=== PATIENT | female | born 1945 | race Caucasian/White ===

== ENCOUNTER 2019-05-22 22:50 | Emergency (ER) | payer MEDICARE, OTHER, SELFPAY ==
[2019-05-22 22:58] VITALS: BP 116/70; PULSE 81; RESP 16; TEMP 36.3; O2SAT 96; BMI 26.5
--- NOTE | 2019-05-22 23:14 | ECG_ITS ---
Measurements Intervals [place] Rate: 89 P: 31 PA: 154 QRS: 13 QRSD: 88 T: 21 QT: 343 QTc: 419 SINUS RHYTHM POSSIBLE LEFT ATRIAL ENLARGEMENT [-0.1mV P WAVE IN V1/V2] POSSIBLE LEFT VENTRICULAR HYPERTROPHY [VOLTAGE CRITERIA PLUS LAE OR QRS WIDENING] Compared to ECG 05/02/2019 18:05:31 No significant changes Electronically Signed On 05-23-2019 14:57:46 REHABILITATION WORKER by Judith Fuller M.D. [id number]
[2019-05-23] VITALS (8 sets, daily range): BP systolic 101–124; BP diastolic 64–72; PULSE 74–82; RESP 10–22; O2SAT 16–96
--- NOTE | 2019-05-23 00:41 | XRR_ITS ---
PROCEDURE INFORMATION: Exam: XR Chest, 1 View Exam date and time: 05/23/2019 12:41 AM Age: 74 years old Clinical indication: Shortness of breath; Chest pain; Type not specified TECHNIQUE: Imaging protocol: XR of the chest Views: 1 view. COMPARISON: CR Chest 1 [place] [id number] 2019-04-30 08:04 FINDINGS: Lungs: No focal airspace consolidation. COPD. Pleural space: Unremarkable. No pleural effusion. No pneumothorax. Heart/Mediastinum: Unremarkable. No cardiomegaly. Bones/joints: Unremarkable. XR/XR chest 1V portable [id number] IMPRESSION: No focal airspace consolidation.
[2019-05-23 01:12] LABS: Basophils % 0.3 %; Eosinophils # 0.1 10^3/uL (0.0-0.8); Eosinophils % 1.6 %; Hematocrit 40.1 % (37.0-47.0); Hemoglobin 12.5 g/dL (11.5-15.3); Lymphocytes # 3.2 10^3/uL (0.8-4.8); Lymphocytes % 42.3 %; Mean Corpuscular HGB Conc 31.2 g/dL (30.0-36.0); Mean Corpuscular Hemoglobin 28.7 pg (28.0-34.0); Mean Platelet Volume 10.8 fL (7.4-10.4); Monocytes # 0.8 10^3/uL (0.2-0.9); Monocytes % 9.9 %; Neutrophils # 3.4 10^3/uL (1.8-7.7); Neutrophils % 45.2 %; Nucleated Red Blood Cells % 0 %; Platelet Count 424 10^3/cmm (130-400); Red Blood Count 4.36 10^6/uL (4.1-5.3); Red Cell Distribution Width 14.2 % (12.1-15.1); White Blood Count 7.6 10^3/uL (4.0-10.0)
[2019-05-23 01:22] LABS: Alanine Aminotransferase 21 U/L (0-33); Albumin Level 4.4 g/dL (3.5-5.2); Alkaline Phosphatase 111 IU/L (35-105); Anion Gap 17.4 (5-19); Aspartate Amino Transferase 20 U/L (0-32); Blood Urea Nitrogen 36 mg/dL (8-23); Calcium 10.4 mg/Dl (8.8-10.2); Carbon Dioxide 26 mmol/L (22-29); Chloride 98 mmol/L (98-107); Globulin 3.6 g/dL (1.3-4.6); Glucose 122 mg/dL (74-106); Potassium 4.4 mmol/L (3.5-5.1); Sodium 137 mmol/L (136-145); Total Bilirubin 0.2 mg/dL (0.15-1.2)
[2019-05-23 01:24] LABS: Troponin(5th) Baseline 10 ng/mL (0-10)
--- NOTE | 2019-05-23 01:44 | W.ED.CHESTPA ---
HPI - Chest Pain General: Chief Complaint: Chest Pain Stated Complaint: BACK/JAWS PAIN, DIZZY Time Seen by Provider: 05/23/19 01:44 Source: patient Mode of arrival: ambulatory Limitations: no limitations History of Present Illness: HPI narrative: Patient is a 74-year-old female who presents to ED today with complaints of chest pains; patient tells me she was recently admitted to the hospital in April where she was told that she had 4 leaky valves ; patient tells me she recently followed up with Dr. Dobbins who placed her on potassium, dasix, and isosorbide; she states she took all of these medications for the first time today and then laid down on the couch for a nap; patient tells me shortly after she woke up with severe chest pains that radiated up into bilateral jaws; states she felt nauseous and dizzy; patient reports her symptoms have improved upon arrival MD complaint: chest pain Onset (ago): hour(s) Prior episodes: No Onset: during rest Pain location: substernal Pain radiation: jaw/teeth Relieving factors: nothing Exacerbating factors: nothing Associated symptoms: Reports dyspnea (chronic for patient) and nausea; Deny abdominal pain, fever(s), palpitations, syncope or vomiting Treatment prior to arrival: none Related Data: On Oral Contraceptives: No Review of Systems Const: Denies: fever or chills Eyes: Denies: change in vision or blurry vision Card: Reports: chest pain; Denies: palpitations, irregular heart rhythm, lightheadedness, syncope or shortness of breath on exertion Resp: Reports: shortness of breath (chronic for patient); Denies: productive cough or pain on inspiration GI: Reports: nausea; Denies: abdominal pain, vomiting or diarrhea : Denies: painful urination Musc: Denies: neck pain, back pain or joint pain Skin/Breast: Denies: rash PFSH ED PFSH: Statuses (acute, chronic, etc) shown below reflect problem list status as previously entered and may not be historically accurate Medical History Cataract (Acute) DVT (deep venous thrombosis) (Acute) Hyperlipidemia (Acute) Mitral valve regurgitation (Acute) Rheumatoid arthritis (Acute) Surgical History H/O: hysterectomy (Acute) Social History Smoking and tobacco status: never smoked Second hand smoke exposure: No Alcohol intake: never Physical Exam Const: COMMON NORMALS: no apparent distress, oriented x3 and alert GENERAL APPEARANCE: cooperative HENMT: COMMON NORMALS: normocephalic and head/scalp atraumatic HEAD & SCALP: normal to inspection, normocephalic and atraumatic MOUTH: oral and palatal mucosa normal THROAT: posterior oropharynx normal, tonsils normal and uvula midline Eye: COMMON NORMALS: PERRL and EOMs intact bilaterally PUPIL: Yes PERRL Neck/C-Spine: COMMON NORMALS: full ROM, no lymphadenopathy, supple and no meningeal signs Resp: COMMON NORMALS: normal respiratory effort, no retractions, no use of accessory muscles and clear to auscultation bilaterally AUSCULTATION: clear to auscultation bilaterally Cardio: COMMON NORMALS: regular rate and regular rhythm RATE: regular rate RHYTHM: regular rhythm GI: COMMON NORMALS: normal to inspection, nondistended, normoactive bowel sounds, soft to palpation, non-tender, no hepatosplenomegaly and no masses PALPATION: Yes soft and Yes no hepatosplenomegaly Neuro: COMMON NORMALS: oriented x3 SENSORIUM/ORIENTATION: Yes alert MENINGEAL SIGNS: Yes no meningeal signs Course Vital Signs: Vital signs: Vital Signs Temperature 97.4 F L 05/22/19 22:58 Pulse Rate 75 05/23/19 03:41 Respiratory Rate 16 05/23/19 03:41 Blood Pressure 101/64 05/23/19 03:41 Pulse Oximetry 16 L 05/23/19 03:41 MDM - Chest Pain MDM Narrative: Medical decision making narrative: looked through previous hospitalization records-had chest wall pain throughout her stay; her CXR, EKG x 2 here, and trop/repeat trop were negative; echo while in hospital showed EF of 55%; heart score today is 3; spoke to Dr. Solis who too feels pt is stable for DC with follow up with either Dr. Mendiola or her PCP Lab Data: Labs: Lab Results 05/23/19 05/23/19 05/23/19 Range/Units 00:44 00:44 00:44 WBC 7.6 (4.0-10.0) 10^3/ uL RBC 4.36 (4.1-5.3) 10^6/u L Hgb 12.5 (11.5-15.3) g/dL Hct 40.1 (37.0-47.0) % MCV 92.0 (81-99) fL MCH 28.7 (28.0-34.0) pg MCHC 31.2 (30.0-36.0) g/dL RDW 14.2 (12.1-15.1) % Plt Count 424 H (130-400) 10^3/c mm MPV 10.8 H (7.4-10.4) fL Neut % (Auto) 45.2 % Lymph % (Auto) 42.3 % [place] % (Auto) 9.9 % Eos % (Auto) 1.6 % Baso % (Auto) 0.3 % Neut # (Auto) 3.4 (1.8-7.7) 10^3/u L Lymph # (Auto) 3.2 (0.8-4.8) 10^3/u L [place] # (Auto) 0.8 (0.2-0.9) 10^3/u L Eos # (Auto) 0.1 (0.0-0.8) 10^3/u L Baso # (Auto) 0.0 (0.0-0.1) 10^3/u L Nucleated RBC % (a uto) 0 % Nucleated RBCs # 0.0 /100WBC Sodium 137 (136-145) mmol/L Potassium 4.4 (3.5-5.1) mmol/L Chloride 98 (98-107) mmol/L Carbon Dioxide 26 (22-29) mmol/L Anion Gap 17.4 (5-19) BUN 36 H (8-23) mg/dL Creatinine 1.0 H (0.5-0.9) mg/dL Glucose 122 H (74-106) mg/dL Calcium 10.4 H (8.8-10.2) mg/Dl Total Bilirubin 0.2 (0.15-1.2) mg/dL AST 20 (0-32) U/L ALT 21 (0-33) U/L Alkaline Phosphata se 111 H (35-105) IU/L Troponin T Baselin e 10 (0-10) ng/mL Troponin T 120 Min [place] (0-10) ng/mL Delta Troponin T (0-10) ABS# Total Protein 8.0 (6.6-8.7) g/dL Albumin 4.4 (3.5-5.2) g/dL Globulin 3.6 (1.3-4.6) g/dL 05/23/19 Range/Units 02:32 WBC (4.0-10.0) 10^3/ uL RBC (4.1-5.3) 10^6/u L Hgb (11.5-15.3) g/dL Hct (37.0-47.0) % MCV (81-99) fL MCH (28.0-34.0) pg MCHC (30.0-36.0) g/dL RDW (12.1-15.1) % Plt Count (130-400) 10^3/c mm MPV (7.4-10.4) fL Neut % (Auto) % Lymph % (Auto) % [place] % (Auto) % Eos % (Auto) % Baso % (Auto) % Neut # (Auto) (1.8-7.7) 10^3/u L Lymph # (Auto) (0.8-4.8) 10^3/u L [place] # (Auto) (0.2-0.9) 10^3/u L Eos # (Auto) (0.0-0.8) 10^3/u L Baso # (Auto) (0.0-0.1) 10^3/u L Nucleated RBC % (a uto) % Nucleated RBCs # /100WBC Sodium (136-145) mmol/L Potassium (3.5-5.1) mmol/L Chloride (98-107) mmol/L Carbon Dioxide (22-29) mmol/L Anion Gap (5-19) BUN (8-23) mg/dL Creatinine (0.5-0.9) mg/dL Glucose (74-106) mg/dL Calcium (8.8-10.2) mg/Dl Total Bilirubin (0.15-1.2) mg/dL AST (0-32) U/L ALT (0-33) U/L Alkaline Phosphata se (35-105) IU/L Troponin T Baselin e (0-10) ng/mL Troponin T 120 Min [place] 9.42 (0-10) ng/mL Delta Troponin T -0.58 L (0-10) ABS# Total Protein (6.6-8.7) g/dL Albumin (3.5-5.2) g/dL Globulin (1.3-4.6) g/dL Imaging Data^: CXR: Radiologist's impression: [address] [address] XRay Report Signed Patient: Sussy Solorzano MR#: [id number] : 1945 Acct:[id number] Age/Sex: 74 / F ADM Date: 05/22/19 Loc: ER Attending Dr: Ordering Physician: Mariana Flores Date of Service: 05/23/19 Procedure(s): XR chest 1V portable [id number] Accession Number(s): [id number] cc: Mariana Flores PROCEDURE INFORMATION: Exam: XR Chest, 1 View Exam date and time: 05/23/2019 12:41 AM Age: 74 years old Clinical indication: Shortness of breath; Chest pain; Type not specified TECHNIQUE: Imaging protocol: XR of the chest Views: 1 view. COMPARISON: CR Chest 1 [place] [id number] 2019-04-30 08:04 FINDINGS: Lungs: No focal airspace consolidation. COPD. Pleural space: Unremarkable. No pleural effusion. No pneumothorax. Heart/Mediastinum: Unremarkable. No cardiomegaly. Bones/joints: Unremarkable. XR/XR chest 1V portable [id number] IMPRESSION: No focal airspace consolidation. Dictated By: Roverto Snell MD 05/23/19 0321 Signed By: Roverto Snell MD 05/23/19 0322 EKG Data^: EKG 1: EKG interpretation date: 05/22/19 EKG interpretation time: 23:11 Prior EKG tracings: available for review Computer generated interpretation: Sinus rhythm Possible left atrial enlargement Possible left ventricular hypertrophy EKG 2: EKG interpretation date: 05/23/19 EKG interpretation time: 02:43 Prior EKG tracings: available for review Interpretation: no acute changes from previous on same day Discharge Plan Discharge Patient Disposition: Home, Self-Care Clinical Impression: Atypical chest pain Condition: Stable Prescriptions: No Action cetirizine 10 mg capsule 10 mg PO DAILY RF: 0 fluticasone propionate 50 mcg/actuation blister with device 1 inh INHALATION DIRECTED RF: 0 omeprazole 40 mg capsule,delayed release(DR/EC) 40 mg PO DAILY RF: 0 acetaminophen [Tylenol] 325 mg tablet 650 mg PO DIRECTED PRN (Reason: pain) RF: 0 ascorbate calcium (vitamin C) 500 mg tablet 1 gm PO DAILY RF: 0 cholecalciferol (vitamin D3) 1,000 unit capsule 1,000 unit PO ONCE RF: 0 Xarelto 20 mg tablet 20 mg PO ONCE RF: 0 simvastatin 40 mg tablet See Rx Instructions PO DAILY RF: 0 levothyroxine [Synthroid] 75 mcg tablet 75 mcg PO ONCE RF: 0 bisoprolol fumarate 5 mg tablet 5 mg PO ONCE RF: 0 atorvastatin 20 mg tablet 20 mg PO ONCE RF: 0 albuterol sulfate [Ventolin HFA] 90 mcg/actuation HFA aerosol inhaler 2 puff INHALATION Q6H PRN (Reason: sob) RF: 0 fluticasone propionate [Allergy Relief (fluticasone)] 50 mcg/actuation spray,suspension 1 spray INTRANASAL BID PRN (Reason: allergy symptoms) RF: 0 Prolia 60 mg/mL syringe 60 mg SUBCUT ONCE RF: 0 Discharge Orders: Discharge Order (Routine); Ordered 05/23/19 Ordered By: Mariana Flores Referrals: Wander Bolton MD [Primary Care Provider] - Activity Restrictions/Additional Instructions: Follow up with Dr. Bolton next week for re-evaluation Discharge Date/Time: 05/23/19 03:48 Coding Level of Care Code ED Credentialing Coordinator for Chg Fwd Exam Problem Focused
[2019-05-23 03:04] LABS: Troponin 5 2HR 9.42 ng/mL (0-10)
[2019-05-23 03:08] LABS: Troponin 5 2HR Delta -0.58 ABS# (0-10)
--- NOTE | 2019-05-23 06:41 | ECG_ITS ---
Measurements Intervals [place] Rate: 74 P: 30 MS: 159 QRS: 12 QRSD: 90 T: 16 QT: 375 QTc: 418 SINUS RHYTHM MODERATE VOLTAGE CRITERIA FOR LVH, CONSIDER NORMAL VARIANT [MEETS CRITERIA IN ONE OF: R(aVL), S(V1), R(V5), R(V5/V6)+S(V1)] Compared to ECG 05/02/2019 18:05:31 No significant changes Electronically Signed On 05-23-2019 15:02:04 NURSE OFFICE by Judith Fuller M.D. [id number]
== END 2019-05-23 03:48 | disposition home or self-care (01) ==
PROVIDERS: Emergency Provider Physician Assistant; Family Provider Family Medicine; PCP Family Medicine
DX: R07.89 Other chest pain (principal); E78.5 Hyperlipidemia, unspecified; M06.9 Rheumatoid arthritis, unspecified
CPT/HCPCS: 71045; 80053; 84484; 85025; 93005; 99283

== ENCOUNTER 2019-06-10 07:25 | Outpatient (CLI) | payer MEDICARE, OTHER, SELFPAY ==
--- NOTE | 2019-06-10 07:53 | ECG_ITS ---
NAME OF STUDY: LEXISCAN SESTAMIBI STRESS TEST INDICATION: Chest Pain, NOTE: Please note that this is the electrocardiogram portion of the Lexiscan/Sestamibi stress test. The perfusion scan will be documented separately. DATA: Baseline heart rate was 66 beats per minute. Baseline blood pressure was 144/74 millimeters of mercury. Target heart rate was 148. Maximum heart rate achieved was 131. which was 88 % of the predicted target heart rate. Maximum blood pressure was 165/91 millimeters of mercury. The reason for ending the test was completion of the protocol. The patient did not experience any symptoms. ELECTROCARDIOGRAM: BASELINE: Sinus rhythm. Normal axis. Nonspecific ST-T changes in the anterior leads. No arrhythmia noted. EXERCISE: After Lexiscan injection moderate ST depression in the inferolateral leads noted . No arrhythmia noted. CONCLUSION: Please note due to baseline abnormality of the EKG specificity and sensitivity of the EKG portion of LexiScan MIBI stress test will be low 1. EKG is suggestive of ischemia 2. Lexiscan injection unremarkable. 3. Perfusion scan will be documented separately. Electronically Signed On 06-12-2019 15:27:19 MS SQL SERVER DEVELOPER by Bony Mendiola M.D. [id number]
--- NOTE | 2019-06-10 07:54 | NMCV_ITS ---
NM morelia perf SPECT r/s* [id number] Sussy Solorzano Age: 74 Gender: F : 1945 Exam Date: 06/10/2019 08:35 Ordering Phys: Wnader Bolton MD Technologist: AMBER Blair Exam Location: [facility] Indications: Mitral Valve Regurgitation STRESS TEST Please see separate stress test report in [facility] for full findings IMAGE PROTOCOL Rest/Stress 1 Lexiscan Day Radiopharmaceutical Dose (mCi) Administration Site Administered by Rest: Tc-99m 10.6 IV AMBER Blair Sestamibi Stress:Tc-99m 32.8 IV AMBER Fu Sestamibi Rest: 10-Jun-2019 60 Discovery 630 Stress: 10-Jun-2019 60 Discovery 630 0.4mg Lexiscan. Images obtained in supine and prone position. Patient was scanned 3 times for the Rest portion. all 45 minutes apart. The patient has servere opioidal constapation. After the first set of images she drank another full cup of H2O and walked for 1/2 hour. then scanned again. Walked another 45 mins and scanned a third time. Bile activity just wouldn't move. [facility] SPECT RESULTS Technical Quality: Good Raw Data Analysis: Normal Image Corrections: No attenuation or motion correction applied Summed Stress Score: 0 Summed Rest Score: 0 Summed Difference Score: 0 PERFUSION FINDINGS Small area of slightly decreased tracer uptake was noted in the apical anterior wall region with the supine imaging. However with the prone imaging, there is fairly uniform myocardial tracer uptake FUNCTIONAL RESULTS (calculated via Gated SPECT) Stress Image LV EF (%): 75 Stress EDV (mL):60 TID: 0.87 Stress ESV (mL):15 FUNCTIONAL FINDINGS: Segmental wall motion analysis revealing no gross wall motion abnormalities IMPRESSIONS 1. Unremarkable myocardial perfusion imaging 2. Segmental wall motion analysis revealing no gross wall motion abnormalities 3. Normal LV ejection fraction 75%. 4. Normal LV volume. No significant coronary ischemia, based on the above findings. Apparently the patient had some ischemic EKG changes with the Lexiscan infusion. She carries a higher cardiovascular risk, based on this finding. Consider further cardiac work-up, if clinically indicated Dr Nicole Lin MD FACC (Electronically Signed) Final Date: 10 June 2019 18:30 S
[2019-06-10 07:57] VITALS: BMI 27.1
[2019-06-10] MEDS: regadenoson 0.4 Mg/5 ml Syringe IVP (11:10)
[2019-06-10 11:12] VITALS: BP 151/85; PULSE 100
[2019-06-10] MEDS: ondansetron 2 mg/ML SDV 2 mL 4 MG IVP (11:17)
== END 2019-06-10 07:26 | disposition home or self-care (01) ==
LOC: RAD 07:26
PROVIDERS: Family Provider Family Medicine; PCP Family Medicine; Visit Provider Internal Medicine
DX: I34.0 Nonrheumatic mitral (valve) insufficiency (principal)
CPT/HCPCS: 78452; 93017; 96374; A9500; J2405; J2785

== ENCOUNTER → 2019-06-11 13:19 | Outpatient (BNVA) | payer MEDICARE, OTHER, SELFPAY | PROVIDERS: Family Provider Family Medicine; PCP Family Medicine; Referring Provider Internal Medicine Medical Oncology; Visit Provider Internal Medicine Rheumatology | DX: M19.041 Primary osteoarthritis, right hand (principal); M19.042 Primary osteoarthritis, left hand; M81.0 Age-related osteoporosis without current pathological fracture; I82.509 Chronic embolism and thrombosis of unspecified deep veins of unspecified lower extremity | CPT/HCPCS: 99203 ==

== ENCOUNTER 2019-06-30 11:04 | Observation (INO) | payer MEDICARE, OTHER, SELFPAY ==
[2019-06-29 12:32] VITALS: BMI 27.1
[2019-06-30] VITALS (32 sets, daily range): BP systolic 105–169; BP diastolic 60–84; PULSE 61–105; RESP 12–23; TEMP 36.6–36.8; O2SAT 93–100
--- NOTE | 2019-06-30 06:00 | XACV_ITS ---
Ht: 152 cm Wt: 63 kg BSA: 1.65 m2 Gender: Female : 1945 Any Known Allergies: Other Exam Priority: Routine Procedure(s): Procedure Description: Diagnostic procedure Procedure Description: PCI procedure Procedure Description: PTCA Procedure Description: Miscellaneous Procedure Description: ACT Procedure Description: Coronary Angiography Diagnostic Cath Status: Elective Diagnostic Findings LM has 0% stenosis. CX has 0% stenosis. mLAD: Mild 20% stenosis, MARCEL: 3 flow. dLAD: Mild 40% stenosis, MARCEL: 3 flow. Distal Right Coronary Artery: Severe 80% stenosis, MARCEL: 0 flow. Coronary angiography shows right dominance. PCI Status: Elective PCI Indication: New Onset Angina <= 2 months Interventional Findings Distal Right Coronary Artery: 80% stenosis treated with AB TREK 2.75X12 RX BALLOON. 20% residual stenosis, MARCEL: 3 flow. Conclusions There is severe coronary artery disease with two vessel disease. Distal Right Coronary Artery was treated with Balloon. Recommendations 1-Return to inpatient for close monitoring and routine cath care2-Risk factor modification for secondary prevention3-Statin and aspirin 81 mg life-long, if tolerated4-Patient was pre-loaded with 300 mg of Plavix, continue Plavix 75mg p.o. daily for one month. We will assess at the end of one year again to continue if further or not5-Continue optimal medical management6-Follow up with Dr. Mendiola in four weeks and your primary care in 10 days. Diagnostic RX Recommendation: PCI w/o planned CABG Pressures Phase:Rest AO : 94 mmHg / 53 mmHg ( 71 mmHg ) @ 1:42:00 AM 96 mmHg / 52 mmHg ( 73 mmHg ) @ 1:44:00 AM 127 mmHg / 80 mmHg ( 103 mmHg ) @ 1:50:00 AM 128 mmHg / 75 mmHg ( 99 mmHg ) @ 2:05:00 AM Clinical Evaluation EBL: 5mL-10mL Procedural Details Pre-Procedure Time Out. Identified patient by full name and date of as verbalized by the patient/guarantor. Does the consent match the physician's order: Yes. Accurate & Complete Informed Consent: Yes. Inpatient/Outpatient History & Physical on Chart: Yes. If H&P is completed, is and addenduem needed: No; If yes, is the addendum complete: N/A. Visualize and Verify Site with Patient/Guarantor: N/A. Relevant Radiology Images available: N/A. Pre-op teaching completed and patient verbalized understanding. The risks, benefits, and alternatives of sedation and/or procedure were discussed by physician. The patient agrees to continue. Procedure started. Correct patient, site and procedure confirmed by cath team. PERRLA. Strong, equal hand home health care respiratory therapist bilaterally. Lungs clear x 5 lobes. IV Site on Arrival: 18 gauge in the left anticubital. IV Fluids: 0.9% NaCl at KVO. 0 mL infused prior to roving tester laboratory. Pre Procedural Pulses: bilateral dorsalis pedis was 2+. Pre Procedural Pulses: bilateral posterior tibial was Doppled. Pre Procedural Pulses: bilateral radial was 3+. Oxygen started at 2liters/min via nasal canula. bilateral groins was prepped with chloroprep then draped in the usual sterile fashion. Baseline sample Acquired. HR: 63 BPM. Physician arrived. Equipment: 6F - Radial. Cardiac Cath Pack. ACIST Manifold Kit Model BT 2000. Heparinized Saline (2 units/mL), 1000 mL bag. Physician scrubbed in. Immediate Pre-Procedure Time Out. Correct Patient: Yes; Correct Procedure: Yes; Correct Site: Yes; Correct Patient Position: Yes; Correct Supplies: Yes; Dried Flammable Prep: Yes; Blood Products Available: N/A;. Lidocaine 1% infiltrated to the right radial. Arterial access obtained. A 5 romanian TIG catheter in over wire. Multiple views taken of left coronary artery. Patient's family updated. Catheter redirected to the RCA. Catheter removed over the exchange wire. A CRD 5F JR4 Diagnostic Catheter was advanced over the wire and used for Right coronary angiography. Multiple views taken of right coronary artery. Inventory is [employer] Francine XT .014 190cm Str[address] Guidewire. 6 romanian JR 3.5 guide catheter was inserted over the wire. [place] guidewire was advanced through the guide catheter to lesion in the distal RCA. Inflation number : 1 A AB TREK 2.75X12 RX BALLOON was prepped and advanced across the Dist RCA , then inflated to 8 ALBA for 0:09 seconds. Inflation number: 2 The AB TREK 2.75X12 RX BALLOON was reinflated across the Dist RCA, to 10 ALBA for 0:12 seconds. Results checked. Balloon and wire out. Guide catheter out. ACT drawn. Results 217 seconds. Therapeutic limits - pre-heparin administration 90-150 seconds and monitoring heparin during a vascular procedure >250 seconds. Physician scrubbed out. A TR Band was successful obtaining hemostatsis at the Right Radial artery insertion site. TR band placed. Hemostasis obtained. Post Procedure: Pulses reassessed and unchanged. PERRLA. Strong, equal hand home health care respiratory therapist bilaterally. No VTE prophylaxis required. Total IV fluids: 120 mL. Medication's Wasted: Nitro = 49.6 mg. Contrast type used: Omnipaque 300 mgI/mL, 500 mL bottle. Complications: none. Medication's Wasted: Heparin = 3000 units. Medication's Wasted: Other = versed 1 mg. Medication's Wasted: Other = fentanyl 50 mcg. Medication's Wasted: Lidocaine 1% = 18 mL. Medication's Wasted: Other = aggrastat 218 mL. PCI Indication: New Onset Angina. Estimated blood loss: 5mL-10mL. Procedure completed. Patient transferred by wheelchair to CPRU. Vital chart was stopped. [facility] Clinical Fraility Score: 4: Vulnerable. Thread Grinder Indications: New Onset Angina. Chest Pain Symptom Assessment: Typical Angina Symptoms. Cardiovascular Instability: No. Site: Right Radial artery Sheath Size: 6 Fr Hemostasis Method: TR Band Hemostasis Success: Successful Procedure Medications Start: 7:25 AM Stop: 7:25 AM Medication: Versed Amount: 1 mg Route: I.V. Start: 7:25 AM Stop: 7:25 AM Medication: Fentanyl Amount: 25 mcg Route: I.V. Start: 7:36 AM Stop: 7:36 AM Medication: Versed Amount: 1 mg Route: I.V. Start: 7:38 AM Stop: 7:38 AM Medication: Nitrogylcerin Amount: 200 mcg Route: I.A. Start: 7:42 AM Stop: 7:42 AM Medication: Heparin Amount: 5000 units Route: I.V. Start: 8:00 AM Stop: 8:00 AM Medication: Heparin Amount: 3000 units Route: I.V. Start: 8:10 AM Stop: 8:10 AM Medication: Aggrastat 12.5 mg/250 mL Amount: 32 ml Route: I.V. bolus Start: 8:14 AM Stop: 8:14 AM Medication: Nitrogylcerin Amount: 200 mcg Route: I.C. Start: 8:22 AM Stop: 8:22 AM Medication: Plavix Amount: 300 mg Route: P.O. Start: 7:58 AM Stop: 7:58 AM Medication: Versed Amount: 1 mg Route: I.V. Start: 7:58 AM Stop: 7:58 AM Medication: Fentanyl Amount: 25 mcg Route: I.V. I, the attending physician, have reviewed and verified all procedure medications. Yes, all medications given per verbal order History/Risk Factors Hypertension: Yes Dyslipidemia: Yes Peripheral Arterial Disease (PAD): No Myocardial Infarction (CO): No Obesity: No Renal Disease: No Tobacco Use: Never Prior Interventions PCI: No CABG: No Valve Surgery: No Report Signatures Finalized by:Bony Mendiola MD on 07/12/2019 7:11:21 PM
[2019-06-30] MEDS: diphenhydrAMINE 50 mg Capsule PO (06:15)
[2019-06-30 06:40] LABS: Basophils % 0.6 %; Eosinophils # 0.1 10^3/uL (0.0-0.8); Eosinophils % 1.3 %; Hematocrit 38.5 % (37.0-47.0); Hemoglobin 12.2 g/dL (11.5-15.3); Lymphocytes # 3.5 10^3/uL (0.8-4.8); Lymphocytes % 54.8 %; Mean Corpuscular HGB Conc 31.7 g/dL (30.0-36.0); Mean Corpuscular Hemoglobin 28.8 pg (28.0-34.0); Mean Corpuscular Volume 90.8 fL (81-99); Mean Platelet Volume 10.3 fL (7.4-10.4); Monocytes # 0.7 10^3/uL (0.2-0.9); Neutrophils # 2.1 10^3/uL (1.8-7.7); Nucleated Red Blood Cells % 0 %; Platelet Count 348 10^3/cmm (130-400); Red Blood Count 4.24 10^6/uL (4.1-5.3); Red Cell Distribution Width 14.8 % (12.1-15.1); White Blood Count 6.4 10^3/uL (4.0-10.0)
[2019-06-30 06:52] LABS: INR 0.98 (0.8-1.2)
[2019-06-30 07:00] LABS: Blood Urea Nitrogen 21 mg/dL (8-23); Calcium 9.6 mg/dL (8.5-10.5); Carbon Dioxide 27 mmol/L (22-29); Chloride 105 mmol/L (98-107); Glucose 100 mg/dL (65-115); Osmolality Calculated 297 mOsm/kg (285-295); Sodium 145 mmol/L (136-145)
--- NOTE | 2019-06-30 09:30 | PC.NURSE ---
DR NORIEGA AT BEDSIDE
--- NOTE | 2019-06-30 09:30 | PC.NURSE ---
TR BAND REMOVAL LETTING THE AIR OUT OF THE TR BAND PER PROTOCOL.
--- NOTE | 2019-06-30 09:56 | PC.NURSE ---
Addendum entered by Samantha Cordova RN 06/30/19 09:59: 06/30/2019 0830 Original Note: BACK FROM CONTESTANT COORDINATOR RECEIVED THE PATIENT BACK FROM THE CONTESTANT COORDINATOR VIA WHEELCHAIR. SHE AMBULATED TO THE BED WITHOUT DIFFICULTLY. DROWSY, BUT AWAKENS VERY EASILY. PRODUCT ASSURANCE ENGINEER PLACED AND VITAL SIGNS OBTAINED. TR BAND INTACT TO THE RIGHT RADIAL. PALPABLE RADIAL PULSE. NO BLEEDING OR HEMATOMA NOTED. NO OTHER ASSESSMENT CHANGED NOTED SINCE PRE CATH ASSESSMENT. SPOUSE AT BEDSIDE. WAITNG FOR ICU OVER FLOW BED.
[2019-06-30] MEDS: aspirin 325 mg EC Tablet PO (10:07)
[2019-06-30] MEDS: acetaminophen 325 mg Tablet PO (19:33)
[2019-06-30] MEDS: atorvastatin 40 mg Tablet 20 MG PO (20:39)
[2019-07-01 04:12] VITALS: BP 133/66; PULSE 67; RESP 14; TEMP 36.4; O2SAT 96
[2019-07-01 05:04] LABS: Basophils % 0.3 %; Eosinophils # 0.1 10^3/uL (0.0-0.8); Eosinophils % 2.1 %; Hematocrit 38.4 % (37.0-47.0); Hemoglobin 12.5 g/dL (11.5-15.3); Lymphocytes # 2.9 10^3/uL (0.8-4.8); Lymphocytes % 45.6 %; Mean Corpuscular HGB Conc 32.6 g/dL (30.0-36.0); Mean Corpuscular Hemoglobin 29.8 pg (28.0-34.0); Mean Corpuscular Volume 91.4 fL (81-99); Mean Platelet Volume 10.6 fL (7.4-10.4); Monocytes # 0.8 10^3/uL (0.2-0.9); Neutrophils # 2.5 10^3/uL (1.8-7.7); Neutrophils % 39.7 %; Nucleated Red Blood Cells % 0 %; Platelet Count 342 10^3/cmm (130-400); Red Cell Distribution Width 14.9 % (12.1-15.1); White Blood Count 6.3 10^3/uL (4.0-10.0)
[2019-07-01 05:29] LABS: Anion Gap 15.2 (5-19); Blood Urea Nitrogen 18 mg/dL (8-23); Calcium 9.7 mg/dL (8.5-10.5); Carbon Dioxide 25 mmol/L (22-29); Chloride 103 mmol/L (98-107); Glucose 92 mg/dL (65-115); Osmolality Calculated 284 mOsm/kg (285-295); Potassium 4.2 mmol/L (3.5-5.1); Sodium 139 mmol/L (136-145)
[2019-07-01 07:23] VITALS: BP 140/81; PULSE 88; RESP 17; TEMP 36.3; O2SAT 95
[2019-07-01] MEDS: rivaroxaban 10 mg Tablet 20 MG PO (08:03)
[2019-07-01] MEDS: levothyroxine 150 mcg Tablet 75 MCG PO (08:03)
[2019-07-01 08:24] VITALS: PULSE 80; RESP 16; O2SAT 95
[2019-07-01 08:31] VITALS: BP 140/81; PULSE 80; RESP 16; TEMP 36.3; O2SAT 95
--- NOTE | 2019-07-01 09:02 | PM.SDS ---
Short Stay Summary Providers Date of Admit/Discharge: 07/12/19 Attending Provider: Bony Mendiola MD Primary Care Provider: Wander Bolton MD HPI History of Present Illness Sussy Solorzano is a 74 year old female Past medical history significant for hypertension hyperlipidemia DVT was struggling with worsening of shortness of breath and recurrent chest pain despite of medical management. She claims allergy to isosorbide mononitrate (Racing of heart) and also reports headache with Plavix which she took in the past underwent stress test for reported symptoms of chest pain and shortness of breath. Significant ST depression after the inferolateral leads were noted in the first minute of injection from Lexiscan which did not recovered until 8 minutes. Patient reported chest pain with it. Isosorbide mononitrate was again prescribed. She went back to ER with chest pain and fluttering sensation. It is the reason she came in for coronary angiogram. Patient is on Xarelto for DVT. She is high risk for bleeding. Coronary angiogram revealed 75% distal RCA stenosis. It was treated with balloon angioplasty only using good result. I have started her on clopidogrel so far she did not report any headaches. She is not a suitable candidate for Effient and Brilinta in the presence of NOAC. My plan to continue clopidogrel and Xarelto for 1 month followed by regular use of Xarelto only. We will add 81 mg of aspirin after 1 month post procedure patient is doing fine from cardiovascular perspective. Denies any symptoms. Overnight there was no complication. Right wrist looks good mild bruising no hematoma. We will discharge her. She will be following up with us in the clinic and primary care physician on regular basis. Review of Systems Const: Denies: fever, chills or body aches Card: Reports: chest pain Resp: Reports: shortness of breath GI: Denies: abdominal pain or nausea Neuro: Denies: headache or numbness in extremities Home Meds/Allergies Home Medications and Allergies Home Medications Medication Instructions Recorded Confirmed Type acetaminophen 325 mg tablet 650 mg PO DIRECTED PRN tab 05/19/19 07/08/19 History cetirizine 10 mg capsule 10 mg PO DAILY cap 05/19/19 07/08/19 History cholecalciferol (vitamin D3) 25 1,000 unit PO DAILY 05/19/19 07/08/19 History mcg (1,000 unit) capsule fluticasone propionate 50 1 inh INHALATION DAILY PRN each 05/19/19 07/08/19 History mcg/actuation blister powder for inhalation omeprazole 40 mg capsule,delayed 40 mg PO DAILY cap 05/19/19 07/08/19 History release rivaroxaban 20 mg tablet 20 mg PO DAILY 05/19/19 07/08/19 History albuterol sulfate 90 mcg/actuation 2 puff INHALATION Q6H PRN 05/21/19 07/08/19 History aerosol inhaler atorvastatin 20 mg tablet 20 mg PO ONCE 05/21/19 07/08/19 History denosumab 60 mg/mL subcutaneous 60 mg SUBCUT ONCE 05/21/19 07/08/19 History syringe levothyroxine 75 mcg tablet 75 mcg PO DAILY 05/21/19 07/08/19 History DICLOFENAC 1% See Rx Instructions .ROUTE 06/29/19 07/08/19 History .COMPLEX PRN bisoprolol fumarate 7.5 mg PO DAILY 06/29/19 07/08/19 History Allergies Allergy/AdvReac Type Severity Reaction Status Date / Time isosorbide Allergy Severe Burning in Verified 06/30/19 06:57 chest; Dizzy; Nauseous; Pain in jaws clopidogrel [From Plavix] Allergy ADR-Headach Verified 06/30/19 06:57 e latex Allergy ALGY-Rash Verified 06/30/19 06:57 PFSH Acute PFSH: Statuses (acute, chronic, etc) shown below reflect problem list status as previously entered and may not be historically accurate Medical History Cataract (Acute) Chest pain (Acute) DVT (deep venous thrombosis) (Acute) Hyperlipidemia (Acute) Hypertension (Acute) Osteoarthritis of hands, bilateral (Acute) Osteoporosis (Acute) Rheumatoid arthritis (Acute) Shortness of breath (Acute) Tricuspid valve disorders, non-rheumatic (Acute) Surgical History H/O: hysterectomy (Acute) Family History Other CAD (coronary artery disease) Cancer Diabetes Family history of premature coronary artery disease Social History Smoking and tobacco status: never smoked Second hand smoke exposure: No Alcohol intake: never History of recent travel: No Vitals/I&O/Wt Last Vital Signs Temp 97.3 F L 07/01/19 08:31 Pulse 80 07/01/19 08:31 Resp 16 07/01/19 08:31 BP 140/81 07/01/19 08:31 Pulse Ox 95 07/01/19 08:31 06/30/19 07/01/19 07/01/19 22:59 06:59 14:59 Intake Total 600 / 600 240 / 840 200 / 200 Balance 600 / 600 240 / 840 200 / 200 Weight last 48 hrs Weight 139 lb Physical Exam Narrative: EXAM NARRATIVE: GENERAL: Patient is alert, awake and oriented x3. NECK: No jugular vein distension. HEENT: No cyanosis. No icterus. No pallor. HEART: Regular S1 and S2. No murmur, rub or gallop. LUNGS: Clear to auscultate bilaterally. ABDOMEN: Soft, nontender and nondistended. Positive bowel sounds. No guarding, rebound or tenderness. CENTRAL NERVOUS SYSTEM: Grossly nonfocal. EXTREMITIES: Lower extremities without edema bilaterally. Hospital Course Admission Diagnoses: Recurrent chest pain despite medical management Abnormal stress test History of DVT Hypertension Hyperlipidemia Arthritis SSS Data Data Completed and Pending: Pending at discharge Category Date Time Status CLINICAL PROGRAMMER request for service Routin e Exams 06/30/19 06:00 Taken Diagnoses at Discharge Discharge Diagnosis (1) Tricuspid valve disorders, non-rheumatic: Status: Acute (2) DVT (deep venous thrombosis): Status: Acute Qualifiers: Chronicity: chronic DVT location: lower extremity Laterality: unspecified laterality Qualified Code(s): I82.509 - Chronic embolism and thrombosis of unspecified deep veins of unspecified lower extremity (3) Osteoporosis: Status: Acute Qualifiers: Osteoporosis type: age-related Presence of current pathological fracture: without current pathological fracture Qualified Code(s): M81.0 - Age-related osteoporosis without current pathological fracture (4) Osteoarthritis of hands, bilateral: Status: Acute Qualifiers: Osteoarthritis type: primary Qualified Code(s): M19.041 - Primary osteoarthritis, right hand; M19.042 - Primary osteoarthritis, left hand (5) Palpitation: Status: Acute (6) Pulmonary hypertension: Status: Acute Other Information Additional DC diagnoses/information: Status post balloon angioplasty of distal RCA for coronary artery disease significant as evident by abnormal stress test and recurrent chest pain Hypertension Hyperlipidemia DVT Arthritis Discharge Plan Discharge Patient Disposition: Home, Self-Care Condition: Stable Prescriptions: Continued cetirizine 10 mg capsule 10 mg PO DAILY RF: 0 fluticasone propionate 50 mcg/actuation blister with device 1 inh INHALATION DAILY PRN (Reason: Shortness Of Breath) RF: 0 omeprazole 40 mg capsule,delayed release(DR/EC) 40 mg PO DAILY RF: 0 acetaminophen [Tylenol] 325 mg tablet 650 mg PO DIRECTED PRN (Reason: pain) RF: 0 cholecalciferol (vitamin D3) 1,000 unit capsule 1,000 unit PO DAILY RF: 0 Xarelto 20 mg tablet 20 mg PO DAILY RF: 0 levothyroxine [Synthroid] 75 mcg tablet 75 mcg PO DAILY RF: 0 atorvastatin 20 mg tablet 20 mg PO ONCE RF: 0 albuterol sulfate [Ventolin HFA] 90 mcg/actuation HFA aerosol inhaler 2 puff INHALATION Q6H PRN (Reason: sob) RF: 0 Prolia 60 mg/mL syringe 60 mg SUBCUT ONCE RF: 0 enoxaparin [Lovenox] 60 mg/0.6 mL syringe 60 mg SUBCUT Q12H Qty: 2 RF: 0 bisoprolol fumarate 5 mg tablet 7.5 mg PO DAILY RF: 0 DICLOFENAC 1% cream See Rx Instructions .Route .COMPLEX PRN (Reason: Pain) RF: 0 No Action aspirin [Josue Aspirin] 325 mg tablet 325 mg PO DAILY Qty: 30 RF: 6 Discharge Orders: Discharge Order (Routine); Ordered 06/30/19 Ordered By: Bony Mendiola Referrals: Jane Rosario FNP [Nurse Practitioner] - 1 week (You have two Follow-up appointments at [facility]. 1. Jane Rosario on July 08 at 1:00pm. 2. Dr. Mendiola on November, at 3:00pm. If, you have any question or need reschedule. Please, call ) Discharge Diet: Cardiac Discharge Activity: Increase activity as tolerated Patient Instructions: Chest Pain - Chest Wall, Chest Pain Stoplight, Post Angiogram Home Care Instructions Activity Restrictions/Additional Instructions: No lifting of more than a gallon of milk for next 2 days. No driving until surgery. Please follow-up with Jane Rosario in 1 week in cardiology clinic. Follow-up with Dr. Mendiola as usual. If you have any question please call Dr. Mendiola's office. Discharge Date/Time: 07/01/19 10:18 Attestations Medical Necessity Statement*: Patient may can be discharged home.Patient stayed overnight post procedure balloon angioplasty to distal RCA for coronary artery disease/abnormal stress test and chest pain Time Spent in Patient Care*: less than 30 min Specific Discharge Activities: Specific discharge activities: educating patient Quality Metrics Clinical Quality Measures: During this hospital stay, did patient experience: None Coding Level of Care Code New Pt Acute Razor Sharpener for Chg Fwd Patient Type New Medical Decision Making Moderate Complexity Diagnoses Tricuspid valve disorders, non-rheumatic I36.9 DVT (deep venous thrombosis) I82.509 Chronicity: chronic DVT location: lower extremity Laterality: unspecified laterality Osteoporosis M81.0 Osteoporosis type: age-related Presence of current pathological fracture: without current pathological fracture Osteoarthritis of hands, bilateral M19.041; M19.042 Osteoarthritis type: primary Palpitation R00.2 Pulmonary hypertension I27.20
--- NOTE | 2019-07-01 09:56 | PC.NURSE ---
PATIENT HAD IV TO LEFT AC, SITE DISCONTINUED. LINE AND SITE ASYMPTOMATIC.
== END 2019-07-01 10:18 | disposition home or self-care (01) ==
LOC: CSU 11:05
PROVIDERS: Admitting Provider Internal Medicine Cardiovascular Disease; Family Provider Family Medicine; PCP Family Medicine; Visit Provider Internal Medicine Cardiovascular Disease
DX: I25.10 Atherosclerotic heart disease of native coronary artery without angina pectoris (principal); I36.9 Nonrheumatic tricuspid valve disorder, unspecified; I82.509 Chronic embolism and thrombosis of unspecified deep veins of unspecified lower extremity; M81.0 Age-related osteoporosis without current pathological fracture; M19.041 Primary osteoarthritis, right hand; M19.042 Primary osteoarthritis, left hand; R00.2 Palpitations; I27.20 Pulmonary hypertension, unspecified; I10 Essential (primary) hypertension; E78.5 Hyperlipidemia, unspecified
CPT/HCPCS: 12345; 36415; 80048; 85025; 85347; 85610; 92920; 93454; C1725; C1769; C1887; C1894; G0378; J1644; J2001; J2250; J3010; J3246; J3490; J7030; Q0163; Q9967

== ENCOUNTER → 2019-07-10 08:35 | Outpatient (BNVA) | payer MEDICARE, OTHER, SELFPAY | PROVIDERS: Family Provider Family Medicine; PCP Family Medicine; Visit Provider Internal Medicine Cardiovascular Disease | DX: I25.10 Atherosclerotic heart disease of native coronary artery without angina pectoris (principal); I42.9 Cardiomyopathy, unspecified; R94.39 Abnormal result of other cardiovascular function study | CPT/HCPCS: 80048 ==

== ENCOUNTER → 2020-03-29 08:55 | Outpatient (BNVA) | payer MEDICARE, OTHER, SELFPAY | PROVIDERS: Family Provider Family Medicine; PCP Family Medicine; Referring Provider Family Medicine; Visit Provider Podiatrist Foot & Ankle Surgery | DX: M79.671 Pain in right foot (principal) | CPT/HCPCS: 73630 ==

== ENCOUNTER 2020-05-31 11:07 | Outpatient (CLI) | payer MEDICARE, OTHER, SELFPAY ==
[2020-05-31] MEDS: iohexol 300 mg/mL 50 mL Btl PO (12:16)
--- NOTE | 2020-05-31 13:00 | CT_ITS ---
WS: [id number] CT ABDOMEN AND PELVIS WITH CONTRAST HISTORY: R10.9 - Unspecified abdominal pain TECHNIQUE: Imaging performed of the abdomen and pelvis with IV contrast. Single phase imaging of the abdomen. Coronal and sagittal reformats are submitted. All CT scans at [facility] use at least one of these dose optimization techniques: automated exposure control; mA and/or kV adjustment per patient size (includes targeted exams where dose is matched to clinical indication); or iterativ e reconstruction. IV CONTRAST: Omnipaque 300; 95 mL IV. Oral contrast: Yes. DLP: 1029.82 mGycm COMPARISON: 04/30/2019 Lower thorax: Benign granuloma RIGHT lung base. Heart is normal size. No hiatal hernia. Liver/biliary system: Scattered hepatic cysts. The largest measures 1.3 cm. No solid mass or bile jessica t obstruction. Gallbladder: Normal. No gallstones or wall thickening. No pericholecystic fluid. Pancreas: Partial pancreatectomy. Surgical clips are noted near the pancreatic tail. Spleen: Prior splenectomy. Adrenal glands: Normal. Right kidney: Cortical cyst 1.5 cm. No obstruction. Left kidney: Normal. Aorta: Mild atherosclerosis with no aneurysm. Stent in the IVC extends into the LEFT iliac vein. Lymphadenopathy: None. Free fluid: None. GI tract: No obstruction. No evidence for pancreatitis. There are few sigmoid diverticula without kaylen dence for acute diverticulitis. Abdominal wall: Unremarkable abdominal wall. No hernia. Pelvis: Normally distended urinary bladder. No free fluid in the pelvis or adenopathy. Postsurgical c lips are noted at the LEFT groin. Tubular structure in the soft tissues over the lower pelvis are pro bably venous collaterals. Similar to prior studies. Bones: Mild LEFT convex curvature lumbar spine. CT/CT abdomen pelvis w con* [id number] IMPRESSION: 1. No acute abdominal or pelvic abnormalities are identified. 2. Prior partial pancreatectomy and splenectomy. 3. Moderate constipation. No obstructive pattern. 4. Stent within the infrarenal IVC extends into the LEFT common iliac vein. Si milar to prior studies. 5. No ascites or adenopathy.
[2020-05-31 13:22] LABS: Blood Urea Nitrogen 12 mg/dL (8-23)
[2020-05-31] MEDS: iohexol 300 mg/mL 100 mL Btl IV (13:29)
== END 2020-05-31 11:08 | disposition home or self-care (01) ==
LOC: RADWPI 11:08
PROVIDERS: PCP Family Medicine; Visit Provider Surgery
DX: R10.9 Unspecified abdominal pain (principal); K21.9 Gastro-esophageal reflux disease without esophagitis; K59.00 Constipation, unspecified; Z90.411 Acquired partial absence of pancreas; Z90.81 Acquired absence of spleen
CPT/HCPCS: 74177; 82565; 84520; Q9967

== ENCOUNTER → 2020-06-02 11:07 | Outpatient (BNVA) | payer MEDICARE, OTHER, SELFPAY | PROVIDERS: PCP Family Medicine; Visit Provider Surgery | DX: Z11.59 Encounter for screening for other viral diseases (principal) | CPT/HCPCS: 87635 ==

== ENCOUNTER 2020-06-09 08:05 | Day surgery (SDC) | payer MEDICARE, OTHER, SELFPAY ==
[2020-06-07 13:16] VITALS: BMI 25.6
[2020-06-09] MEDS: sodium chloride 0.9% 1,000 ML 30 ML IV (08:44)
[2020-06-09 08:49] VITALS: BP 136/73; PULSE 65; RESP 18; TEMP 36.4; O2SAT 98
--- NOTE | 2020-06-09 09:01 | ANES.PREANE2 ---
Pre-Anesthetic Assessment Pre-Anesthetic Assessment: Height/Weight: Height 1.57 m Weight 63.503 kg Temp Pulse Resp BP Pulse Ox 97.5 F L 65 18 136/73 98 06/09/20 08:49 06/09/20 08:49 06/09/20 08:49 06/09/20 08:49 06/09/20 08:49 Preop Diagnosis: upper gi symptoms Proposed Procedure: Operation Date: 06/09/20 10:00 Proposed Procedures p EGD 69614 k21.9(Not Applicable) - Wing Gao MD Familial anesthetic complications: PONV Was Beta Ana taken within 24 hours: Yes Last intake: Intake Last Liquid Date 06/08/20 Last Liquid Time 17:00 Last Solid Date 06/08/20 Last Solid Time 17:00 Social: Social History: No alcohol and No tobacco Exam: Pre-Anes Outpt Exam: alert, oriented x 3, clear to auscultation bilaterally and regular rate & rhythm Additional Exam Findings (including area of procedure): murmur Airway: Cervical ROM: WNL MP: 2 Dentition: False Pulmonary: Pulmonary: COPD Comments: Pulm HTN CV/HEM: CV/HEM: CAD, DVT, HTN and Palp Comments: CAD, balloon angioplasty 2019, mod-severe MVR and TVR GI: GI: GERD Metabolic: Metabolic: Hyperlipidemia and Thyroid Anesthetic Plan: ASA status: 4 Anesthesia: MAC Risk of > 500 ml blood loss (7ml/kg in children): No Meds/Allergies Current Medications: Current Medications Generic Name Dose Route Start Last Admin Trade Name Freq PRN Reason Stop Dose Admin Sodium Chloride 1,000 mls @ 30 ml s/hr 06/09/20 08:30 06/09/20 08:44 Sodium Chloride 0.9% IV 06/10/20 08:29 30 mls/hr .Q24H LEONOR Administration PFSH Anesthesia PFSH: Medical History (Updated 05/25/20 @ 17:33 by Wing Gao MD) Cataract DVT (deep venous thrombosis) Gastroesophageal reflux disease Hyperlipidemia Hypertension Osteoarthritis of hands, bilateral Osteoporosis Rheumatoid arthritis Tricuspid valve disorders, non-rheumatic Surgical History H/O splenectomy H/O: hysterectomy History of bladder suspension procedure History of pancreatic surgery Previous back surgery S/P breast biopsy S/P cataract surgery S/P thyroidectomy 1 lobe Family History Other CAD (coronary artery disease) Cancer Diabetes Family history of premature coronary artery disease Denies family history of Anesthesia complication Bleeding disorder Social History Smoking and tobacco status: never smoked Second hand smoke exposure: No Alcohol intake: never Household members: spouse Marital status: Current occupational status: retired History of recent travel: No Data Anesthesia Cardiac Studies: No Data to Display
--- NOTE | 2020-06-09 10:45 | W.PM.OPSUD ---
Surgery/Procedure H&P Update DATE OF PROCEDURE: June 09, 2020 DATE H&P PERFORMED: 05/24/20 H&P UPDATE INFORMATION: I have reviewed H&P completed within last 30 days and I have examined patient prior to procedure PREOP DIAGNOSIS: upper gi symptoms PLANNED PROCEDURE: Operation Date: 06/09/20 10:00 Proposed Procedures p EGD 70524 k21.9(Not Applicable) - Wing Gao MD
[2020-06-09 11:04] VITALS: BP 121/70; PULSE 70; RESP 16; TEMP 36.1; O2SAT 99
[2020-06-09 11:20] VITALS: BP 137/79; PULSE 65; RESP 16; O2SAT 99
--- NOTE | 2020-06-09 14:47 | ANE.PACU2 ---
Inpatient post-anesthesia follow up: Airway intact: Yes Vital signs: Temperature 97 F Pulse Rate 65 Respiratory Rate 16 Blood Pressure 137/79 Pulse Oximetry 99 Oxygen Delivery Me thod Room Air Oxygen Flow Rate Fraction of Inspir ed Oxygen Hydration adequate: Yes Nausea and vomiting: No Pain level: 1 Mental status: Baseline
== END 2020-06-09 11:35 | disposition home or self-care (01) ==
PROVIDERS: PCP Family Medicine; Visit Provider Surgery
PROC: 0DJ08ZZ Inspection of Upper Intestinal Tract, Via Natural or Artificial Opening Endoscopic (ICD-10-PCS; CPT 43235; principal; 2020-06-09 10:00)
DX: K29.70 Gastritis, unspecified, without bleeding (principal); K21.9 Gastro-esophageal reflux disease without esophagitis; Z86.718 Personal history of other venous thrombosis and embolism; E78.5 Hyperlipidemia, unspecified; I10 Essential (primary) hypertension; M19.042 Primary osteoarthritis, left hand; M19.041 Primary osteoarthritis, right hand; M81.0 Age-related osteoporosis without current pathological fracture; Z82.49 Family history of ischemic heart disease and other diseases of the circulatory system; Z83.3 Family history of diabetes mellitus; Z79.01 Long term (current) use of anticoagulants; J44.9 Chronic obstructive pulmonary disease, unspecified; I25.10 Atherosclerotic heart disease of native coronary artery without angina pectoris; E03.9 Hypothyroidism, unspecified
CPT/HCPCS: 12345; 43239; 88305; J7030

== ENCOUNTER 2020-06-16 07:13 | Outpatient (CLI) | payer MEDICARE, OTHER, SELFPAY ==
--- NOTE | 2020-06-16 08:00 | NM_ITS ---
WS: [id number] NUCLEAR MEDICINE HIDA SCAN CLINICAL INFORMATION: R10.9 - Unspecified abdominal pain TECHNIQUE: Following intravenous administration of 8.0 mCi of technetium 99m mebrofenin, images of th e abdomen were obtained over the course of 60 minutes. Next, gallbladder ejection fraction was determ ined by obtaining preprandial and one-hour postprandial images of the gallbladder following oral santino stion of Ensure. COMPARISON: None. FINDINGS: Normal hepatic uptake at 5 minutes. Normal hepatic excretion. Gallbladder is visualized by 60 minutes . Normal small bowel activity. No evidence of acute cholecystitis or choledocholithiasis. Gallbladder ejection fraction 56% within normal limits. No evidence of chronic cholecystitis. NM/NM hepatobiliary w phar* [id number] IMPRESSION: 1. No evidence of acute or chronic cholecystitis. 2. Gallbladder ejection fraction 56% within normal limits.
== END 2020-06-16 07:14 | disposition home or self-care (01) ==
LOC: RAD 07:15
PROVIDERS: PCP Family Medicine; Visit Provider Surgery
DX: R10.9 Unspecified abdominal pain (principal)
CPT/HCPCS: 78227; A9537

== ENCOUNTER 2020-07-30 08:49 | Emergency (ER) | payer MEDICARE, OTHER, SELFPAY ==
--- NOTE | 2020-07-30 08:53 | ECG_ITS ---
[facility] Test Date: 2020-07-30 Pat Name: Sussy Solorzano Department: Room: Gender: Female Social Insurance Specialist: : 1945 Requested By: Jeremías Kellogg Order Number: [id number] Carlyle MD: Nicole Lin M.D. Measurements Intervals [place] Rate: 64 P: 30 [place]: 143 QRS: 7 QRSD: 83 T: 14 QT: 386 QTc: 400 Interpretive Statements SINUS RHYTHM POSSIBLE LEFT ATRIAL ENLARGEMENT [-0.1mV P WAVE IN V1/V2] POSSIBLE LEFT VENTRICULAR HYPERTROPHY [VOLTAGE CRITERIA PLUS LAE OR QRS WIDENING] Compared to ECG 05/23/2019 02:43:07 No significant changes Electronically Signed On 07-30-2020 19:37:46 DIRECTOR OF GUIDANCE by Nicole Lin M.D. [id number]
--- NOTE | 2020-07-30 08:53 | XRR_ITS ---
PROCEDURE INFORMATION: Exam: XR Chest Exam date and time: 07/30/2020 8:54 AM Age: 75 years old Clinical indication: Other: HTN TECHNIQUE: Imaging protocol: XR of the chest Views: 1 view. COMPARISON: CR XR chest 1V portable [id number] 05/23/2019 1:10 AM FINDINGS: Lungs: Unremarkable. No consolidation. Pleural spaces: Unremarkable. No pleural effusion. No pneumothorax. Heart/Mediastinum: The cardiac silhouette is not enlarged. There is mild tortuosity of the aorta. Bones/joints: The patient has undergone vertebroplasty at 2 thoracic levels. XR/XR chest 1V portable [id number] IMPRESSION: No significant cardiopulmonary abnormality.
[2020-07-30 09:02] VITALS: BP 181/99; PULSE 71; RESP 15; O2SAT 98; BMI 25.2
--- NOTE | 2020-07-30 09:06 | ED_ITS ---
HPI - General Adult General: Chief complaint: Chest Pain Stated complaint: HIGH BP, HEADACHE, JAW PAIN Time Seen by Provider: 07/30/20 08:53 History of Present Illness: HPI narrative: 75-year-old female presents emergency room with complaint of burning sensation in her chest dizziness discomfort radiating into her jaw. She has had elevated blood pressure this morning. She recently seen Dr. Mendiola and is being scheduled for stress test but has not yet had it done. In addition to her hypertension she has known history of coronary artery disease with previous PTCA and stent placement. Onset (ago): week(s) Location: chest Radiation: other (L jaw) Quality: aching Pain Consistency: intermittent Relieving factors: rest Exacerbating factors: other (exertion) Associated symptoms: Reports chest pain, malaise, nausea and vomiting; Deny confusion, cough, diaphoresis, decreased appetite, dyspnea, fevers/chills, headache(s), rash, palpitations, seizures, short of breath, syncope or weakness Treatments prior to arrival: none Review of Systems Const: Reports: malaise; Denies: diaphoresis ENMT: Denies: throat pain, ear or mastoid pain, nasal discharge or nasal congestion Card: Reports: chest pain; Denies: palpitations or syncope Resp: Denies: dyspnea GI: Reports: nausea and vomiting : Denies: flank pain, difficulty voiding, dysuria, urinary frequency or urinary urgency Skin/Breast: Denies: rash Neuro: Denies: headache(s) or confusion [facility] ED PFSH: Medical History Cataract DVT (deep venous thrombosis) Gastroesophageal reflux disease Hyperlipidemia Hypertension Osteoarthritis of hands, bilateral Osteoporosis Rheumatoid arthritis Tricuspid valve disorders, non-rheumatic Surgical History H/O esophagogastroduodenoscopy (06/09/20) H/O splenectomy H/O: hysterectomy History of bladder suspension procedure History of pancreatic surgery Previous back surgery S/P breast biopsy S/P cataract surgery S/P thyroidectomy 1 lobe Family History Other CAD (coronary artery disease) Cancer Diabetes Family history of premature coronary artery disease Denies family history of Anesthesia complication Bleeding disorder Social History Smoking and tobacco status: never smoked Second hand smoke exposure: No Alcohol intake: never Household members: spouse Marital status: Current occupational status: retired History of recent travel: No Physical Exam Const: COMMON NORMALS: no acute distress GENERAL APPEARANCE: cooperative and comfortable ORIENTATION/CONSCIOUSNESS: Yes awake, Yes oriented to person, Yes oriented to place and Yes oriented to time HENMT: COMMON NORMALS: normocephalic, atraumatic and hearing grossly normal bilaterally HEAD & SCALP: normocephalic and atraumatic Neck/C-Spine: COMMON NORMALS: no JVD Resp: COMMON NORMALS: normal respiratory effort, No retractions, No use of accessory muscles and clear to auscultation bilaterally AUSCULTATION: clear to auscultation bilaterally Cardio: COMMON NORMALS: no JVD, regular rate, regular rhythm and No murmurs present (Cardio) RATE: regular rate RHYTHM: regular rhythm GI: COMMON NORMALS: Soft to palpation and No hepatosplenomegaly present AUSCULTATION: Yes normoactive bowel sounds PALPATION: Yes Soft to palpation, No Tenderness to palpation present (GI), No Guarding due to palpation present (GI) and Yes No hepatosplenomegaly present Extremity: COMMON NORMALS: normal to inspection, capillary refill normal, no clubbing, cyanosis or edema, no calf tenderness and no pedal edema Neuro: SENSORIUM/ORIENTATION: Yes oriented to person, Yes oriented to place and Yes oriented to time Skin: COMMON NORMALS: no rashes or lesions noted GENERAL SKIN EXAM: no rashes or lesions noted Course Vital Signs: Vital signs: Vital Signs Temperature 98.0 F 07/30/20 09:08 Pulse Rate 71 07/30/20 12:43 Respiratory Rate 20 H 07/30/20 12:43 Blood Pressure 145/77 07/30/20 12:43 Pulse Oximetry 98 07/30/20 12:43 MDM - General Adult MDM Narrative: Medical decision making narrative: Has been ongoing for some time. I would have like to put in her on isosorbide mononitrate it is listed as an allergy and more as a side effect causes headaches is what she told us. She does have sublingual nitro which she does use from time to time. Instead we will start her on lisinopril she is already maxed out on beta-jarred. Also like her to take an aspirin daily if she has persistent symptoms or did not re solve with administration of sublingual nitro return to the emergency room otherwise completed the previously planned cardiac stress test. Lab Data: Labs: Lab Results 07/30/20 07/30/20 07/30/20 Range/Units 09:17 09:17 09:17 WBC 6.4 (4.0-10.0) 10^3/ uL RBC 4.47 (4.1-5.3) 10^6/u L Hgb 13.1 (11.5-15.3) g/dL Hct 40.9 (37.0-47.0) % MCV 91.5 (81-99) fL MCH 29.3 (28.0-34.0) pg MCHC 32.0 (30.0-36.0) g/dL RDW 14.9 (12.1-15.1) % Plt Count 350 (130-400) 10^3/c mm MPV 10.6 H (7.4-10.4) fL Neut % (Auto) 44.9 % Lymph % (Auto) 39.7 % Chambers % (Auto) 11.1 % Eos % (Auto) 3.1 % Baso % (Auto) 0.9 % Neut # (Auto) 2.86 (1.8-7.7) 10^3/u L Lymph # (Auto) 2.5 (0.8-4.8) 10^3/u L Chambers # (Auto) 0.7 (0.2-0.9) 10^3/u L Eos # (Auto) 0.2 (0.0-0.8) 10^3/u L Baso # (Auto) 0.1 (0.0-0.1) 10^3/u L Nucleated RBC % (a uto) 0 % Nucleated RBCs # 0.0 /100WBC Sodium 138 (136-145) mmol/L Potassium 4.2 (3.5-5.1) mmol/L Chloride 103 (98-107) mmol/L Carbon Dioxide 26 (22-29) mmol/L Anion Gap 13.2 (5-19) BUN 11 (8-23) mg/dL Creatinine 0.9 (0.5-0.9) mg/dL GFR Calculation Not Reportable Glucose 93 (65-115) mg/dL Calculated Osmolal ity 285 (285-295) mOsm/k g Calcium 9.1 (8.5-10.5) mg/dL Total Bilirubin 0.8 (0.15-1.2) mg/dL AST 20 (0-32) U/L ALT 11 (0-33) U/L Alkaline Phosphata se 63 (35-105) IU/L Troponin T Baselin e 10 (0-10) ng/L Troponin T 120 Min [place] (0-10) ng/L Delta Troponin T (0-10) ABS# Total Protein 6.6 (6.6-8.7) g/dL Albumin 4.2 (3.5-5.2) g/dL Globulin 2.4 (1.3-4.6) g/dL 07/30/20 Range/Units 11:14 WBC (4.0-10.0) 10^3/ uL RBC (4.1-5.3) 10^6/u L Hgb (11.5-15.3) g/dL Hct (37.0-47.0) % MCV (81-99) fL MCH (28.0-34.0) pg MCHC (30.0-36.0) g/dL RDW (12.1-15.1) % Plt Count (130-400) 10^3/c mm MPV (7.4-10.4) fL Neut % (Auto) % Lymph % (Auto) % Chambers % (Auto) % Eos % (Auto) % Baso % (Auto) % Neut # (Auto) (1.8-7.7) 10^3/u L Lymph # (Auto) (0.8-4.8) 10^3/u L Chambers # (Auto) (0.2-0.9) 10^3/u L Eos # (Auto) (0.0-0.8) 10^3/u L Baso # (Auto) (0.0-0.1) 10^3/u L Nucleated RBC % (a uto) % Nucleated RBCs # /100WBC Sodium (136-145) mmol/L Potassium (3.5-5.1) mmol/L Chloride (98-107) mmol/L Carbon Dioxide (22-29) mmol/L Anion Gap (5-19) BUN (8-23) mg/dL Creatinine (0.5-0.9) mg/dL GFR Calculation Glucose (65-115) mg/dL Calculated Osmolal ity (285-295) mOsm/k g Calcium (8.5-10.5) mg/dL Total Bilirubin (0.15-1.2) mg/dL AST (0-32) U/L ALT (0-33) U/L Alkaline Phosphata se (35-105) IU/L Troponin T Baselin e (0-10) ng/L Troponin T 120 Min [place] 9.20 (0-10) ng/L Delta Troponin T -0.80 L (0-10) ABS# Total Protein (6.6-8.7) g/dL Albumin (3.5-5.2) g/dL Globulin (1.3-4.6) g/dL Discharge Plan Discharge Patient Disposition: Home Clinical Impression: Stable angina, Coronary artery disease Condition: Stable Prescriptions: New aspirin 81 mg tablet,delayed release (DR/EC) 81 mg PO DAILY Qty: 30 RF: 0 lisinopril 10 mg tablet 10 mg PO DAILY Qty: 30 RF: 0 No Action cetirizine 10 mg capsule 10 mg PO DAILY RF: 0 omeprazole 40 mg capsule,delayed release(DR/EC) 40 mg PO DAILY RF: 0 cholecalciferol (vitamin D3) 1,000 unit capsule 1,000 unit PO DAILY RF: 0 Xarelto 20 mg tablet 20 mg PO DAILY RF: 0 ibuprofen [Advil] 200 mg tablet 200 mg PO Q6H PRN (Reason: Pain) RF: 0 albuterol sulfate [Ventolin HFA] 90 mcg/actuation HFA aerosol inhaler 2 puff INHALATION Q6H PRN (Reason: sob) RF: 0 atorvastatin 20 mg tablet 20 mg PO DAILY RF: 0 Prolia 60 mg/mL syringe 60 mg SUBCUT Q6M RF: 0 nitroglycerin [Nitrostat] 0.4 mg tablet, sublingual 0.4 mg sublingual Q5M PRN (Reason: chest pain) Qty: 25 RF: 3 bisoprolol fumarate 5 mg tablet 7.5 mg PO DAILY Qty: 60 RF: 3 furosemide 20 mg tablet 20 mg PO DAILY PRN (Reason: edema) Qty: 30 RF: 3 potassium chloride 10 mEq tablet extended release 10 meq PO DAILY PRN (Reason: Take with lasix) Qty: 30 RF: 4 levothyroxine [Synthroid] 50 mcg tablet 50 mcg PO DAILY RF: 0 fluticasone propionate 50 mcg/actuation [place],Suspension 1 spray INTRANASAL BID RF: 0 DICLOFENAC 1% cream See Rx Instructions .Route .COMPLEX PRN (Reason: Pain) RF: 0 Discharge Orders: Discharge ED (Routine); Ordered 07/30/20 Ordered By: Jeremías Lopez Referrals: Wander Bolton MD [Primary Care Provider] - Discharge Diet: Usual diet Discharge Activity: Limit activity as instructed Patient Instructions: Opioid Safety Activity Restrictions/Additional Instructions: Complete stress test. If you have worsening symptoms, such as chest pain not relieved by nitroglycerin, return to the emergency room. Coding Level of Care Code ED Nutrition Associate for Paola Fwd Exam Comprehensive
[2020-07-30 09:08] VITALS: TEMP 36.7
[2020-07-30 09:29] LABS: Basophils # 0.1 10^3/uL (0.0-0.1); Basophils % 0.9 %; Eosinophils # 0.2 10^3/uL (0.0-0.8); Eosinophils % 3.1 %; Hematocrit 40.9 % (37.0-47.0); Hemoglobin 13.1 g/dL (11.5-15.3); Lymphocytes # 2.5 10^3/uL (0.8-4.8); Lymphocytes % 39.7 %; Mean Corpuscular Hemoglobin 29.3 pg (28.0-34.0); Mean Corpuscular Volume 91.5 fL (81-99); Mean Platelet Volume 10.6 fL (7.4-10.4); Monocytes # 0.7 10^3/uL (0.2-0.9); Monocytes % 11.1 %; Neutrophils # 2.86 10^3/uL (1.8-7.7); Neutrophils % 44.9 %; Nucleated Red Blood Cells % 0 %; Platelet Count 350 10^3/cmm (130-400); Red Blood Count 4.47 10^6/uL (4.1-5.3); Red Cell Distribution Width 14.9 % (12.1-15.1); White Blood Count 6.4 10^3/uL (4.0-10.0)
[2020-07-30] MEDS: amlodipine 5 mg Tablet PO (09:33)
[2020-07-30 09:42] VITALS: BP 151/88; PULSE 61; RESP 16; O2SAT 96
[2020-07-30 09:47] LABS: Alanine Aminotransferase 11 U/L (0-33); Albumin Level 4.2 g/dL (3.5-5.2); Alkaline Phosphatase 63 IU/L (35-105); Anion Gap 13.2 (5-19); Aspartate Amino Transferase 20 U/L (0-32); Blood Urea Nitrogen 11 mg/dL (8-23); Calcium 9.1 mg/dL (8.5-10.5); Carbon Dioxide 26 mmol/L (22-29); Chloride 103 mmol/L (98-107); Globulin 2.4 g/dL (1.3-4.6); Glucose 93 mg/dL (65-115); Osmolality Calculated 285 mOsm/kg (285-295); Potassium 4.2 mmol/L (3.5-5.1); Sodium 138 mmol/L (136-145); Total Bilirubin 0.8 mg/dL (0.15-1.2); Total Protein 6.6 g/dL (6.6-8.7)
[2020-07-30 09:50] LABS: Troponin(5th) Baseline 10 ng/L (0-10)
--- NOTE | 2020-07-30 10:53 | ECG_ITS ---
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 Measurements Intervals [place] Rate: 64 P: 6 MA: 145 QRS: 13 QRSD: 85 T: 15 QT: 381 QTc: 395 Interpretive Statements SINUS RHYTHM Compared to ECG 07/30/2020 09:11:50 No significant changes Electronically Signed On 07-30-2020 19:43:26 QUALITY ASSURANCE AUDITOR by Nicole Lin M.D. [email or web address] Appointment [id number]
[2020-07-30 12:20] VITALS: BP 145/77; PULSE 63; RESP 18; O2SAT 97
[2020-07-30 12:43] VITALS: BP 145/77; PULSE 71; RESP 20; O2SAT 98
--- NOTE | 2020-08-01 12:29 | DCPLANNER ---
manager client service had message to schedule an outpatient stress test for patient. manager client service faxed signed order to centralized scheduling, will call for appointment information.
--- NOTE | 2020-08-03 10:38 | DCPLANNER ---
Patient has an outpatient stress test scheduled for Monday, August 24, 2020 at 12:15. Centralized scheduling will call patient with appointment information.
--- NOTE | 2020-11-03 14:55 | DCPLANNER ---
Patient had a stress test scheduled for 10.11.20 - patient did attend stress test.
== END 2020-07-30 12:44 | disposition home or self-care (01) ==
PROVIDERS: Emergency Provider Family Medicine; PCP Family Medicine
DX: I25.118 Atherosclerotic heart disease of native coronary artery with other forms of angina pectoris (principal); E78.5 Hyperlipidemia, unspecified; I10 Essential (primary) hypertension
CPT/HCPCS: 36415; 71045; 80053; 84484; 85025; 93005; 99284

== ENCOUNTER 2020-08-23 08:22 | Outpatient (CLI) | payer MEDICARE, OTHER, SELFPAY ==
--- NOTE | 2020-08-23 08:28 | MM_ITS ---
WS: [id number] BILATERAL SCREENING DIGITAL MAMMOGRAM WITH CAD HISTORY: SCREENING COMPARISON: 05/01/2017 and 12/24/2014 Bilateral CC and MLO views submitted. Computer aided detection analyzed. Breast composition: There are scattered areas of fibroglandular density. No suspicious masses, microc alcifications or architectural distortion. Heavy vascular calcifications within each breast. MM/[place] [id number] IMPRESSION: BI-RADS: 2-Benign FOLLOW UP: 1 Year Follow-up
== END 2020-08-23 08:23 | disposition home or self-care (01) ==
LOC: RADSHAW 08:25
PROVIDERS: PCP Family Medicine; Visit Provider Family Medicine
DX: Z12.31 Encounter for screening mammogram for malignant neoplasm of breast (principal)
CPT/HCPCS: 77067

== ENCOUNTER 2020-10-11 06:39 | Outpatient (CLI) | payer MEDICARE, OTHER, SELFPAY ==
[2020-10-11 07:00] VITALS: BMI 23.8
--- NOTE | 2020-10-11 07:03 | ECG_ITS ---
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 Interpretive Statements NAME OF STUDY: LEXISCAN SESTAMIBI STRESS TEST INDICATION: [Atypical Chest Pain, ] Procedure: At the baseline, the blood pressure was 136/77mmHg with a heart rate of 63 bpm. The electrocardiogram showed normal sinus rhythm, normal axis with normal ST and T's. The Lexiscan was infused over a period of 20 seconds. A total of 0.4 mg of Lexiscan was infused. The stress phase was continued for a total of 5 minutes. Heart rate was at the end of stress phase was 105 bpm and a blood pressure of 190/96 mmHg. The EKG at the peak infusion revealed since normal sinus rhythm with no significant ST-T wave changes. Sestamibi was injected 20 seconds after the Lexiscan infusion. Blood pressure at the end of recovery phase was 148/83mmHg with a heart rate of 85 bpm. Conclusion: 1. Normal EKG response to Lexiscan infusion 2. No Lexiscan induced chest pain or cardiac arrhythmia. 3. Normal blood pressure and heart rate response. 4. Sestamibi/sestamibi perfusion scan pending; see separate report. Electronically Signed On 10-26-2020 16:57:56 CDT by Bret Yousif M.D. [id number]
--- NOTE | 2020-10-11 07:04 | NMCV_ITS ---
NM morelia perf SPECT r/s* [id number] Sussy Solorzano Age: 75 Gender: F : 1945 Exam Date: 10/11/2020 08:06 Ordering Phys: Bony Mendiola MD ([email or web address]) Technologist: AMBER Gao Exam Location: [facility] Indications: ATYPICAL CHEST PAIN STRESS TEST Please see separate stress test report in [facility] for full findings IMAGE PROTOCOL Rest/Stress 1 Lexiscan Day Radiopharmaceutical Dose (mCi) Administration Site Administered by Rest: Tc-99m 10.9 IV AMBER Fu Sestamibi Stress:Tc-99m 33.0 IV AMBER Gao Sestamisamson Rest: 11-Oct-2020 60 Discovery 630 Stress: 11-Oct-2020 30 Discovery 630 0.4mg Lexiscan. Images obtained in supine and prone position. SPECT RESULTS Technical Quality: Excellent Raw Data Analysis: Subdiaphragmatic activity Image Corrections: No attenuation or motion correction applied Summed Stress Score: 0 Summed Rest Score: 0 Summed Difference Score: 0 PERFUSION FINDINGS There is homogenous radiotracer uptake throughout the myocardium. No evidence of ischemia FUNCTIONAL RESULTS (calculated via Gated SPECT) Stress Image LV EF (%): 87 Stress EDV (mL):67 TID: 0.9 Stress ESV (mL):9 FUNCTIONAL FINDINGS: There is normal left ventricular systolic function. IMPRESSIONS 1. Normal myocardial perfusion imaging without evidence of ischemia 2. LV systolic function is normal Bret Yousif MD (Electronically Signed) Final Date: 15 Oct 2020 10:07 S
[2020-10-11] MEDS: ondansetron 2 mg/ML SDV 2 mL 4 MG IVP (08:57)
[2020-10-11] MEDS: regadenoson 0.4 Mg/5 ml Syringe IVP (08:57)
[2020-10-11 09:01] VITALS: BP 148/83; PULSE 88
== END 2020-10-11 06:40 | disposition home or self-care (01) ==
LOC: RAD 06:40 → CDL 07:07
PROVIDERS: PCP Family Medicine; Visit Provider Internal Medicine Cardiovascular Disease
DX: R07.89 Other chest pain (principal)
CPT/HCPCS: 78452; 93017; A9500; J2405; J2785

== ENCOUNTER 2021-01-09 08:40 | Outpatient (CLI) | payer MEDICARE, OTHER, SELFPAY ==
--- NOTE | 2021-01-09 09:30 | USCV_ITS ---
Rashad Sussy Age: 75 Gender: F : 1945 Exam Date: 01/09/2021 09:09 Ordering Phys: Bony Mendiola MD ([email or web address]) Technologist: Stephania Charles Exam Location: [facility] [place] Indication: SHORTNESS OF BREATH BP: 120 / 73 HR: 77 Rhythm: Sinus Technical Quality: Adequate MEASUREMENTS (Male / Female) Normal Values 2D ECHO LV Diastolic Diameter PLAX 4.3 cm 4.2 - 5.9 / 3.9 - 5.3 cm LV Systolic Diameter PLAX 2.9 cm IVS Diastolic Thickness 1.0 cm 0.6 - 1.0 / 0.6 - 0.9 cm IVS Systolic Thickness 1.4 cm LVPW Diastolic Thickness 1.1 cm 0.6 - 1.0 / 0.6 - 0.9 cm LVPW Systolic Thickness 1.6 cm RV Chamber Size 2.9 cm LVOT Diameter 2.0 cm LV Ejection Fraction 2D Teich 63.8 % LV Ejection Fraction MOD 2C 65.5 % LV Ejection Fraction 2C AL 67.6 % LA Diameter 3.2 cm LA Width 3.3 cm LA Height 4.4 cm RA Width 3.2 cm RA Height 4.1 cm Aorta at Sinotubular Diameter 2.5 cm M-MODE Aortic Annulus Diameter 2.5 cm LA Ao Ratio MM 1.1 MV E Point Septal Separation 0.3 cm DOPPLER AV Peak Velocity 95.0 cm/s LVOT Peak Velocity 95.0 cm/s AV Area Cont Eq vti 3.3 cm squared AV Area Cont Eq pk 3.1 cm squared MV Area PHT 3.5 cm squared Mitral E to A Ratio 0.9 MV E' Velocity 46.5 cm/s Mitral E to MV E' Ratio 11.6 Mitral E to LV E' Lateral Ratio 12.1 Mitral E to LV E' Septal Ratio 11.3 TR Peak Velocity 319.0 cm/s TR Peak Gradient 40.7 mmHg TR Mean Velocity 164.9 cm/s TR Mean Gradient 12.0 mmHg TR Velocity Time Integral 65.9 cm TV Peak E Velocity 38.0 cm/s Right Atrial Pressure 3.0 mmHg Pulmonary Artery Systolic Pressu 43.7 mmHg PV Peak Velocity 83.0 cm/s RV Acceleration Time 0.1 s RV Ejection Time 0.3 s RV AcT/ET 0.4 FINDINGS Left Ventricle Normal left ventricular cavity size. Normal left ventricular systolic function. No regional wall motion abnormalities. Left ventricular ejection fraction is estimated at 65 %. Grade I/IV diastolic dysfunction (abnormal relaxation filling pattern), normal to mildly elevated filling pressures. Right Ventricle The right ventricle is normal in size and function. Moderate pulmonary hypertension, RVSP 43.7 mmHg. Right Atrium The right atrium is normal in size. Left Atrium The left atrium is normal in size. Mitral Valve Moderately thickened mitral valve. No mitral valve stenosis. Mild mitral valve regurgitation. Aortic Valve Moderate aortic valve calcification. No aortic valve stenosis. Mild aortic valve regurgitation. Tricuspid Valve Structurally normal tricuspid valve without significant stenosis or regurgitation. Pulmonary artery systolic pressure is normal. Pulmonic Valve Structurally normal pulmonic valve without significant stenosis. There is no pulmonic regurgitation. Pericardium Normal pericardium without effusion. Aorta Normal ascending aorta dimension. CONCLUSIONS 1-Normal left ventricular cavity size. Normal left ventricular systolic function. No regional wall motion abnormalities. Left ventricular ejection fraction is estimated at 65 %. Grade I/IV diastolic dysfunction (abnormal relaxation filling pattern), normal to mildly elevated filling pressures. 2-The right ventricle is normal in size and function. Moderate pulmonary hypertension, RVSP 43.7 mmHg. 3-Moderately thickened mitral valve. No mitral valve stenosis. Mild mitral valve regurgitation. 4-Moderate aortic valve calcification. No aortic valve stenosis. Mild aortic valve regurgitation. 5-There is no pericardial effusion. 6-Right atrial pressure is around 5 mm of mercury. 7-When compared to the prior echocardiogram dated May 04, 2019 mitral valve regurgitation has improved from moderate to mild now Bony Mendiola MD (Electronically Signed) Final Date: 10 January 2021 16:20 S
== END 2021-01-09 08:41 | disposition home or self-care (01) ==
PROVIDERS: PCP Family Medicine; Visit Provider Internal Medicine Cardiovascular Disease
DX: R06.02 Shortness of breath (principal); R07.9 Chest pain, unspecified; I27.20 Pulmonary hypertension, unspecified; I08.0 Rheumatic disorders of both mitral and aortic valves
CPT/HCPCS: 93306

== ENCOUNTER 2021-02-09 10:14 | Outpatient (CLI) | payer MEDICARE, OTHER, SELFPAY | END 2021-02-09 10:15 | disposition home or self-care (01) | LOC: SPT 10:16 | PROVIDERS: PCP Family Medicine; Visit Provider Podiatrist Foot & Ankle Surgery | DX: Z46.89 Encounter for fitting and adjustment of other specified devices (principal); M72.2 Plantar fascial fibromatosis | CPT/HCPCS: 97760; L4397 ==

== ENCOUNTER 2021-02-20 07:52 | Outpatient (CLI) | payer MEDICARE, OTHER, SELFPAY ==
[2021-02-20 08:12] LABS: Basophils # 0.1 10^3/uL (0.0-0.1); Basophils % 0.8 %; Eosinophils # 0.1 10^3/uL (0.0-0.8); Eosinophils % 1.7 %; Hematocrit 41.1 % (37.0-47.0); Hemoglobin 12.8 g/dL (11.5-15.3); Lymphocytes # 2.1 10^3/uL (0.8-4.8); Lymphocytes % 31.9 %; Mean Corpuscular HGB Conc 31.1 g/dL (30.0-36.0); Mean Corpuscular Hemoglobin 29.2 pg (28.0-34.0); Mean Corpuscular Volume 93.8 fl (81-99); Mean Platelet Volume 10.1 fL (7.4-10.4); Monocytes # 0.7 10^3/uL (0.2-0.9); Monocytes % 11.1 %; Neutrophils # 3.57 10^3/uL (1.8-7.7); Neutrophils % 54.2 %; Nucleated Red Blood Cells % 0 %; Platelet Count 328 10^3/cmm (130-400); Red Blood Count 4.38 10^6/uL (4.1-5.3); Red Cell Distribution Width 14.6 % (12.1-15.1); White Blood Count 6.6 10^3/uL (4.0-10.0)
[2021-02-20 08:47] LABS: Anion Gap 14.1 (5-19); Blood Urea Nitrogen 17 mg/dL (8-23); Calcium 9.7 mg/dL (8.5-10.5); Carbon Dioxide 28 mmol/L (22-29); Chloride 104 mmol/L (98-107); Digoxin 0.9 ng/mL (0.6-1.2); Glucose 72 mg/dL (65-115); Osmolality Calculated 294 mOsm/kg (285-295); Potassium 4.1 mmol/L (3.5-5.1); Sodium 142 mmol/L (136-145)
== END 2021-02-20 07:53 | disposition home or self-care (01) ==
PROVIDERS: Internal Medicine Cardiovascular Disease; PCP Family Medicine; Visit Provider Internal Medicine Sleep Medicine
DX: Z51.81 Encounter for therapeutic drug level monitoring (principal); I50.32 Chronic diastolic (congestive) heart failure; Z79.899 Other long term (current) drug therapy
CPT/HCPCS: 80048; 80162; 85025

== ENCOUNTER 2021-03-18 17:41 | Inpatient (IN) | payer MEDICARE, OTHER, SELFPAY ==
[2021-03-18 17:53] VITALS: BP 113/65; PULSE 87; RESP 17; TEMP 37.4; O2SAT 97; BMI 28.3
--- NOTE | 2021-03-18 18:02 | W.ED.CHESTPA ---
HPI - Chest Pain General: Chief Complaint: Chest Pain Stated Complaint: N,V/SOB/DIZZY/JAW PAIN Time Seen by Provider: 03/18/21 18:02 History of Present Illness: HPI narrative: Ms. Solorzano is a 75-year-old lady with complex past medical history including history of hypertension, hyperlipidemia, CAD, pulmonary hypertension, CHF, known history of DVT on chronic anticoagulation who presents emergency department due multiple concerns. Yesterday she has an episode of chest pain equivalent with chest discomfort that she described as aching underneath her jaw. She additionally had associated mild chest pressure. Symptoms resolved spontaneously however she continues to feel short of breath. Additionally she noted, more so today, increased swelling, fullness, and discomfort in her right lower extremity. This is similar to prior DVTs in the past. Overall course of symptom intensity has been worsening and is moderate to severe. She reports compliance with her Xarelto and has not missed any doses. No other specific changes in health, infectious symptoms, exacerbating or relieving factors identified. Review of Systems General: Reports: 10 or more systems reviewed and unremarkable except in HPI and below PFSH ED PFSH: Medical History (Updated 03/20/21 @ 17:29 by Raul Caro MD) Coronary artery disease DVT (deep venous thrombosis) left lower extremity Gastroesophageal reflux disease History of coronary angiogram (~06/2019) balloon angioplasty to distal RCA stenosis History of stress test (~06/2019) abnormal Hyperlipidemia Hypertension Hypothyroidism Osteoarthritis of hands, bilateral Osteoporosis on Prolia Pulmonary hypertension Tricuspid valve disorders, non-rheumatic Surgical History (Updated 03/19/21 @ 01:21 by Simi Calhoun MD) H/O esophagogastroduodenoscopy (06/09/20) H/O splenectomy H/O: hysterectomy History of bladder suspension procedure History of pancreatic surgery History of partial gastrectomy Previous back surgery vertebroplasty S/P breast biopsy S/P cataract surgery S/P thyroidectomy 1 lobe Family History Other CAD (coronary artery disease) Cancer Diabetes Family history of premature coronary artery disease Denies family history of Anesthesia complication Bleeding disorder Social History (Updated 03/19/21 @ 01:09 by Simi Calhoun MD) Second hand smoke exposure: No Alcohol intake: never Household members: spouse Marital status: Current occupational status: retired Physical Exam Narrative: EXAM NARRATIVE: GENERAL/CONSTITUTIONAL - well-appearing. No acute distress. Eyes - PERRL, no conjunctival injection ENMT - Atraumatic external nose and ears. Moist mucous membranes NECK - supple. trachea midline CARDIOVASCULAR - regular rate and rhythm. Peripheral pulses 2+ and equal. Bilateral lower extremity edema right worse than left. No evidence of cerulea dolens RESPIRATORY -diminished to auscultation bilaterally. ABDOMEN/GI - Nontender/Nondistended. MSK - Extremities without obvious deformity or tenderness to palpation SKIN - Warm, Dry NEURO - alert and appropriately oriented. strength and sensation intact. Moves all extremities equally. PSYCH - Appropriate mood and affect Course ED course: - Patient was seen and evaluated by me at bedside - Patient placed on cardiac monitors, IV access obtained - Initial evaluation notable for nontoxic. No acute distress. - Labs notable for normal leukocytosis. No acute metabolic abnormality to explain patient's symptoms. CRP elevated with negative procalcitonin. Delta troponin negative. Urinalysis not concerning urinary tract infection given nitrate negative and squamous epithelial contamination. - Imaging notable for no acute finding noted on chest x-ray. Venous duplex ultrasound notable for DVT. Discussed case with hospitalist service, CTA ordered as well as treatment for VTE with Lovenox. CTA is positive for segmental PEs. Mild right heart strain. No significant elevation in BNP or troponin. TRINO score is stage I. - Upon serial reexamination after treatment the patient was similar - Based on patient history, evaluation, labs, and imaging as interpreted the most likely cause of the patient's condition is DVT and PE in the context of failed Xarelto therapy. Patient is adamant about compliance - The results of ED evaluation were discussed with the patient including plan for admission due to requirement for level of care not available if discharged to prevent significant worsening/deterioration. -Hospitalist service agreed admit the patient - Patient was admitted without further deterioration or significant events. Vital Signs: Vital signs: Vital Signs Temperature 97.7 F 03/22/21 08:00 Pulse Rate 108 H 03/22/21 16:00 Respiratory Rate 18 03/22/21 16:00 Blood Pressure 123/73 03/22/21 16:00 Pulse Oximetry 95 03/22/21 16:00 MDM - Chest Pain Medical Records: Attestation: I reviewed the patient's medical records. Lab Data: Attestation: I reviewed the patient's lab results. Labs: Lab Results 03/18/21 03/18/21 03/18/21 18:03 18:03 18:03 WBC 10.2 10^3/uL H 10 ^3/uL (4.0-10.0) RBC 4.28 10^6/uL 10^6 /uL (4.1-5.3) Hgb 12.9 g/dL g/dL (11.5-15.3) Hct 40.5 % % (37.0-47.0) MCV 94.6 fl fl (81-99) MCH 30.1 pg pg (28.0-34.0) MCHC 31.9 g/dL g/dL (30.0-36.0) RDW 14.7 % % (12.1-15.1) Plt Count 179 10^3/cmm 10^3 /cmm (130-400) MPV 10.4 fL fL (7.4-10.4) Neut % (Auto) 65.6 % % Lymph % (Auto) 22.1 % % [place] % (Auto) 10.8 % % Eos % (Auto) 0.8 % % Baso % (Auto) 0.3 % % Neut # (Auto) 6.67 10^3/uL 10^3 /uL (1.8-7.7) Lymph # (Auto) 2.3 10^3/uL 10^3/ uL (0.8-4.8) [place] # (Auto) 1.1 10^3/uL H 10^ 3/uL (0.2-0.9) Eos # (Auto) 0.1 10^3/uL 10^3/ uL (0.0-0.8) Baso # (Auto) 0.0 10^3/uL 10^3/ uL (0.0-0.1) Nucleated RBC % (a uto) 0 % % Nucleated RBCs # 0.0 /100WBC /100W BC Sodium 138 mmol/L mmol/L (136-145) Potassium 4.8 mmol/L mmol/L (3.5-5.1) Chloride 100 mmol/L mmol/L (98-107) Carbon Dioxide 22 mmol/L mmol/L (22-29) Anion Gap 20.8 H (5-19) BUN 15 mg/dL mg/dL (8-23) Creatinine 0.9 mg/dL mg/dL (0.5-0.9) GFR Calculation Not Reportable Glucose 130 mg/dL H mg/dL (65-115) Calculated Osmolal ity 289 mOsm/kg mOsm/ kg (285-295) Calcium 8.8 mg/dL mg/dL (8.5-10.5) Total Bilirubin 1.0 mg/dL mg/dL (0.15-1.2) AST 21 U/L U/L (0-32) ALT 10 U/L U/L (0-33) Alkaline Phosphata se 81 IU/L IU/L (35-105) Troponin T Baselin e 9 ng/L ng/L (0-10) Troponin T 120 Min stebbins Delta Troponin T C-Reactive Protein 54.9 mg/L H mg/L (0.0-4.9) NT-Pro-B Natriuret Pep 196 pg/mL H pg/mL (0-125) Total Protein 6.9 g/dL g/dL (6.6-8.7) Albumin 4.3 g/dL g/dL (3.5-5.2) Globulin 2.6 g/dL g/dL (1.3-4.6) Lipase 45 U/L U/L (13-60) Procalcitonin 0.12 ng/mL ng/mL (0-0.5) Urine Color Urine Appearance Urine pH Ur Specific Gravit y Urine Protein Urine Glucose (UA) Urine Ketones Urine Blood Urine Nitrate Urine Bilirubin Urine Urobilinogen Ur Leukocyte Dorothy ase Urine RBC Urine WBC Ur Squamous Epith Cells Amorphous Sediment Urine Bacteria Urine Mucus Digoxin 03/18/21 03/18/21 03/18/21 18:03 19:50 20:26 WBC RBC Hgb Hct MCV MCH MCHC RDW Plt Count MPV Neut % (Auto) Lymph % (Auto) [place] % (Auto) Eos % (Auto) Baso % (Auto) Neut # (Auto) Lymph # (Auto) [place] # (Auto) Eos # (Auto) Baso # (Auto) Nucleated RBC % (a uto) Nucleated RBCs # Sodium Potassium Chloride Carbon Dioxide Anion Gap BUN Creatinine GFR Calculation Glucose Calculated Osmolal ity Calcium Total Bilirubin AST ALT Alkaline Phosphata se Troponin T Baselin e Troponin T 120 Min stebbins 9.10 ng/L ng/L (0-10) Delta Troponin T 0.10 ABS# ABS# (0-10) C-Reactive Protein NT-Pro-B Natriuret Pep Total Protein Albumin Globulin Lipase Procalcitonin Urine Color Silvina (Yellow) Urine Appearance Clear (CLEAR) Urine pH 5 (5-7) Ur Specific Gravit y 1.020 (1.005-1.030) Urine Protein Neg (Negative) Urine Glucose (UA) Norm (Normal) Urine Ketones 1+ H (Negative) Urine Blood Neg (Negative) Urine Nitrate Negative (Negative) Urine Bilirubin 1+ H (Negative) Urine Urobilinogen 4 mg/dL H mg/dL (Negative) Ur Leukocyte Dorothy ase Trace H (Negative) Urine RBC 0-4 /hpf H /hpf (0-2) Urine WBC 5-10 /hpf H /hpf (0-5) Ur Squamous Epith Cells 10-15 /hpf H /hpf (0-5) Amorphous Sediment Not Reportable Urine Bacteria Trace /hpf /hpf (NONE) Urine Mucus 2+ /hpf /hpf Digoxin 0.9 ng/mL ng/mL (0.6-1.2) EKG Data^: EKG 1: Attestation: I personally reviewed and interpreted this EKG as follows: EKG interpretation date: 03/18/21 EKG interpretation time: 18:02 Interpretation: Twelve-lead EKG shows a regular rhythm at a rate of 85. WA interval 129, QRS duration 80, QTc 384 Normal axis. Interpretation: Sinus rhythm. Nonspecific ST segment abnormalities. EKG 2: Attestation: I personally reviewed and interpreted this EKG as follows: EKG interpretation date: 03/18/21 EKG interpretation time: 20:42 Interpretation: Twelve-lead EKG shows a regular rhythm at a rate of 79. WA interval 145, QRS duration 81, QTc 370. Normal axis. Interpretation: Sinus rhythm. Nonspecific ST segment abnormalities. Similar to prior. Discharge Plan Discharge Patient Disposition: Admitted As Inpatient Admit Provider: Simi Calhoun Coding Level of Care Code ED Engagement Mgr for g Fwrolan
--- NOTE | 2021-03-18 18:07 | XRR_ITS ---
PROCEDURE INFORMATION: Exam: XR Chest Exam date and time: 03/18/2021 6:07 PM Age: 75 years old Clinical indication: Pain; Chest pressure; Additional info: Chest pain TECHNIQUE: Imaging protocol: XR of the chest. Views: 1 view. COMPARISON: CR XR chest 1V portable [id number] 07/30/2020 9:12 AM FINDINGS: Lungs: Unremarkable. No consolidation. Pleural spaces: Unremarkable. No pleural effusion. No pneumothorax. Heart/Mediastinum: Unremarkable. No cardiomegaly. Bones/joints: There is evidence of kyphoplasty in the mid dorsal spine T8 and T9 level. Other findings: Comparison to prior examination similar findings is seen XR/XR chest 1V portable [id number] IMPRESSION: 1. No acute findings. 2. Kyphoplasty T8 and T9 vertebral bodies Radiation Dose CTDIVOL = (mGy): DLP = (mGy-cm)
--- NOTE | 2021-03-18 18:07 | ECG_ITS ---
[facility] Test Date: 2021-03-18 Pat Name: Sussy Solorzano Department: Room: Gender: Female Kitchen Aide: : 1945 Requested By: Armando Simpson Order Number: [id number] Carlyle MD: SHARONA NORIEGA Measurements Intervals [place] Rate: 85 P: 16 MD: 129 QRS: 34 QRSD: 80 T: 19 QT: 322 QTc: 384 Interpretive Statements SINUS RHYTHM NONSPECIFIC ST & T-WAVE ABNORMALITY Compared to ECG 07/30/2020 10:50:56 T-wave abnormality now present Electronically Signed On 03-20-2021 0:11:22 CDT by SHARONA NORIEGA [id number] f
[2021-03-18 18:15] LABS: Basophils % 0.3 %; Eosinophils # 0.1 10^3/uL (0.0-0.8); Eosinophils % 0.8 %; Hematocrit 40.5 % (37.0-47.0); Hemoglobin 12.9 g/dL (11.5-15.3); Lymphocytes # 2.3 10^3/uL (0.8-4.8); Lymphocytes % 22.1 %; Mean Corpuscular HGB Conc 31.9 g/dL (30.0-36.0); Mean Corpuscular Hemoglobin 30.1 pg (28.0-34.0); Mean Corpuscular Volume 94.6 fl (81-99); Mean Platelet Volume 10.4 fL (7.4-10.4); Monocytes # 1.1 10^3/uL (0.2-0.9); Monocytes % 10.8 %; Neutrophils # 6.67 10^3/uL (1.8-7.7); Neutrophils % 65.6 %; Nucleated Red Blood Cells % 0 %; Platelet Count 179 10^3/cmm (130-400); Red Blood Count 4.28 10^6/uL (4.1-5.3); Red Cell Distribution Width 14.7 % (12.1-15.1); White Blood Count 10.2 10^3/uL (4.0-10.0)
[2021-03-18 18:30] VITALS: BP 114/72; PULSE 83; RESP 22; O2SAT 92
[2021-03-18 18:34] LABS: Troponin(5th) Baseline 9 ng/L (0-10)
[2021-03-18 18:43] LABS: NT Pro B Type Natriuretic Pept 196 pg/mL (0-125); Procalcitonin 0.12 ng/mL (0-0.5)
[2021-03-18] MEDS: aspirin 81 mg Chew Tablet 324 MG PO (18:53)
[2021-03-18 18:54] LABS: Alanine Aminotransferase 10 U/L (0-33); Albumin Level 4.3 g/dL (3.5-5.2); Alkaline Phosphatase 81 IU/L (35-105); Aspartate Amino Transferase 21 U/L (0-32); Blood Urea Nitrogen 15 mg/dL (8-23); C Reactive Protein 54.9 mg/L (0.0-4.9); Calcium 8.8 mg/dL (8.5-10.5); Carbon Dioxide 22 mmol/L (22-29); Chloride 100 mmol/L (98-107); Globulin 2.6 g/dL (1.3-4.6); Glucose 130 mg/dL (65-115); Lipase 45 U/L (13-60); Osmolality Calculated 289 mOsm/kg (285-295); Sodium 138 mmol/L (136-145); Total Protein 6.9 g/dL (6.6-8.7)
[2021-03-18 18:55] LABS: Anion Gap 20.8 (5-19); Potassium 4.8 mmol/L (3.5-5.1)
--- NOTE | 2021-03-18 19:42 | NUR.SHIFT ---
Addendum entered by Ashlyn Swann 03/18/21 19:43: Pt also states she does not feel symptoms are COVID related Original Note: pt refusing rapid COVID swab stating she has been vaccinated with booster and has documentation. [email or web address]
--- NOTE | 2021-03-18 19:58 | USR_ITS ---
PROCEDURE INFORMATION: Exam: US Duplex Lower Extremity Veins, Bilateral Exam date and time: 03/18/2021 7:58 PM Age: 75 years old Clinical indication: Pain; Leg, upper; Right; Additional info: Leg swelling, pain, assymetry, history of DVT in left leg TECHNIQUE: Imaging protocol: Real-time duplex ultrasound of the extremities with 2-D ritter scale, color Doppler flow and spectral waveform analysis with image documentation. Complete exam focused on the bilateral lower extremity veins. COMPARISON: CT abdomen pelvis w con* [id number] 05/31/2020 1:27 PM FINDINGS: Right deep veins: Occlusive DVT in the right iliac, common femoral, superficial femoral, deep femoral, and popliteal veins. Right superficial veins: Saphenofemoral junction is patent without thrombus. Left deep veins: Chronic appearing thrombus within the left main common femoral and superficial femoral vein. Left superficial veins: Saphenofemoral junction is patent without thrombus. Soft tissues: Unremarkable. US/[place] [id number] IMPRESSION: 1. Occlusive thrombus extending proximally from the right iliac vein distally through the popliteal vein. 2. Chronic appearing thrombus within the left common femoral and superficial femoral veins. Radiation Dose CTDIVOL = (mGy): DLP = (mGy-cm)
--- NOTE | 2021-03-18 20:07 | ECG_ITS ---
[facility] Test Date: 2021-03-18 Pat Name: Sussy Solorzano Department: Room: 111 Gender: Female Jigman: : 1945 Requested By: Armando Simpson Order Number: [id number] Carlyle MD: SHARONA NORIEGA Measurements Intervals [place] Rate: 79 P: 16 PA: 145 QRS: 12 QRSD: 81 T: 0 QT: 335 QTc: 385 Interpretive Statements SINUS RHYTHM POSSIBLE LEFT ATRIAL ENLARGEMENT [-0.1mV P-WAVE IN V1/V2] NONSPECIFIC ST & T-WAVE ABNORMALITY Compared to ECG 03/18/2021 17:57:31 No significant changes Electronically Signed On 03-20-2021 0:17:29 CDT by SHARONA NORIEGA [id number] f
[2021-03-18 20:32] LABS: Add Urine Microscopic? YES; Bilirubin Urine 1+ (Negative); Blood Urine Neg (Negative); Glucose Urine UA Norm (Normal); Ketones Urine 1+ (Negative); Leukocyte Esterase Urine Trace (Negative); Nitrate Urine Negative (Negative); Protein Urine Neg (Negative); Urine Appearance Clear (CLEAR); Urine Color Amber (Yellow); Urobilinogen Urine 4 mg/dL (Negative); pH Urine 5 (5-7)
[2021-03-18 20:33] LABS: Add Urine Culture? No; Bacteria Urine TRACE /hpf; Mucus Urine 2+ /hpf; RBC Urine 0-4 /hpf (0-2)
--- NOTE | 2021-03-18 21:14 | CTR_ITS ---
PROCEDURE INFORMATION: Exam: CTA Chest With Contrast Exam date and time: 03/18/2021 9:14 PM Age: 75 years old Clinical indication: Shortness of breath; Patient HX: SOB w dvt TECHNIQUE: Imaging protocol: Computed tomographic angiography of the chest with contrast. 3D rendering (Not supervised by radiologist): MIP and/or 3D reconstructed images were created by the technologist. Radiation optimization: All CT scans at this facility use at least one of these dose optimization techniques: automated exposure control; mA and/or kV adjustment per patient size (includes targeted exams where dose is matched to clinical indication); or iterative reconstruction. Contrast material: OMNI 350; Contrast volume: 72 ml; Contrast route: INTRAVENOUS (IV); COMPARISON: CTA Chest-Pulmonary Emb [id number] 08/05/2017 9:13 PM RADIATION DOSE METRICS: Total DLP (mGy-cm): 444.63 FINDINGS: Pulmonary arteries: Large right lower lobe pulmonary embolus with multiple occlusive segmental pulmonary emboli. Aorta: Calcification of the thoracic aorta and/or great vessels consistent with atherosclerotic vessel disease. Lungs: See Lymph nodes finding. Pleural spaces: Unremarkable. No pneumothorax. No pleural effusion. Heart: Right heart strain. Lymph nodes: Calcified right hilar nodes and/or mediastinal nodes and/or lung granulomas consistent with old granulomatous disease. Liver: Stable hepatic cysts at least one of which measures larger than a centimeter in size. Other low-attenuation lesions in the liver are too small to characterize. Pancreas: Stable partial pancreatectomy. Stomach and bowel: Stable gastroplasty. Bones/joints: Stable one or more thoracic vertebroplasties. Soft tissues: Unremarkable. CT/CT angio chest PE protcl [id number] IMPRESSION: 1. Large right lower lobe pulmonary embolus with multiple occlusive segmental pulmonary emboli. 2. Right heart strain. Radiation Dose CTDIVOL = (mGy): DLP = 444.63 (mGy-cm)
[2021-03-18 21:30] VITALS: BP 122/63; PULSE 85; RESP 14; O2SAT 93
[2021-03-18] MEDS: iohexol 350 mg/mL 100 mL Btl IV (21:54)
[2021-03-18 22:00] VITALS: BP 152/92; BP 174/83; PULSE 77; PULSE 78; RESP 19; RESP 30; O2SAT 92; O2SAT 94
[2021-03-18 22:35] LABS: Digoxin 0.9 ng/mL (0.6-1.2)
[2021-03-18] MEDS: enoxaparin 80 mg/0.8 mL Syringe 70 MG SUBCUT (22:40)
[2021-03-18 22:47] VITALS: RESP 24; O2SAT 94
--- NOTE | 2021-03-18 23:46 | PM.HP ---
Providers/Chief Complaint Admitting Physician: Simi Calhoun MD Primary Care Provider: Wander Bolton MD Chief Complaint: N,V/SOB/DIZZY/JAW PAIN History of Present Illness Sussy Solorzano is a 75 year old female who presented to the emergency room with above-mentioned complaints. For the past couple of weeks she has not been feeling well. She has been a bit more tired than usual and just knew that something wasn't right. She had been having some episodes of intermittent palpitations. She was seen by Dr. Valle cardiology and started on some digoxin with improvement in the palpitations. She continued to be more short of breath than usual however. In the last couple of days her right leg started bothering her. Her tried to get her to rest but that is not something she does easily. She likes to stay on the go. That said she did not do as much today as she normally does and she started noticing that she was getting quite short of breath walking around. This evening she went out to the chicken pen to lock the chickens up for the night. She knew that she might not make it out there and back without having to rest a few times, but she tried. On her way back, her right leg started hurting severely and she also developed some chest pain. She became quite dizzy and acutely short of breath and had nausea and vomiting. She was vomiting up frothy-looking stuff. Her who was out saw her vomiting and came to her. He was able to get the 4 madsen and get her back up to the car and eventually convinced her to come in. He had been trying to get her to come into the hospital for a couple of days. On arrival to the emergency room, vital signs were stable including normal oxygen saturation, heart rate and blood pressure. She had a few episodes of being mildly tachycardic. 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 She had been on Coumadin prior to that. Her first DVT was after a pelvic surgery in 1997. She continued to have DVTs despite Coumadin therapy which ultimately led to the change to the Xarelto. Work-up in the emergency room ensued that ended up revealing evidence of a new occlusive DVT in the right lower extremity along with the known chronic left lower extremity DVT. Additionally she was found to have a large right lower lobe pulmonary emboli with involvement of multiple segmental branches. She is being admitted for further evaluation and treatment. She denies any noncompliance with her Xarelto. She has not had noticeable swelling in her legs just pain. She denies any trauma. No recent surgeries. History is obtained from Mrs. Solorzano and review of available records. Review of Systems Const: Reports: fatigue; Denies: fever(s) or chills ENMT: Denies: throat pain or nasal congestion Card: Reports: chest pain, palpitations, lightheadedness, pre-syncope, dyspnea on exertion and leg pain with exertion; Denies: edema, syncope or orthopnea Resp: Reports: dyspnea, non-productive cough and pain on inspiration; Denies: hemoptysis GI: Reports: nausea and vomiting; Denies: abdominal pain, diarrhea, constipation, hematochezia or melena : Denies: hematuria Musc: Reports: extremity pain (Right lower extremity) and other (Arthritis pains) Skin/Breast: Denies: pruritus or sores Neuro: Reports: sensory changes (Numbness in the fingertips of her left hand); Denies: headache(s) or weakness in extremities (Beyond the impact of pain) Psych: Denies: depression Nikhil/Lymph: Denies: easy bruising or easy bleeding Medications/Allergies Home Medications Medication Instructions Recorded Confirmed Last Taken Type cetirizine 10 mg capsule 10 mg PO DAILY cap 05/19/19 03/19/21 06/08/20 History cholecalciferol (vitamin D3) 25 1,000 unit PO DAILY 05/19/19 03/19/21 06/08/20 History mcg (1,000 unit) capsule omeprazole 40 mg capsule,delayed 40 mg PO DAILY cap 05/19/19 03/18/21 06/08/20 History release rivaroxaban 20 mg tablet 20 mg PO DAILY 05/19/19 03/18/21 06/05/20 History albuterol sulfate 90 mcg/actuation 2 puff INHALATION Q6H PRN 05/21/19 03/18/21 06/08/20 History aerosol inhaler DICLOFENAC 1% See Rx Instructions .ROUTE 06/29/19 03/18/21 Unknown History .COMPLEX PRN ibuprofen 200 mg tablet 200 mg PO Q6H PRN 01/26/20 03/18/21 Unknown History fluticasone propionate 1 spray INTRANASAL BID 0103/18/21 06/08/20 History levothyroxine [Synthroid] 50 mcg PO DAILY 06/07/20 03/18/21 06/08/20 History denosumab 60 mg/mL subcutaneous 60 mg SUBCUT Q6M ml 07/25/20 03/19/21 Unknown History syringe aspirin 81 mg PO DAILY #30 tab 07/30/20 03/19/21 Unknown Rx bisoprolol fumarate 10 mg tablet 10 mg PO DAILY #90 tab 11/15/20 03/19/21 Unknown Rx losartan 50 mg tablet 50 mg PO DAILY 11/15/20 03/18/21 Unknown History furosemide 20 mg tablet 40 mg PO DAILY PRN tab 12/05/20 03/18/21 Unknown History potassium chloride 10 mEq 20 meq PO DAILY PRN tab 12/05/20 03/18/21 Unknown History tablet,extended release Night splint #1 ea 02/09/21 02/16/21 Unknown Rx atorvastatin 20 mg tablet 40 mg PO DAILY tab 02/16/21 03/19/21 Unknown History nitroglycerin 0.4 mg sublingual 0.4 mg SUBLINGUAL Q5M PRN #25 tab 03/03/21 03/18/21 Unknown Rx tablet digoxin 125 mcg (0.125 mg) tablet 125 mcg PO DAILY #90 tab 03/10/21 03/18/21 Unknown Rx Allergies Allergy/AdvReac Type Severity Reaction Status Date / Time isosorbide Allergy Severe Burning in Verified 02/09/21 08:08 chest; Dizzy; Nauseous; Pain in jaws clopidogrel [From Plavix] Allergy ADR-Headach Verified 02/09/21 08:08 e latex Allergy ALGY-Rash Verified 02/09/21 08:08 PFSH Acute PFSH: Medical History (Updated 03/19/21 @ 08:02 by Simi Calhoun MD) Coronary artery disease DVT (deep venous thrombosis) left lower extremity Gastroesophageal reflux disease History of coronary angiogram (~06/2019) balloon angioplasty to distal RCA stenosis History of stress test (~06/2019) abnormal Hyperlipidemia Hypertension Hypothyroidism Osteoarthritis of hands, bilateral Osteoporosis on Prolia Pulmonary hypertension Tricuspid valve disorders, non-rheumatic Surgical History (Updated 03/19/21 @ 01:21 by Simi Calhoun MD) H/O esophagogastroduodenoscopy (06/09/20) H/O splenectomy H/O: hysterectomy History of bladder suspension procedure History of pancreatic surgery History of partial gastrectomy Previous back surgery vertebroplasty S/P breast biopsy S/P cataract surgery S/P thyroidectomy 1 lobe Family History Other CAD (coronary artery disease) Cancer Diabetes Family history of premature coronary artery disease Denies family history of Anesthesia complication Bleeding disorder Social History (Updated 03/19/21 @ 01:09 by Simi Calhoun MD) Second hand smoke exposure: No Alcohol intake: never Household members: spouse Marital status: Current occupational status: retired Female Reproductive History: : 5 Vitals/I&O/Wt Last Vital Signs Temp 99.3 F 03/18/21 17:53 Pulse 78 03/18/21 22:00 Resp 24 H 03/18/21 22:47 BP 152/92 03/18/21 22:00 Pulse Ox 94 03/18/21 22:47 Weight last 48 hrs Weight 70.307 kg Physical Exam Narrative: EXAM NARRATIVE: Constitutional: Awake and alert, resting comfortably HEENT: Normocephalic, atraumatic, pupils are reactive, oropharynx with moist mucous membranes Neck: Supple Respiratory: Clear to auscultation bilaterally although unable to take in a deep inspiration without some splinting of the right chest Cardiovascular: Regular rhythm Abdomen: Soft, nontender Extremities: Tightness and tenderness in the right thigh from the groin to the knee although not comparably swollen. Left thigh is also tender but not as much as the right. No distal lower extremity edema. Pulses are 2+ and equal at both dorsalis pedis and posterior tibialis. Feet are cool to touch, capillary refill 2 to 3 seconds both great toes without noticeable variation between right and left. Skin: Dry, no rashes, scattered minor bruises, there is a area of discoloration to the tip of the right second toe measuring a couple millimeters diameter Neuro: Speech clear, face symmetric, handgrip equal Psych: Normal affect Data : 03/18/21 18:03 03/18/21 18:03 Other Labs: Laboratory Results WBC 10.2 10^3/uL (4.0-10.0) H 03/18/21 18:03 RBC 4.28 10^6/uL (4.1-5.3) 03/18/21 18:03 Hgb 12.9 g/dL (11.5-15.3) 03/18/21 18:03 Hct 40.5 % (37.0-47.0) 03/18/21 18:03 MCV 94.6 fl (81-99) 03/18/21 18:03 MCH 30.1 pg (28.0-34.0) 03/18/21 18: MCHC 31.9 g/dL (30.0-36.0) 03/18/21 18:03 RDW 14.7 % (12.1-15.1) 03/18/21 18:03 Plt Count 179 10^3/cmm (130-400) 03/18/21 18:03 MPV 10.4 fL (7.4-10.4) 03/18/21 18:03 Neut % (Auto) 65.6 % 03/18/21 18:03 Lymph % (Auto) 22.1 % 03/18/21 18:03 Prentiss % (Auto) 10.8 % 03/18/21 18:03 Eos % (Auto) 0.8 % 03/18/21 18:03 Baso % (Auto) 0.3 % 03/18/21 18:03 Neut # (Auto) 6.67 10^3/uL (1.8-7.7) 03/18/21 18:03 Lymph # (Auto) 2.3 10^3/uL (0.8-4.8) 03/18/21 18:03 Prentiss # (Auto) 1.1 10^3/uL (0.2-0.9) H 03/18/21 18:03 Eos # (Auto) 0.1 10^3/uL (0.0-0.8) 03/18/21 18:03 Baso # (Auto) 0.0 10^3/uL (0.0-0.1) 03/18/21 18:03 Nucleated RBC % (auto) 0 % 03/18/21 18:03 Nucleated RBCs # 0.0 /100WBC 03/18/21 18:03 Sodium 138 mmol/L (136-145) 03/18/21 18:03 Potassium 4.8 mmol/L (3.5-5.1) 03/18/21 18:03 Chloride 100 mmol/L (98-107) 03/18/21 18:03 Carbon Dioxide 22 mmol/L (22-29) 03/18/21 18:03 Anion Gap 20.8 (5-19) H 03/18/21 18:03 BUN 15 mg/dL (8-23) 03/18/21 18:03 Creatinine 0.9 mg/dL (0.5-0.9) 03/18/21 18:03 GFR Calculation Not Reportable 03/18/21 18:03 Glucose 130 mg/dL (65-115) H 03/18/21 18:03 Calculated Osmolality 289 mOsm/kg (285-295) 03/18/21 18:03 Calcium 8.8 mg/dL (8.5-10.5) 03/18/21 18: Total Bilirubin 1.0 mg/dL (0.15-1.2) 03/18/21 18:03 AST 21 U/L (0-32) 03/18/21 18: ALT 10 U/L (0-33) 03/18/21 18:03 Alkaline Phosphatase 81 IU/L (35-105) 03/18/21 18:03 Troponin T Baseline 9 ng/L (0-10) 03/18/21 18:03 Troponin T 120 Minute 9.10 ng/L (0-10) 03/18/21 20:26 Delta Troponin T 0.10 ABS# (0-10) 03/18/21 20:26 C-Reactive Protein 54.9 mg/L (0.0-4.9) H 03/18/21 18:03 NT-Pro-B Natriuret Pep 196 pg/mL (0-125) H 03/18/21 18:03 Total Protein 6.9 g/dL (6.6-8.7) 03/18/21 18:03 Albumin 4.3 g/dL (3.5-5.2) 03/18/21 18: Globulin 2.6 g/dL (1.3-4.6) 03/18/21 18: Lipase 45 U/L (13-60) 03/18/21 18:03 Procalcitonin 0.12 ng/mL (0-0.5) 03/18/21 18:03 Urine Color Silvina (Yellow) 03/18/21 19:50 Urine Appearance Clear (CLEAR) 03/18/21 19:50 Urine pH 5 (5-7) 03/18/21 19:50 Ur Specific [place] 1.020 (1.005-1.030) 03/18/21 19:50 Urine Protein Neg (Negative) 03/18/21 19:50 Urine Glucose (UA) Norm (Normal) 03/18/21 19:50 Urine Ketones 1+ (Negative) H 03/18/21 19:50 Urine Blood Neg (Negative) 03/18/21 19:50 Urine Nitrate Negative (Negative) 03/18/21 19:50 Urine Bilirubin 1+ (Negative) H 03/18/21 19:50 Urine Urobilinogen 4 mg/dL (Negative) H 03/18/21 19:50 Ur Leukocyte Esterase Trace (Negative) H 03/18/21 19:50 Urine RBC 0-4 /hpf (0-2) H 03/18/21 19:50 Urine WBC 5-10 /hpf (0-5) H 03/18/21 19:50 Ur Squamous Epith Cells 10-15 /hpf (0-5) H 03/18/21 19:50 Amorphous Sediment Not Reportable 03/18/21 19:50 Urine Bacteria Trace /hpf (NONE) 03/18/21 19:50 Urine Mucus 2+ /hpf 03/18/21 19:50 Digoxin 0.9 ng/mL (0.6-1.2) 03/18/21 18:03 Impressions Chest X-Ray 03/18/21 18:07 IMPRESSION: 1. No acute findings. 2. Kyphoplasty T8 and T9 vertebral bodies Radiation Dose CTDIVOL = (mGy): DLP = (mGy-cm) Venous Duplex 03/18/21 19:58 IMPRESSION: 1. Occlusive thrombus extending proximally from the right iliac vein distally through the popliteal vein. 2. Chronic appearing thrombus within the left common femoral and superficial femoral veins. Radiation Dose CTDIVOL = (mGy): DLP = (mGy-cm) Chest CTA 03/18/21 21:14 IMPRESSION: 1. Large right lower lobe pulmonary embolus with multiple occlusive segmental pulmonary emboli. 2. Right heart strain. Radiation Dose CTDIVOL = (mGy): DLP = 444.63 (mGy-cm) ADDENDUM: 03/18/21 8985 Impression: 2. Mild right heart strain with RV/LV ratio 1.2. THIS REPORT CONTAINS FINDINGS THAT MAY BE CRITICAL TO PATIENT CARE. The findings were verbally communicated via telephone conference with Armando Simpson at 10:34 PM CDT on 03/18/2021. The findings were acknowledged and understood. Radiation Dose CTDIVOL = (mGy): DLP = 444.63 (mGy-cm) Other data: ECHO 12/2020 CONCLUSIONS 1-Normal left ventricular cavity size. Normal left ventricular systolic function. No regional wall motion abnormalities. Left ventricular ejection fraction is estimated at 65 %. Grade I/IV diastolic dysfunction (abnormal relaxation filling pattern), normal to mildly elevated filling pressures. 2-The right ventricle is normal in size and function. Moderate pulmonary hypertension, RVSP 43.7 mmHg. 3-Moderately thickened mitral valve. No mitral valve stenosis. Mild mitral valve regurgitation. 4-Moderate aortic valve calcification. No aortic valve stenosis. Mild aortic valve regurgitation. 5-There is no pericardial effusion. 6-Right atrial pressure is around 5 mm of mercury. 7-When compared to the prior echocardiogram dated May 04, 2019 mitral valve regurgitation has improved from moderate to mild now A&P Assessment and plan (1) Pulmonary embolism: Secondary to acute on chronic DVT in a patient on Xarelto. She has a long history of recurrent DVTs starting back in the 1990s after a surgery. She has never had a hypercoagulable work-up that she is aware of and I imagine from what she describes she has never been off of anticoagulation long enough for a hypercoagulable work-up to be done. She denies any history of cancer. She has stayed up-to-date with mammograms, endoscopies and other screening recommendations. No other family with similar medical history. Status: Acute Qualifiers: Acute cor pulmonale presence: without acute cor pulmonale Chronicity: acute Pulmonary embolism type: other Qualified Code(s): I26.99 - Other pulmonary embolism without acute cor pulmonale (2) Deep vein thrombosis (DVT) of proximal vein of right lower extremity: New acute DVT despite being on xarelto, occlusive from right iliac through to popliteal vein Status: Acute Qualifiers: Chronicity: acute Qualified Code(s): I82.4Y1 - Acute embolism and thrombosis of unspecified deep veins of right proximal lower extremity (3) DVT (deep venous thrombosis): Chronic, left common femoral and superficial veins Status: Chronic Qualifiers: Affected thrombotic vein of extremity: femoral Chronicity: chronic DVT location: lower extremity Laterality: left Qualified Code(s): I82.512 - Chronic embolism and thrombosis of left femoral vein (4) Chronic anticoagulation: Has been on Xarelto, previosuly on coumadin with persistent chronic DVT; had breakthrough embolic phenomenom on both Status: Chronic (5) Pulmonary hypertension: On lasix, losartan Status: Chronic (6) CHF (congestive heart failure): Chronically on diuretics and digoxin Status: Chronic Qualifiers: Heart failure chronicity: chronic Heart failure type: diastolic Qualified Code(s): I50.32 - Chronic diastolic (congestive) heart failure (7) Coronary artery disease: Chronically on aspirin, bisoprolol, as needed nitroglycerin Status: Chronic Qualifiers: Associated angina: without angina Coronary Disease-Associated Artery/Lesion type: [place] artery [place] vs. transplanted heart: upper [place] heart Qualified Code(s): I25.10 - Atherosclerotic heart disease of [place] coronary artery without angina pectoris (8) Hyperlipidemia: Chronically on statin Status: Chronic Qualifiers: Hyperlipidemia type: unspecified Qualified Code(s): E78.5 - Hyperlipidemia, unspecified (9) Gastroesophageal reflux disease: Chronically on PPI Status: Chronic Qualifiers: Esophagitis presence: esophagitis presence not specified Qualified Code(s): K21.9 - Gastro-esophageal reflux disease without esophagitis (10) Osteoporosis: On Prolia chronically Status: Chronic Qualifiers: Osteoporosis type: age-related Presence of current pathological fracture: without current pathological fracture Qualified Code(s): M81.0 - Age-related osteoporosis without current pathological fracture (11) Hypothyroidism: On levothyroxine Status: Chronic Qualifiers: Hypothyroidism type: unspecified Qualified Code(s): E03.9 - Hypothyroidism, unspecified (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, bilateral: On diclofenac topically and oral ibuprofen chronically Status: Chronic Qualifiers: Osteoarthritis type: primary Qualified Code(s): M19.041 - Primary osteoarthritis, right hand; M19.042 - Primary osteoarthritis, left hand Additional A&P Information Inpatient admission Treatment dose Lovenox Monitor right lower extremity for worsening pain and response to treatment Bedrest currently Will need to be discharged on Lovenox given failure of Xarelto and coumadin Telemetry monitoring Continue serial cardiac enzymes Monitor need for oxygen therapy, presently maintaining saturations on room air Continue home Lasix, losartan, bisoprolol, digoxin, statin and aspirin Continue home levothyroxine Continue home PPI Continue home diclofenac topical, hold oral NSAID therapy Consider outpatient follow-up with hematology Follows with Dr Mendiola from cardiac standpoint Will need reevaluation to monitor response to treatment with Lovenox and once stabilized from that standpoint evaluation of potential sources of occult malignancy or other reason for hypercoaguable state can be undertaken as per patient's wishes and discussion with PCP. Supportive care otherwise Findings, plans and concerns discussed with patient and she was given opportunity to ask questions Currently anticipate discharge home with Lovenox once stable. She has given herself Lovenox injections in the past and feels comfortable doing that again. Full code Attestations Medical Necessity Statement*: Anticipated stay greater than 2 midnights in a patient developing a large right lower lobe pulmonary embolism with multiple segmental branches involved. Additionally she has a new DVT in the right lower extremity. She has a known history of chronic DVT in the left lower extremity and is failed management with Coumadin in the past and now Xarelto. Coding Level of Care Code Acute It [employer] [place] [employer] Diagnoses Pulmonary embolism I26.99 Acute cor pulmonale presence: without acute cor pulmonale Chronicity: acute Pulmonary embolism type: other Deep vein thrombosis (DVT) of proximal vein of right lower extremity I82.4Y1 Chronicity: acute DVT (deep venous thrombosis) I82.512 Affected thrombotic vein of extremity: femoral Chronicity: chronic DVT location: lower extremity Laterality: left Chronic anticoagulation Z79.01 Pulmonary hypertension I27.20 CHF (congestive heart failure) I50.32 Heart failure chronicity: chronic Heart failure type: diastolic Coronary artery disease I25.10 Associated angina: without angina Coronary Disease-Associated Artery/Lesion type: [place] artery [place] vs. transplanted heart: upper [place] heart Hyperlipidemia E78.5 Hyperlipidemia type: unspecified Gastroesophageal reflux disease K21.9 Esophagitis presence: esophagitis presence not specified Osteoporosis M81.0 Osteoporosis type: age-related Presence of current pathological fracture: without current pathological fracture Hypothyroidism E03.9 Hypothyroidism type: unspecified Osteoarthritis of hands, bilateral M19.041; M19.042 Osteoarthritis type: primary
[2021-03-18 23:59] VITALS: BP 121/61; PULSE 76; RESP 26; O2SAT 97
[2021-03-19] VITALS (28 sets, daily range): BP systolic 102–174; BP diastolic 55–83; PULSE 69–94; RESP 13–33; TEMP 36.6–36.8; O2SAT 91–99
--- NOTE | 2021-03-19 00:04 | PC.NURSE ---
Patient c/o pain in upper legs and lower back. Patient states, They offered me pain medication down there and I told them I didn't want any. Patient states, I take Ibuprofen at home for pain, I try not to take the strong stuff. I used to take it a long time ago and I've tried to stay away from it. Patient states, I'd take some Advil if you've got it.
--- NOTE | 2021-03-19 00:07 | ECG_ITS ---
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
[2021-03-19] MEDS: acetaminophen 325 mg Tablet 650 MG PO ×3 (01:37→23:19)
[2021-03-19 01:42] LABS: Troponin 5 6HR 10.32 ng/L (0-10); Troponin 5 6HR Delta 1.32 ng/L (0-12)
[2021-03-19] MEDS: levothyroxine 50 mcg Tablet PO (09:04)
[2021-03-19] MEDS: aspirin 81 mg EC Tablet PO (09:04)
[2021-03-19] MEDS: pantoprazole DR 40 mg Tablet PO (09:04)
[2021-03-19] MEDS: cholecalciferol (vitamin D3) 1,000 unit Tablet 1000 UNIT PO (09:04)
[2021-03-19] MEDS: atorvastatin 40 mg Tablet PO (09:04)
[2021-03-19] MEDS: cetirizine 10 mg Tablet PO (09:05)
[2021-03-19] MEDS: digoxin 125 mcg Tablet PO (09:05)
[2021-03-19] MEDS: fluticasone nasal spray 16gm Btl 1 SPRAY INTRANASAL ×2 (09:06→18:24)
[2021-03-19] MEDS: enoxaparin 60 mg/0.6 mL Syringe SUBCUT ×2 (09:10→21:00)
[2021-03-19] MEDS: losartan 50 mg Tablet PO (10:24)
--- NOTE | 2021-03-19 16:41 | PM.PN ---
Subjective Subjective: Interval history: Patient was seen and examined this morning, continues to complain of pain in the Right lower extremity. Medications: Reviewed: Yes Vitals/I&O/Wt Last Vital Signs Temp 98.3 F 03/19/21 04:00 Pulse 81 03/19/21 12:00 Resp 22 H 03/19/21 12:00 BP 102/60 03/19/21 12:00 Pulse Ox 91 03/19/21 11:00 03/19/21 03/19/21 03/19/21 06:59 14:59 22:59 Intake Total 100 / 100 Balance 100 / 100 Weight last 48 hrs Weight 64.773 kg Weight 70.307 kg Physical Exam Const: COMMON NORMALS: patient oriented x3 HENMT: COMMON NORMALS: normocephalic, atraumatic and external ears normal HEAD & SCALP: normocephalic and atraumatic EXTERNAL EAR: Yes external ears normal Resp: COMMON NORMALS: clear to auscultation bilaterally AUSCULTATION: clear to auscultation bilaterally Cardio: COMMON NORMALS: regular rate, regular rhythm, S1 normal heart sound present, S2 normal heart sound present, No gallops present (Cardio), No murmurs present (Cardio), No rub (Cardio) and Peripheral pulses 2+ throughout RATE: regular rate RHYTHM: regular rhythm HEART SOUNDS: S1 normal heart sound present and S2 normal heart sound present PERIPHERAL PULSES: Peripheral pulses 2+ throughout GI: COMMON NORMALS: Normal to inspection, nondistended, normoactive bowel sounds present, Soft to palpation, non-tender, No hepatosplenomegaly present and no masses AUSCULTATION: Yes normoactive bowel sounds PALPATION: Yes Soft to palpation and Yes No hepatosplenomegaly present RECTAL EXAM: deferred Extremity: COMMON NORMALS: no clubbing, cyanosis or edema and no pedal edema Neuro: COMMON NORMALS: patient oriented x3 Data : 03/18/21 18:03 03/18/21 18:03 A&P Assessment and plan (1) Pulmonary embolism: Acute pulmonary embolism: Currently on therapeutic Lovenox. Therapeutic range and monitoring can be considered with anti-factor Xa level. But mostly is not needed. Patient has history of recurrent DVT and has been on Coumadin as well as on Xarelto in the past. No prior known record of hypercoagulability work-up. No known follow-up with hematology. No known history of malignancy. Up-to-date with her age-appropriate malignancy screening. occult malignancy screening can be considered with tovar CT. Troponin trend without significant delta. proBNP:196. Currently saturating well on room air. Hemodynamically stable. For now continue with therapeutic Lovenox. Can be discharged on Lovenox. Status: Acute Qualifiers: Acute cor pulmonale presence: without acute cor pulmonale Chronicity: acute Pulmonary embolism type: other Qualified Code(s): I26.99 - Other pulmonary embolism without acute cor pulmonale (2) Deep vein thrombosis (DVT) of proximal vein of right lower extremity: New acute DVT despite being on xarelto, occlusive from right iliac through to popliteal vein Status: Acute Qualifiers: Chronicity: acute Qualified Code(s): I82.4Y1 - Acute embolism and thrombosis of unspecified deep veins of right proximal lower extremity (3) DVT (deep venous thrombosis): Chronic, left common femoral and superficial veins Status: Chronic Qualifiers: Affected thrombotic vein of extremity: femoral Chronicity: chronic DVT location: lower extremity Laterality: left Qualified Code(s): I82.512 - Chronic embolism and thrombosis of left femoral vein (4) Chronic anticoagulation: Has been on Xarelto, previosuly on coumadin with persistent chronic DVT; had breakthrough embolic phenomenom on both Status: Chronic (5) Pulmonary hypertension: On lasix, losartan Status: Chronic (6) CHF (congestive heart failure): Chronically on diuretics and digoxin Status: Chronic Qualifiers: Heart failure chronicity: chronic Heart failure type: diastolic Qualified Code(s): I50.32 - Chronic diastolic (congestive) heart failure (7) Coronary artery disease: Chronically on aspirin, bisoprolol, as needed nitroglycerin Status: Chronic Qualifiers: Associated angina: without angina Coronary Disease-Associated Artery/Lesion type: [place] artery [place] vs. transplanted heart: [place] heart Qualified Code(s): I25.10 - Atherosclerotic heart disease of [place] coronary artery without angina pectoris (8) Hyperlipidemia: Chronically on statin Status: Chronic Qualifiers: Hyperlipidemia type: unspecified Qualified Code(s): E78.5 - Hyperlipidemia, unspecified (9) Gastroesophageal reflux disease: Chronically on PPI Status: Chronic Qualifiers: Esophagitis presence: esophagitis presence not specified Qualified Code(s): K21.9 - Gastro-esophageal reflux disease without esophagitis (10) Osteoporosis: On Prolia chronically Status: Chronic Qualifiers: Osteoporosis type: age-related Presence of current pathological fracture: without current pathological fracture Qualified Code(s): M81.0 - Age-related osteoporosis without current pathological fracture (11) Hypothyroidism: On levothyroxine Status: Chronic Qualifiers: Hypothyroidism type: unspecified Qualified Code(s): E03.9 - Hypothyroidism, unspecified (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, bilateral: On diclofenac topically and oral ibuprofen chronically Status: Chronic Qualifiers: Osteoarthritis type: primary Qualified Code(s): M19.041 - Primary osteoarthritis, right hand; M19.042 - Primary osteoarthritis, left hand Additional A&P Information Inpatient admission Treatment dose Lovenox Monitor right lower extremity for worsening pain and response to treatment Bedrest currently Will need to be discharged on Lovenox given failure of Xarelto and coumadin Telemetry monitoring Continue serial cardiac enzymes Monitor need for oxygen therapy, presently maintaining saturations on room air Continue home Lasix, losartan, bisoprolol, digoxin, statin and aspirin Continue home levothyroxine Continue home PPI Continue home diclofenac topical, hold oral NSAID therapy Consider outpatient follow-up with hematology Follows with Dr Mendiola from cardiac standpoint Will need reevaluation to monitor response to treatment with Lovenox and once stabilized from that standpoint evaluation of potential sources of occult malignancy or other reason for hypercoaguable state can be undertaken as per patient's wishes and discussion with PCP. Supportive care otherwise Findings, plans and concerns discussed with patient and she was given opportunity to ask questions Currently anticipate discharge home with Lovenox once stable. She has given herself Lovenox injections in the past and feels comfortable doing that again. Full code Attestations Medical Necessity Statement*: Patient is to be in hospital for management of acute PE and DVT. Coding Level of Care Code Acute Independent Freight Agent for Paola Sutton Diagnoses Pulmonary embolism I26.99 Acute cor pulmonale presence: without acute cor pulmonale Chronicity: acute Pulmonary embolism type: other Deep vein thrombosis (DVT) of proximal vein of right lower extremity I82.4Y1 Chronicity: acute DVT (deep venous thrombosis) I82.512 Affected thrombotic vein of extremity: femoral Chronicity: chronic DVT location: lower extremity Laterality: left Chronic anticoagulation Z79.01 Pulmonary hypertension I27.20 CHF (congestive heart failure) I50.32 Heart failure chronicity: chronic Heart failure type: diastolic Coronary artery disease I25.10 Associated angina: without angina Coronary Disease-Associated Artery/Lesion type: [place] artery [place] vs. transplanted heart: [place] heart Hyperlipidemia E78.5 Hyperlipidemia type: unspecified Gastroesophageal reflux disease K21.9 Esophagitis presence: esophagitis presence not specified Osteoporosis M81.0 Osteoporosis type: age-related Presence of current pathological fracture: without current pathological fracture Hypothyroidism E03.9 Hypothyroidism type: unspecified Osteoarthritis of hands, bilateral M19.041; M19.042 Osteoarthritis type: primary
[2021-03-20] VITALS (29 sets, daily range): BP systolic 84–135; BP diastolic 43–75; PULSE 74–108; RESP 15–38; TEMP 36.8; O2SAT 74–96
[2021-03-20 04:50] LABS: Basophils % 0.3 %; Eosinophils % 0.4 %; Hematocrit 37.3 % (37.0-47.0); Hemoglobin 12.1 g/dL (11.5-15.3); Lymphocytes # 2.9 10^3/uL (0.8-4.8); Lymphocytes % 30.4 %; Mean Corpuscular HGB Conc 32.4 g/dL (30.0-36.0); Mean Corpuscular Hemoglobin 30.6 pg (28.0-34.0); Mean Corpuscular Volume 94.2 fl (81-99); Mean Platelet Volume 10.5 fL (7.4-10.4); Monocytes # 1.3 10^3/uL (0.2-0.9); Monocytes % 13.7 %; Neutrophils # 5.25 10^3/uL (1.8-7.7); Neutrophils % 54.8 %; Nucleated Red Blood Cells % 0 %; Platelet Count 188 10^3/cmm (130-400); Red Blood Count 3.96 10^6/uL (4.1-5.3); Red Cell Distribution Width 14.4 % (12.1-15.1); White Blood Count 9.6 10^3/uL (4.0-10.0)
[2021-03-20 05:15] LABS: Anion Gap 17.1 (5-19); Blood Urea Nitrogen 10 mg/dL (8-23); Carbon Dioxide 25 mmol/L (22-29); Chloride 98 mmol/L (98-107); Glucose 93 mg/dL (65-115); Osmolality Calculated 281 mOsm/kg (285-295); Potassium 4.1 mmol/L (3.5-5.1); Sodium 136 mmol/L (136-145)
[2021-03-20] MEDS: aspirin 81 mg EC Tablet PO (09:24)
[2021-03-20] MEDS: cholecalciferol (vitamin D3) 1,000 unit Tablet 1000 UNIT PO (09:25)
[2021-03-20] MEDS: atorvastatin 40 mg Tablet PO (09:25)
[2021-03-20] MEDS: losartan 50 mg Tablet PO (09:25)
[2021-03-20] MEDS: pantoprazole DR 40 mg Tablet PO (09:28)
[2021-03-20] MEDS: levothyroxine 50 mcg Tablet PO (09:28)
[2021-03-20] MEDS: cetirizine 10 mg Tablet PO (09:29)
[2021-03-20] MEDS: digoxin 125 mcg Tablet PO (09:29)
[2021-03-20] MEDS: fluticasone nasal spray 16gm Btl 1 SPRAY INTRANASAL ×2 (09:29→18:55)
[2021-03-20] MEDS: enoxaparin 60 mg/0.6 mL Syringe SUBCUT ×2 (09:30→21:15)
--- NOTE | 2021-03-20 12:39 | XRR_ITS ---
PROCEDURE INFORMATION: Exam: XR Lumbosacral Spine Exam date and time: 03/20/2021 12:39 PM Age: 75 years old Clinical indication: Low back pain; Prior surgery; Surgery type: T8-t9, pelvic tumor, fistula; Patient HX: HX of bloodclots. Joint pain TECHNIQUE: Imaging protocol: XR of the lumbosacral spine. Views: 2 or 3 views. COMPARISON: [place] [id number] 10/18/2018 1:44 PM FINDINGS: Bones/joints: There is diffuse decreased bone density. No fracture or other acute abnormalities are seen. There is no malalignment. Chronic degenerative changes are present with narrowing sclerosis and hypertrophy of the lower lumbar facet joints and narrowing of the L4-L5 and L5-S1 discs. Soft tissues: Unremarkable. Vasculature: A stent projects on the left iliac veins. XR/XR lumbar spine 2-3V* [id number] IMPRESSION: Chronic degenerative disease. No acute abnormality. Radiation Dose CTDIVOL = (mGy): DLP = (mGy-cm)
--- NOTE | 2021-03-20 12:39 | XRR_ITS ---
PROCEDURE INFORMATION: Exam: XR Bilateral Hips Exam date and time: 03/20/2021 12:39 PM Age: 75 years old Clinical indication: Hip pain; Bilateral; Prior surgery; Surgery type: T8-t9, pelvic tumor, fistula; Patient HX: HX of bloodclots. Joint pain/ TECHNIQUE: Imaging protocol: XR bilateral hips. Views: 2 views of hips with pelvis when performed. COMPARISON: CT abdomen pelvis w con* [id number] 05/31/2020 1:27 PM FINDINGS: Bones/joints: Minimal DJD is present with tiny osteophyte formation on the right femoral head. The joint spaces are not significantly narrowed. No fracture or other acute abnormalities are seen. Soft tissues: See Vasculature finding. Vasculature: Stents project on the left iliac veins. There are clips in the left inguinal region. XR/XR hip BI 2V wo/w pel [id number] IMPRESSION: Minimal DJD in the right hip. No acute bone or joint abnormality. Radiation Dose CTDIVOL = (mGy): DLP = (mGy-cm)
[2021-03-20] MEDS: acetaminophen 325 mg Tablet 650 MG PO (12:44)
--- NOTE | 2021-03-20 13:14 | USCV_ITS ---
[place], [place] Age: 75 Gender: F : 1945 Exam Date: 03/20/2021 14:29 Ordering Phys: Raul Caro MD Technologist: Exam Location: [facility] – [place] Indication: RT HEART STRAIN BP: 97 / 54 HR: 72 Rhythm: Sinus Technical Quality: Adequate MEASUREMENTS (Male / Female) Normal Values 2D ECHO LV Diastolic Diameter PLAX 3.8 cm 4.2 - 5.9 / 3.9 - 5.3 cm LV Systolic Diameter PLAX 2.0 cm IVS Diastolic Thickness 0.8 cm 0.6 - 1.0 / 0.6 - 0.9 cm IVS Systolic Thickness 1.1 cm LVPW Diastolic Thickness 0.9 cm 0.6 - 1.0 / 0.6 - 0.9 cm LVPW Systolic Thickness 1.1 cm LVOT Diameter 2.0 cm LV Ejection Fraction 2D Teich 80.4 % LA Diameter 3.3 cm LA Width 3.1 cm LA Height 3.4 cm RA Width 3.2 cm RA Height 3.8 cm DOPPLER AV Peak Velocity 149.0 cm/s LVOT Peak Velocity 103.0 cm/s AV Area Cont Eq vti 2.2 cm squared AV Area Cont Eq pk 2.3 cm squared MV Area PHT 5.0 cm squared Mitral E to A Ratio 0.7 MV E' Velocity 31.5 cm/s Mitral E to MV E' Ratio 6.9 Mitral E to LV E' Lateral Ratio 7.1 Mitral E to LV E' Septal Ratio 6.7 TR Peak Velocity 217.3 cm/s TR Peak Gradient 18.9 mmHg TV Peak E Velocity 69.0 cm/s Right Atrial Pressure 3.0 mmHg Pulmonary Artery Systolic Pressu 21.9 mmHg FINDINGS Left Ventricle Normal left ventricular size, systolic function and mildly increased wall thickness, with no regional wall motion abnormalities. Left ventricular ejection fraction is estimated at 70 %. Grade I diastolic dysfunction (abnormal relaxation filling pattern), normal to mildly elevated filling pressures. Right Ventricle Normal right ventricular size and systolic function. Right ventricular systolic pressure 26 mmHg. Right Atrium Right atrium not well visualized. Left Atrium Mildly increased left atrial size. Mitral Valve Moderate mitral annular calcification. Thickened mitral valve. No mitral valve stenosis. Trace mitral valve regurgitation. Aortic Valve Aortic valve not well visualized. No aortic valve stenosis. Mild to moderate aortic valve regurgitation. Tricuspid Valve Structurally normal tricuspid valve. Pulmonic Valve Pulmonic valve not well visualized. Pericardium No pericardial effusion. Aorta Normal size aortic root and proximal ascending aorta. CONCLUSIONS 1. Normal left ventricular size, systolic function and mildly increased wall thickness, with no regional wall motion abnormalities. Left ventricular ejection fraction is estimated at 70 %. Grade I diastolic dysfunction (abnormal relaxation filling pattern), normal to mildly elevated filling pressures. 2. Normal right ventricular size and systolic function. 3. Pulmonary artery pressure estimated at 26 mmHg. 4. Mild to moderate aortic valve regurgitation. 5. When compared to previous echocardiogram dated 01/09/2021, there may not have been any significant change. Judith Fuller MD (Electronically Signed) Final Date: 20 March 2021 17:52 Amended: 20 March 2021 17:59 C
--- NOTE | 2021-03-20 13:39 | USCV_ITS ---
[place], [place] Age: 75 Gender: F : 1945 Exam Date: 03/20/2021 14:40 Ordering Phys: Raul Caro MD Technologist: [place] [facility] [place]: [place] Risk Factors: Previous Vascular Surgery: Right Brachial BP: / Left Brachial BP: / Right Left Velocity (cm/s) Spectral Plaque Velocity (cm/s) Spectral Plaque Syst/Diast Broadening Syst/Diast Broadening 60.50/ 10.50 Prox CCA 79.50 / 12.50 57.80/ 10.50 Mid CCA 65.70 / 12.50 51.30/ 13.10 Distal CCA 61.10 / 11.20 60.50/ 8.50 Prox ICA 55.90 / 12.50 76.90/ 17.10 Mid ICA 76.70 / 21.70 82.20/ 19.70 Distal ICA 81.00 / 17.40 55.90 ECA 74.30 1.36 ICA/CCA 1.02 Antegrade Vertebral Antegrade 34.20/ 8.50 cm/s 34.80/ 6.10 cm/s Bi Subclavian Bi 78.20 88.80 CONCLUSIONS Right ICA stenosis <50%. Left ICA stenosis <50%. Normal antegrade Doppler flow noted in the right vertebral artery. Normal antegrade Doppler flow noted in the left vertebral artery. Jonh Oconnor MD (Electronically Signed) Final Date: 20 March 2021 15:58 S
--- NOTE | 2021-03-20 14:08 | PC.NURSE ---
Patient showered independently per her request patient tolerated and finished Pull Emergency call light upon entering shower room patient sitting on shower chair patient reports some dizziness and that she may not be able to walk back to bed this nurse seen patient start to flop sideways and back on shower chair. Patient caught and gently lowered to the floor rapid response called patient unresponsive with agonal breathing pulse palpated withing a few seconds patient was able to be aroused. Blood pressure noted to be 141/78. patient assisted to Wheel chair. Patient taken vizcaino to patient care room and assisted to toilet per her request. patient is alert and oriented at this time. patient restroom having bowel movement tolerated BM well patient assisted back to bed patient request not to notify family of events.
[2021-03-20] MEDS: sodium chloride 0.9% 500 ML 50 ML IV (14:40)
--- NOTE | 2021-03-20 15:20 | PC.OT ---
OT EVALUATION ORDERS RECEIVED. PER RAPID RESPONSE CALLED ON PATIENT EARLIER TODAY; WILL HOLD OT EVALUATION UNTIL TOMORROW.
--- NOTE | 2021-03-20 17:20 | PM.PN ---
Subjective Subjective: Interval history: Patient was seen this morning, continues to complain of weakness, has complaints of left hip pain, she is also complaining of right lower extremity pain, pain with ambulation, not requiring any oxygen, afebrile overnight, no chest pain, no shortness of breath, sons are at bedside She tells me that she had a history of a left lower extremity DVT after surgery, she was on Coumadin, but had difficulty managing her medical so she has been switched to Xarelto she has been on Xarelto for the last 6 years, has been compliant Denies any weight loss, denies any family history of hypercoagulability Later on in the morning, I was called to rapid response, patient was in the shower, when she felt lightheaded, and stopped responding, nurses were present, they were able to slowly lower her to the ground, no head trauma, she remained responsive, on arrival she was alert to person, to place, did follow commands, I performed a leg raising, her blood pressures in the 140s over 80s, heart rate in the 90s, normal sinus rhythm, saturating in the high 90s Patient was reexamined in the afternoon, alert oriented x3, was feeling better, mildly nauseous, still not on any oxygen Vitals/I&O/Wt Last Vital Signs Temp 98.3 F 03/20/21 04:00 Pulse 102 H 03/20/21 12:00 Resp 27 H 03/20/21 12:00 BP 123/75 03/20/21 12:00 Pulse Ox 74 L 03/20/21 12:00 03/20/21 03/20/21 03/20/21 06:59 14:59 22:59 Intake Total 100 / 340 Balance 100 / 340 Weight last 48 hrs Weight 64.773 kg Weight 70.307 kg Physical Exam Const: COMMON NORMALS: no acute distress and patient oriented x3 Resp: COMMON NORMALS: normal respiratory effort, No retractions, No use of accessory muscles and clear to auscultation bilaterally AUSCULTATION: clear to auscultation bilaterally Cardio: COMMON NORMALS: regular rate, regular rhythm, S1 normal heart sound present and S2 normal heart sound present RATE: regular rate RHYTHM: regular rhythm HEART SOUNDS: S1 normal heart sound present and S2 normal heart sound present GI: COMMON NORMALS: Normal to inspection, nondistended, normoactive bowel sounds present and Soft to palpation PALPATION: Yes Soft to palpation Extremity: COMMON NORMALS: no pedal edema Neuro: COMMON NORMALS: patient oriented x3 Psych: COMMON NORMALS: mental status grossly normal Data : 03/20/21 04:17 03/20/21 04:17 A&P Assessment and plan (1) Pulmonary embolism: 1. Large right lower lobe pulmonary embolus with multiple occlusive segmental pulmonary emboli. 2. Right heart strain. Acute pulmonary embolism: Currently on therapeutic Lovenox. Therapeutic range and monitoring can be considered with anti-factor Xa level. Patient has history of recurrent DVT and has been on Coumadin, taken off Coumadin due to difficulty to manage INRs, as well as on Xarelto in the past. No prior known record of hypercoagulability work-up. No known follow-up with hematology. No known history of malignancy. Up-to-date with her age-appropriate malignancy screening. occult malignancy screening can be considered with tovar CT. Troponin trend without significant delta. proBNP:196. Currently saturating well on room air. Hemodynamically stable. For now continue with therapeutic Lovenox. Can be discharged on Lovenox. Cardiac echocardiogram pending Status: Acute Qualifiers: Pulmonary embolism type: other Chronicity: acute Acute cor pulmonale presence: without acute cor pulmonale Qualified Code(s): I26.99 - Other pulmonary embolism without acute cor pulmonale (2) Deep vein thrombosis (DVT) of proximal vein of right lower extremity: New acute DVT despite being on xarelto, occlusive from right iliac through to popliteal vein Status: Acute Qualifiers: Chronicity: acute Qualified Code(s): I82.4Y1 - Acute embolism and thrombosis of unspecified deep veins of right proximal lower extremity (3) DVT (deep venous thrombosis): Chronic, left common femoral and superficial veins Status: Chronic Qualifiers: DVT location: lower extremity Affected thrombotic vein of extremity: femoral Chronicity: chronic Laterality: left Qualified Code(s): I82.512 - Chronic embolism and thrombosis of left femoral vein (4) Chronic anticoagulation: Has been on Xarelto, previosuly on coumadin with persistent chronic DVT; had breakthrough embolic phenomenom on both Status: Chronic (5) Pulmonary hypertension: On lasix, losartan Status: Chronic (6) CHF (congestive heart failure): Chronically on diuretics and digoxin Status: Chronic Qualifiers: Heart failure type: diastolic Heart failure chronicity: chronic Qualified Code(s): I50.32 - Chronic diastolic (congestive) heart failure (7) Coronary artery disease: Chronically on aspirin, bisoprolol, as needed nitroglycerin Status: Chronic Qualifiers: Coronary Disease-Associated Artery/Lesion type: [place] artery [place] vs. transplanted heart: [place] heart Associated angina: without angina Qualified Code(s): I25.10 - Atherosclerotic heart disease of [place] coronary artery without angina pectoris (8) Hyperlipidemia: Chronically on statin Status: Chronic Qualifiers: Hyperlipidemia type: unspecified Qualified Code(s): E78.5 - Hyperlipidemia, unspecified (9) Gastroesophageal reflux disease: Chronically on PPI Status: Chronic Qualifiers: Esophagitis presence: esophagitis presence not specified Qualified Code(s): K21.9 - Gastro-esophageal reflux disease without esophagitis (10) Osteoporosis: On Prolia chronically Status: Chronic Qualifiers: Osteoporosis type: age-related Presence of current pathological fracture: without current pathological fracture Qualified Code(s): M81.0 - Age-related osteoporosis without current pathological fracture (11) Hypothyroidism: On levothyroxine Status: Chronic Qualifiers: Hypothyroidism type: unspecified Qualified Code(s): E03.9 - Hypothyroidism, unspecified (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, bilateral: On diclofenac topically and oral ibuprofen chronically Status: Chronic Qualifiers: Osteoarthritis type: primary Qualified Code(s): M19.041 - Primary osteoarthritis, right hand; M19.042 - Primary osteoarthritis, left hand (13) Vasovagal syncope: -Vasovagal response this morning, in the shower -Remains alert oriented x3, follows commands -We will give gentle IV hydration -Await cardiac echo, carotid artery ultrasound, continue telemetry monitoring -Continue to monitor mentation -Once stable, will perform orthostatic vitals Status: Acute Additional A&P Information Inpatient admission Treatment dose Lovenox Monitor right lower extremity for worsening pain and response to treatment Will need to be discharged on Lovenox given failure of Xarelto and coumadin Telemetry monitoring Monitor need for oxygen therapy, presently maintaining saturations on room air Continue home Lasix, losartan, bisoprolol, digoxin, statin and aspirin Continue home levothyroxine Continue home PPI Continue home diclofenac topical, hold oral NSAID therapy Consider outpatient follow-up with hematology Follows with Dr Mendiola from cardiac standpoint Will need reevaluation to monitor response to treatment with Lovenox and once stabilized from that standpoint evaluation of potential sources of occult malignancy or other reason for hypercoaguable state can be undertaken as per patient's wishes and discussion with PCP. Supportive care otherwise Findings, plans and concerns discussed with patient and she was given opportunity to ask questions Currently anticipate discharge home with Lovenox once stable. She has given herself Lovenox injections in the past and feels comfortable doing that again. Full code Attestations Medical Necessity Statement*: Patient requires hospitalization for pulmonary embolism with right heart strain, vasovagal syncope Coding Level of Care Code Acute Toll Lineman for g Fwd Diagnoses Pulmonary embolism I26.99 Pulmonary embolism type: other Chronicity: acute Acute cor pulmonale presence: without acute cor pulmonale Deep vein thrombosis (DVT) of proximal vein of right lower extremity I82.4Y1 Chronicity: acute DVT (deep venous thrombosis) I82.512 DVT location: lower extremity Affected thrombotic vein of extremity: femoral Chronicity: chronic Laterality: left Chronic anticoagulation Z79.01 Pulmonary hypertension I27.20 CHF (congestive heart failure) I50.32 Heart failure type: diastolic Heart failure chronicity: chronic Coronary artery disease I25.10 Coronary Disease-Associated Artery/Lesion type: [place] artery [place] vs. transplanted heart: [place] heart Associated angina: without angina Hyperlipidemia E78.5 Hyperlipidemia type: unspecified Gastroesophageal reflux disease K21.9 Esophagitis presence: esophagitis presence not specified Osteoporosis M81.0 Osteoporosis type: age-related Presence of current pathological fracture: without current pathological fracture Hypothyroidism E03.9 Hypothyroidism type: unspecified Osteoarthritis of hands, bilateral M19.041; M19.042 Osteoarthritis type: primary Vasovagal syncope R55
--- NOTE | 2021-03-20 17:31 | ECG_ITS ---
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1945 Requested By: Raul Caro Order Number: [id number] Carlyle MD: SHARONA NORIEGA Measurements Intervals [place] Rate: 78 P: 19 DC: 156 QRS: 12 QRSD: 89 T: 4 QT: 344 QTc: 393 Interpretive Statements SINUS RHYTHM LEFT VENTRICULAR HYPERTROPHY AND ST-T CHANGE [VOLTAGE CRITERIA PLUS ST/T ABNORMALITY] INTERPRETATION BASED ON A DEFAULT AGE OF 40 YEARS Compared to ECG 03/19/2021 03:29:57 Left ventricular hypertrophy now present ST (T wave) deviation now present T-wave abnormality no longer present Electronically Signed On 03-20-2021 21:54:12 CDT by SHARONA NORIEGA [email or web address]/NU/[id number] f
[2021-03-20 18:33] LABS: Troponin(5th) Baseline 10 ng/L (0-10)
--- NOTE | 2021-03-20 18:58 | PC.NURSE ---
Shift Note Frequent safety and comfort rounds continue. Orders and/or nursing care completed as indicated. Patient monitored for response to intervention and treatment(s). Education provided includes continued Plan of care. Patient and/or labor representative verbalized understanding Will continue to monitor.
--- NOTE | 2021-03-20 19:31 | ECG_ITS ---
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
[2021-03-20 19:34] LABS: NT Pro B Type Natriuretic Pept 89 pg/mL (0-125)
[2021-03-20 21:54] LABS: Troponin 5 2HR 10.89 ng/L (0-10); Troponin 5 2HR Delta 0.89 ABS# (0-10)
--- NOTE | 2021-03-20 23:31 | ECG_ITS ---
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 Measurements Intervals [place] Rate: 82 P: 33 MO: 154 QRS: 16 QRSD: 87 T: 12 QT: 321 QTc: 376 Interpretive Statements SINUS RHYTHM NONSPECIFIC ST & T-WAVE ABNORMALITY Compared to ECG 03/20/2021 20:25:03 No significant changes Electronically Signed On 03-21-2021 22:21:35 CDT by Judith Fuller M.D. [email or web address]/[id number]
[2021-03-21] VITALS (48 sets, daily range): BP systolic 90–122; BP diastolic 44–71; PULSE 72–103; RESP 12–44; TEMP 36.6; O2SAT 95–99
[2021-03-21 00:15] LABS: Troponin 5 6HR 9.68 ng/L (0-10)
[2021-03-21 00:42] LABS: Troponin 5 6HR Delta -0.32 ng/L (0-12)
[2021-03-21 04:10] LABS: Basophils % 0.3 %; Eosinophils # 0.1 10^3/uL (0.0-0.8); Eosinophils % 0.5 %; Hematocrit 35.5 % (37.0-47.0); Hemoglobin 11.3 g/dL (11.5-15.3); Lymphocytes % 32.3 %; Mean Corpuscular HGB Conc 31.8 g/dL (30.0-36.0); Mean Corpuscular Hemoglobin 29.4 pg (28.0-34.0); Mean Corpuscular Volume 92.4 fl (81-99); Mean Platelet Volume 10.6 fL (7.4-10.4); Monocytes % 11.2 %; Neutrophils # 5.12 10^3/uL (1.8-7.7); Neutrophils % 55.5 %; Nucleated Red Blood Cells % 0 %; Platelet Count 214 10^3/cmm (130-400); Red Blood Count 3.84 10^6/uL (4.1-5.3); Red Cell Distribution Width 14.2 % (12.1-15.1); White Blood Count 9.2 10^3/uL (4.0-10.0)
[2021-03-21] MEDS: acetaminophen 325 mg Tablet 650 MG PO ×2 (04:28→19:36)
[2021-03-21 04:30] LABS: Alanine Aminotransferase < 5 U/L (0-33); Albumin Level 3.5 g/dL (3.5-5.2); Alkaline Phosphatase 63 IU/L (35-105); Aspartate Amino Transferase 15 U/L (0-32); Blood Urea Nitrogen 10 mg/dL (8-23); Calcium 8.7 mg/dL (8.5-10.5); Carbon Dioxide 26 mmol/L (22-29); Chloride 99 mmol/L (98-107); Globulin 2.9 g/dL (1.3-4.6); Glucose 88 mg/dL (65-115); Magnesium 1.7 mg/dL (1.7-2.3); Osmolality Calculated 278 mOsm/kg (285-295); Phosphorus 2.1 mg/dL (2.5-4.5); Sodium 135 mmol/L (136-145); Total Bilirubin 0.9 mg/dL (0.15-1.2); Total Protein 6.4 g/dL (6.6-8.7)
--- NOTE | 2021-03-21 08:03 | PC.NURSE ---
Shift Note Frequent safety and comfort rounds continue. Pt repositioned self. Pt slept well throughout the night. Orders and nursing care completed as indicated. Pt received tylenol for hip pain. Patient monitored for response to intervention and treatment. Education provided includes pain management. Patient verbalized understanding.
[2021-03-21] MEDS: levothyroxine 50 mcg Tablet PO (09:53)
[2021-03-21] MEDS: aspirin 81 mg EC Tablet PO (09:53)
[2021-03-21] MEDS: atorvastatin 40 mg Tablet PO (09:53)
[2021-03-21] MEDS: digoxin 125 mcg Tablet PO (09:53)
[2021-03-21] MEDS: cholecalciferol (vitamin D3) 1,000 unit Tablet 1000 UNIT PO (09:53)
[2021-03-21] MEDS: pantoprazole DR 40 mg Tablet PO (09:54)
[2021-03-21] MEDS: cetirizine 10 mg Tablet PO (09:54)
[2021-03-21] MEDS: losartan 50 mg Tablet PO (09:54)
--- NOTE | 2021-03-21 12:56 | PC.SOCIAL ---
Pg 2 IMM Explained to pt Pg 2 IMM. No questions voiced. Provided pt a copy. Initialed, dated, & timed a copy & placed in chart.
[2021-03-21] MEDS: enoxaparin 60 mg/0.6 mL Syringe SUBCUT ×2 (13:03→19:36)
--- NOTE | 2021-03-21 15:54 | PM.PN ---
Subjective Subjective: Interval history: Patient was seen this morning, she was sitting up to the side the bed, beginning to work with physical therapy, no episodes of lightheadedness overnight, no nausea, no vomiting, no chest pain, no palpitations, Vitals/I&O/Wt Last Vital Signs Temp 98 F 03/21/21 04:00 Pulse 83 03/21/21 09:53 Resp 16 03/21/21 08:00 BP 122/64 03/21/21 09:54 Pulse Ox 99 03/21/21 04:00 03/21/21 03/21/21 03/21/21 06:59 14:59 22:59 Intake Total 740 / 1100 Balance 740 / 1100 Physical Exam Const: COMMON NORMALS: no acute distress and patient oriented x3 Resp: COMMON NORMALS: normal respiratory effort, No retractions, No use of accessory muscles and clear to auscultation bilaterally AUSCULTATION: clear to auscultation bilaterally Cardio: COMMON NORMALS: regular rate, regular rhythm, S1 normal heart sound present and S2 normal heart sound present RATE: regular rate RHYTHM: regular rhythm HEART SOUNDS: S1 normal heart sound present and S2 normal heart sound present GI: COMMON NORMALS: Normal to inspection, nondistended, normoactive bowel sounds present, Soft to palpation and non-tender PALPATION: Yes Soft to palpation Extremity: COMMON NORMALS: no pedal edema Neuro: COMMON NORMALS: patient oriented x3 Psych: COMMON NORMALS: mental status grossly normal Data : 03/21/21 03:14 03/21/21 03:14 A&P Assessment and plan (1) Pulmonary embolism: 1. Large right lower lobe pulmonary embolus with multiple occlusive segmental pulmonary emboli. 2. Right heart strain. Acute pulmonary embolism: Currently on therapeutic Lovenox. Therapeutic range and monitoring can be considered with anti-factor Xa level. Patient has history of recurrent DVT and has been on Coumadin, taken off Coumadin due to difficulty to manage INRs, as well as on Xarelto in the past. No prior known record of hypercoagulability work-up. No known follow-up with hematology. No known history of malignancy. Up-to-date with her age-appropriate malignancy screening. occult malignancy screening can be considered with tovar CT. Troponin trend without significant delta. proBNP:196. Currently saturating well on room air. Hemodynamically stable. For now continue with therapeutic Lovenox. Can be discharged on Lovenox. Cardiac echocardiogram 1. Normal left ventricular size, systolic function and mildly increased wall thickness, with no regional wall motion abnormalities. Left ventricular ejection fraction is estimated at 70 %. Grade I diastolic dysfunction (abnormal relaxation filling pattern), normal to mildly elevated filling pressures. 2. Normal right ventricular size and systolic function. 3. Pulmonary artery pressure estimated at 26 mmHg. 4. Mild to moderate aortic valve regurgitation. 5. When compared to previous echocardiogram dated 01/09/2021, there may not have been any significant change. Status: Acute Qualifiers: Acute cor pulmonale presence: without acute cor pulmonale Chronicity: acute Pulmonary embolism type: other Qualified Code(s): I26.99 - Other pulmonary embolism without acute cor pulmonale (2) Deep vein thrombosis (DVT) of proximal vein of right lower extremity: New acute DVT despite being on xarelto, occlusive from right iliac through to popliteal vein Status: Acute Qualifiers: Chronicity: acute Qualified Code(s): I82.4Y1 - Acute embolism and thrombosis of unspecified deep veins of right proximal lower extremity (3) DVT (deep venous thrombosis): Chronic, left common femoral and superficial veins Status: Chronic Qualifiers: Affected thrombotic vein of extremity: femoral Chronicity: chronic DVT location: lower extremity Laterality: left Qualified Code(s): I82.512 - Chronic embolism and thrombosis of left femoral vein (4) Chronic anticoagulation: Has been on Xarelto, previosuly on coumadin with persistent chronic DVT; had breakthrough embolic phenomenom on both Status: Chronic (5) Pulmonary hypertension: On lasix, losartan Status: Chronic (6) CHF (congestive heart failure): Chronically on diuretics and digoxin Status: Chronic Qualifiers: Heart failure chronicity: chronic Heart failure type: diastolic Qualified Code(s): I50.32 - Chronic diastolic (congestive) heart failure (7) Coronary artery disease: Chronically on aspirin, bisoprolol, as needed nitroglycerin Status: Chronic Qualifiers: Associated angina: without angina Coronary Disease-Associated Artery/Lesion type: [place] artery [place] vs. transplanted heart: [place] heart Qualified Code(s): I25.10 - Atherosclerotic heart disease of [place] coronary artery without angina pectoris (8) Hyperlipidemia: Chronically on statin Status: Chronic Qualifiers: Hyperlipidemia type: unspecified Qualified Code(s): E78.5 - Hyperlipidemia, unspecified (9) Gastroesophageal reflux disease: Chronically on PPI Status: Chronic Qualifiers: Esophagitis presence: esophagitis presence not specified Qualified Code(s): K21.9 - Gastro-esophageal reflux disease without esophagitis (10) Osteoporosis: On Prolia chronically Status: Chronic Qualifiers: Osteoporosis type: age-related Presence of current pathological fracture: without current pathological fracture Qualified Code(s): M81.0 - Age-related osteoporosis without current pathological fracture (11) Hypothyroidism: On levothyroxine Status: Chronic Qualifiers: Hypothyroidism type: unspecified Qualified Code(s): E03.9 - Hypothyroidism, unspecified (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, bilateral: On diclofenac topically and oral ibuprofen chronically Status: Chronic Qualifiers: Osteoarthritis type: primary Qualified Code(s): M19.041 - Primary osteoarthritis, right hand; M19.042 - Primary osteoarthritis, left hand (13) Vasovagal syncope: -Vasovagal response this morning, in the shower -Remains alert oriented x3, follows commands -Continue to monitor mentation -Continue to monitor Status: Acute Additional A&P Information Inpatient admission Treatment dose Lovenox Monitor right lower extremity for worsening pain and response to treatment Will need to be discharged on Lovenox given failure of Xarelto and coumadin Telemetry monitoring Monitor need for oxygen therapy, presently maintaining saturations on room air Continue home Lasix, losartan, bisoprolol, digoxin, statin and aspirin Continue home levothyroxine Continue home PPI Continue home diclofenac topical, hold oral NSAID therapy Consider outpatient follow-up with hematology Follows with Dr Mendiola from cardiac standpoint Will need reevaluation to monitor response to treatment with Lovenox and once stabilized from that standpoint evaluation of potential sources of occult malignancy or other reason for hypercoaguable state can be undertaken as per patient's wishes and discussion with PCP. Supportive care otherwise Findings, plans and concerns discussed with patient and she was given opportunity to ask questions Currently anticipate discharge home with Lovenox once stable. She has given herself Lovenox injections in the past and feels comfortable doing that again. 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 Detailed Diagnoses Pulmonary embolism I26.99 Acute cor pulmonale presence: without acute cor pulmonale Chronicity: acute Pulmonary embolism type: other Deep vein thrombosis (DVT) of proximal vein of right lower extremity I82.4Y1 Chronicity: acute DVT (deep venous thrombosis) I82.512 Affected thrombotic vein of extremity: femoral Chronicity: chronic DVT location: lower extremity Laterality: left Chronic anticoagulation Z79.01 Pulmonary hypertension I27.20 CHF (congestive heart failure) I50.32 Heart failure chronicity: chronic Heart failure type: diastolic Coronary artery disease I25.10 Associated angina: without angina Coronary Disease-Associated Artery/Lesion type: [place] artery [place] vs. transplanted heart: [place] heart Hyperlipidemia E78.5 Hyperlipidemia type: unspecified Gastroesophageal reflux disease K21.9 Esophagitis presence: esophagitis presence not specified Osteoporosis M81.0 Osteoporosis type: age-related Presence of current pathological fracture: without current pathological fracture Hypothyroidism E03.9 Hypothyroidism type: unspecified Osteoarthritis of hands, bilateral M19.041; M19.042 Osteoarthritis type: primary Vasovagal syncope R55
[2021-03-22] VITALS (29 sets, daily range): BP systolic 101–136; BP diastolic 51–81; PULSE 78–117; RESP 3–31; TEMP 36.5–36.6; O2SAT 94–97
[2021-03-22 03:46] LABS: Basophils % 0.3 %; Eosinophils # 0.1 10^3/uL (0.0-0.8); Eosinophils % 1.8 %; Hematocrit 37.5 % (37.0-47.0); Hemoglobin 11.8 g/dL (11.5-15.3); Lymphocytes # 2.7 10^3/uL (0.8-4.8); Mean Corpuscular HGB Conc 31.5 g/dL (30.0-36.0); Mean Corpuscular Hemoglobin 29.5 pg (28.0-34.0); Mean Corpuscular Volume 93.8 fl (81-99); Mean Platelet Volume 10.7 fL (7.4-10.4); Monocytes # 0.8 10^3/uL (0.2-0.9); Monocytes % 12.2 %; Neutrophils # 3.13 10^3/uL (1.8-7.7); Neutrophils % 46.1 %; Nucleated Red Blood Cells % 0 %; Platelet Count 276 10^3/cmm (130-400); Red Cell Distribution Width 14.1 % (12.1-15.1); White Blood Count 6.8 10^3/uL (4.0-10.0)
[2021-03-22 04:22] LABS: Alanine Aminotransferase 9 U/L (0-33); Albumin Level 3.4 g/dL (3.5-5.2); Alkaline Phosphatase 74 IU/L (35-105); Anion Gap 14.8 (5-19); Aspartate Amino Transferase 16 U/L (0-32); Blood Urea Nitrogen 14 mg/dL (8-23); Calcium 9.2 mg/dL (8.5-10.5); Carbon Dioxide 27 mmol/L (22-29); Chloride 100 mmol/L (98-107); Globulin 2.9 g/dL (1.3-4.6); Glucose 91 mg/dL (65-115); Magnesium 1.6 mg/dL (1.7-2.3); Osmolality Calculated 286 mOsm/kg (285-295); Phosphorus 3.3 mg/dL (2.5-4.5); Potassium 3.8 mmol/L (3.5-5.1); Sodium 138 mmol/L (136-145); Total Bilirubin 0.5 mg/dL (0.15-1.2); Total Protein 6.3 g/dL (6.6-8.7)
[2021-03-22] MEDS: levothyroxine 50 mcg Tablet PO (08:31)
[2021-03-22] MEDS: digoxin 125 mcg Tablet PO (08:31)
[2021-03-22] MEDS: aspirin 81 mg EC Tablet PO (08:31)
[2021-03-22] MEDS: cholecalciferol (vitamin D3) 1,000 unit Tablet 1000 UNIT PO (08:31)
[2021-03-22] MEDS: cetirizine 10 mg Tablet PO (08:31)
[2021-03-22] MEDS: pantoprazole DR 40 mg Tablet PO (08:31)
[2021-03-22] MEDS: atorvastatin 40 mg Tablet PO (08:31)
[2021-03-22] MEDS: enoxaparin 60 mg/0.6 mL Syringe SUBCUT ×2 (10:22→21:43)
--- NOTE | 2021-03-22 10:58 | PC.NURSE ---
0831 - Bisoprolol and losartan held with am med pass due to low bp - 108/61. Doctor Vania notified of low bp and order to stop both meds received at this time.
[2021-03-22] MEDS: acetaminophen 325 mg Tablet 650 MG PO (11:07)
[2021-03-22] MEDS: sodium chloride 0.9% 1,000 ML 50 ML IV (11:09)
--- NOTE | 2021-03-22 16:17 | P.PN_ITS ---
Subjective Subjective: Interval history: Patient was seen this morning, her daughter and son are at bedside, she reported lightheadedness and weakness with working with physical therapy, no nausea, no vomiting, no chest pain, no palpitations, not requiring any oxygen Vitals/I&O/Wt Last Vital Signs Temp 97.7 F 03/22/21 08:00 Pulse 80 03/22/21 14:00 Resp 20 H 03/22/21 08:00 BP 126/63 03/22/21 10:27 Pulse Ox 95 03/22/21 08:00 03/22/21 03/22/21 03/22/21 06:59 14:59 22:59 Intake Total 200 / 560 Balance 200 / 560 Physical Exam Const: COMMON NORMALS: no acute distress and patient oriented x3 Resp: COMMON NORMALS: normal respiratory effort, No retractions, No use of accessory muscles and clear to auscultation bilaterally AUSCULTATION: clear to auscultation bilaterally Cardio: COMMON NORMALS: regular rate, regular rhythm, S1 normal heart sound present and S2 normal heart sound present RATE: regular rate RHYTHM: regular rhythm HEART SOUNDS: S1 normal heart sound present and S2 normal heart sound present GI: COMMON NORMALS: Normal to inspection, nondistended, normoactive bowel sounds present, Soft to palpation and non-tender PALPATION: Yes Soft to palpation Extremity: COMMON NORMALS: no pedal edema Neuro: COMMON NORMALS: patient oriented x3 Psych: COMMON NORMALS: mental status grossly normal Data : 03/22/21 02:57 03/22/21 02:57 A&P Assessment and plan (1) Pulmonary embolism: 1. Large right lower lobe pulmonary embolus with multiple occlusive segmental pulmonary emboli. 2. Right heart strain. Acute pulmonary embolism: Currently on therapeutic Lovenox. Therapeutic range and monitoring can be considered with anti-factor Xa level. Patient has history of recurrent DVT and has been on Coumadin, taken off Coumadin due to difficulty to manage INRs, as well as on Xarelto in the past. No prior known record of hypercoagulability work-up. No known follow-up with hematology. No known history of malignancy. Up-to-date with her age-appropriate malignancy screening. occult malignancy screening can be considered with tovar CT. Troponin trend without significant delta. proBNP:196. Currently saturating well on room air. Hemodynamically stable. For now continue with therapeutic Lovenox. Can be discharged on Lovenox. Cardiac echocardiogram 1. Normal left ventricular size, systolic function and mildly increased wall thickness, with no regional wall motion abnormalities. Left ventricular ejection fraction is estimated at 70 %. Grade I diastolic dysfunction (abnormal relaxation filling pattern), normal to mildly elevated filling pressures. 2. Normal right ventricular size and systolic function. 3. Pulmonary artery pressure estimated at 26 mmHg. 4. Mild to moderate aortic valve regurgitation. 5. When compared to previous echocardiogram dated 01/09/2021, there may not have been any significant change. Status: Acute Qualifiers: Pulmonary embolism type: other Chronicity: acute Acute cor pulmonale presence: without acute cor pulmonale Qualified Code(s): I26.99 - Other pulmonary embolism without acute cor pulmonale (2) Deep vein thrombosis (DVT) of proximal vein of right lower extremity: New acute DVT despite being on xarelto, occlusive from right iliac through to popliteal vein Status: Acute Qualifiers: Chronicity: acute Qualified Code(s): I82.4Y1 - Acute embolism and thrombosis of unspecified deep veins of right proximal lower extremity (3) DVT (deep venous thrombosis): Chronic, left common femoral and superficial veins Status: Chronic Qualifiers: DVT location: lower extremity Affected thrombotic vein of extremity: femoral Chronicity: chronic Laterality: left Qualified Code(s): I82.512 - Chronic embolism and thrombosis of left femoral vein (4) Chronic anticoagulation: Has been on Xarelto, previosuly on coumadin with persistent chronic DVT; had breakthrough embolic phenomenom on both Status: Chronic (5) Pulmonary hypertension: On lasix, losartan Status: Chronic (6) CHF (congestive heart failure): Chronically on diuretics and digoxin Status: Chronic Qualifiers: Heart failure type: diastolic Heart failure chronicity: chronic Qualified Code(s): I50.32 - Chronic diastolic (congestive) heart failure (7) Coronary artery disease: Chronically on aspirin, bisoprolol, as needed nitroglycerin Status: Chronic Qualifiers: Coronary Disease-Associated Artery/Lesion type: [place] artery [place] vs. transplanted heart: [place] heart Associated angina: without angina Qualified Code(s): I25.10 - Atherosclerotic heart disease of [place] coronary artery without angina pectoris (8) Hyperlipidemia: Chronically on statin Status: Chronic Qualifiers: Hyperlipidemia type: unspecified Qualified Code(s): E78.5 - Hyperlipidemia, unspecified (9) Gastroesophageal reflux disease: Chronically on PPI Status: Chronic Qualifiers: Esophagitis presence: esophagitis presence not specified Qualified Code(s): K21.9 - Gastro-esophageal reflux disease without esophagitis (10) Osteoporosis: On Prolia chronically Status: Chronic Qualifiers: Osteoporosis type: age-related Presence of current pathological fracture: without current pathological fracture Qualified Code(s): M81.0 - Age- related osteoporosis without current pathological fracture (11) Hypothyroidism: On levothyroxine Status: Chronic Qualifiers: Hypothyroidism type: unspecified Qualified Code(s): E03.9 - Hypothyroidism, unspecified (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, bilateral: On diclofenac topically and oral ibuprofen chronically Status: Chronic Qualifiers: Osteoarthritis type: primary Qualified Code(s): M19.041 - Primary osteoarthritis, right hand; M19.042 - Primary osteoarthritis, left hand (13) Vasovagal syncope: -Vasovagal response this morning, in the shower -Remains alert oriented x3, follows commands -Continues to complain of lightheadedness especially with changing position exertion -Orthostats are within normal limits -We will give gentle IV hydration -monitor for the next for 24 hours, hydrate -Continue to monitor mentation -Continue to monitor Status: Acute Additional A&P Information Inpatient admission Treatment dose Lovenox Monitor right lower extremity for worsening pain and response to treatment Will need to be discharged on Lovenox given failure of Xarelto and coumadin Telemetry monitoring Monitor need for oxygen therapy, presently maintaining saturations on room air Continue home Lasix, losartan, bisoprolol, digoxin, statin and aspirin Continue home levothyroxine Continue home PPI Continue home diclofenac topical, hold oral NSAID therapy Consider outpatient follow-up with hematology Follows with Dr Mendiola from cardiac standpoint Will need reevaluation to monitor response to treatment with Lovenox and once stabilized from that standpoint evaluation of potential sources of occult malignancy or other reason for hypercoaguable state can be undertaken as per patient's wishes and discussion with PCP. Supportive care otherwise Findings, plans and concerns discussed with patient and she was given opportunity to ask questions Currently anticipate discharge home with Lovenox once stable. She has given herself Lovenox injections in the past and feels comfortable doing that again. 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 Pulmonary embolism I26.99 Pulmonary embolism type: other Chronicity: acute Acute cor pulmonale presence: without acute cor pulmonale Deep vein thrombosis (DVT) of proximal vein of right lower extremity I82.4Y1 Chronicity: acute DVT (deep venous thrombosis) I82.512 DVT location: lower extremity Affected thrombotic vein of extremity: femoral Chronicity: chronic Laterality: left Chronic anticoagulation Z79.01 Pulmonary hypertension I27.20 CHF (congestive heart failure) I50.32 Heart failure type: diastolic Heart failure chronicity: chronic Coronary artery disease I25.10 Coronary Disease-Associated Artery/Lesion type: [place] artery [place] vs. transplanted heart: [place] heart Associated angina: without angina Hyperlipidemia E78.5 Hyperlipidemia type: unspecified Gastroesophageal reflux disease K21.9 Esophagitis presence: esophagitis presence not specified Osteoporosis M81.0 Osteoporosis type: age-related Presence of current pathological fracture: without current pathological fracture Hypothyroidism E03.9 Hypothyroidism type: unspecified Osteoarthritis of hands, bilateral M19.041; M19.042 Osteoarthritis type: primary Vasovagal syncope R55
[2021-03-23] VITALS (19 sets, daily range): BP systolic 101–136; BP diastolic 68–76; PULSE 85–111; RESP 9–26; TEMP 36.2–37.2; O2SAT 94–97
[2021-03-23] MEDS: acetaminophen 325 mg Tablet 650 MG PO (04:42)
[2021-03-23 05:00] LABS: Basophils % 0.5 %; Eosinophils # 0.1 10^3/uL (0.0-0.8); Eosinophils % 1.3 %; Hemoglobin 11.4 g/dL (11.5-15.3); Lymphocytes # 2.2 10^3/uL (0.8-4.8); Mean Corpuscular HGB Conc 32.6 g/dL (30.0-36.0); Mean Corpuscular Hemoglobin 29.9 pg (28.0-34.0); Mean Corpuscular Volume 91.9 fl (81-99); Monocytes # 0.7 10^3/uL (0.2-0.9); Monocytes % 11.3 %; Neutrophils # 3.29 10^3/uL (1.8-7.7); Neutrophils % 51.3 %; Nucleated Red Blood Cells % 0 %; Platelet Count 295 10^3/cmm (130-400); Red Blood Count 3.81 10^6/uL (4.1-5.3); White Blood Count 6.4 10^3/uL (4.0-10.0)
[2021-03-23 05:23] LABS: Alanine Aminotransferase 10 U/L (0-33); Albumin Level 3.3 g/dL (3.5-5.2); Alkaline Phosphatase 66 IU/L (35-105); Anion Gap 13.9 (5-19); Aspartate Amino Transferase 20 U/L (0-32); Blood Urea Nitrogen 10 mg/dL (8-23); Calcium 8.4 mg/dL (8.5-10.5); Carbon Dioxide 25 mmol/L (22-29); Chloride 104 mmol/L (98-107); Globulin 3.1 g/dL (1.3-4.6); Glucose 107 mg/dL (65-115); Magnesium 1.6 mg/dL (1.7-2.3); Osmolality Calculated 288 mOsm/kg (285-295); Phosphorus 2.7 mg/dL (2.5-4.5); Potassium 3.9 mmol/L (3.5-5.1); Sodium 139 mmol/L (136-145); Total Bilirubin 0.6 mg/dL (0.15-1.2); Total Protein 6.4 g/dL (6.6-8.7)
[2021-03-23] MEDS: sodium chloride 0.9% 1,000 ML 50 ML IV (07:25)
--- NOTE | 2021-03-23 07:40 | PC.NURSE ---
Pt presents sitting up in bed eating breakfast and talking to family. Pts resp even and non-labored no distress noted. Pt had no c/o pain or discomfort at the present time. No needs voiced. Call light in reach. Will cont to monitor.
[2021-03-23] MEDS: enoxaparin 60 mg/0.6 mL Syringe SUBCUT (08:53)
[2021-03-23] MEDS: polyethylene glycol 3350 Pkt 17 gm PO (08:53)
[2021-03-23] MEDS: cetirizine 10 mg Tablet PO (08:54)
[2021-03-23] MEDS: digoxin 125 mcg Tablet PO (08:54)
[2021-03-23] MEDS: cholecalciferol (vitamin D3) 1,000 unit Tablet 1000 UNIT PO (08:54)
[2021-03-23] MEDS: levothyroxine 50 mcg Tablet PO (08:54)
[2021-03-23] MEDS: atorvastatin 40 mg Tablet PO (08:54)
[2021-03-23] MEDS: aspirin 81 mg EC Tablet PO (08:54)
[2021-03-23] MEDS: docusate sodium 100 mg Capsule PO (08:54)
[2021-03-23] MEDS: pantoprazole DR 40 mg Tablet PO (08:55)
--- NOTE | 2021-03-23 12:28 | P.DS_ITS ---
Discharge Providers Date of Admission: 03/18/21 23:01 Date of Discharge: March 23, 2021 Attending Provider at Admission: Simi Calhoun MD Attending Provider at Discharge: Raul Caro MD Primary Care Provider: Wander Bolton MD Diagnoses at Discharge Discharge Diagnosis (1) Pulmonary embolism: Status: Acute Qualifiers: Pulmonary embolism type: other Chronicity: acute Acute cor pulmonale presence: without acute cor pulmonale Qualified Code(s): I26.99 - Other pulmonary embolism without acute cor pulmonale (2) Deep vein thrombosis (DVT) of proximal vein of right lower extremity: Status: Acute Qualifiers: Chronicity: acute Qualified Code(s): I82.4Y1 - Acute embolism and thrombosis of unspecified deep veins of right proximal lower extremity (3) DVT (deep venous thrombosis): Status: Chronic Permanent problem details: left lower extremity Qualifiers: DVT location: lower extremity Affected thrombotic vein of extremity: femoral Chronicity: chronic Laterality: left Qualified Code(s): I82.512 - Chronic embolism and thrombosis of left femoral vein (4) Chronic anticoagulation: Status: Chronic Permanent problem details: Xarelto, for history of DVT (5) Pulmonary hypertension: Status: Chronic (6) CHF (congestive heart failure): Status: Chronic Qualifiers: Heart failure type: diastolic Heart failure chronicity: chronic Qualified Code(s): I50.32 - Chronic diastolic (congestive) heart failure (7) Coronary artery disease: Status: Chronic Qualifiers: Coronary Disease-Associated Artery/Lesion type: [place] artery [place] vs. transplanted heart: [place] heart Associated angina: without angina Qualified Code(s): I25.10 - Atherosclerotic heart disease of [place] coronary artery without angina pectoris (8) Hyperlipidemia: Status: Chronic Qualifiers: Hyperlipidemia type: unspecified Qualified Code(s): E78.5 - Hyperlipidemia, unspecified (9) Gastroesophageal reflux disease: Status: Chronic Qualifiers: Esophagitis presence: esophagitis presence not specified Qualified Code(s): K21.9 - Gastro-esophageal reflux disease without esophagitis (10) Osteoporosis: Status: Chronic Permanent problem details: on Prolia Qualifiers: Osteoporosis type: age-related Presence of current pathological fracture: without current pathological fracture Qualified Code(s): M81.0 - Age- related osteoporosis without current pathological fracture (11) Hypothyroidism: Status: Chronic Qualifiers: Hypothyroidism type: unspecified Qualified Code(s): E03.9 - Hypothyroidism, unspecified (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, bilateral: Status: Chronic Qualifiers: Osteoarthritis type: primary Qualified Code(s): M19.041 - Primary osteoarthritis, right hand; M19.042 - Primary osteoarthritis, left hand (13) Vasovagal syncope: Status: Acute Reason for Visit Reason for Visit: N,V/SOB/DIZZY/JAW PAIN Hospital Course Hospital Course This is a 75-year-old female with a past medical history of CAD, history of DVT of left lower extremity on Xarelto, history of GERD, history of hypertension, hyperlipidemia, hypothyroidism, pulmonary pretension, diastolic CHF who presents to [facility] due to malaise, intermittent palpitations, right leg pain Patient was admitted to [facility] for pulmonary embolism, large right lower lobe pulmonary embolism with multiple occlusive segmental pulmonary emboli with right heart strain, cardiac echocardiogram showed a normal peptic size and function, EF 70%, grade 1 diastolic dysfunction, normal right ventricular size and systolic function, pulmonary arterial pressure 26 mmHg. In addition she was found to have DVT right lower extremity occlusive from right iliac to popliteal vein patient patient has been on chronic Xarelto therapy currently for past history of left lower extremity DVT, no prior hypercoagulability work-up, was taken off Xarelto managed on therapeutic Lovenox. Patient had a slow clinical progress, ambulating without significant symptomatology, no oxygen requirements, no significant pain complaints, no chest pain complaints, discharged on therapeutic Lovenox, with a follow-up with Dr. Townsend as outpatient. Patient did have an episode of vasovagal syncope during her hospitalization, improved with IV hydration, orthostats were within normal limits, carotid artery ultrasound within normal limits, cardiac echo had no acute findings, no significant troponin elevation or EKG changes. Her blood pressure medications and Lasix were held on discharge. Follow-up with cardiology as outpatient. Given her deconditioning, her weakness, I have recommended for halfway placement however patient declined. She elected for home health care, and her daughter and son will help her around the home. Physical Exam Const: COMMON NORMALS: no acute distress and patient oriented x3 Resp: COMMON NORMALS: normal respiratory effort, No retractions, No use of accessory muscles and clear to auscultation bilaterally AUSCULTATION: clear to auscultation bilaterally Cardio: COMMON NORMALS: regular rate, regular rhythm, S1 normal heart sound present and S2 normal heart sound present RATE: regular rate RHYTHM: regular rhythm HEART SOUNDS: S1 normal heart sound present and S2 normal heart sound present GI: COMMON NORMALS: Normal to inspection, nondistended, normoactive bowel sounds present, Soft to palpation and non-tender PALPATION: Yes Soft to palpation Neuro: COMMON NORMALS: patient oriented x3 Psych: COMMON NORMALS: mental status grossly normal Discharge Data Data Completed and Pending: Completed Studies During Hospitalization Category Date Time Status CT angio chest PE protcl [id number] Stat Cat Scan 03/18/21 21:14 Completed XR chest 1V josiah ble [id number] Stat Exams 03/18/21 18:07 Completed XR hip BI 2V wo/w pel [id number] Routine Exams 03/20/21 12:39 Completed XR lumbar spine 2 -3V* [id number] Routine Exams 03/20/21 12:39 Completed CV carotid duplex BI* [id number] Routine Ultrasound 03/20/21 13:39 [place] [id number] Stat Ultrasound 03/18/21 19:58 Completed CV. echo complete * [id number] Routine Ultrasound 03/20/21 13:14 Completed Labs from last 24 hours 03/23/21 03/23/21 04:32 04:32 WBC 6.4 RBC 3.81 L Hgb 11.4 L Hct 35.0 L MCV 91.9 MCH 29.9 MCHC 32.6 RDW 14.0 Plt Count 295 MPV 10.0 Neut % (Auto) 51.3 Lymph % (Auto) 35.0 [place] % (Auto) 11.3 Eos % (Auto) 1.3 Baso % (Auto) 0.5 Neut # (Auto) 3.29 Lymph # (Auto) 2.2 [place] # (Auto) 0.7 Eos # (Auto) 0.1 Baso # (Auto) 0.0 Nucleated RBC % (a uto) 0 Nucleated RBCs # 0.0 Sodium 139 Potassium 3.9 Chloride 104 Carbon Dioxide 25 Anion Gap 13.9 BUN 10 Creatinine 0.8 GFR Calculation Not Reportable Glucose 107 Calculated Osmolal ity 288 Calcium 8.4 L Phosphorus 2.7 Magnesium 1.6 L Total Bilirubin 0.6 AST 20 ALT 10 Alkaline Phosphata se 66 Total Protein 6.4 L Albumin 3.3 L Globulin 3.1 Vitals: Last Vital Signs Temp 97.2 F L 03/23/21 08:00 Pulse 97 03/23/21 08:54 Resp 22 H 03/23/21 08:00 BP 136/76 03/23/21 08:00 Pulse Ox 97 03/23/21 08:00 Discharge Plan Discharge Patient Disposition: Home Condition: Stable Prescriptions: New docusate sodium 100 mg Capsule 100 mg PO BID 30 Days Qty: 60 RF: 0 enoxaparin 60 mg/0.6 mL Syringe 60 mg SUBCUT Q12H 30 Days Qty: 36 RF: 0 polyethylene glycol 3350 17 gram Powder In Packet 17 g PO DAILY 30 Days Qty: 100 RF: 0 Continued cetirizine 10 mg capsule 10 mg PO DAILY RF: 0 omeprazole 40 mg capsule,delayed release(DR/EC) 40 mg PO DAILY RF: 0 cholecalciferol (vitamin D3) 1,000 unit capsule 1,000 unit PO DAILY RF: 0 ibuprofen [Advil] 200 mg tablet 200 mg PO Q6H PRN (Reason: Pain) RF: 0 potassium chloride 10 mEq tablet extended release 20 meq PO DAILY PRN (Reason: Take with lasix) RF: 0 (DME) Night splint See Rx Instructions .Route .MEDSUPPLY Qty: 1 RF: 0 albuterol sulfate [Ventolin HFA] 90 mcg/actuation HFA aerosol inhaler 2 puff INHALATION Q6H PRN (Reason: sob) RF: 0 Prolia 60 mg/mL syringe 60 mg SUBCUT Q6M RF: 0 atorvastatin [Lipitor] 20 mg tablet 40 mg PO DAILY RF: 0 nitroglycerin [Nitrostat] 0.4 mg tablet, sublingual 0.4 mg sublingual Q5M PRN (Reason: chest pain) Qty: 25 RF: 3 digoxin 125 mcg (0.125 mg) tablet 125 mcg PO DAILY Qty: 90 RF: 3 levothyroxine [Synthroid] 50 mcg tablet 50 mcg PO DAILY RF: 0 fluticasone propionate 50 mcg/actuation [place],Suspension 1 spray INTRANASAL BID RF: 0 aspirin 81 mg tablet,delayed release (DR/EC) 81 mg PO DAILY Qty: 30 RF: 0 DICLOFENAC 1% cream See Rx Instructions .Route .COMPLEX PRN (Reason: Pain) RF: 0 Discontinued Xarelto 20 mg tablet 20 mg PO DAILY RF: 0 furosemide 20 mg tablet 40 mg PO DAILY PRN (Reason: edema) RF: 0 losartan 50 mg tablet 50 mg PO DAILY RF: 0 bisoprolol fumarate 10 mg tablet 10 mg PO DAILY Qty: 90 RF: 3 Discharge Orders: Discharge Order (Routine); Ordered 03/23/21 Ordered By: Raul Caro Referrals: [facility] [Outside] Jonnathan Townsend MD [Hospitalist] - 1 week Discharge Diet: Cardiac Discharge Activity: Resume usual activity Patient Instructions: Opioid Safety Activity Restrictions/Additional Instructions: -Please ambulate with care -If you develop bloody or black stools please go to emergency room -Inject Lovenox twice daily -Please follow-up with Dr. Townsend in 1 week -Follow-up with primary care provider in 1 to 2 weeks -Continue to hold all blood pressure medications -Please hydrate well Discharge Attestations Time Spent in Discharge Care*: greater than 30 min Quality Metrics Clinical Quality Measures During this hospital stay, did patient experience: VTE Contraindication to Overlap Therapy: Overlap treatment not indicated VTE Discharge Education: Education about anticoagulant therapy/Care Notes given Coding Level of Care Code Acute Chg FW DC note Diagnoses Pulmonary embolism I26.99 Pulmonary embolism type: other Chronicity: acute Acute cor pulmonale presence: without acute cor pulmonale Deep vein thrombosis (DVT) of proximal vein of right lower extremity I82.4Y1 Chronicity: acute DVT (deep venous thrombosis) I82.512 DVT location: lower extremity Affected thrombotic vein of extremity: femoral Chronicity: chronic Laterality: left Chronic anticoagulation Z79.01 Pulmonary hypertension I27.20 CHF (congestive heart failure) I50.32 Heart failure type: diastolic Heart failure chronicity: chronic Coronary artery disease I25.10 Coronary Disease-Associated Artery/Lesion type: [place] artery [place] vs. transplanted heart: [place] heart Associated angina: without angina Hyperlipidemia E78.5 Hyperlipidemia type: unspecified Gastroesophageal reflux disease K21.9 Esophagitis presence: esophagitis presence not specified Osteoporosis M81.0 Osteoporosis type: age-related Presence of current pathological fracture: without current pathological fracture Hypothyroidism E03.9 Hypothyroidism type: unspecified Osteoarthritis of hands, bilateral M19.041; M19.042 Osteoarthritis type: primary Vasovagal syncope R55
--- NOTE | 2021-03-23 12:53 | PC.SOCIAL ---
IMM Update Pg. 2 of IMM updated and reviewed with patient, who verbalized understanding. Copy provided.
--- NOTE | 2021-03-23 15:25 | PC.NURSE ---
Pt discharged home. IV removed no redness or swelling noted. Pt discharge instructions given along with prescriptions and follow up appointments. Pt had no c/o pain or discomfort at the time of discharge.
== END 2021-03-23 15:15 | disposition home health service (06) | DRG 299 ==
LOC: ER 21:22 → CSU 23:02
PROVIDERS: Internal Medicine; Admitting Provider Hospitalist; Emergency Provider Emergency Medicine; PCP Family Medicine; Visit Provider Family Medicine
DX: I82.4Y1 Acute embolism and thrombosis of unspecified deep veins of right proximal lower extremity (principal); I26.99 Other pulmonary embolism without acute cor pulmonale; I50.32 Chronic diastolic (congestive) heart failure; I82.512 Chronic embolism and thrombosis of left femoral vein; I11.0 Hypertensive heart disease with heart failure; I27.20 Pulmonary hypertension, unspecified; R55 Syncope and collapse; I25.10 Atherosclerotic heart disease of native coronary artery without angina pectoris; E78.5 Hyperlipidemia, unspecified; M81.0 Age-related osteoporosis without current pathological fracture; E89.0 Postprocedural hypothyroidism; M19.041 Primary osteoarthritis, right hand; M19.042 Primary osteoarthritis, left hand; R53.81 Other malaise; K21.9 Gastro-esophageal reflux disease without esophagitis; Z79.01 Long term (current) use of anticoagulants; Z90.81 Acquired absence of spleen; Z90.3 Acquired absence of stomach [part of]
CPT/HCPCS: 36415; 71045; 71275; 72100; 73521; 80048; 80053; 80162; 81001; 83690; 83735; 83880; 84100; 84145; 84484; 85025; 86140; 93005; 93306; 93880; 93970; 96372; 97116; 97162; 97165; 97530; 97535; 99285; J1650; J7030; J7040; Q9967

== ENCOUNTER 2021-03-28 11:40 | Outpatient (CLI) | payer MEDICARE, OTHER, SELFPAY ==
--- NOTE | 2021-03-28 11:47 | XR_ITS ---
WS: [id number] Left foot, 2 views, 03/28/2021 Clinical Data: LEFT FOOT PAIN Comparison: None. Findings: No fractures or dislocations are seen. No bone destruction or erosion is noted. There is minimal oste oarthritis of the left first MTP joint. There is a plantar spur. XR/XR foot LT 2V [id number] Impression: Osteoarthritis of the left first MTP joint.
== END 2021-03-28 11:41 | disposition home or self-care (01) ==
LOC: RAD 11:43
PROVIDERS: PCP Family Medicine; Visit Provider Family Medicine
DX: M79.672 Pain in left foot (principal)
CPT/HCPCS: 73620

== ENCOUNTER 2021-04-05 09:08 | Outpatient (CLI) | payer MEDICARE, OTHER, SELFPAY ==
[2021-04-05 12:31] LABS: Basophils # 0.1 10^3/uL (0.0-0.1); Basophils % 0.9 %; Eosinophils # 0.1 10^3/uL (0.0-0.8); Eosinophils % 1.4 %; Hematocrit 40.7 % (37.0-47.0); Hemoglobin 12.9 g/dL (11.5-15.3); Lymphocytes # 2.5 10^3/uL (0.8-4.8); Lymphocytes % 44.9 %; Mean Corpuscular HGB Conc 31.7 g/dL (30.0-36.0); Mean Corpuscular Hemoglobin 29.6 pg (28.0-34.0); Mean Corpuscular Volume 93.3 fl (81-99); Mean Platelet Volume 9.7 fL (7.4-10.4); Monocytes # 0.7 10^3/uL (0.2-0.9); Neutrophils # 2.24 10^3/uL (1.8-7.7); Neutrophils % 40.3 %; Nucleated Red Blood Cells % 0 %; Platelet Count 619 10^3/cmm (130-400); Red Blood Count 4.36 10^6/uL (4.1-5.3); Red Cell Distribution Width 14.3 % (12.1-15.1); White Blood Count 5.6 10^3/uL (4.0-10.0)
[2021-04-05 13:07] LABS: Alanine Aminotransferase 45 U/L (0-33); Albumin Level 4.3 g/dL (3.5-5.2); Alkaline Phosphatase 85 IU/L (35-105); Anion Gap 15.7 (5-19); Aspartate Amino Transferase 51 U/L (0-32); Blood Urea Nitrogen 7 mg/dL (8-23); Calcium 9.1 mg/dL (8.5-10.5); Carbon Dioxide 28 mmol/L (22-29); Chloride 99 mmol/L (98-107); Globulin 3.5 g/dL (1.3-4.6); Glucose 94 mg/dL (65-115); Osmolality Calculated 286 mOsm/kg (285-295); Potassium 3.7 mmol/L (3.5-5.1); Sodium 139 mmol/L (136-145); Total Bilirubin 0.6 mg/dL (0.15-1.2); Total Protein 7.8 g/dL (6.6-8.7)
--- NOTE | 2021-04-06 20:32 | ONC CON_ITS ---
Dr. Townsend New Patient Note Patient: Sussy Solorzano Unit #: [id number]: 1945 Dicatated By: Jonnathan Townsend M.D.Date of Visit: Apr 05, 2021 Onc MED New Patient/Consult Referring Physician: Raul Caro Chief Complaint: Thromboembolism. History of Present Illness: This is a 75-year-old woman with recurrent lower extremity deep vein thrombosis and pulmonary emboli. She has multiple medical illnesses including hypertension, hyperlipidemia, coronary artery disease, and cardiomyopathy, among others. She has history of recurrent episodes of left lower extremity deep vein thrombosis, the first of which occurred in 1997. She had been on long-term anticoagulation with warfarin. She was transitioned to rivaroxaban in 2013. She indicates that she has had at least 5 subsequent episodes of blood clots in her left leg, and she also had multiple vascular procedures on her left leg. In reviewing her [facility] records, she had negative venous Doppler studies twice in 2012, but repeat venous Doppler studies in 2018 and in 2019 showed left lower extremity deep vein thrombosis. Despite those findings, she had continued anticoagulation with rivaroxaban. On 03/18/2021 she had presented to the emergency room with shortness of breath and swelling in her right leg. Her venous Doppler of the right leg showed occlusive thrombus extending proximally from the right iliac vein distally through the popliteal vein. The left leg showed chronic appearing thrombus within the common femoral and superficial femoral veins. CT pulmonary angiogram showed a large right lower lobe pulmonary embolus with multiple occlusive segmental pulmonary emboli. There were associated findings of right heart strain. Her echocardiogram showed normal right ventricular size and systolic function with pulmonary arterial pressure measured at 26 mmHg. She began treatment with Lovenox at a therapeutic dosage and she continued the Lovenox following discharge on 03/23/2021. She is seen now in regard to the recurrent thromboembolism. Her main complaint is that she has been having a lot of side effects with the Lovenox, including whelps and pain at the injection sites, as well as headache and other symptoms. She has been feeling very fatigued. She complains that she has had no strength and that her knees have been wobbly. She has been up and around, though, and she says that lately she is starting to gain a little strength. Her ECOG score is 2. She reports having no appetite. She has not had fever. For the past 4 months or so she has been having some night sweating. She complains that her breathing is shallow and she tends to have cough when she is lying down. She has had some pressure in her chest and she says that sometimes her heart feels like it is shaking. She has had some nausea. Bowel function has been okay. She has not been aware of any blood in the stool. She has frequent urination. She has been having pain in her right groin area and also behind her right leg. She has degenerative arthritis and she has some chronic back pain. She was having numbness in her fingers and toes on the left side, that seems to be getting better. Past Medical History: Her medical history includes cardiomyopathy, coronary artery disease, gastroesophageal reflux disease, hyperlipidemia, hypertension, hypothyroidism, left lower extremity deep vein thrombosis, osteoarthritis, osteoporosis, and pulmonary hypertension. Past Surgical History: Her surgical/procedural history includes bilateral cataract excisions, bladder suspension, breast biopsy, distal pancreatectomy and splenectomy, hysterectomy, numerous vascular procedures on the left leg, partial thyroidectomy, EGD in 2020, and T9-T10 kyphoplasty in 2017. Medications: Albuterol Sulfate HFA 2 Puff(s) (of 108 (90 base) mcg/act) Aerosol, solution Inhalation q 6 hours PRN, Atorvastatin Calcium 1 Tablet (of 40 mg) Oral daily, Cetirizine HCl 1 Tablet (of 10 mg) Oral daily, Colace 1 Capsule (of 100 mg) Oral b.i.d. for 30 days, Digoxin 1 Tablet (of 125 mcg) Oral daily, Enoxaparin Sodium 60 mg (of 60 mg/0.6mL) Subcutaneous q 12 hours, Ibuprofen 1 Tablet (of 200 mg) Oral q 6 hours PRN, Levothyroxine Sodium 1 Tablet (of 50 mcg) Oral daily, Montelukast Sodium 1 Tablet (of 10 mg) Oral daily, Omeprazole 1 Capsule (of 40 mg) Capsule Delayed Release Oral daily, Vitamin D-3 1 Capsule (of 25 mcg ) Oral daily Allergies: Clopidogrel Bisulfate, Isosorbide Mononitrate, and Latex. Social History: Ms. Solorzano is . She is a non-smoker. She does not drink alcohol. Family History: Father of heart attack at age 69. Mother of ovarian cancer at age 43. One sister has some type of lung disease. There is no history of thromboembolism in the family. Review Of Symptoms: Constitutional - She reports feeling fatigue and she says she has no strength and that her knees feel wobbly. She is up and around at home. She also complains that she has no appetite. She has not had fever. She has been having night sweating for the past 4 months or so. ECOG score is 2, Eyes - She reports that her vision is not as crisp and clear as it had been, ENMT - She has hearing loss. No tinnitus. No sinus congestion/drainage. No mouth sores. No sore throat or difficulty swallowing, Hematologic/Lymphatic - She has easy bruising, Respiratory - Her breathing is shallow. She has cough when she is lying down. No pleuritic pain or hemoptysis, Cardiovascular - She has been having pressure in her chest and she also has had palpitations. She says that sometimes her heart feels like it is shaking, Gastrointestinal - She sometimes has nausea, attributable to medication. Her acid reflux is adequately managed with medication. No diarrhea or constipation. No blood in the stool or black stools, Genitourinary (F) - No dysuria or hematuria. She has urinary frequency and nocturia. No urgency or incontinence, Musculoskeletal - She has pain in the right groin area and she has been having pain behind her right leg. She has degenerative arthritis, and she has some chronic back pain, Integumentary - No skin rash or other skin changes, Neurologic - She has had headaches with the Lovenox and she also has some lightheadedness. She was having numbness in her fingers and toes on the left side, but that has improved. No other focal neurologic symptoms, Psychiatric - No anxiety or depression. No insomnia. Vital Signs: Performed on Apr 05, 2021 12:12: 8, 2, 25.13, 1.63 sq.m, 62 in, 96 %, 118 /min (HIGH), 18 /min, 135/78 mm(hg), 97.8 F (LOW), and 137.4 lbs (HIGH). Physical Examination: Constitutional - She appears somewhat frail, not acutely ill, Eyes - Sclerae nonicteric. Conjunctivae clear, ENMT - No lesions noted in the oral cavity, Neck - No mass or thyromegaly, Hematologic/Lymphatic - No cervical, clavicular, or axillary adenopathy, Respiratory - Lungs are clear with good air movement bilaterally, Cardiovascular - Heart rhythm is regular. There is no murmur, gallop, or rub noted, Abdomen - Soft. Liver is not enlarged. There is no abdominal mass or ascites noted and there is no inguinal adenopathy, Back/Spine - No spine or CVA tenderness noted, Extremities - There is mild swelling of both legs and there are superficial varicosities present, Integumentary - No rashes. No suspicious skin lesions noted, Neurologic - No focal neurologic deficits noted. Problem List: 1. Recent episode of right lower extremity deep vein thrombosis and major pulmonary emboli while on anticoagulation with rivaroxaban for recurrent episodes of left lower extremity deep vein thrombosis. 2. Hypertension. 3. Hyperlipidemia. 4. Coronary artery disease. 5. Cardiomyopathy. 6. Hypothyroidism. 7. GERD. 8. Degenerative arthritis. 9. Osteoporosis. 10. She has had prior distal pancreatectomy and splenectomy, reportedly for some type of tumor. Problems Addressed with this Encounter and Plan: Patient with a recent episode of right lower extremity deep vein thrombosis and major pulmonary emboli while on anticoagulation with rivaroxaban for recurrent episodes of left lower extremity deep vein thrombosis. She also had been on aspirin prophylaxis for her coronary artery disease. The reason for the failure of anticoagulation is unclear. She had been compliant with taking her medication, though she had taken the rivaroxaban in the morning, usually without breakfast, and that may have been a contributing factor. In any case, since her recent hospitalization she has been on therapeutic Lovenox, which she seems to be tolerating very poorly. As such, I am going to go ahead and transition her to apixaban, but with a standard dosing schedule of 10 mg twice daily for 7 days followed by 5 mg twice daily. One of her main concerns is that she has had symptoms of chronic venous thrombosis in her left leg, and she wishes to avoid having the same problem in her right leg. With that in mind, I am going to repeat a venous Doppler of the right leg, and I will look into the possibility of arranging for a thrombolysis procedure if it is not showing improvement. At some point he also will want to repeat her CT pulmonary angiogram to follow-up on the pulmonary emboli. I am going to be fairly conservative with her thrombophilia evaluation, as she will clearly require long-term anticoagulation and her history is really not suggestive of an inheritable disorder. However, I will check her anticardiolipin antibody profile and I also will recheck her CBC and CMP. She will have further evaluation as indicated. Signed By: Jonnathan Townsend M.D. <<Signature on File>>
[2021-04-09 01:37] LABS: Beta 2 Glycoprotein I IGA AB <2.0 U/mL
[2021-04-09 04:37] LABS: Anti-Cardiolipin IgA AB <2.0 APL-U/mL (<20.0)
== END 2021-04-05 09:09 | disposition home or self-care (01) ==
LOC: ONCMED 09:12
PROVIDERS: PCP Family Medicine; Visit Provider Internal Medicine Medical Oncology
DX: I82.401 Acute embolism and thrombosis of unspecified deep veins of right lower extremity (principal); I26.99 Other pulmonary embolism without acute cor pulmonale; I82.502 Chronic embolism and thrombosis of unspecified deep veins of left lower extremity; Z79.01 Long term (current) use of anticoagulants; E78.5 Hyperlipidemia, unspecified; I10 Essential (primary) hypertension; I25.10 Atherosclerotic heart disease of native coronary artery without angina pectoris; I42.9 Cardiomyopathy, unspecified; E03.9 Hypothyroidism, unspecified; K21.9 Gastro-esophageal reflux disease without esophagitis; M19.90 Unspecified osteoarthritis, unspecified site; M81.0 Age-related osteoporosis without current pathological fracture; Z90.411 Acquired partial absence of pancreas; Z90.81 Acquired absence of spleen; Z79.899 Other long term (current) drug therapy
CPT/HCPCS: 36415; 80053; 85025; 86146; 86147; 99205

== ENCOUNTER 2021-04-11 14:25 | Outpatient (CLI) | payer MEDICARE, OTHER, SELFPAY ==
--- NOTE | 2021-04-11 14:30 | USCV_ITS ---
[place], [place] Age: 75 Gender: F : 1945 Exam Date: 04/11/2021 15:08 Ordering Phys: Jonnathan Townsend MD Technologist: VISHNU Exam Location: [facility] [place] Indication: F/U DVT PROCEDURES: Venous duplex imaging was performed in only the right lower extremity. The following venous structures were evaluated: common femoral vein, profunda vein, proximal portion of the greater saphenous vein, superficial femoral vein, and the popliteal vein. In addition, the posterior tibial veins were evaluated. In addition, the posterior tibial and peroneal trunk were evaluated. Serial compression, augmentation maneuvers, and spectral Doppler flow evaluation were performed. FINDINGS: Partial deep vein thrombosis in the right common femoral/ sapenous vein junction with normal flow dynamics. Otherwise no DVT right lower extremity. Improvement since 03/18/21. CONCLUSIONS Residual DVT right saphenous/femoral vein junction. No progression of DVT. Dr. Joleen Saeed DO (Electronically Signed) Final Date: 11 April 2021 15:54 S
== END 2021-04-11 14:26 | disposition home or self-care (01) ==
LOC: RAD 14:28
PROVIDERS: PCP Family Medicine; Visit Provider Internal Medicine Medical Oncology
DX: I82.591 Chronic embolism and thrombosis of other specified deep vein of right lower extremity (principal)
CPT/HCPCS: 93971

== ENCOUNTER 2021-04-24 08:16 | Outpatient (CLI) | payer MEDICARE, OTHER, SELFPAY ==
--- NOTE | 2021-04-24 | CT_ITS ---
WS: [id number] CTA OF THE CHEST WITH PULMONARY EMBOLISM PROTOCOL TECHNIQUE: High-resolution contrast enhanced CTA of the chest with coronal and sagittal reformatted i shelbys with pulmonary embolism protocol. MIP images are also reviewed. CLINICAL INFORMATION: PULMONARY EMBOLISM COMPARISON: CT DLP: 656.[address] scans at [facility] use at least one of these dose optimization techniques: automated e xposure control; mA and/or kV adjustment per patient size (includes targeted exams where dose is matc hed to clinical indication); or iterative reconstruction. FINDINGS: Previously described right lower lobe pulmonary embolus has resolved compared to March 18, 2021. No new or progressive pulmonary emboli today. Proximal main pulmonary arteries are normal. Normal segme ntal and subsegmental pulmonary arteries. No evidence of pulmonary embolus. Multinodular right thyroid is unchanged from previous. No mediastinal or hilar lymphadenopathy. A few calcified subcarinal and right hilar lymph nodes. No axillary lymphadenopathy. Both lungs are well aerated. No acute pulmonary infiltrates. Slight bibasilar atelectasis. Adrenal gl ands are normal. Stable right renal cyst. Multiple hepatic cysts are stable. Small esophageal hiatal hernia. Postoperative changes proximal stomach. Resection of the tail the pancreas. Prior vertebropla sty changes at T8-T9. CT/CT angio chest PE protcl [id number] IMPRESSION: 1. Previously described right lower lobe pulmonary embolus has resolved. No ne w or progressed pulmonary emboli today. 2. No acute pulmonary infiltrates. Both lungs are well aerated. 3. No other significant changes compared to previous.
[2021-04-24] MEDS: iodixanol 320 mg/mL 100mL Btl IV (12:27)
== END 2021-04-24 08:17 | disposition home or self-care (01) ==
PROVIDERS: PCP Family Medicine; Visit Provider Internal Medicine Medical Oncology
DX: I26.99 Other pulmonary embolism without acute cor pulmonale (principal)
CPT/HCPCS: 71275; Q9967

== ENCOUNTER 2021-05-23 13:52 | Outpatient (CLI) | payer MEDICARE, OTHER, SELFPAY ==
[2021-05-23 14:22] LABS: Basophils # 0.1 10^3/uL (0.0-0.1); Basophils % 0.8 %; Eosinophils # 0.4 10^3/uL (0.0-0.8); Eosinophils % 5.9 %; Hematocrit 41.4 % (37.0-47.0); Hemoglobin 13.1 g/dL (11.5-15.3); Lymphocytes # 2.2 10^3/uL (0.8-4.8); Lymphocytes % 37.6 %; Mean Corpuscular HGB Conc 31.6 g/dL (30.0-36.0); Mean Corpuscular Hemoglobin 29.3 pg (28.0-34.0); Mean Corpuscular Volume 92.6 fl (81-99); Mean Platelet Volume 10.9 fL (7.4-10.4); Monocytes # 0.6 10^3/uL (0.2-0.9); Monocytes % 10.3 %; Neutrophils # 2.67 10^3/uL (1.8-7.7); Neutrophils % 45.1 %; Nucleated Red Blood Cells % 0 %; Platelet Count 354 10^3/cmm (130-400); Red Blood Count 4.47 10^6/uL (4.1-5.3); Red Cell Distribution Width 13.5 % (12.1-15.1); White Blood Count 5.9 10^3/uL (4.0-10.0)
[2021-05-23 14:38] LABS: Alanine Aminotransferase 14 U/L (0-33); Albumin Level 4.3 g/dL (3.5-5.2); Alkaline Phosphatase 92 IU/L (35-105); Anion Gap 15.2 (5-19); Aspartate Amino Transferase 22 U/L (0-32); Blood Urea Nitrogen 12 mg/dL (8-23); Calcium 9.5 mg/dL (8.5-10.5); Carbon Dioxide 29 mmol/L (22-29); Chloride 102 mmol/L (98-107); Glucose 105 mg/dL (65-115); Osmolality Calculated 294 mOsm/kg (285-295); Potassium 4.2 mmol/L (3.5-5.1); Sodium 142 mmol/L (136-145); Total Bilirubin 0.6 mg/dL (0.15-1.2); Total Protein 7.3 g/dL (6.6-8.7)
--- NOTE | 2021-05-27 12:12 | ONC FU_ITS ---
Dr. Townsend Patient Follow-Up Note Patient: Sussy Solorzano Unit #: [id number]: 1945 Dicatated By: Jonnathan Townsend M.D.Date of Visit:May 23, 2021 Onc Med Follow-up/Prog Note Chief Complaint: Thromboembolism. 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 On 03/18/2021 she had presented to the emergency room with shortness of breath and swelling in her right leg. Her venous Doppler of the right leg showed occlusive thrombus extending proximally from the right iliac vein distally through the popliteal vein. The left leg showed chronic appearing thrombus within the common femoral and superficial femoral veins. CT pulmonary angiogram showed a large right lower lobe pulmonary embolus with multiple occlusive segmental pulmonary emboli. There were associated findings of right heart strain. Her echocardiogram showed normal right ventricular size and systolic function with pulmonary arterial pressure measured at 26 mmHg. She began treatment with Lovenox at a therapeutic dosage and she then continued the Lovenox following discharge on 03/23/2021. I had seen her initially on 04/05/2021. She had a history of recurrent episodes of left lower extremity deep vein thrombosis, the first of which occurred in 1997. She had been on long-term anticoagulation with warfarin. She was transitioned to rivaroxaban in 2013. She reported having at least 5 subsequent episodes of blood clots in her left leg, and she also had multiple vascular procedures on her left leg. In reviewing her [facility] records, she had negative venous Doppler studies twice in 2012, but repeat venous Doppler studies in 2017 and in 2018 showed left lower extremity deep vein thrombosis. Despite those findings, she had continued anticoagulation with rivaroxaban. At her initial visit in March she was tolerating the Lovenox very poorly, and I opted to transition her anticoagulation to apixaban at a full dosage of 10 mg twice daily for 7 days followed by 5 mg twice daily. Her repeat CT pulmonary angiogram on 04/24/2021 showed resolution of the previously described right lower lobe pulmonary embolus. There was no acute pulmonary infiltrates noted and there were no other significant interval changes. With those findings she continued on anticoagulation with apixaban. Her other medical illnesses include hypertension, hyperlipidemia, coronary artery disease, cardiomyopathy, hypothyroidism, GERD, degenerative arthritis, and osteoporosis. She has a history of having previously undergone distal pancreatectomy and splenectomy, reportedly for some type of tumor. She is a non-smoker. She is seen for a follow-up visit. She complains that her stomach stays upset and that she has diarrhea whenever she eats. The symptoms had started in association with the apixaban, and they appear to be most likely treatment related. She complains that she has no energy, and she has very limited activity. ECOG score is 2. She does not have much appetite. She has not had fever. She sometimes has sweating. She reports having had sudden visual changes in the left eye lasting an hour and 1/2 to 2 hours. She has not had sore mouth or throat. She does not complain of cough. She says her breathing is still not real good. She has not had chest pain. She also has acid reflux. She has frequent urination with small volume voids. She has bad arthritis pain, especially in her hands and hips. She reports having headaches in the frontal area. She sometimes has dizziness. She has numbness on the tips of her fingers. Medications: Albuterol Sulfate HFA 2 Puff(s) (of 108 (90 base) mcg/act) Aerosol, solution Inhalation q 6 hours PRN, Atorvastatin Calcium 1 Tablet (of 40 mg) Oral daily, Cetirizine HCl 1 Tablet (of 10 mg) Oral daily, Colace 1 Capsule (of 100 mg) Oral b.i.d. for 30 days, Digoxin 1 Tablet (of 125 mcg) Oral daily, Eliquis 1 Tablet (of 5 mg) Oral b.i.d., Ibuprofen 1 Tablet (of 200 mg) Oral q 6 hours PRN, Levothyroxine Sodium 1 Tablet (of 50 mcg) Oral daily, Montelukast Sodium 1 Tablet (of 10 mg) Oral daily, Omeprazole 1 Capsule (of 40 mg) Capsule Delayed Release Oral daily, Vitamin D-3 1 Capsule (of 25 mcg ) Oral daily Allergies: Clopidogrel Bisulfate, Isosorbide Mononitrate, and Latex. Vital Signs: Performed on May 23, 2021 15:53 Height - 62.00 in Weight - 137.4 lbs BSA - 1.63 sq.m BMI - 25.13 Temperature - 97.8 F (LOW) Pulse - 70 /min Respiration - 18 /min BP - 130/76 mm(hg) O2 Sat - 98 % Pain - 0 Fatigue - 8 Physical Examination: Constitutional - She appears somewhat frail generally, Eyes - Sclerae nonicteric. Conjunctivae clear, ENMT - No lesions noted in the oral cavity, Hematologic/Lymphatic - No cervical, clavicular, or axillary adenopathy, Respiratory - Lungs are clear with good air movement bilaterally, Cardiovascular - Heart rhythm is regular. There is no murmur, gallop, or rub noted. There is no carotid bruit noted, Abdomen - Soft. Liver is not enlarged. There is no abdominal mass or ascites noted and there is no inguinal adenopathy, Extremities - No edema. Pedal pulses are palpable bilaterally, Neurologic - No focal neurologic deficits noted. Lab/Imaging: Test performed on May 23, 2021 14:15 Sodium 142 mmol/L Potassium 4.2 mmol/L Chloride 102 mmol/L CO2 29 mmol/L Anion Gap 15.2 BUN 12 mg/dL Creatinine 1.0 mg/dL Cr Clearance (Est) 48.5600 mL/min Glucose 105 mg/dL Osmolality - Calculated 294 mOsm/kg Calcium 9.5 mg/dL Protein, Total 7.3 g/dL Albumin 4.3 g/dL Globulin 3.0 g/dL Bilirubin, Total 0.6 mg/dL ALT (SGPT) 14 U/L AST (SGOT) 22 U/L Alkaline Phosphatase 92 IU/L WBC 5.9 10 3/uL RBC 4.47 10 6/uL HGB 13.1 g/dL HCT 41.4 % MCV 92.6 fl MCH 29.3 pg MCHC 31.6 g/dL RDW 13.5 % Platelet Count 354 10 3/cmm MPV 10.9 fL Neutrophils 2.67 10 3/uL Lymphocytes 2.2 10 3/uL Monocytes 0.6 10 3/uL Eosinophils 0.4 10 3/uL Basophils 0.1 10 3/uL Neutrophil % 45.1 % Lymphocyte % 37.6 % Monocyte % 10.3 % Eosinophil % 5.9 % Basophils % 0.8 % NRBC % 0 % Problem List: 1. Recurrent thromboembolism. 2. Hypertension. 3. Hyperlipidemia. 4. Coronary artery disease. 5. Cardiomyopathy. 6. Hypothyroidism. 7. GERD. 8. Degenerative arthritis. 9. Osteoporosis. 10. She has had prior distal pancreatectomy and splenectomy, reportedly for some type of tumor. Problems Addressed with this Encounter and Plan: Patient with recurrent thromboembolism, including an episode of right lower extremity deep vein thrombosis and major pulmonary embolism in February 2021, occurring while on anticoagulation with rivaroxaban. She also had been on aspirin prophylaxis for her coronary artery disease. The reason for the failure of anticoagulation was unclear, though she had indicated that she had been taking the rivaroxaban in the morning without having eaten any breakfast, and that may have been a contributing factor. At the time of her initial visit in March 2021 she was tolerating Lovenox poorly, and her anticoagulation was transitioned to apixaban. Her repeat CT pulmonary angiogram on 04/24/2021 showed resolution of right lower lobe pulmonary embolus. With those findings she continued apixaban 5 mg twice daily. She comes in now having significant GI complaints, mainly nausea and diarrhea, which appear to be most likely due to the apixaban. As such, she is wanting to try and go back on rivaroxaban. She will start at the standard dosage of 20 mg daily, but she will take it with a meal. She will be scheduled for a follow-up visit in 3 months, but I will see her again sooner as needed. Signed By: Jonnathan Townsend M.D. <<Signature on File>>
== END 2021-05-23 13:53 | disposition home or self-care (01) ==
LOC: ONCMED 13:56
PROVIDERS: PCP Family Medicine; Visit Provider Internal Medicine Medical Oncology
DX: I82.509 Chronic embolism and thrombosis of unspecified deep veins of unspecified lower extremity (principal); I26.99 Other pulmonary embolism without acute cor pulmonale; I10 Essential (primary) hypertension; E78.5 Hyperlipidemia, unspecified; I25.10 Atherosclerotic heart disease of native coronary artery without angina pectoris; E03.9 Hypothyroidism, unspecified; K21.9 Gastro-esophageal reflux disease without esophagitis; I42.9 Cardiomyopathy, unspecified; M81.0 Age-related osteoporosis without current pathological fracture; Z79.01 Long term (current) use of anticoagulants; Z79.899 Other long term (current) drug therapy
CPT/HCPCS: 36415; 80053; 85025; 99214

== ENCOUNTER → 2021-07-27 10:11 | Outpatient (BNVA) | payer MEDICARE, OTHER, SELFPAY | PROVIDERS: PCP Family Medicine; Visit Provider Nurse Practitioner Family | DX: I26.99 Other pulmonary embolism without acute cor pulmonale (principal); I82.4Y1 Acute embolism and thrombosis of unspecified deep veins of right proximal lower extremity; I50.32 Chronic diastolic (congestive) heart failure; I25.10 Atherosclerotic heart disease of native coronary artery without angina pectoris; I27.20 Pulmonary hypertension, unspecified; Z13.79 Encounter for other screening for genetic and chromosomal anomalies | CPT/HCPCS: 80048; 81241; 83880; 85246; 85378; 99214 ==

== ENCOUNTER 2021-08-07 08:16 | Outpatient (CLI) | payer MEDICARE, OTHER, SELFPAY ==
--- NOTE | 2021-08-07 08:27 | USCV_ITS ---
[place], [place] Age: 76 Gender: F : 1945 Exam Date: 08/07/2021 08:36 Ordering Phys: Jane Rosario Technologist: CHARLOTTE Exam Location: [facility] [place] Indication: DVT,CHF,PE HISTORY: History of deep venous thrombosis. PROCEDURES: Comparison:. 04/11/21 Venous duplex imaging was performed in bilateral lower extremities. The following venous structures were evaluated: common femoral vein, profunda vein, proximal portion of the greater saphenous vein, superficial femoral vein, and the popliteal vein. In addition, the posterior tibial and peroneal trunk were evaluated. FINDINGS: The right lower extremity appears free of thrombus at this time. Extensive acute DVT left from the common femoral vein, profunda into the popliteal and peroneal veins. Non compressible vein and occluded. CONCLUSIONS There is evidence of acute left lower extremity deep venous thrombosis. Extensive DVT throughout the left lower extremity. Report called by Doris at time of exam. Dr. Joleen Saeed DO (Electronically Signed) Final Date: 07 August 2021 11:12 S
--- NOTE | 2021-08-07 09:00 | CT_ITS ---
WS: [id number] CT CHEST ANGIOGRAPHY WITH REFORMATS HISTORY: hx of DVT/PE, worsening shortness of breath TECHNIQUE: Contiguous axial images are obtained through the chest during arterial injection of intrav enous contrast. Images are reconstructed to evaluate the pulmonary arteries. MIP imaging also reviewe d. All CT scans at [facility] use at least one of these dose optimization techniques: automat ed exposure control; mA and/or kV adjustment per patient size (includes targeted exams where dose is matched to clinical indication); or iterative reconstruction. CONTRAST: Visipaque 320; 69 mL IV. DLP: 443.19 mGy.cm COMPARISON: 04/24/2021 Good opacification of the pulmonary artery. No filling defects are identified. Pulmonary artery size is normal. Moderate atherosclerosis and ectasia thoracic aorta. Heart size is moderately enlarged. No RIGHT heart strain. No pericardial or pleural effusion. Small bilateral mediastinal and hilar lymph nodes. Lymph node distribution and size is similar to the prior study. 5 mm lobulated nodule RIGHT lung image 41 is stable. Benign granuloma at the RIGHT lung base. Lobulated mass in the RIGHT inferior thyroid measures 2.6 x 3.2 cm and extends substernal. This mass is been present for several years without increase in size. There are multiple low-attenuation masses within the liver which are likely cysts. There are also hep atic granulomata. Spleen is not visualized and probably surgically removed. Gallbladder is not identi fied. No adrenal mass. Low-attenuation nodule upper pole RIGHT kidney is probably a cyst. 2 adjacent vertebroplasties in the midthoracic spine at the previously described. CT/CT angio chest PE protcl [id number] IMPRESSION: 1. No pulmonary embolism. 2. No pneumonia. 3. Moderate cardiomegaly. 4. Prior cholecystectomy and splenectomy. 5. Hepatic and RIGHT renal cyst. 6. Long-term stability RIGHT thyroid nodule. Stable since at least 08/05/2017.
[2021-08-07] MEDS: iodixanol 320 mg/mL 100mL Btl IV (10:03)
== END 2021-08-07 08:17 | disposition home or self-care (01) ==
PROVIDERS: PCP Family Medicine; Visit Provider Nurse Practitioner Family
DX: Z86.718 Personal history of other venous thrombosis and embolism (principal); R06.02 Shortness of breath; I51.7 Cardiomegaly; Z90.49 Acquired absence of other specified parts of digestive tract; Z90.81 Acquired absence of spleen; N28.1 Cyst of kidney, acquired; K76.89 Other specified diseases of liver; E04.1 Nontoxic single thyroid nodule
CPT/HCPCS: 71275; 93970

== ENCOUNTER → 2021-08-16 10:22 | Outpatient (BNVA) | payer MEDICARE, OTHER, SELFPAY | PROVIDERS: PCP Family Medicine; Visit Provider Internal Medicine Cardiovascular Disease | DX: I25.10 Atherosclerotic heart disease of native coronary artery without angina pectoris (principal); I27.20 Pulmonary hypertension, unspecified; I11.0 Hypertensive heart disease with heart failure; I50.32 Chronic diastolic (congestive) heart failure | CPT/HCPCS: 99215 ==

== ENCOUNTER → 2021-08-18 08:28 | Outpatient (BNVA) | payer MEDICARE, OTHER, SELFPAY | PROVIDERS: PCP Family Medicine; Visit Provider Internal Medicine | DX: I82.403 Acute embolism and thrombosis of unspecified deep veins of lower extremity, bilateral (principal); I26.99 Other pulmonary embolism without acute cor pulmonale; Z79.01 Long term (current) use of anticoagulants | CPT/HCPCS: 99214 ==

== ENCOUNTER 2021-08-22 10:32 | Outpatient (CLI) | payer MEDICARE, OTHER, SELFPAY ==
--- NOTE | 2021-08-22 11:15 | USCV_ITS ---
[place], [place] Age: 76 Gender: F : 1945 Exam Date: 08/22/2021 10:55 Ordering Phys: Jane Rosario Technologist: Shane Patel Exam Location: [facility] – [place] Indication: worsening shortness of breath/ tachycardia BP: 140 / 80 HR: 69 Rhythm: Sinus Technical Quality: Adequate MEASUREMENTS (Male / Female) Normal Values 2D ECHO LV Diastolic Diameter PLAX 3.9 cm 4.2 - 5.9 / 3.9 - 5.3 cm LV Systolic Diameter PLAX 2.5 cm IVS Diastolic Thickness 0.7 cm 0.6 - 1.0 / 0.6 - 0.9 cm IVS Systolic Thickness 1.0 cm LVPW Diastolic Thickness 1.2 cm 0.6 - 1.0 / 0.6 - 0.9 cm LVPW Systolic Thickness 1.3 cm LVOT Diameter 2.0 cm LV Ejection Fraction 2D Teich 66.2 % LV Ejection Fraction MOD 2C 57.9 % LV Ejection Fraction 2C AL 59.7 % LA Diameter 3.0 cm LA Width 3.8 cm LA Height 4.2 cm RA Width 3.6 cm RA Height 3.7 cm Aorta at Sinotubular Diameter 2.6 cm M-MODE Aortic Annulus Diameter 2.6 cm LA Ao Ratio MM 1.1 MV E Point Septal Separation 0.3 cm DOPPLER AV Peak Velocity 195.0 cm/s LVOT Peak Velocity 112.0 cm/s AV Area Cont Eq vti 2.0 cm squared AV Area Cont Eq pk 1.8 cm squared MV Area PHT 3.3 cm squared Mitral E to A Ratio 0.7 MV E' Velocity 37.5 cm/s Mitral E to MV E' Ratio 10.6 Mitral E to LV E' Lateral Ratio 10.1 Mitral E to LV E' Septal Ratio 11.1 TR Peak Velocity 253.8 cm/s TR Peak Gradient 25.8 mmHg TR Mean Velocity 201.6 cm/s TR Mean Gradient 16.5 mmHg TR Velocity Time Integral 60.5 cm Right Atrial Pressure 3.0 mmHg Pulmonary Artery Systolic Pressu 28.8 mmHg RV Acceleration Time 0.1 s RV Ejection Time 0.3 s RV AcT/ET 0.4 FINDINGS Left Ventricle Normal left ventricular size. LV systolic function is normal with EF of 55-60%. No regional wall motion abnormalities. Grade 1 diastolic dysfunction Right Ventricle The right ventricle is normal in size and function. Right Atrium The right atrium is normal in size. Left Atrium The left atrium is normal in size. Mitral Valve Mild mitral annular calcification without significant stenosis or prolapse. There is mild mitral regurgitation. Aortic Valve Structurally normal aortic valve without significant sclerosis or stenosis. There is mild to moderate aortic regurgitation. Tricuspid Valve Structurally normal tricuspid valve without significant stenosis. Mild tricuspid regurgitation. Pulmonary artery systolic pressure is normal. Pulmonic Valve Structurally normal pulmonic valve without significant stenosis. There is mild pulmonic regurgitation. Pericardium Normal pericardium without effusion. Aorta Normal ascending aorta dimension. CONCLUSIONS LV systolic function is normal with EF of 55-60% Grade 1 diastolic dysfunction Mild mitral regurgitation Mild to moderate aortic regurgitation Mild tricuspid regurgitation Mild pulmonic regurgitation Compared to prior echocardiogram from 03/20/2021, no significant changes are noted Bret Yousif MD (Electronically Signed) Final Date: 28 August 2021 11:12 S
== END 2021-08-22 10:33 | disposition home or self-care (01) ==
LOC: RAD 10:33
PROVIDERS: PCP Family Medicine; Visit Provider Nurse Practitioner Family
DX: R06.02 Shortness of breath (principal); R00.0 Tachycardia, unspecified; I08.3 Combined rheumatic disorders of mitral, aortic and tricuspid valves
CPT/HCPCS: 93306

== ENCOUNTER 2021-08-24 10:23 | Outpatient (CLI) | payer MEDICARE, OTHER, SELFPAY ==
--- NOTE | 2021-08-29 10:15 | ONC FU_ITS ---
Silvia Avina Progress Note Patient: S[place] Solorzano Unit #: [id number]: 1945 Dicatated By: Silvia Avina N.P.Date of Visit:Aug 24, 2021 Onc MED Follow-up/Prog Note Chief Complaint: Thromboembolism. 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 On 03/18/2021 she had presented to the emergency room with shortness of breath and swelling in her right leg. Her venous Doppler of the right leg showed occlusive thrombus extending proximally from the right iliac vein distally through the popliteal vein. The left leg showed chronic appearing thrombus within the common femoral and superficial femoral veins. CT pulmonary angiogram showed a large right lower lobe pulmonary embolus with multiple occlusive segmental pulmonary emboli. There were associated findings of right heart strain. Her echocardiogram showed normal right ventricular size and systolic function with pulmonary arterial pressure measured at 26 mmHg. She began treatment with Lovenox at a therapeutic dosage and she then continued the Lovenox following discharge on 03/23/2021. I had seen her initially on 04/05/2021. She had a history of recurrent episodes of left lower extremity deep vein thrombosis, the first of which occurred in 1997. She had been on long-term anticoagulation with warfarin. She was transitioned to rivaroxaban in 2013. She reported having at least 5 subsequent episodes of blood clots in her left leg, and she also had multiple vascular procedures on her left leg. In reviewing her [facility] records, she had negative venous Doppler studies twice in 2012, but repeat venous Doppler studies in 2017 and in 2018 showed left lower extremity deep vein thrombosis. Despite those findings, she had continued anticoagulation with rivaroxaban. At her initial visit in March she was tolerating the Lovenox very poorly, and I opted to transition her anticoagulation to apixaban at a full dosage of 10 mg twice daily for 7 days followed by 5 mg twice daily. Her repeat CT pulmonary angiogram on 04/24/2021 showed resolution of the previously described right lower lobe pulmonary embolus. There was no acute pulmonary infiltrates noted and there were no other significant interval changes. With those findings she continued on anticoagulation with apixaban. Her other medical illnesses include hypertension, hyperlipidemia, coronary artery disease, cardiomyopathy, hypothyroidism, GERD, degenerative arthritis, and osteoporosis. She has a history of having previously undergone distal pancreatectomy and splenectomy, reportedly for some type of tumor. She is a non-smoker. Patient presents for follow-up visit. She has a history of multiple DVTs she was on apixaban but due to side effects of nausea and diarrhea she was switched to rivaroxaban. At present that has been discontinued and she is currently on Lovenox injections. She had presented to discuss options with Dr. Townsend. And she has an appointment with him on 08/28/2021. She also has an appointment with a vascular surgeon tomorrow at 3 PM for further evaluation of DVT. Review Of Symptoms:Review of Systems is not available for this patient. Past Medical History: Cardiomyopathy Coronary artery disease Gastroesophageal reflux disease Hyperlipidemia Hypertension Hypothyroidism Left lower extremity deep vein thrombosis Osteoarthritis Osteoporosis Pulmonary hypertension Past Surgical History: Bilateral cataract excisions Bladder suspension Breast biopsy Distal pancreatectomy and splenectomy Hysterectomy Numerous vascular procedures on the left leg Partial thyroidectomy Covid vaccine #3 moderna in 2020 Covid vaccine #2 moderna in 2020 Covid vaccine #1 moderna in 2020 EGD in 2020 T9-T10 kyphoplasty in 2018 Allergies: Clopidogrel Bisulfate, Isosorbide Mononitrate, and Latex. Medications: Albuterol Sulfate HFA 2 Puff(s) (of 108 (90 base) mcg/act) Aerosol, solution Inhalation q 6 hours PRN Atorvastatin Calcium 1 Tablet (of 40 mg) Oral daily Cetirizine HCl 1 Tablet (of 10 mg) Oral daily Colace 1 Capsule (of 100 mg) Oral b.i.d. for 30 days Digoxin 1 Tablet (of 125 mcg) Oral daily Eliquis 1 Tablet (of 5 mg) Oral b.i.d. Ibuprofen 1 Tablet (of 200 mg) Oral q 6 hours PRN Levothyroxine Sodium 1 Tablet (of 50 mcg) Oral daily Montelukast Sodium 1 Tablet (of 10 mg) Oral daily Omeprazole 1 Capsule (of 40 mg) Capsule Delayed Release Oral daily Vitamin D-3 1 Capsule (of 25 mcg ) Oral daily Family History: Father of heart attack at age 69. Mother of ovarian cancer at age 43. One sister has some type of lung disease. There is no history of thromboembolism in the family. Social History: Ms. Solorzano is . Ms. Solorzano has never smoked. She has no history of drinking. She is a non-smoker. She does not drink alcohol. Physical Examination: Performed on Aug 24, 2021 11:37: Height - 62.00 in, Weight - 133.8 lbs (LOW), BSA - 1.61 sq.m, BMI - 24.47, Temperature - 98.2 F (LOW), Pulse - 76 /min, Respiration - 16 /min, BP - 147/72 mm(hg) (HIGH), O2 Sat - 97 %, Pain - 0, and Fatigue - 8. Performance Status: 2 - Ambulatory/capable of all self-care, unable to perform any work activities. Up and about more than 50% of waking hours. (ECOG) Constitutional Alert, cooperative, oriented. Mood and affect appropriate. Appears close to chronological age. Well nourished. Well developed. Head Normocephalic; no scars. Respiratory Lungs are clear to auscultation without rhonchi or wheezing. Cardiovascular Regular rate and rhythm of heart without murmurs, gallops or rubs. Musculoskeletal No tenderness or swelling, normal range of motion without obvious weakness. Psychiatric Alert and oriented times three. Coherent speech. Verbalizes understanding of our discussions today. Laboratory: Test performed on May 23, 2021 14:15 Sodium 142 mmol/L Potassium 4.2 mmol/L Chloride 102 mmol/L CO2 29 mmol/L Anion Gap 15.2 BUN 12 mg/dL Creatinine 1.0 mg/dL Cr Clearance (Est) 48.5600 mL/min Glucose 105 mg/dL Osmolality - Calculated 294 mOsm/kg Calcium 9.5 mg/dL Protein, Total 7.3 g/dL Albumin 4.3 g/dL Globulin 3.0 g/dL Bilirubin, Total 0.6 mg/dL ALT (SGPT) 14 U/L AST (SGOT) 22 U/L Alkaline Phosphatase 92 IU/L WBC 5.9 10 3/uL RBC 4.47 10 6/uL HGB 13.1 g/dL HCT 41.4 % MCV 92.6 fl MCH 29.3 pg MCHC 31.6 g/dL RDW 13.5 % Platelet Count 354 10 3/cmm MPV 10.9 fL Neutrophils 2.67 10 3/uL Lymphocytes 2.2 10 3/uL Monocytes 0.6 10 3/uL Eosinophils 0.4 10 3/uL Basophils 0.1 10 3/uL Neutrophil % 45.1 % Lymphocyte % 37.6 % Monocyte % 10.3 % Eosinophil % 5.9 % Basophils % 0.8 % NRBC % 0 % Impression: 1. Recurrent thromboembolism. 2. Hypertension. 3. Hyperlipidemia. 4. Coronary artery disease. 5. Cardiomyopathy. 6. Hypothyroidism. 7. GERD. 8. Degenerative arthritis. 9. Osteoporosis. 10. She has had prior distal pancreatectomy and splenectomy, reportedly for some type of tumor. Plan: Patient with recurrent thromboembolism, including an episode of right lower extremity deep vein thrombosis and major pulmonary embolism in February 2021, occurring while on anticoagulation with rivaroxaban. She also had been on aspirin prophylaxis for her coronary artery disease. The reason for the failure of anticoagulation was unclear, though she had indicated that she had been taking the rivaroxaban in the morning without having eaten any breakfast, and that may have been a contributing factor. At the time of her initial visit in March 2021 she was tolerating Lovenox poorly, and her anticoagulation was transitioned to apixaban. Her repeat CT pulmonary angiogram on 04/24/2021 showed resolution of right lower lobe pulmonary embolus. With those findings she continued apixaban 5 mg twice daily. She comes in now having significant GI complaints, mainly nausea and diarrhea, which appear to be most likely due to the apixaban. As such, she is wanting to try and go back on rivaroxaban. She will start at the standard dosage of 20 mg daily, but she will take it with a meal. Patient presents today for follow-up. She is currently taking Lovenox daily for DVT. She will keep her appointment with a vascular surgeon tomorrow at 3 PM. She will keep her follow-up appointment with Dr. Townsend on 08/28/2021 to discuss further treatment options. Signed By: Silvia Avina N.P. <<Signature on File>>
== END 2021-08-24 10:24 | disposition home or self-care (01) ==
PROVIDERS: PCP Family Medicine; Visit Provider Nurse Practitioner Family
DX: I74.9 Embolism and thrombosis of unspecified artery (principal); I25.10 Atherosclerotic heart disease of native coronary artery without angina pectoris; I26.99 Other pulmonary embolism without acute cor pulmonale; I82.409 Acute embolism and thrombosis of unspecified deep veins of unspecified lower extremity; R11.0 Nausea; R19.7 Diarrhea, unspecified; Z79.01 Long term (current) use of anticoagulants; Z79.82 Long term (current) use of aspirin; Z79.899 Other long term (current) drug therapy
CPT/HCPCS: 99214

== ENCOUNTER 2021-08-28 07:58 | Outpatient (CLI) | payer MEDICARE, OTHER, SELFPAY ==
--- NOTE | 2021-08-28 16:54 | ONC FU_ITS ---
Dr. Townsend Patient Follow-Up Note Patient: Sussy Solorzano Unit #: [id number]: 1945 Dicatated By: Jonnathan Townsend M.D.Date of Visit:Aug 28, 2021 Onc Med Follow-up/Prog Note Chief Complaint: Thromboembolism. 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 On 03/18/2021 she had presented to the emergency room with shortness of breath and swelling in her right leg. Her venous Doppler of the right leg showed occlusive thrombus extending proximally from the right iliac vein distally through the popliteal vein. The left leg showed chronic appearing thrombus within the common femoral and superficial femoral veins. CT pulmonary angiogram showed a large right lower lobe pulmonary embolus with multiple occlusive segmental pulmonary emboli. There were associated findings of right heart strain. Her echocardiogram showed normal right ventricular size and systolic function with pulmonary arterial pressure measured at 26 mmHg. She began treatment with Lovenox at a therapeutic dosage and she then continued the Lovenox following discharge on 03/23/2021. I had seen her initially on 04/05/2021. She had a history of recurrent episodes of left lower extremity deep vein thrombosis, the first of which occurred in 1997. She had been on long-term anticoagulation with warfarin. She was transitioned to rivaroxaban in 2013. She reported having at least 5 subsequent episodes of blood clots in her left leg, and she also had multiple vascular procedures on her left leg. In reviewing her [facility] records, she had negative venous Doppler studies twice in 2012, but repeat venous Doppler studies in 2017 and in 2018 showed left lower extremity deep vein thrombosis. Despite those findings, she had continued anticoagulation with rivaroxaban. At her initial visit in March she was tolerating the Lovenox very poorly, and I opted to transition her anticoagulation to apixaban at a full dosage of 10 mg twice daily for 7 days followed by 5 mg twice daily. Her repeat CT pulmonary angiogram on 04/24/2021 showed resolution of the previously described right lower lobe pulmonary embolus. There was no acute pulmonary infiltrates noted and there were no other significant interval changes. With those findings she continued on anticoagulation with apixaban. Her other medical illnesses include hypertension, hyperlipidemia, coronary artery disease, cardiomyopathy, hypothyroidism, GERD, degenerative arthritis, and osteoporosis. She has a history of having previously undergone distal pancreatectomy and splenectomy, reportedly for some type of tumor. She is a non-smoker. INTERIM HISTORY: As of her follow-up visit on 05/23/2021 there was no evidence for any further thromboembolism, but she had developed significant GI symptoms which I had suspected were due to the apixaban. At that point we opted to change anticoagulation back to rivaroxaban at 20 mg daily. A repeat venous Doppler on 08/07/2021 showed extensive acute deep vein thrombosis involving the left common femoral vein and profunda, extending into the popliteal and peroneal veins. A repeat CT pulmonary angiogram at that time showed no evidence of pulmonary embolism. With those findings, the rivaroxaban was put on hold and she restarted anticoagulation with Lovenox at a standard therapeutic dosage. She is seen now for a follow-up visit. She does not tolerate the Lovenox all that well, she does tend to have local side effects at the injection sites. She continues to have pain and swelling in the left leg. She says she never has energy. Her ECOG score is 2. Her appetite lately has been a little better. She has not had fever. She does report having some night sweating. She has sinus drainage and she has a little bit of cough, attributable to allergies. Her breathing is not real good. She has not been having chest pain. She had some nausea after initially starting the Lovenox, but that has resolved. She does have some acid reflux despite taking omeprazole. She says her bowels are pretty runny, but she is on a stool softener. She recently had UTI symptoms, but those improved after taking Azo Gantrisin. She has joint pain, which is chronic. She has some numbness in her fingers. Medications: Albuterol Sulfate HFA 2 Puff(s) (of 108 (90 base) mcg/act) Aerosol, solution Inhalation q 6 hours PRN, Atorvastatin Calcium 1 Tablet (of 40 mg) Oral daily, Cetirizine HCl 1 Tablet (of 10 mg) Oral daily, Colace 1 Capsule (of 100 mg) Oral b.i.d. for 30 days, Digoxin 1 Tablet (of 125 mcg) Oral daily, Eliquis 1 Tablet (of 5 mg) Oral b.i.d., Ibuprofen 1 Tablet (of 200 mg) Oral q 6 hours PRN, Levothyroxine Sodium 1 Tablet (of 50 mcg) Oral daily, Montelukast Sodium 1 Tablet (of 10 mg) Oral daily, Omeprazole 1 Capsule (of 40 mg) Capsule Delayed Release Oral daily, Vitamin D-3 1 Capsule (of 25 mcg ) Oral daily Allergies: Clopidogrel Bisulfate, Isosorbide Mononitrate, and Latex. Vital Signs: Performed on Aug 28, 2021 10:06 Height - 62.00 in Weight - 131.8 lbs (LOW) BSA - 1.60 sq.m BMI - 24.11 Temperature - 98.3 F (LOW) Pulse - 75 /min Respiration - 16 /min BP - 122/70 mm(hg) O2 Sat - 97 % Pain - 0 Fatigue - 8 Physical Examination: Constitutional - She does not appear acutely ill, Eyes - Sclerae nonicteric. Conjunctivae clear, ENMT - No lesions noted in the oral cavity, Hematologic/Lymphatic - No cervical, clavicular, or axillary adenopathy, Respiratory - Lungs souond clear, Cardiovascular - Heart rhythm is regular. There is no murmur, gallop, or rub noted. There is no carotid bruit noted, Abdomen - Soft. Liver is not enlarged. There is no abdominal mass or ascites noted and there is no inguinal adenopathy, Extremities - There is swelling of the entire left leg. The left calf circumference measures 39 cm compared to 37 cm on the right, Neurologic - No focal neurologic deficits noted. Problem List: 1. Recurrent thromboembolism. 2. Hypertension. 3. Hyperlipidemia. 4. Coronary artery disease. 5. Cardiomyopathy. 6. Hypothyroidism. 7. GERD. 8. Degenerative arthritis. 9. Osteoporosis. 10. She has had prior distal pancreatectomy and splenectomy, reportedly for some type of tumor. Problems Addressed with this Encounter and Plan: Patient with recurrent thromboembolism, including an episode of right lower extremity deep vein thrombosis and major pulmonary embolism in February 2021, occurring while on anticoagulation with rivaroxaban. She also had been on aspirin prophylaxis for her coronary artery disease. The reason for the failure of anticoagulation was unclear, though she had indicated that she had been taking the rivaroxaban in the morning without having eaten any breakfast, and that may have been a contributing factor. At the time of her initial visit in March 2021 she was tolerating Lovenox poorly, and her anticoagulation was transitioned to apixaban. Her repeat CT pulmonary angiogram on 04/24/2021 showed resolution of right lower lobe pulmonary embolus. With those findings she continued apixaban 5 mg twice daily. As of her follow-up visit in May 2021 her anticoagulation was transition back to rivaroxaban due to GI side effects which were presumed to be due to the apixaban. A repeat venous Doppler on 08/07/2021 showed recurrence of acute, extensive deep vein thrombosis involving the left leg. With that finding, the rivaroxaban was put on hold, and she restarted anticoagulation with Lovenox at a standard therapeutic dosage. She has been having local side effects at the Lovenox injection sites, but thus far it has been tolerable. She is recommended to continue the Lovenox for 30 days. At that point, she prefers to try the apixaban again at 5 mg twice daily. If she does not tolerate it, she will have the option to try dabigatran. I will tentatively plan a follow-up visit at a 2-week interval after she starts the apixaban. Signed By: Jonnathan Townsend M.D. <<Signature on File>>
== END 2021-08-28 07:59 | disposition home or self-care (01) ==
PROVIDERS: PCP Family Medicine; Visit Provider Internal Medicine Medical Oncology
DX: I82.401 Acute embolism and thrombosis of unspecified deep veins of right lower extremity (principal); I26.99 Other pulmonary embolism without acute cor pulmonale; Z79.01 Long term (current) use of anticoagulants; I25.10 Atherosclerotic heart disease of native coronary artery without angina pectoris; Z79.82 Long term (current) use of aspirin
CPT/HCPCS: 99214

== ENCOUNTER 2021-11-08 14:21 | Oncology outpatient (recurring) (ONCR) | payer MEDICARE, OTHER, SELFPAY ==
[2021-11-08 13:10] LABS: Basophils # 0.1 10^3/uL (0.0-0.1); Basophils % 0.7 %; Eosinophils # 0.2 10^3/uL (0.0-0.8); Eosinophils % 2.1 %; Hemoglobin 12.2 g/dL (11.5-15.3); Lymphocytes # 3.3 10^3/uL (0.8-4.8); Lymphocytes % 43.9 %; Mean Corpuscular HGB Conc 32.1 g/dL (30.0-36.0); Mean Corpuscular Hemoglobin 28.6 pg (28.0-34.0); Mean Platelet Volume 10.8 fL (7.4-10.4); Monocytes # 0.9 10^3/uL (0.2-0.9); Monocytes % 11.2 %; Neutrophils # 3.19 10^3/uL (1.8-7.7); Nucleated Red Blood Cells % 0 %; Platelet Count 343 10^3/cmm (130-400); Red Blood Count 4.27 10^6/uL (4.1-5.3); Red Cell Distribution Width 14.9 % (12.1-15.1); White Blood Count 7.6 10^3/uL (4.0-10.0)
[2021-11-08 13:32] LABS: Alanine Aminotransferase 13 U/L (0-33); Albumin Level 4.4 g/dL (3.5-5.2); Alkaline Phosphatase 116 IU/L (35-105); Anion Gap 13.4 (5-19); Aspartate Amino Transferase 23 U/L (0-32); Blood Urea Nitrogen 17 mg/dL (8-23); Calcium 9.4 mg/dL (8.5-10.5); Carbon Dioxide 27 mmol/L (22-29); Chloride 98 mmol/L (98-107); Globulin 3.3 g/dL (1.3-4.6); Glucose 85 mg/dL (65-115); Osmolality Calculated 279 mOsm/kg (285-295); Potassium 4.4 mmol/L (3.5-5.1); Sodium 134 mmol/L (136-145); Total Bilirubin 0.4 mg/dL (0.15-1.2); Total Protein 7.7 g/dL (6.6-8.7)
== END 2021-11-16 23:59 | disposition home or self-care (01) ==
PROVIDERS: PCP Family Medicine; Visit Provider Internal Medicine Medical Oncology
DX: I82.501 Chronic embolism and thrombosis of unspecified deep veins of right lower extremity (principal); I26.99 Other pulmonary embolism without acute cor pulmonale; I25.10 Atherosclerotic heart disease of native coronary artery without angina pectoris; R11.2 Nausea with vomiting, unspecified; Z79.01 Long term (current) use of anticoagulants; Z79.82 Long term (current) use of aspirin; Z79.899 Other long term (current) drug therapy
CPT/HCPCS: 36415; 80053; 85025; 99214

== ENCOUNTER 2021-12-05 14:05 | Oncology outpatient (recurring) (ONCR) | payer MEDICARE, OTHER, SELFPAY ==
[2021-12-05 14:57] LABS: Basophils # 0.1 10^3/uL (0.0-0.1); Basophils % 0.9 %; Eosinophils # 0.1 10^3/uL (0.0-0.8); Eosinophils % 2.2 %; Hematocrit 35.4 % (37.0-47.0); Lymphocytes # 2.1 10^3/uL (0.8-4.8); Lymphocytes % 38.3 %; Mean Corpuscular HGB Conc 31.1 g/dL (30.0-36.0); Mean Corpuscular Hemoglobin 28.2 pg (28.0-34.0); Mean Corpuscular Volume 90.8 fl (81-99); Mean Platelet Volume 11.1 fL (7.4-10.4); Monocytes # 0.8 10^3/uL (0.2-0.9); Monocytes % 14.5 %; Neutrophils # 2.42 10^3/uL (1.8-7.7); Neutrophils % 43.7 %; Nucleated Red Blood Cells % 0 %; Platelet Count 336 10^3/cmm (130-400); Red Cell Distribution Width 14.3 % (12.1-15.1); White Blood Count 5.5 10^3/uL (4.0-10.0)
[2021-12-05 15:36] LABS: Alanine Aminotransferase 11 U/L (0-33); Albumin Level 4.2 g/dL (3.5-5.2); Alkaline Phosphatase 101 IU/L (35-105); Aspartate Amino Transferase 19 U/L (0-32); Blood Urea Nitrogen 12 mg/dL (8-23); Calcium 9.3 mg/dL (8.5-10.5); Carbon Dioxide 28 mmol/L (22-29); Chloride 104 mmol/L (98-107); Globulin 2.2 g/dL (1.3-4.6); Glucose 108 mg/dL (65-115); Osmolality Calculated 292 mOsm/kg (285-295); Sodium 141 mmol/L (136-145); Total Bilirubin 0.5 mg/dL (0.15-1.2); Total Protein 6.4 g/dL (6.6-8.7)
[2021-12-05] MEDS: denosumab 60 mg SDV SUBCUT (16:16)
[2021-12-05 17:28] LABS: Iron 40 ug/dL (37-145); Percent Saturation 13.5 % (20-50); Thyroid Stimulating Hormone 0.55 uIU/mL (0.27-4.20); Total Iron Binding Capacity 295 mcg/dl; Unsaturated Iron Binding 255 ug/dL (112-347); Vitamin B12 245 pg/mL (232-1245)
[2021-12-05 18:53] LABS: 25 Hydroxy Vitamin D > 100 ng/mL (30-100)
== END 2021-12-17 23:59 | disposition home or self-care (01) ==
PROVIDERS: PCP Family Medicine; Visit Provider Internal Medicine Medical Oncology
DX: I82.401 Acute embolism and thrombosis of unspecified deep veins of right lower extremity (principal); I26.99 Other pulmonary embolism without acute cor pulmonale; I25.10 Atherosclerotic heart disease of native coronary artery without angina pectoris; I10 Essential (primary) hypertension; M81.0 Age-related osteoporosis without current pathological fracture; D50.9 Iron deficiency anemia, unspecified; Z79.01 Long term (current) use of anticoagulants; Z79.82 Long term (current) use of aspirin; Z79.899 Other long term (current) drug therapy
CPT/HCPCS: 36415; 80053; 82306; 82607; 83540; 83550; 84443; 85025; 96372; 99214; J0897

== ENCOUNTER 2022-01-08 13:09 | Oncology outpatient (recurring) (ONCR) | payer MEDICARE, OTHER, SELFPAY ==
--- NOTE | 2022-01-08 13:30 | USCV_ITS ---
[place] Sussy Age: 76 Gender: F : 1945 Exam Date: 01/08/2022 14:09 Ordering Phys: Jonnathan Townsend MD Technologist: Shane Patel Exam Location: [facility] [place] Indication: pain, swelling, history of DVT HISTORY: Patient has history of thrombus in the lower extremities. Patient states she is on blood thinner. PROCEDURES: Venous duplex imaging was performed in bilateral lower extremities. The following venous structures were evaluated: common femoral vein, profunda vein, proximal portion of the greater saphenous vein, superficial femoral vein, and the popliteal vein. In addition, the posterior tibial and peroneal trunk were evaluated. Serial compression, augmentation maneuvers, and spectral Doppler flow evaluation were performed. FINDINGS: Normal 2-D Doppler and augmentation and compressibility throughout the lower extremity venous structures. Additional imaging through the proximal calf veins also reveals no thrombus. Limited evaluation of the greater saphenous vein is patent with no thrombus.. In the area of the left groin there is a structure branching from the left GSV and has flow. Maybe a small venous aneurysm, present also on prior exam from 2012 and 2018. CONCLUSIONS No DVT bilateral lower extremities. Dr. Joleen Saeed DO (Electronically Signed) Final Date: 08 January 2022 16:29 S
== END 2022-01-17 23:59 | disposition home or self-care (01) ==
LOC: RAD 13:12 → ONCMED 01-16 04:35
PROVIDERS: PCP Family Medicine; Visit Provider Internal Medicine Medical Oncology
DX: I82.401 Acute embolism and thrombosis of unspecified deep veins of right lower extremity (principal); I26.99 Other pulmonary embolism without acute cor pulmonale; I25.10 Atherosclerotic heart disease of native coronary artery without angina pectoris; I10 Essential (primary) hypertension; M81.0 Age-related osteoporosis without current pathological fracture; D50.9 Iron deficiency anemia, unspecified; Z79.01 Long term (current) use of anticoagulants; Z79.82 Long term (current) use of aspirin; Z79.899 Other long term (current) drug therapy; I82.409 Acute embolism and thrombosis of unspecified deep veins of unspecified lower extremity
CPT/HCPCS: 93970

== ENCOUNTER → 2022-01-17 07:52 | Outpatient (BNVA) | payer MEDICARE, OTHER, SELFPAY | PROVIDERS: PCP Family Medicine; Visit Provider Podiatrist Foot & Ankle Surgery | DX: M72.2 Plantar fascial fibromatosis (principal) | CPT/HCPCS: 20550; J1100; J3301; J3490 ==

== ENCOUNTER 2022-01-23 07:44 | Oncology outpatient (recurring) (ONCR) | payer MEDICARE, OTHER, SELFPAY ==
[2022-01-23 08:57] LABS: Basophils % 0.6 %; Eosinophils # 0.1 10^3/uL (0.0-0.8); Eosinophils % 1.3 %; Hematocrit 40.2 % (37.0-47.0); Hemoglobin 12.4 g/dL (11.5-15.3); Lymphocytes # 2.6 10^3/uL (0.8-4.8); Lymphocytes % 37.7 %; Mean Corpuscular HGB Conc 30.8 g/dL (30.0-36.0); Mean Corpuscular Hemoglobin 27.1 pg (28.0-34.0); Monocytes # 0.9 10^3/uL (0.2-0.9); Monocytes % 13.7 %; Neutrophils # 3.18 10^3/uL (1.8-7.7); Neutrophils % 46.3 %; Nucleated Red Blood Cells % 0 %; Platelet Count 456 10^3/cmm (130-400); Red Blood Count 4.57 10^6/uL (4.1-5.3); Red Cell Distribution Width 14.8 % (12.1-15.1); White Blood Count 6.9 10^3/uL (4.0-10.0)
[2022-01-23 09:24] LABS: Iron 53 ug/dL (37-145); Percent Saturation 15.6 % (20-50); Total Iron Binding Capacity 339 mcg/dl; Unsaturated Iron Binding 286 ug/dL (112-347)
== END 2022-02-16 23:59 | disposition home or self-care (01) ==
LOC: ONCMED 07:46
PROVIDERS: Nurse Practitioner; PCP Family Medicine; Visit Provider Internal Medicine Medical Oncology
DX: D50.8 Other iron deficiency anemias (principal)
CPT/HCPCS: 36415; 83540; 83550; 85025

== ENCOUNTER 2022-01-24 06:00 | Outpatient (RCR) | payer MEDICARE, OTHER, SELFPAY | END 2022-02-16 23:59 | disposition home or self-care (01) | LOC: SPT 06:00 | PROVIDERS: PCP Family Medicine; Visit Provider Podiatrist Foot & Ankle Surgery | DX: M72.2 Plantar fascial fibromatosis (principal) | CPT/HCPCS: 80061; 97035; 97110; 97140; 97161 ==

== ENCOUNTER → 2022-01-24 07:44 | Outpatient (BNVA) | payer MEDICARE, OTHER, SELFPAY | PROVIDERS: PCP Family Medicine; Visit Provider Family Medicine | DX: I25.10 Atherosclerotic heart disease of native coronary artery without angina pectoris (principal); E03.9 Hypothyroidism, unspecified; E78.5 Hyperlipidemia, unspecified; Z79.01 Long term (current) use of anticoagulants | CPT/HCPCS: 80061 ==

== ENCOUNTER → 2022-01-31 12:19 | Outpatient (BNVA) | payer MEDICARE, OTHER, SELFPAY | PROVIDERS: PCP Family Medicine; Visit Provider Family Medicine | DX: L98.9 Disorder of the skin and subcutaneous tissue, unspecified (principal) | CPT/HCPCS: 88304 ==

== ENCOUNTER → 2022-02-09 10:03 | Outpatient (BNVA) | payer MEDICARE, OTHER, SELFPAY | PROVIDERS: PCP Family Medicine; Visit Provider Family Medicine | DX: U07.1 COVID-19 (principal); J39.8 Other specified diseases of upper respiratory tract | CPT/HCPCS: 87426 ==

== ENCOUNTER → 2022-02-13 14:52 | Outpatient (BNVA) | payer MEDICARE, OTHER, SELFPAY | PROVIDERS: PCP Family Medicine; Visit Provider Internal Medicine | DX: I82.90 Acute embolism and thrombosis of unspecified vein (principal); E78.5 Hyperlipidemia, unspecified; E03.9 Hypothyroidism, unspecified; I25.10 Atherosclerotic heart disease of native coronary artery without angina pectoris; I10 Essential (primary) hypertension | CPT/HCPCS: 99214 ==

== ENCOUNTER → 2022-02-14 10:10 | Outpatient (BNVA) | payer MEDICARE, OTHER, SELFPAY | PROVIDERS: PCP Family Medicine; Visit Provider Podiatrist Foot & Ankle Surgery | DX: M72.2 Plantar fascial fibromatosis (principal) | CPT/HCPCS: 20550; J1100; J3301; J3490 ==

== ENCOUNTER → 2022-03-19 13:30 | Outpatient (BNVA) | payer MEDICARE, OTHER, SELFPAY | PROVIDERS: PCP Family Medicine; Visit Provider Podiatrist Foot & Ankle Surgery | DX: M72.2 Plantar fascial fibromatosis (principal) | CPT/HCPCS: 99213 ==

== ENCOUNTER → 2022-05-23 08:30 | Outpatient (BNVA) | payer MEDICARE, OTHER, SELFPAY | PROVIDERS: PCP Family Medicine; Visit Provider Podiatrist Foot & Ankle Surgery | DX: M72.2 Plantar fascial fibromatosis (principal); L84 Corns and callosities | CPT/HCPCS: 99213 ==

== ENCOUNTER 2022-06-18 09:50 | Oncology outpatient (recurring) (ONCR) | payer MEDICARE, OTHER, SELFPAY ==
[2022-06-18 10:19] LABS: Basophils # 0.1 10^3/uL (0.0-0.1); Basophils % 0.7 %; Eosinophils # 0.2 10^3/uL (0.0-0.8); Eosinophils % 3.1 %; Hematocrit 39.3 % (37.0-47.0); Hemoglobin 12.2 g/dL (11.5-15.3); Lymphocytes # 2.8 10^3/uL (0.8-4.8); Lymphocytes % 40.1 %; Mean Corpuscular Hemoglobin 28.4 pg (28.0-34.0); Mean Corpuscular Volume 91.4 fl (81-99); Mean Platelet Volume 10.7 fL (7.4-10.4); Monocytes # 0.9 10^3/uL (0.2-0.9); Monocytes % 12.9 %; Neutrophils # 3.02 10^3/uL (1.8-7.7); Neutrophils % 42.9 %; Nucleated Red Blood Cells % 0 %; Platelet Count 374 10^3/cmm (130-400); Red Cell Distribution Width 14.7 % (12.1-15.1); White Blood Count 7.1 10^3/uL (4.0-10.0)
[2022-06-18 11:38] LABS: 25 Hydroxy Vitamin D 40 ng/mL (30-100); Alanine Aminotransferase 15 U/L (0-33); Albumin Level 4.2 g/dL (3.5-5.2); Alkaline Phosphatase 77 U/L (35-105); Anion Gap 14.3 (5-19); Aspartate Amino Transferase 26 U/L (0-32); Blood Urea Nitrogen 15 mg/dL (8-23); Calcium 9.5 mg/dL (8.5-10.5); Carbon Dioxide 28 mmol/L (22-29); Chloride 99 mmol/L (98-107); Globulin 3.3 g/dL (1.3-4.6); Glucose 95 mg/dL (65-115); Iron 76 ug/dL (37-145); Osmolality Calculated 285 mOsm/kg (285-295); Potassium 4.3 mmol/L (3.5-5.1); Sodium 137 mmol/L (136-145); Total Bilirubin 0.7 mg/dL (0.15-1.2); Total Iron Binding Capacity 316 mcg/dl; Total Protein 7.5 g/dL (6.6-8.7); Unsaturated Iron Binding 240 ug/dL (112-347)
[2022-06-18 11:57] LABS: Erythrocyte Sedimentation Rate 11 mm/hr (0-15)
[2022-06-18] MEDS: denosumab 60 mg SDV SUBCUT (12:22)
== END 2022-06-19 23:59 | disposition home or self-care (01) ==
LOC: ONCMED 09:51
PROVIDERS: PCP Family Medicine; Visit Provider Internal Medicine Medical Oncology
DX: M81.0 Age-related osteoporosis without current pathological fracture; Z79.899 Other long term (current) drug therapy; Z86.718 Personal history of other venous thrombosis and embolism; Z79.01 Long term (current) use of anticoagulants; M25.50 Pain in unspecified joint; M79.89 Other specified soft tissue disorders; M79.605 Pain in left leg; M79.604 Pain in right leg
CPT/HCPCS: 80053; 82306; 83540; 83550; 85025; 85651; 96372; 99214; J0897

== ENCOUNTER 2022-06-18 12:30 | Outpatient (CLI) | payer MEDICARE, OTHER, SELFPAY ==
--- NOTE | 2022-06-18 13:00 | USCV_ITS ---
[place], [place] Age: 77 Gender: F : 1945 Exam Date: 06/18/2022 12:57 Ordering Phys: Jonnathan Townsend MD Technologist: DARRIN Exam Location: [facility] [place] Indication: Bilateral pain and swelling HISTORY: HX of blood clots. PT on blood thinners. Pain and swelling x 6 weeks. Ablation done x 1 year ago. PROCEDURES: Venous duplex imaging was performed in bilateral lower extremities. The following venous structures were evaluated: common femoral vein, profunda vein, proximal portion of the greater saphenous vein, superficial femoral vein, and the popliteal vein. In addition, the posterior tibial and peroneal trunk were evaluated. Serial compression, augmentation maneuvers, and spectral Doppler flow evaluation were performed. FINDINGS: Normal 2-D Doppler and augmentation and compressibility throughout the lower extremity venous structures. Additional imaging through the proximal calf veins also reveals no thrombus. Limited evaluation of the greater saphenous vein is patent with no thrombus. CONCLUSIONS No DVT bilateral lower extremities. Dr. Joleen Saeed DO (Electronically Signed) Final Date: 18 June 2022 14:43 S
== END 2022-06-18 12:31 | disposition home or self-care (01) ==
LOC: RAD 12:32
PROVIDERS: PCP Family Medicine; Visit Provider Internal Medicine Medical Oncology
DX: M79.89 Other specified soft tissue disorders (principal); M79.605 Pain in left leg; M79.604 Pain in right leg
CPT/HCPCS: 93970

== ENCOUNTER → 2022-07-10 11:01 | Outpatient (BNVA) | payer MEDICARE, OTHER, SELFPAY | PROVIDERS: PCP Family Medicine; Visit Provider Internal Medicine Rheumatology | DX: M16.0 Bilateral primary osteoarthritis of hip (principal); M19.042 Primary osteoarthritis, left hand; M19.041 Primary osteoarthritis, right hand; M46.1 Sacroiliitis, not elsewhere classified; M81.0 Age-related osteoporosis without current pathological fracture; M70.61 Trochanteric bursitis, right hip; I82.512 Chronic embolism and thrombosis of left femoral vein; M25.50 Pain in unspecified joint; Z79.899 Other long term (current) drug therapy; Z87.310 Personal history of (healed) osteoporosis fracture; Z79.01 Long term (current) use of anticoagulants | CPT/HCPCS: 36415; 72170; 73130; 73562; 85651; 86140; 86200; 99204 ==

== ENCOUNTER 2022-07-19 07:35 | Outpatient (CLI) | payer MEDICARE, OTHER, SELFPAY ==
--- NOTE | 2022-07-19 07:56 | CT_ITS ---
WS: [id number] CT NECK TECHNIQUE: Contrast-enhanced CT of the neck with coronal and sagittal reformatted images. CLINICAL INFORMATION: NONTOXIC SINGLE THYROID NODULE COMPARISON: Ultrasound DLP: 169.[address] scans at [facility] use at least one of these dose optimization techniques: automated e xposure control; mA and/or kV adjustment per patient size (includes targeted exams where dose is matc hed to clinical indication); or iterative reconstruction. FINDINGS: LEFT thyroid lobe has been resected. Heterogeneous nodular RIGHT thyroid lobe. Dominant nodule measur es 6 3.0 x 2.3 x 2.3 cm AP by transverse by craniocaudal. This extends into the superior mediastinum. No significant airway narrowing. Dominant nodule appears progressed compared to the ultrasound 2019. Lung apices are well aerated. Mastoid air cells are well aerated. LEFT maxillary sinusitis with polyp oid mucosal thickening. Normal posterior nasopharynx. Normal parapharyngeal fat. Normal palatine tons ils and tongue base. Parotid glands are normal in appearance. Normal submandibular glands. Straighten ing of the normal cervical lordosis. Spondylitic changes cervical spine. No cervical lymphadenopathy. CT/CT neck w con* [id number] IMPRESSION: 1. LEFT thyroid lobe has been resected. 2. Heterogeneous nodular enlarged RIGHT thyroid lobe. Dominant nodule measures 3.0 x 2.3 x 2.3 cm AP by transverse by craniocaudal. This extends into the sup erior mediastinum 3. No cervical lymphadenopathy. 4. LEFT maxillary sinusitis. 5. No evidence of supraglottic or glottic mass.
[2022-07-19] MEDS: iohexol 350 mg/mL 500 mL Btl (per mL) IV (08:03)
== END 2022-07-19 07:36 | disposition home or self-care (01) ==
LOC: RAD 07:39
PROVIDERS: PCP Family Medicine; Visit Provider Specialist
DX: E04.1 Nontoxic single thyroid nodule (principal)
CPT/HCPCS: 70491; J1100; Q9967

== ENCOUNTER 2022-07-29 13:53 | Emergency (ER) | payer MEDICARE, OTHER, SELFPAY ==
[2022-07-29 13:59] VITALS: BP 156/78; PULSE 72; RESP 14; TEMP 36.7; O2SAT 98
--- NOTE | 2022-07-29 14:27 | XRR_ITS ---
PROCEDURE INFORMATION: Exam: XR Chest Exam date and time: 07/29/2022 2:36 PM Age: 77 years old Clinical indication: Pain; Angina pectoris; Additional info: Chest pain TECHNIQUE: Imaging protocol: Radiologic exam of the chest. Views: 1 view. COMPARISON: CR XR chest 1V portable [id number] 03/18/2021 6:25 PM FINDINGS: Lungs: See Vasculature finding. Pleural spaces: Unremarkable. No pleural effusion. No pneumothorax. Heart/Mediastinum: Heart is mildly enlarged. Vasculature: There is a density projecting over the right hilum that has developed from prior study possibly vascular nature.. There is large calcified lymph node in the right paratracheal region, stable and chronic. There are mild interstitial lung changes present peripherally that have progressed from previous exam. Bones/joints: There is evidence of previous vertebroplasty in the midthoracic spine. No acute bony abnormalities. XR/XR chest 1V portable [id number] IMPRESSION: 1. Nonspecific right hilar opacity which follow-up nonemergent CT chest recommended for clarification. 2. Cardiomegaly with mild interstitial lung changes that may be secondary to idiopathic interstitial lung disease and can also be reassessed on CT exam of the chest.
[2022-07-29 15:07] LABS: Basophils # 0.1 10^3/uL (0.0-0.1); Basophils % 1.1 %; Eosinophils # 0.2 10^3/uL (0.0-0.8); Hematocrit 39.5 % (37.0-47.0); Hemoglobin 11.9 g/dL (11.5-15.3); Lymphocytes # 2.5 10^3/uL (0.8-4.8); Lymphocytes % 36.4 %; Mean Corpuscular HGB Conc 30.1 g/dL (30.0-36.0); Mean Corpuscular Hemoglobin 27.9 pg (28.0-34.0); Mean Corpuscular Volume 92.5 fl (81-99); Mean Platelet Volume 11.9 fL (7.4-10.4); Monocytes # 0.9 10^3/uL (0.2-0.9); Monocytes % 12.9 %; Neutrophils # 3.21 10^3/uL (1.8-7.7); Neutrophils % 46.2 %; Nucleated Red Blood Cells % 0 %; Platelet Count 266 10^3/cmm (130-400); Red Blood Count 4.27 10^6/uL (4.1-5.3)
--- NOTE | 2022-07-29 15:12 | ED_ITS ---
HPI - Chest Pain General: Chief Complaint: Chest Pain Stated Complaint: chest pain/jaw tight Time Seen by Provider: 07/29/22 14:00 History of Present Illness: This 77-year-old female with a past history of coronary artery disease, CHF and GERD presents to the ER with pressure type [facility] pain that started earlier today, lasted for about 30 to 40 minutes and resolved spontaneously. Patient reports having a similar pain about 2 weeks ago though it lasted for only 10 minutes and resolved on its own. Patient has a recent history of GERD but notes that the pain today is not similar to her GERD symptoms. She had nausea with the pain but no vomiting. She denies shortness of breath. Currently, she is back at [facility]. Associated symptoms: Reports nausea; Deny vomiting Review of Systems General: Reports: 10 or more systems reviewed and unremarkable except in HPI and below Card: Reports: chest pain GI: Reports: nausea; Denies: vomiting PFSH ED PFSH: Medical History Coronary artery disease Gastroesophageal reflux disease High risk medication use History of pulmonary embolism Hyperlipidemia Hypertension Hypothyroidism Osteoarthritis of hands, bilateral Osteoporosis Polyarthralgia Pulmonary hypertension Recurrent deep vein thrombosis (DVT) Tricuspid valve disorders, non-rheumatic Surgical History H/O esophagogastroduodenoscopy (06/09/20) H/O splenectomy H/O: hysterectomy History of bladder suspension procedure History of coronary angiogram (~06/2019) balloon angioplasty to distal RCA stenosis History of pancreatic surgery History of partial gastrectomy History of surgery 10/2021 Stents cleaned out in groin per patient by Dr. Nolan Saleh, vascular surgeon at the [facility] at [place], [place] Previous back surgery vertebroplasty S/P breast biopsy S/P cataract surgery S/P thyroidectomy 1 lobe Status post surgical removal of malignant neoplasm of skin Basal cell carcinoma of the nose Family History Other CAD (coronary artery disease) Cancer Diabetes Family history of premature coronary artery disease Denies family history of Anesthesia complication Bleeding disorder Social History Smoking and tobacco status: never smoked Second hand smoke exposure: No Smoking risk assessment/counseling performed?: Yes Alcohol intake: never Household members: spouse Marital status: Current occupational status: retired Physical Exam Const: COMMON NORMALS: no acute distress, patient oriented x3, no limitations and alert HENMT: COMMON NORMALS: normocephalic HEAD & SCALP: normocephalic Chest: COMMONS NORMALS: normal inspection of the chest Resp: COMMON NORMALS: normal respiratory effort, No retractions, No use of accessory muscles and clear to auscultation bilaterally AUSCULTATION: clear to auscultation bilaterally Cardio: COMMON NORMALS: regular rate, regular rhythm and No murmurs present (Cardio) RATE: regular rate RHYTHM: regular rhythm GI: COMMON NORMALS: Normal to inspection, nondistended, normoactive bowel sounds present and non-tender : COMMON NORMALS: Yes no CVA tenderness BLADDER/KIDNEY EXAM: Yes no CVA tenderness Back/Pelvis: COMMON NORMALS: no CVA tenderness and no thoracic nor lumbar tenderness Extremity: GENERAL: Yes normal exam except as noted Neuro: COMMON NORMALS: patient oriented x3 and no focal motor deficits SENSORIUM/ORIENTATION: Yes alert Psych: COMMON NORMALS: mental status grossly normal and cooperative Course Vital Signs: Vital signs: Vital Signs Temperature 98.0 F 07/29/22 13:59 Pulse Rate 86 07/29/22 17:28 Respiratory Rate 16 07/29/22 17:28 Blood Pressure 174/88 07/29/22 17:28 Pulse Oximetry 98 07/29/22 17:28 Oxygen Delivery Me thod 07/29/22 17:28 MDM - Chest Pain Medical Decision Making Medical decision making: History as above. Chest pain lasted for about 30 to 40 minutes and resolved spontaneously. At the time of ER arrival, patient was chest pain-free and remained so throughout her stay. Initial troponin is negative and EKG is negative for any acute ischemic changes. Chest x-ray reveals no acute intrathoracic process. Completed blood tests are unremarkable. Plan was to get a 2-hour troponin but patient declined, stating that she wants to go home. She complained that she had spent a considerable amount of time in the ER and did not want to waste her Saturday in the ER. I made her aware of the risks involved with the decision to leave without getting a 2-hour troponin. Patient understood and stated that she will call her primary care physician for follow-up. Advised to return if she develops chest pain that is constant and lasts for 30 minutes or more. who was with her, agreed with her decision to leave. Lab Data 07/29/22 14:40 07/29/22 14:40 Radiology Impressions Chest X-Ray 07/29/22 14:27 IMPRESSION: 1. Nonspecific right hilar opacity which follow-up nonemergent CT chest recommended for clarification. 2. Cardiomegaly with mild interstitial lung changes that may be secondary to idiopathic interstitial lung disease and can also be reassessed on CT exam of the chest. Laboratory Results WBC 7.0 10^3/uL (4.0-10.0) 07/29/22 14:40 RBC 4.27 10^6/uL (4.1-5.3) 07/29/22 14:40 Hgb 11.9 g/dL (11.5-15.3) 07/29/22 14:40 Hct 39.5 % (37.0-47.0) 07/29/22 14:40 MCV 92.5 fl (81-99) 07/29/22 14:40 MCH 27.9 pg (28.0-34.0) L 07/29/22 14:40 MCHC 30.1 g/dL (30.0-36.0) 07/29/22 14:40 RDW 15.0 % (12.1-15.1) 07/29/22 14:40 Plt Count 266 10^3/cmm (130-400) 07/29/22 14:40 MPV 11.9 fL (7.4-10.4) H 07/29/22 14:40 Neut % (Auto) 46.2 % 07/29/22 14:40 Lymph % (Auto) 36.4 % 07/29/22 14:40 [place] % (Auto) 12.9 % 07/29/22 14:40 Eos % (Auto) 3.0 % 07/29/22 14:40 Baso % (Auto) 1.1 % 07/29/22 14:40 Neut # (Auto) 3.21 10^3/uL (1.8-7.7) 07/29/22 14:40 Lymph # (Auto) 2.5 10^3/uL (0.8-4.8) 07/29/22 14:40 Pitt # (Auto) 0.9 10^3/uL (0.2-0.9) 07/29/22 14:40 Eos # (Auto) 0.2 10^3/uL (0.0-0.8) 07/29/22 14:40 Baso # (Auto) 0.1 10^3/uL (0.0-0.1) 07/29/22 14:40 Nucleated RBC % (auto) 0 % 07/29/22 14:40 Nucleated RBCs # 0.0 /100WBC 07/29/22 14:40 PT 14.10 SECONDS (12.1-14.9) 07/29/22 14:40 INR 1.06 (0.8-1.2) 07/29/22 14:40 APTT 27.8 SECONDS (23.9-36.7) 07/29/22 14:40 Sodium 140 mmol/L (136-145) 07/29/22 14:40 Potassium 4.0 mmol/L (3.5-5.1) 07/29/22 14:40 Chloride 104 mmol/L (98-107) 07/29/22 14:40 Carbon Dioxide 24 mmol/L (22-29) 07/29/22 14:40 Anion Gap 16.0 (5-19) 07/29/22 14:40 BUN 13 mg/dL (8-23) 07/29/22 14:40 Creatinine 0.9 mg/dL (0.5-0.9) 07/29/22 14:40 GFR Calculation Not Reportable 07/29/22 14:40 Glucose 77 mg/dL (65-115) 07/29/22 14:40 Calculated Osmolality 289 mOsm/kg (285-295) 07/29/22 14:40 Calcium 9.0 mg/dL (8.5-10.5) 07/29/22 14:40 Total Bilirubin 0.7 mg/dL (0.15-1.2) 07/29/22 14:40 AST 26 U/L (0-32) 07/29/22 14:40 ALT 16 U/L (0-33) 07/29/22 14:40 Alkaline Phosphatase 68 U/L (35-105) 07/29/22 14:40 Creatine Kinase 67 U/L (26-192) 07/29/22 14:40 Troponin T Baseline 7 ng/L (0-10) 07/29/22 14:40 NT-Pro-B Natriuret Pep 459 pg/mL (0-450) H 07/29/22 14:40 Total Protein 7.2 g/dL (6.6-8.7) 07/29/22 14:40 Albumin 4.0 g/dL (3.5-5.2) 07/29/22 14:40 Globulin 3.2 g/dL (1.3-4.6) 07/29/22 14:40 Lipase 38 U/L (13-60) 07/29/22 14:40 Urine Color Straw (Yellow) 07/29/22 16:53 Urine Appearance Clear (CLEAR) 07/29/22 16:53 Urine pH 6 (5-7) 07/29/22 16:53 Ur Specific [place] 1.005 (1.005-1.030) 07/29/22 16:53 Urine Protein Neg (Negative) 07/29/22 16:53 Urine Glucose (UA) Norm (Normal) 07/29/22 16:53 Urine Ketones Negative (Negative) 07/29/22 16:53 Urine Blood Neg (Negative) 07/29/22 16:53 Urine Nitrate Negative (Negative) 07/29/22 16:53 Urine Bilirubin Neg (Negative) 07/29/22 16:53 Urine Urobilinogen Norm mg/dL (Negative) 07/29/22 16:53 Ur Leukocyte Esterase Negative (Negative) 07/29/22 16:53 Discharge Plan Discharge Patient Disposition: Home Clinical Impression: Atypical chest pain Condition: Stable Prescriptions: No Action omeprazole 40 mg capsule,delayed release(DR/EC) 40 mg PO DAILY cholecalciferol (vitamin D3) 1,000 unit capsule 1,000 unit PO DAILY Prolia 60 mg/mL syringe 60 mg SUBCUT Q6M Rx Instructions: every 6 months fluticasone propionate 50 mcg/actuation spray,suspension 1 spray INTRANASAL BID Qty: 16 12RF diclofenac sodium 1 % gel 2 g topical QID Qty: 100 2RF Rx Instructions: apply to affected area as needed hydroxychloroquine 200 mg tablet See Rx Instructions PO .COMPLEX Qty: 45 3RF Rx Instructions: Alternate taking 1 tab today then 2 tabs tomorrow. PO; atorvastatin 20 mg tablet 40 mg PO DAILY Eliquis 5 mg tablet 5 mg PO BID Qty: 180 1RF meloxicam 15 mg tablet 15 mg PO DAILY Qty: 90 3RF sulfamethoxazole-trimethoprim [Bactrim DS] 800-160 mg tablet 1 tab PO BID 10 Days Qty: 20 0RF nitroglycerin [Nitrostat] 0.4 mg tablet, sublingual 0.4 mg sublingual Q5M PRN (Reason: chest pain) Qty: 25 3RF Rx Instructions: do not exceed 3 doses per episode digoxin 125 mcg (0.125 mg) tablet 125 mcg PO DAILY Qty: 90 3RF furosemide 20 mg tablet 20 mg PO DAILY PRN (Reason: edema) Qty: 90 2RF potassium chloride 10 mEq tablet extended release See Rx Instructions .ROUTE .COMPLEX Qty: 90 10RF Dose Instruction: TAKE 1 TABLET BY MOUTH EVERY DAY NEEDED TAKE WITH LASIX Rx Instructions: TAKE 1 TABLET BY MOUTH EVERY DAY NEEDED TAKE WITH LASIX bisoprolol fumarate 10 mg tablet 10 mg PO DAILY Qty: 90 3RF montelukast 10 mg tablet See Rx Instructions .ROUTE .COMPLEX Qty: 90 9RF Dose Instruction: TAKE 1 TABLET BY MOUTH EVERY DAY Rx Instructions: TAKE 1 TABLET BY MOUTH EVERY DAY cetirizine 10 mg tablet See Rx Instructions .ROUTE .COMPLEX Qty: 90 3RF Dose Instruction: TAKE 1 TABLET BY MOUTH EVERY DAY Rx Instructions: TAKE 1 TABLET BY MOUTH EVERY DAY levothyroxine 50 mcg tablet See Rx Instructions .ROUTE .COMPLEX Qty: 90 10RF Dose Instruction: TAKE 1 TABLET BY MOUTH EVERY DAY Rx Instructions: TAKE 1 TABLET BY MOUTH EVERY DAY bepotastine besilate [Bepreve] 1.5 % drops 1 drp ophthalmic (eye) BID Qty: 10 11RF Rx Instructions: one drop to effected eye bid albuterol sulfate [Ventolin HFA] 90 mcg/actuation HFA aerosol inhaler 2 puff inhalation QID Qty: 8.5 3RF Rx Instructions: ok to do generic or Pro-Air losartan 25 mg tablet See Rx Instructions .ROUTE .COMPLEX Qty: 90 3RF Dose Instruction: TAKE 1 TABLET BY MOUTH EVERY DAY FOR HIGH BLOOD PRESSURE Rx Instructions: TAKE 1 TABLET BY MOUTH EVERY DAY FOR HIGH BLOOD PRESSURE aspirin 81 mg tablet,delayed release (DR/EC) 81 mg PO DAILY Qty: 30 0RF Discharge Orders: Discharge ED (Routine); Ordered 07/29/22 Ordered By: Tobias Frias Referrals: Wander Bolton MD [Primary Care Provider] - Patient Instructions: Opioid Safety, Pain Management Activity Restrictions/Additional Instructions: Continue taking your usual home medications. Follow-up with your primary care physician in 2 to 3 days for reevaluation. You will need an outpatient stress test which can be arranged by your primary care physician. Follow-up with your slot technician. Return if you develop any new or worsening symptoms. Coding Level of Care Code ED Vibratory Pile Driver for Paola Sutton
[2022-07-29 15:29] LABS: Troponin(5th) Baseline 7 ng/L (0-10)
[2022-07-29 15:30] VITALS: BP 144/84; PULSE 67; RESP 17; O2SAT 100
[2022-07-29 15:31] LABS: INR 1.06 (0.8-1.2)
[2022-07-29 15:32] LABS: Partial Thromboplastin Time 27.8 SECONDS (23.9-36.7)
[2022-07-29 15:38] LABS: Alanine Aminotransferase 16 U/L (0-33); Alkaline Phosphatase 68 U/L (35-105); Aspartate Amino Transferase 26 U/L (0-32); Blood Urea Nitrogen 13 mg/dL (8-23); Carbon Dioxide 24 mmol/L (22-29); Chloride 104 mmol/L (98-107); Creatine Phosphokinase 67 U/L (26-192); Creatinine Clr Calc Pharmacy 45.7405; Globulin 3.2 g/dL (1.3-4.6); Glucose 77 mg/dL (65-115); Lipase 38 U/L (13-60); NT Pro B Type Natriuretic Pept 459 pg/mL (0-450); Osmolality Calculated 289 mOsm/kg (285-295); Sodium 140 mmol/L (136-145); Total Bilirubin 0.7 mg/dL (0.15-1.2); Total Protein 7.2 g/dL (6.6-8.7)
[2022-07-29 16:00] VITALS: BP 138/86; PULSE 66; RESP 14; O2SAT 97
[2022-07-29 17:28] VITALS: BP 174/88; PULSE 86; RESP 16; O2SAT 98
[2022-07-29 17:37] LABS: Add Urine Microscopic? NO; Charge for UA Resulting for Rev
[2022-07-29 17:52] LABS: Bilirubin Urine Neg (Negative); Blood Urine Neg (Negative); Glucose Urine UA Norm (Normal); Ketones Urine Negative (Negative); Leukocyte Esterase Urine Negative (Negative); Nitrate Urine Negative (Negative); Protein Urine Neg (Negative); Specific Gravity, Urine 1.005 (1.005-1.030); Urine Appearance Clear (CLEAR); Urine Color Straw (Yellow); Urobilinogen Urine Norm (Negative); pH Urine 6 (5-7)
== END 2022-07-29 18:16 | disposition home or self-care (01) ==
PROVIDERS: Physician Assistant; Emergency Provider Family Medicine; PCP Family Medicine
DX: R07.89 Other chest pain (principal); Z79.01 Long term (current) use of anticoagulants; Z79.82 Long term (current) use of aspirin; I25.10 Atherosclerotic heart disease of native coronary artery without angina pectoris; E78.5 Hyperlipidemia, unspecified; I10 Essential (primary) hypertension
CPT/HCPCS: 36415; 71045; 80053; 81003; 82550; 83690; 83880; 84484; 85025; 85610; 85730; 99284

== ENCOUNTER → 2022-08-13 07:59 | Outpatient (BNVA) | payer MEDICARE, OTHER, SELFPAY | PROVIDERS: PCP Family Medicine; Visit Provider Podiatrist Foot & Ankle Surgery | DX: M72.2 Plantar fascial fibromatosis (principal); L84 Corns and callosities | CPT/HCPCS: 20550 ==

== ENCOUNTER → 2022-08-15 12:45 | Outpatient (BNVA) | payer MEDICARE, OTHER, SELFPAY | PROVIDERS: PCP Family Medicine; Visit Provider Nurse Practitioner Family | DX: I25.10 Atherosclerotic heart disease of native coronary artery without angina pectoris (principal); I11.0 Hypertensive heart disease with heart failure; I50.32 Chronic diastolic (congestive) heart failure; I82.409 Acute embolism and thrombosis of unspecified deep veins of unspecified lower extremity; Z79.01 Long term (current) use of anticoagulants; Z79.82 Long term (current) use of aspirin | CPT/HCPCS: 99214 ==

== ENCOUNTER 2022-09-10 08:29 | Outpatient (CLI) | payer MEDICARE, OTHER, SELFPAY ==
[2022-09-10 08:46] VITALS: BMI 25.4
--- NOTE | 2022-09-10 08:47 | ECG_ITS ---
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 Interpretive Statements NAME OF STUDY: LEXISCAN SESTAMIBI STRESS TEST INDICATION: Worsening Angina PROCEDURE: At the baseline, the EKG revealed normal sinus rhythm with some nonspecific T wave changes. The baseline heart was 68 bpm with a blood pressue of 141/71 mm of Hg Lexiscan was infused over a period of 20 seconds. A total of 0.4 milligrams of Lexiscan was infused. The stress phase was continued for a total of 5 minutes. Heart rate at the end of the stress phase was 99 bpm with a blood pressure 162/87 mm of Hg. The EKG at the peak infusion revealed nonspecific ST-T changes. Sestamibi was injected 20 seconds after the Lexiscan infusion. Heart rate at the end of the recovery phase was 91 bpm with a blood pressure of 145/81 mm of Hg. CONCLUSION: 1. No significant EKG changes with the LexiScan infusion 2. No LexiScan induced chest pain or cardiac arrhythmia 3. Normal blood pressure and heart rate response 4. Sestamibi/sestamibi perfusion scan pending; see separate report. Electronically Signed On 09-15-2022 19:42:45 CDT by Nicole Lin M.D. [id number]
--- NOTE | 2022-09-10 08:48 | NMCV_ITS ---
NM morelia perf SPECT r/s* [id number] Sussy Solorzano Age: 77 Gender: F : 1945 Exam Date: 09/10/2022 10:26 Ordering Phys: Jane Rosario Technologist: AMBER Gao Exam Location: [facility] Indications: UNSTABLE ANGINA STRESS TEST Please see separate stress test report in [facility] for full findings IMAGE PROTOCOL Rest/Stress 1 Lexiscan Day Radiopharmaceutical Dose (mCi) Administration Site Administered by Rest: Tc-99m 10.7 IV AMBER Fu Sestamibi Stress:Tc-99m 32.3 IV AMBER Gao Sestamisamson Rest: 10-Sep-2022 60 Discovery 630 Stress: 10-Sep-2022 30 Discovery 630 0.4mg Lexiscan. Images obtained in supine and prone position. SPECT RESULTS Technical Quality: Excellent Raw Data Analysis: Normal, Subdiaphragmatic activity Image Corrections: No attenuation or motion correction applied Summed Stress Score: 0 Summed Rest Score: 0 Summed Difference Score: 0 PERFUSION FINDINGS Uniform myocardial tracer uptake with no significant perfusion abnormalities FUNCTIONAL RESULTS (calculated via Gated SPECT) Stress Image LV EF (%): 68 Stress EDV (mL):76 TID: 1.1 Stress ESV (mL):24 FUNCTIONAL FINDINGS: Segmental wall motion analysis revealing no gross wall motion abnormalities IMPRESSIONS 1. Unremarkable Myocardial perfusion imaging 2. Normal LV ejection fraction of 60%. 3. LV wall motion analysis revealing no gross wall motion abnormalities. 4. Normal LV volume Compared to the previous study from 10/11/2020, there may not be a significant change Dr Nicole Lin MD [facility] (Electronically Signed) Final Date: 10 September 2022 17:15 S
[2022-09-10] MEDS: regadenoson 0.4 Mg/5 ml Syringe IVP (11:41)
[2022-09-10 12:05] VITALS: BP 148/65; PULSE 91
== END 2022-09-10 08:30 | disposition home or self-care (01) ==
LOC: CDL 08:31
PROVIDERS: PCP Family Medicine; Visit Provider Nurse Practitioner Family
DX: I20.0 Unstable angina (principal)
CPT/HCPCS: 36415; 78452; 93017; 96374; A9500; J2785

== ENCOUNTER → 2022-09-11 09:03 | Outpatient (BNVA) | payer MEDICARE, OTHER, SELFPAY | PROVIDERS: PCP Family Medicine; Visit Provider Internal Medicine Rheumatology | DX: M19.041 Primary osteoarthritis, right hand (principal); M19.042 Primary osteoarthritis, left hand; M81.0 Age-related osteoporosis without current pathological fracture; I82.512 Chronic embolism and thrombosis of left femoral vein; Z79.899 Other long term (current) drug therapy; M25.50 Pain in unspecified joint | CPT/HCPCS: 99214 ==

== ENCOUNTER → 2022-10-09 09:31 | Outpatient (BNVA) | payer MEDICARE, OTHER, SELFPAY | PROVIDERS: PCP Family Medicine; Visit Provider Nurse Practitioner Family | DX: I25.10 Atherosclerotic heart disease of native coronary artery without angina pectoris (principal); I10 Essential (primary) hypertension | CPT/HCPCS: 99213 ==

== ENCOUNTER → 2022-11-22 10:16 | Outpatient (BNVA) | payer MEDICARE, OTHER, SELFPAY | PROVIDERS: PCP Family Medicine; Visit Provider Family Medicine | DX: E03.9 Hypothyroidism, unspecified (principal); E78.5 Hyperlipidemia, unspecified; Z79.01 Long term (current) use of anticoagulants; I25.10 Atherosclerotic heart disease of native coronary artery without angina pectoris | CPT/HCPCS: 80053; 80061; 84443; 85025 ==

== ENCOUNTER 2022-12-10 16:01 | Outpatient (CLI) | payer MEDICARE, OTHER, SELFPAY | END 2022-12-10 16:02 | disposition home or self-care (01) | LOC: SPT 16:01 | PROVIDERS: PCP Family Medicine; Visit Provider Podiatrist Foot & Ankle Surgery | DX: Z46.89 Encounter for fitting and adjustment of other specified devices (principal); M72.2 Plantar fascial fibromatosis | CPT/HCPCS: 97760; 99213; L4361 ==

== ENCOUNTER 2023-01-09 09:01 | Oncology outpatient (recurring) (ONCR) | payer MEDICARE, OTHER, SELFPAY ==
--- NOTE | 2023-01-09 09:30 | MR_ITS ---
WS: [id number] MRI RIGHT FOOT WITHOUT CONTRAST. COMPARISON: None Multiplanar, multisequence imaging is performed without contrast. History: Chronic RIGHT foot pain. Normal signal within the calcaneus and talus. No widening of the Lisfranc joint space. Normal tarsome tatarsal alignment. Very mild narrowing of the first metatarsophalangeal joint. No erosions are ident ified. No fractures or marrow edema. The Achilles tendon is normal. Visualized peroneus brevis and lo ngus are negative. There is a very small calcaneal spur with no adjacent inflammatory changes fasciit is. IMPRESSION: 1. No fractures or marrow edema. 2. Normal alignment of the Lisfranc joint space and also the tarsometatarsal articulations. 3. Mild osteoarthritic changes at the first metatarsophalangeal joint.
== END 2023-01-09 23:59 | disposition home or self-care (01) ==
LOC: RAD 01-15 13:15 → ONCMED 01-15 14:10
PROVIDERS: PCP Family Medicine; Visit Provider Podiatrist Foot & Ankle Surgery
DX: M72.2 Plantar fascial fibromatosis (principal); M19.071 Primary osteoarthritis, right ankle and foot; G89.29 Other chronic pain
CPT/HCPCS: 73718

== ENCOUNTER 2023-01-09 09:01 | Outpatient (CLI) | payer MEDICARE, OTHER, SELFPAY | END 2023-01-09 09:02 | disposition home or self-care (01) | LOC: RAD 01-15 14:22 | PROVIDERS: PCP Family Medicine; Visit Provider Podiatrist Foot & Ankle Surgery | DX: M72.2 Plantar fascial fibromatosis (principal); M19.071 Primary osteoarthritis, right ankle and foot; G89.29 Other chronic pain | CPT/HCPCS: 73718 ==

== ENCOUNTER → 2023-01-14 08:09 | Outpatient (BNVA) | payer MEDICARE, OTHER, SELFPAY | PROVIDERS: PCP Family Medicine; Visit Provider Podiatrist Foot & Ankle Surgery | DX: M72.2 Plantar fascial fibromatosis (principal); D50.8 Other iron deficiency anemias; M25.50 Pain in unspecified joint; Z79.899 Other long term (current) drug therapy | CPT/HCPCS: 80076; 82565; 83520; 85025; 85651; 86038; 86140; 99213; 99214 ==

== ENCOUNTER 2023-01-16 11:43 | Oncology outpatient (recurring) (ONCR) | payer MEDICARE, OTHER, SELFPAY ==
[2023-01-16 12:07] VITALS: BP 130/72; PULSE 71; RESP 16; TEMP 36.6; O2SAT 93
[2023-01-16 12:36] LABS: Alanine Aminotransferase 9 U/L (0-33); Albumin Level 4.5 g/dL (3.5-5.2); Alkaline Phosphatase 67 U/L (35-105); Anion Gap 14.2 (5-19); Aspartate Amino Transferase 29 U/L (0-32); Blood Urea Nitrogen 21 mg/dL (8-23); Calcium 9.5 mg/dL (8.5-10.5); Carbon Dioxide 26 mmol/L (22-29); Chloride 103 mmol/L (98-107); Globulin 2.8 g/dL (1.3-4.6); Glucose 124 mg/dL (65-115); Osmolality Calculated 292 mOsm/kg (285-295); Potassium 4.2 mmol/L (3.5-5.1); Sodium 139 mmol/L (136-145); Total Bilirubin 0.7 mg/dL (0.15-1.2); Total Protein 7.3 g/dL (6.6-8.7)
[2023-01-16] MEDS: denosumab 60 mg SDV SUBCUT (14:20)
== END 2023-01-17 23:59 | disposition home or self-care (01) ==
PROVIDERS: PCP Family Medicine; Visit Provider Internal Medicine Medical Oncology
DX: I82.501 Chronic embolism and thrombosis of unspecified deep veins of right lower extremity; I26.99 Other pulmonary embolism without acute cor pulmonale; Z79.01 Long term (current) use of anticoagulants; I25.10 Atherosclerotic heart disease of native coronary artery without angina pectoris; Z79.82 Long term (current) use of aspirin; M81.0 Age-related osteoporosis without current pathological fracture; Z79.899 Other long term (current) drug therapy
CPT/HCPCS: 36415; 80053; 96372; 99213; J0897

== ENCOUNTER → 2023-02-11 10:06 | Outpatient (BNVA) | payer MEDICARE, OTHER, SELFPAY | PROVIDERS: PCP Family Medicine; Visit Provider Podiatrist Foot & Ankle Surgery | DX: M72.2 Plantar fascial fibromatosis (principal) | CPT/HCPCS: 99214 ==

== ENCOUNTER → 2023-02-13 12:31 | Outpatient (BNVA) | payer MEDICARE, OTHER, SELFPAY | PROVIDERS: PCP Family Medicine; Visit Provider Internal Medicine | DX: I82.4Z2 Acute embolism and thrombosis of unspecified deep veins of left distal lower extremity (principal); E78.5 Hyperlipidemia, unspecified; E03.9 Hypothyroidism, unspecified; I25.10 Atherosclerotic heart disease of native coronary artery without angina pectoris; Z79.01 Long term (current) use of anticoagulants; Z79.82 Long term (current) use of aspirin; I10 Essential (primary) hypertension | CPT/HCPCS: 99214 ==

== ENCOUNTER → 2023-02-22 05:36 | Day surgery (SDC) | payer MEDICARE, OTHER, SELFPAY ==
[2023-02-21 13:42] VITALS: BMI 25.6
[2023-02-22] VITALS (7 sets, daily range): BP systolic 127–136; BP diastolic 67–74; PULSE 64–69; RESP 16–18; TEMP 36.1–36.6; O2SAT 93–99; BMI 25.6
[2023-02-22] MEDS: sodium chloride 0.9% 1,000 ML 30 ML IV (06:30)
[2023-02-22] MEDS: pregabalin 150 mg Capsule 300 MG PO (06:30)
[2023-02-22] MEDS: CELEcoxib 200 mg Capsule 400 MG PO (06:30)
--- NOTE | 2023-02-22 06:41 | P.HPUD_ITS ---
Surgery/Procedure H&P Update DATE OF PROCEDURE: February 22, 2023 DATE H&P PERFORMED: 02/11/23 H&P UPDATE INFORMATION: I have reviewed H&P completed within last 30 days, I have examined patient prior to procedure, No changes to prior documentation and H&P is in [facility] on date indicated PREOP DIAGNOSIS: Right plantar fasciitis PLANNED PROCEDURE: Operation Date: 02/22/23 07:00 Proposed Procedures p ?Plantar fasciectomy, right foot 37026,?M72.2(Right) - Reinaldo Walter DPM
--- NOTE | 2023-02-22 06:42 | PM.OP ---
Operative Report Date of procedure: February 22, 2023 Pre-op diagnosis: Right foot plantar fibromatosis Post-op diagnosis: Right foot plantar fibromatosis Post-op findings: Fascial cyst of the right plantar fascia Procedure done: Plantar fasciectomy, right foot. CPT code 62080 Implants: 3-0 Prolene Specimens removed/disposition: None Pathology: None Surgeon: Reinaldo Walter DPM [id number] Software Engineer: Riri Estimated blood loss: 2 cc 7 IV fluids: 0 Urine output: 0 Complications: none Brief History: Referral to cardiology for preoperative risk assessment.? I reviewed at length with the patient, the risks, potential complications, benefits, alternatives, expectations, and typical outcomes associated with the surgery. The risks and potential complications were explained in detail, including but not limited to infection, wound dehiscence or soft tissue complications, bleeding and hematoma, chronic edema, neuritis or nerve damage producing numbness or chronic pain, CRPS, failure to relieve pain or worsening pain, thick / painful / unsightly scar, limited motion / stiffness, malposition, delayed union, malunion, or nonunion, fracture, reaction to implants, anesthetic complications, venous thromboembolism, and deformity recurrence.? I discussed the notion of no regrets with the patient as it pertains to complications and outcomes. The patient seemed to understand the nature of the proposed care and required convalescence. They asked appropriate questions, answered to their satisfaction. They are aware no guarantees can be made as to a satisfactory outcome and they understand there may be other possible unforeseen complications or outcomes not listed here that will be treated accordingly if they arise. There were no written or implied guarantees given to the patient. They gave informed consent to proceed. Procedure: Under mild sedation the patient was brought to the operating room and remained on the gurney in supine position. A timeout was performed. Anesthesia was then administered by the anesthesia service. Local anesthesia was injected by myself consisting of 20 cc of 0.5% Marcaine plain in a field block at the planned operative site right plantar heel with an additional 10 cc of Exparel infiltrated subcutaneously in a grid like fashion in the same location. A well-padded pneumatic tourniquet was applied to the right high calf. The right lower extremity was scrubbed, prepped and draped utilizing normal aseptic technique. Right foot was exanguinated with an Esmarch bandage and a tourniquet inflated to 250 mmHg. Attention was directed to the instep of the right foot where loading the great toe the plantar fascia was able to be palpated. Following a skin line at the instep and the plantar right foot a transverse incision was made 2 cm in length through skin with dissection carried down through subcutaneous tissue to the layer plantar fascia which was then directly visualized and delineated both medially and laterally with Juanitans. In a medial to lateral fashion a fresh 15 blade was utilized to sharply release the plantar fascia at its medial two thirds. Able to visualize underlying muscle belly and a complete release from medial to lateral of the medial two thirds of the plantar fascia. It was noted to be thickened and signs of degenerative changes of thickening and fibrosing. The incision was irrigated with copious amounts of sterile skin solution and closed in a single layer fashion utilizing 3-0 Prolene. The incision was then dressed with Adaptic, sterile 4 x 4's, Kerlix and Woo wrap followed by application of a cam boot. Tourniquet was deflated and a prompt hyperemic response was noted to the distal digits of the right foot. Patient tolerated the procedure and anesthesia well and was transferred to the PACU with vital signs stable and vascular status intact. Following a period of postoperative monitoring he will she discharged home, may be protected weightbearing with cam boot and advised to elevate her right foot while resting. Was prescribed hydrocodone to be taken judiciously as needed for pain. Has scheduled follow-up, at home care instructions and my cell phone number to contact me with any postoperative questions or concerns.
--- NOTE | 2023-02-22 06:48 | ANES.PREANE2 ---
Pre-Anesthetic Assessment Height/Weight: Height 1.57 m Weight 63.503 kg O2 Del Method Room Air 02/22/23 06:26 Preop Diagnosis: Right plantar fasciitis Operation Date: 02/22/23 07:00 Proposed Procedures p ?Plantar fasciectomy, right foot 88643,?M72.2(Right) - Reinaldo Walter DPM Familial anesthetic complications: Occcasional PONV Was Beta Ana taken within 24 hours: N/A Was Clonidine taken within 24 hours: N/A Last intake: Intake Last Liquid Date 02/21/23 Last Liquid Time 18:00 Last Solid Date 02/21/23 Last Solid Time 18:00 Social No alcohol and No tobacco Exam alert, oriented x 3, clear to auscultation bilaterally and regular rate & rhythm Airway Mallampati: Class II Dentition: other (no teeth) CV/HEM Coronary Artery Disease (balloon angioplasty) and Congestive Heart Failure Pulm HTN, Mod AVR GI Gastroesophageal Reflux Disease Metabolic Thyroid Disease Anesthetic Plan ASA status: 3 Anesthesia: MAC Risk of > 500 ml blood loss (7ml/kg in children): No Medications/Allergies Home Medications Medication Instructions Recorded Confirmed Last Taken Type cholecalciferol (vitamin D3) 25 1,000 unit PO DAILY 05/19/19 02/21/23 02/21/23 History mcg (1,000 unit) capsule denosumab 60 mg/mL subcutaneous 60 mg SUBCUT Q6M 07/25/20 02/22/23 08/16/22 History syringe (Prolia) aspirin 81 mg tablet,delayed 81 mg PO DAILY #30 tabs 07/30/20 02/21/23 02/20/23 Rx release atorvastatin 20 mg tablet 20 mg PO DAILY 06/18/22 02/22/23 02/21/23 History meloxicam 15 mg tablet 15 mg PO DAILY #90 tabs 06/27/22 02/21/23 1 Day Ago Rx ~02/20/23 digoxin 125 mcg (0.125 mg) tablet 125 mcg PO DAILY #90 tabs 08/15/22 02/22/23 02/21/23 Rx furosemide 20 mg tablet 20 mg PO DAILY PRN edema #90 tabs 10/16/22 02/22/23 02/20/23 Rx apixaban 5 mg tablet (Eliquis) 5 mg PO BID #180 tabs 10/19/22 02/21/23 02/16/23 Rx nitroglycerin 0.4 mg sublingual 0.4 mg sublingual Q5M PRN chest 11/15/22 02/21/23 Unknown Rx tablet (Nitrostat) pain #25 tabs omeprazole 40 mg capsule,delayed 40 mg PO BID #180 caps 11/22/22 02/21/23 02/21/23 Rx release Cam boot to right #1 ea 12/10/22 02/13/23 Unknown Rx triamcinolone acetonide 0.1 % 1 g topical DAILY 12/10/22 02/22/23 Unknown History topical cream albuterol sulfate 90 mcg/actuation 2 puff inhalation 6XD PRN 01/16/23 02/22/23 02/17/23 History aerosol inhaler (Ventolin HFA) shortness of breath or wheezing bisoprolol fumarate 10 mg tablet 20 mg PO DAILY 02/21/23 02/22/23 02/22/23 04:00 History cetirizine 10 mg tablet 10 mg PO DAILY PRN allergies 02/22/23 02/22/23 02/21/23 History fluticasone propionate 50 50 spray intranasal DAILY 02/22/23 02/22/23 Unknown History mcg/actuation nasal spray,suspension hydrocodone 5 mg-acetaminophen 325 1 tab PO Q4H PRN pain 7 days #30 02/22/23 Unknown Rx mg tablet tabs levothyroxine 50 mcg tablet 50 mcg PO DAILY 02/22/23 02/22/23 02/21/23 History losartan 25 mg tablet 25 mg PO DAILY 02/22/23 02/22/23 02/21/23 History montelukast 10 mg tablet 10 mg PO DAILY 02/22/23 02/22/23 02/21/23 History potassium chloride 10 mEq 10 meq PO DAILY 02/22/23 02/22/23 02/21/23 History tablet,extended release Allergies Allergy/AdvReac Type Severity Reaction Status Date / Time isosorbide Allergy Severe Burning in Verified 02/13/23 13:04 chest; Dizzy; Nauseous; Pain in jaws levofloxacin [From Levaquin] Allergy Severe throat Verified 02/13/23 13:04 swelling hydroxychloroquine Allergy Unknown ADR-Headach Verified 02/13/23 13:04 e clopidogrel [From Plavix] Allergy ADR-Headach Verified 02/13/23 13:04 e latex Allergy ALGY-Rash Verified 02/13/23 13:04 hydrocodone AdvReac Intermediate hallucinati Verified 02/13/23 13:04 ng oxycodone AdvReac Intermediate hallucinati Verified 02/13/23 13:04 on Current Medications Generic Name Dose Route Start Last Admin Trade Name Freq PRN Reason Stop Dose Admin Sodium Chloride 1,000 mls @ 30 mls/hr 02/22/23 06:15 02/22/23 06:30 Sodium Chloride 0.9% IV 02/23/23 06:14 30 mls/hr .Q24H LEONOR Administration PFSH Anesthesia Medical History Coronary artery disease Gastroesophageal reflux disease High risk medication use History of pulmonary embolism Hyperlipidemia Hypertension Hypothyroidism Osteoarthritis of hands, bilateral Osteoporosis Polyarthralgia Pulmonary hypertension Recurrent deep vein thrombosis (DVT) Tricuspid valve disorders, non-rheumatic Surgical History H/O esophagogastroduodenoscopy (06/09/20) H/O splenectomy H/O: hysterectomy History of bladder suspension procedure History of coronary angiogram (~06/2019) balloon angioplasty to distal RCA stenosis History of pancreatic surgery History of partial gastrectomy History of surgery 10/2021 Stents cleaned out in groin per patient by Dr. Nolan Saleh, vascular surgeon at the [facility] at [place], [place] Previous back surgery vertebroplasty S/P breast biopsy S/P cataract surgery S/P thyroidectomy 1 lobe Status post surgical removal of malignant neoplasm of skin Basal cell carcinoma of the nose Family History Other CAD (coronary artery disease) Cancer Diabetes Family history of premature coronary artery disease Denies family history of Anesthesia complication Bleeding disorder Social History Smoking and tobacco status: never smoked Second hand smoke exposure: No Smoking risk assessment/counseling performed?: Yes Alcohol intake: never Substance/Drug Use: never Household members: spouse Marital status: Current occupational status: retired Data Anesthesia Cardiac Studies: Echocardiogram 08/22/21 Echocardiogram Ultrasound 01/09/21 Sestamibi Stress Test (Cardiology) 09/10/22
[2023-02-22] MEDS: ceFAZolin 2,000 MG in sodium chloride 0.9% (plus) 50 ML 100 MG IV (06:58)
[2023-02-22] MEDS: BUPivacaine liposome 13.3 mg/mL SDV 10 mL 133 MG INFILTRATI (07:28)
[2023-02-22] MEDS: BUPivacaine 0.5% INJ 30 mL INJECTION (07:28)
[2023-02-22] MEDS: ondansetron 2 mg/ML SDV 2 mL 4 MG IVP (08:08)
[2023-02-22 09:25] LABS: Glucose Point of Care 123 mg/dL (70-110)
--- NOTE | 2023-02-22 09:41 | SUR.PHASEII ---
0746 pt received from PACU awake and alert and wanting coffee to drink,no other c/o at this time. 0806 pt c/o needing to vomit and vomited a small amt of coffee colored emesis, washcloth offered and at bedside,0808 Zofran 4mg given and Iv fluids given. 0808 c/o double vision to left eye and rubbing it. 0815 still c/o double vision v/s 97.8-67-17-140/74-94% 0820 Dr. Darnell(Anesthesiologist) in office talking with another RADIOLOGY PHYSICIAN ASSISTANT 0825 Dr Darnell here to see pt and assessing pt 0830 V/S 11-07-31-141/73-94% 0835 Dr Darnell here to see pt again. 0840 pt o2 sat down to 88-89%,o2 2l-nc applied,o2 sat 95-96% 0850 Dr Darnell to see pt again. 0915 Dr Darnell here and stroke alert called and CT called 0917 Sroke team here, Dr Strong from ER here,assessed pt 0920 Pt to ER via stretcher with Code Team, brought with pt.
--- NOTE | 2023-02-22 11:00 | P.MISC_ITS ---
Miscellaneous Note Purpose of Documentation: Complaint of postoperative monocular L double vision Note: Informed by nurse patient was experiencing double vision in her L eye and was having some nausea, of which zofran had just been administered prior to informing of the double vision. Patient told me that her vision was normal in her R eye, but the L eye she was seeing double or triple. She stated that this happened upon awakening from anesthesia (intraop drugs were fentanyl, propofol, lidocaine, ancef, decadron). She denied any other loss of vision/blurriness/black spots. She denied pain, burning, itching, or irritation of the eye. Upon asking if she was having any other strange symptoms she stated only nausea. Her confirmed she did not appear confused and her mental status was at baseline, other than being a little sleepy, and that she didn't s ound like she was slurring her words. On exam the eye looked normal without erythema, purulence, or tearing. Her eyelids seemed half open. A quick test of her EOM appeared intact, but she didn't appear to cooperate with the exam very vigorously and her eyelids remained half-closed almost. Pupillary light reflexes were intact, but her pupils appeared bilaterally miotic, which can be expected in setting of opioid administration. After a quick review of etiologies of postoperative vision loss or disturbance (AION, PION, Central retinal artery occlusion, retinal branch occlusion, drug effect, cranial nerve palsy, etc.), I returned approximately 10 minutes later to retest her EOM and asking her to open her eyes as wide as she could and I detected mild nystagmus, impaired L eye adduction, and relative lack of accommodation bilaterally. Upon conferring with Dr. Matthews concern for brainstrem stroke as etiology was evinced and stroke alert was activated. Patient was brought to CT, and ER, and given TPA in preparation for CT angio. Before leaving the patient's room, I had further discussion with patient about how she may not be able to hold her anticoagulation for without having a bridge in the future d/t this stroke. Upon hearing this, she stated that she'd actually been noticing that her balance was progressively getting worse and that her eye lid was droopy over the last 2 to 3 weeks. Informed ER physician and Dr. matthews of this revelation.
== END | disposition home or self-care (01) ==
PROVIDERS: PCP Family Medicine; Visit Provider Podiatrist Foot & Ankle Surgery
PROC: (CPT 28060; principal; 2023-02-22 07:00)
DX: M72.2 Plantar fascial fibromatosis (principal); I25.10 Atherosclerotic heart disease of native coronary artery without angina pectoris; I11.0 Hypertensive heart disease with heart failure; I50.9 Heart failure, unspecified; I27.20 Pulmonary hypertension, unspecified; K21.9 Gastro-esophageal reflux disease without esophagitis; Z79.82 Long term (current) use of aspirin; E78.5 Hyperlipidemia, unspecified; E03.9 Hypothyroidism, unspecified; Z86.718 Personal history of other venous thrombosis and embolism
CPT/HCPCS: 28060; 36416; 82962; C9290; J0690; J1100; J2405; J2704; J3010; J3490; J7030

== ENCOUNTER 2023-02-22 09:21 | Inpatient (IN) | payer MEDICARE, OTHER, SELFPAY ==
[2023-02-22] VITALS (27 sets, daily range): BP systolic 123–147; BP diastolic 59–82; PULSE 48–81; RESP 15–28; TEMP 36.6; O2SAT 92–99; BMI 25.6
--- NOTE | 2023-02-22 | CT_ITS ---
WS: [id number] CT HEAD TECHNIQUE: Noncontrast CT of the head obtained from the skullbase to the vertex. CLINICAL INFORMATION: STROKELIKE SYMPTOMS COMPARISON: CT 2017 and MRI 2014 DLP: [id number] scans at [facility] use at least one of these dose optimization techniques: automated e xposure control; mA and/or kV adjustment per patient size (includes targeted exams where dose is matc hed to clinical indication); or iterative reconstruction. FINDINGS: No evidence of intracranial hemorrhage or mass effect. Ventricular system and basal cisterns are castellanos nt. Mild small vessel changes with mild parenchymal volume loss. Chronic ischemia or small vessel favian nge in the LEFT periventricular white matter and basal ganglia unchanged compared to previous. Intrac ranial vascular calcifications. No extra-axial fluid collections. No evidence of mass or mass effect. Paranasal sinuses and mastoid air cells are well aerated. Normal visualized soft tissues. IMPRESSION: 1. No evidence of intracranial hemorrhage or mass effect. 2. Mild small vessel changes. Mild parenchymal volume loss. 3. Intracranial vascular calcifications. 4. No acute intracranial findings. Notified Jeremías Lopez DO at 02/22/2023 9:39 AM.
--- NOTE | 2023-02-22 09:32 | ECG_ITS ---
[facility] Test Date: 2023-02-22 Pat Name: Sussy Solorzano Department: Room: Gender: Female Disposal Worker: : 1945 Requested By: Jeremías Kellogg Order Number: [id number] Carlyle MD: Judith Fuller M.D. Measurements Intervals [place] Rate: 60 P: 24 OR: 171 QRS: 36 QRSD: 90 T: 30 QT: 421 QTc: 422 Interpretive Statements SINUS RHYTHM WITH MARKED SINUS ARRHYTHMIA NONSPECIFIC ST & T-WAVE ABNORMALITY Compared to ECG 03/20/2021 23:16:24 No significant changes Electronically Signed On 02-22-2023 13:31:31 CDT by Judith Fuller M.D. [id number]
[2023-02-22 09:47] LABS: Basophils % 0.5 %; Eosinophils # 0.1 10^3/uL (0.0-0.8); Eosinophils % 1.1 %; Hematocrit 37.9 % (36-47); Lymphocytes # 1.4 10^3/uL (0.8-4.8); Lymphocytes % 21.1 %; Mean Corpuscular HGB Conc 31.9 g/dL (30-55); Mean Corpuscular Hemoglobin 28.8 pg (27-33); Mean Corpuscular Volume 90.2 fl (85-98); Mean Platelet Volume 10.7 fL (7.4-10.4); Monocytes # 0.2 10^3/uL (0.2-0.9); Monocytes % 2.8 %; Neutrophils # 4.83 10^3/uL (1.8-7.7); Neutrophils % 74.3 %; Nucleated Red Blood Cells % 0 %; Platelet Count 329 10^3/cmm (157-399); Red Cell Distribution Width 14.7 % (12.1-15.1); White Blood Count 6.49 10^3/uL (3.29-11.43)
--- NOTE | 2023-02-22 09:59 | CT_ITS ---
WS: [id number] CTA HEAD AND NECK TECHNIQUE: Contrast enhanced CTA of the head and neck with coronal and sagittal reformatted images an d maximum intensity projection (MIP) images. NASCET criteria utilized. CLINICAL INFORMATION: cva DLP: 406.[address] scans at [facility] use at least one of these dose optimization techniques: automated e xposure control; mA and/or kV adjustment per patient size (includes targeted exams where dose is matc hed to clinical indication); or iterative reconstruction. FINDINGS: RIGHT: RIGHT common carotid artery is patent. No significant RIGHT ICA stenosis. RIGHT ICA is patent to the skull base. Mild carotid bulb calcification. LEFT: LEFT common carotid artery is patent. No significant LEFT ICA stenosis. LEFT ICA is patent to t he skull base. INTRACRANIAL CTA: Codominant and patent vertebral arteries bilaterally. Proximal basilar artery is patent. Normal vascu larity to the SEWING MACHINE OPERATOR SEMIAUTOMATIC territories bilaterally. Both ICAs are patent at the skull base. Mild cavernous carotid calcification. Normal vascularity to t he MARLY and MCA territories bilaterally. No evidence of flow-limiting stenosis. Multinodular thyroid. Aortic calcification. Calcified anteromediastinal subcarinal lymph nodes. Inter stitial thickening likely due to edema in the upper lungs bilaterally with hazy atelectasis. Paranasa l sinuses and mastoid air cells are well aerated. IMPRESSION: 1. No significant cervical ICA stenosis. Both ICAs are patent to the skull base. 2. No flow-limiting intracranial stenosis. 3. Mild cavernous carotid calcification. 4. Multinodular RIGHT thyroid. 5. Interstitial thickening with hazy atelectasis and interstitial edema in the lung apices. 6. Nonspecific RIGHT orbital lesion measuring 9 x 8 mm along the superolateral RIGHT optic nerve tawana picious for vascular lesion such as venous varix or less likely nerve sheath tumor. Recommend ophthal mology consultation. Notified Jeremías Lopez DO at 02/22/2023 11:01 AM.
[2023-02-22] MEDS: iohexol 350 mg/mL 500 mL Btl (per mL) IV (10:00)
[2023-02-22 10:05] LABS: INR 0.96 (0.8-1.2)
[2023-02-22 10:06] LABS: Partial Thromboplastin Time 26.4 SECONDS (23.9-36.7)
[2023-02-22 10:10] LABS: Alanine Aminotransferase 12 U/L (0-33); Albumin Level 3.9 g/dL (3.5-5.2); Alkaline Phosphatase 71 U/L (35-105); Anion Gap 13.4 (5-19); Aspartate Amino Transferase 20 U/L (0-32); Blood Urea Nitrogen 11 mg/dL (8-23); Carbon Dioxide 24 mmol/L (22-29); Chloride 106 mmol/L (98-107); Globulin 2.7 g/dL (1.3-4.6); Glucose 129 mg/dL (65-115); Osmolality Calculated 289 mOsm/kg (285-295); Potassium 4.4 mmol/L (3.5-5.1); Sodium 139 mmol/L (136-145); Total Bilirubin 0.4 mg/dL (0.15-1.2); Total Protein 6.6 g/dL (6.6-8.7)
--- NOTE | 2023-02-22 10:18 | PC.PHAR ---
PT GONE TO CT TO RETURN IN 15 MIN.
--- NOTE | 2023-02-22 10:46 | ED_ITS ---
HPI - Neuro Symptoms/Deficit General: Chief Complaint: Neuro Symptoms/Deficit Stated Complaint: stroke Time Seen by Provider: 02/22/23 09:22 Source: patient Mode of arrival: ambulatory History of Present Illness: 77-year-old female presents emergency room from outpatient surgery. She was in surgery this morning for a fasciectomy on a right foot. She is on Eliquis due to history of VTE she been off of the Eliquis for 1 week prior to surgery. Later she told me that she has been having some difficulty with her eye with vision and drooping for over a week but this morning immediately after surgery she began having double vision in her left eye which she had not had previously she also had some ataxia in the right arm and leg. I seen the patient initially in Outpatient Surgery she was then brought to from outpatients the CT CT of the head was negative she was then brought to the emergency room Dr. Hendricks is responded even though she was not on-call and graciously seen the patient in the room did the stroke score and recommended tPA please see her consultation note as well. Patient also commented on having some chest burning. Onset (ago): minute(s) Location: speech and left face History of same: Yes Associated symptoms: Reports chest pain; Deny cough, diaphoresis, fevers/chills, headache(s), anorexia, malaise, nausea, seizures, short of breath, syncope, tingling, vertigo, vomiting or weakness Review of Systems Const: Denies: fever(s), chills, malaise or diaphoresis Card: Reports: chest pain; Denies: syncope Resp: Denies: dyspnea GI: Denies: abdominal pain, nausea or vomiting : Denies: dysuria, urinary frequency or urinary urgency Neuro: Denies: headache(s) or vertigo PFS ED PFSH: Medical History Coronary artery disease Gastroesophageal reflux disease High risk medication use History of pulmonary embolism Hyperlipidemia Hypertension Hypothyroidism Osteoarthritis of hands, bilateral Osteoporosis Polyarthralgia Pulmonary hypertension Recurrent deep vein thrombosis (DVT) Tricuspid valve disorders, non-rheumatic Surgical History H/O esophagogastroduodenoscopy (06/09/20) H/O splenectomy H/O: hysterectomy History of bladder suspension procedure History of coronary angiogram (~06/2019) balloon angioplasty to distal RCA stenosis History of pancreatic surgery History of partial gastrectomy History of surgery 10/2021 Stents cleaned out in groin per patient by Dr. Nolan Saleh, vascular surgeon at the [facility] at [place], [place] Previous back surgery vertebroplasty S/P breast biopsy S/P cataract surgery S/P thyroidectomy 1 lobe Status post surgical removal of malignant neoplasm of skin Basal cell carcinoma of the nose Family History Other CAD (coronary artery disease) Cancer Diabetes Family history of premature coronary artery disease Denies family history of Anesthesia complication Bleeding disorder Social History Smoking and tobacco status: never smoked Second hand smoke exposure: No Smoking risk assessment/counseling performed?: Yes Alcohol intake: never Substance/Drug Use: never Household members: spouse Marital status: Current occupational status: retired NIH stroke score NIHSS: Level Of Consciousness - 1a: 0 Level Of Consciousness Questions - 1b: Both Correct Level Of Consciousness Commands - 1c: Both Correct Best Gaze - 2: Normal Visual Clifford - 3: No Visual Loss Facial Palsy - 4: Nor mal Motor Arm Right - 5: No Drift Motor Arm Left - 5: No Drift Motor Leg Right - 6: No Drift Motor Leg Left - 6: No Drift Limb Ataxia - 7: Present In Two Limbs Sensory - 8: Normal Best Language - 9: No Aphasia Dysarthia - 10: Mild/Moderate Dysarthia Extinction And Inattention - 11: 0 Score: Total Score: 3 Physical Exam Const: GENERAL APPEARANCE: cooperative ORIENTATION/CONSCIOUSNESS: Yes awake, Yes oriented to person, Yes oriented to place and Yes oriented to time HENMT: COMMON NORMALS: normocephalic, atraumatic and hearing grossly normal bilaterally HEAD & SCALP: normocephalic and atraumatic Resp: COMMON NORMALS: normal respiratory effort, No retractions, No use of accessory muscles and clear to auscultation bilaterally AUSCULTATION: clear to auscultation bilaterally Cardio: COMMON NORMALS: regular rate, regular rhythm and No murmurs present (Cardio) RATE: regular rate RHYTHM: regular rhythm GI: COMMON NORMALS: Soft to palpation and No hepatosplenomegaly present AUSCULTATION: Yes normoactive bowel sounds PALPATION: Yes Soft to palpation, No Tenderness to palpation present (GI), No Guarding due to palpation present (GI) and Yes No hepatosplenomegaly present Extremity: COMMON NORMALS: normal to inspection, capillary refill normal, no clubbing, cyanosis or edema, no calf tenderness and no pedal edema Neuro: SENSORIUM/ORIENTATION: Yes oriented to person, Yes oriented to place and Yes oriented to time Skin: COMMON NORMALS: no rashes or lesions noted GENERAL SKIN EXAM: no rashes or lesions noted Course Vital Signs: Vital signs: Vital Signs Temperature 98 F 02/22/23 14:00 Pulse Rate 54 L 02/22/23 14:04 Respiratory Rate 22 H 02/22/23 14:00 Blood Pressure 126/66 02/22/23 14:00 Pulse Oximetry 98 02/22/23 14:00 Oxygen Delivery Me thod Nasal Cannula 02/22/23 14:00 Oxygen Flow Rate 2 02/22/23 14:00 MDM - Neuro Symptoms/Deficit Medical Decision Making Patient appears to have acute posterior stroke Dr. Hendricks seen the patient and her stroke score was a 3. She recommends tPA she discussed the risks and benefits of this patient and administered tPA. Reviewed case with Dr. Hendricks will admit discussed with Dr. Ochoa orders written for the ICU. Medical Records I reviewed the patient's medical records. Lab Data I reviewed the patient's lab results. 02/22/23 09:40 02/22/23 09:40 Laboratory Results WBC 6.49 10^3/uL (3.29-11.43) 02/22/23 09:40 RBC 4.20 10^6/uL (3.85-5.65) 02/22/23 09:40 Hgb 12.10 g/dL (11.27-16.99) 02/22/23 09:40 Hct 37.9 % (36-47) 02/22/23 09:40 MCV 90.2 fl (85-98) 02/22/23 09:40 MCH 28.8 pg (27-33) 02/22/23 09:40 MCHC 31.9 g/dL (30-55) 02/22/23 09:40 RDW 14.7 % (12.1-15.1) 02/22/23 09:40 Plt Count 329 10^3/cmm (157-399) 02/22/23 09:40 MPV 10.7 fL (7.4-10.4) H 02/22/23 09:40 Neut % (Auto) 74.3 % 02/22/23 09:40 Lymph % (Auto) 21.1 % 02/22/23 09:40 [place] % (Auto) 2.8 % 02/22/23 09:40 Eos % (Auto) 1.1 % 02/22/23 09:40 Baso % (Auto) 0.5 % 02/22/23 09:40 Neut # (Auto) 4.83 10^3/uL (1.8-7.7) 02/22/23 09:40 Lymph # (Auto) 1.4 10^3/uL (0.8-4.8) 02/22/23 09:40 [place] # (Auto) 0.2 10^3/uL (0.2-0.9) 02/22/23 09:40 Eos # (Auto) 0.1 10^3/uL (0.0-0.8) 02/22/23 09:40 Baso # (Auto) 0.0 10^3/uL (0.0-0.1) 02/22/23 09:40 Nucleated RBC % (auto) 0 % 02/22/23 09:40 Nucleated RBCs # 0.0 /100WBC 02/22/23 09:40 PT 13.10 SECONDS (12.1-14.9) 02/22/23 09:40 INR 0.96 (0.8-1.2) 02/22/23 09:40 APTT 26.4 SECONDS (23.9-36.7) 02/22/23 09:40 Sodium 139 mmol/L (136-145) 02/22/23 09:40 Potassium 4.4 mmol/L (3.5-5.1) 02/22/23 09:40 Chloride 106 mmol/L (98-107) 02/22/23 09:40 Carbon Dioxide 24 mmol/L (22-29) 02/22/23 09:40 Anion Gap 13.4 (5-19) 02/22/23 09:40 BUN 11 mg/dL (8-23) 02/22/23 09:40 Creatinine 0.8 mg/dL (0.5-0.9) 02/22/23 09:40 GFR Calculation Not Reportable 02/22/23 09:40 Glucose 129 mg/dL (65-115) H 02/22/23 09:40 Calculated Osmolality 289 mOsm/kg (285-295) 02/22/23 09:40 Calcium 8.0 mg/dL (8.5-10.5) L 02/22/23 09:40 Total Bilirubin 0.4 mg/dL (0.15-1.2) 02/22/23 09:40 AST 20 U/L (0-32) 02/22/23 09:40 ALT 12 U/L (0-33) 02/22/23 09:40 Alkaline Phosphatase 71 U/L (35-105) 02/22/23 09:40 Troponin T Baseline 7 ng/L (0-10) 02/22/23 09:40 Total Protein 6.6 g/dL (6.6-8.7) 02/22/23 09:40 Albumin 3.9 g/dL (3.5-5.2) 02/22/23 09:40 Globulin 2.7 g/dL (1.3-4.6) 02/22/23 09:40 TSH 1.39 uIU/mL (0.27-4.20) 02/22/23 09:40 Urine Color Yellow (Yellow) 02/22/23 10:53 Urine Appearance Clear (CLEAR) 02/22/23 10:53 Urine pH 6 (5-7) 02/22/23 10:53 Ur Specific [place] 1.010 (1.005-1.030) 02/22/23 10:53 Urine Protein Neg (Negative) 02/22/23 10:53 Urine Glucose (UA) Norm (Normal) 02/22/23 10:53 Urine Ketones Negative (Negative) 02/22/23 10:53 Urine Blood Neg (Negative) 02/22/23 10:53 Urine Nitrate Negative (Negative) 02/22/23 10:53 Urine Bilirubin Neg (Negative) 02/22/23 10:53 Urine Urobilinogen Norm mg/dL (Negative) 02/22/23 10:53 Ur Leukocyte Esterase Negative (Negative) 02/22/23 10:53 Digoxin 1.0 ng/mL (0.6-1.2) 02/22/23 09:40 Urine Opiates Screen Negative ng/mL (Negative) 02/22/23 10:53 Ur Barbiturates Screen Negative ng/mL (Negative) 02/22/23 10:53 Ur Phencyclidine Scrn Negative ng/mL (Negative) 02/22/23 10:53 Ur Amphetamines Screen Negative ng/mL (Negative) 02/22/23 10:53 U Benzodiazepines Scrn Negative ng/mL (Negative) 02/22/23 10:53 Urine Cocaine Screen Negative ng/mL (Negative) 02/22/23 10:53 U Marijuana (THC) Screen Negative ng/mL (Negative) 02/22/23 10:53 All radiology interpretation(s) finalized by discharge Discharge Plan Discharge Patient Disposition: Admitted As Inpatient Admit Provider: Norbert Morse Clinical Impression: Posterior circulation stroke of uncertain pathology Condition: Stable Coding Level of Care Code ED Position Classification Specialist for Paola Sutton
--- NOTE | 2023-02-22 11:01 | PM.SAN ---
Stroke Alert Activation ED Arrival Date: 02/22/23 ED Arrival Time: 07:52 Last Known Normal/at Baseline: 2-3 hours ago Other Last Known Well Infomation: Dr. He texted me at 905 because this 77-year-old woman was holding her Eliquis for plantar fasciectomy. She was last known normal prior to anesthesia at 7 AM. She woke up with diplopia and Dr. He noted that she was not adducting the left eye well and thought she had visual loss on the right, possibly monocular. I advised her to call stroke alert and that was done. She was transferred to CAT scan and from there to the emergency department. I came immediately to the emergency department and performed an NIH stroke scale. I looked at her CAT scan with Dr. Lopez. The patient was nauseated. She vomited several times. She had ratchety eye movements to the right and sustained nystagmus on right gaze. She had impaired adduction of the left eye and diplopia. I could not appreciate any visual field defect. She had ataxia in both legs and possibly mild weakness in both legs as she had reduced ability to keep the legs elevated on both sides. I could not appreciate a motor deficit in the arms. No sensory abnormalities. Her stroke scale score was 3 but my assumption is that she would not be able to walk and that this was most likely posterior circulation ischemia and posterior circulation stroke. Her blood pressure was under good control. Her blood sugar was unremarkable. It had been 5 days since she took her blood thinner (I confirmed with her that it was Saturday) and the patient gave informed consent for tPA. Her took part in the decision making. I went over the stroke book with them including my belief that her stroke was in the distribution of the basilar artery. She received a bolus of tPA at 945. Stroke Alert Activated by: Dr. He Stroke Alert Activation Time: 09:10 Stroke MD @ Bedside Time: 09:05 NIH stroke score NIHSS: Level Of Consciousness - 1a: 0 Level Of Consciousness Questions - 1b: Both Correct Level Of Consciousness Commands - 1c: Both Correct Best Gaze - 2: Partial Gaze Palsy Visual Clifford - 3: No Visual Loss Facial Palsy - 4: Normal Motor Arm Right - 5: No Drift Motor Arm Left - 5: No Drift Motor Leg Right - 6: No Drift (She may have mild weakness in both legs since difficult to establish) Motor Leg Left - 6: No Drift Limb Ataxia - 7: Present In Two Limbs Sensory - 8: Normal Best Language - 9: No Aphasia Dysarthia - 10: Mild/Moderate Dysarthia Extinction And Inattention - 11: 0 Score: Total Score: 4 Stroke Alert Data/Treatment Time to CT of Head: 09:30 CT Results Time: 09:39 CT Impression: Mild diffuse atrophy. CT angiogram was reviewed including images. 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 1.? No significant cervical ICA stenosis. Both ICAs are patent to the skull base. 2.? No flow-limiting intracranial stenosis. 3.? Mild cavernous carotid calcification. 4.? Multinodular RIGHT thyroid. 5.? Interstitial thickening with hazy atelectasis and interstitial edema in the lung apices. 6.? Nonspecific RIGHT orbital lesion measuring 9 x 8 mm along the superolateral RIGHT optic nerve suspicious for vascular lesion such as venous varix or less likely nerve sheath tumor. Recommend ophthalmology consultation. Notified Jeremías Lopez DO at 02/22/2023 11:01 AM. Dictated By: Jonh Oconnor MD CT head was unremarkable with no acute changes. Dr. Oconnor found a calcified lesion in the right posterior superolateral optic nerve that was also seen on CTA Stroke Risk Factors: coronary artery disease, hypertension and obesity tPA Started Time: tPA Started - Time: 09:45 tPA Admin Prior to Arrival: No Patient & Family Educated on: Cause of Stroke, Treament Plan, Stroke Education Booklet and tPA Risks/Benefits Other Patient & Family Education: Plan to admit to ICU. I texted Dr. Morse to let him know I am available by phone. I reviewed the plan and Dr. Lopez and I agreed on treatment course Critical Care Time Critical Care Time: 30 - 74 mins A&P Assessment and plan (1) Posterior circulation stroke of uncertain pathology: Coding Level of Care Code Acute Code for [facility] Diagnoses Posterior circulation stroke of uncertain pathology I63.539
[2023-02-22 11:17] LABS: Troponin(5th) Baseline 7 ng/L (0-10)
--- NOTE | 2023-02-22 11:39 | P.HP_ITS ---
Providers/Chief Complaint Admitting Physician: Norbert Morse MD Primary Care Provider: Wander Bolton MD Chief Complaint: stroke History of Present Illness Sussy Solorzano is a 77 year old female who underwent a right plantar fasciectomy today. In recovery she was noted to have stroke symptoms with visual field defect, dizziness and nausea, and double vision. She was brought over to the emergency department, where a NIHSS stroke scale was done, at 3. It was determined after CT scan of the head showed no bleed that she was a candidate for tPA which was administered. I saw the patient following tPA administration. She reports she has some nausea. This worsens with getting up. She is seeing double, but this goes away when she shuts her left eye. Mild hea dache. No recent fever or other illness. Review of Systems General: Reports: 10 or more systems reviewed and unremarkable except in HPI and below Card: Denies: chest pain Resp: Denies: dyspnea GI: Reports: nausea; Denies: abdominal pain, vomiting, hematochezia or melena Medications/Allergies Home Medications Medication Instructions Recorded Confirmed Last Taken Type cholecalciferol (vitamin D3) 25 1,000 unit PO QAM 05/19/19 02/22/23 02/21/23 History mcg (1,000 unit) capsule atorvastatin 20 mg tablet 20 mg PO QAM 06/18/22 02/22/23 02/21/23 History apixaban 5 mg tablet (Eliquis) 5 mg PO BID #180 tabs 10/19/22 02/22/23 02/21/23 Rx nitroglycerin 0.4 mg sublingual 0.4 mg sublingual Q5M PRN chest 11/15/22 02/22/23 Unknown Rx tablet (Nitrostat) pain #25 tabs omeprazole 40 mg capsule,delayed 40 mg PO BID #180 caps 11/22/22 02/22/2310/09 Rx release Cam boot to right #1 ea 12/10/22 02/22/23 Unknown Rx triamcinolone acetonide 0.1 % 1 g topical DAILY PRN Rash 12/10/22 02/22/23 Unknown History topical cream albuterol sulfate 90 mcg/actuation 2 puff inhalation 6XD PRN 01/16/23 02/22/23 02/17/23 History aerosol inhaler (Ventolin HFA) shortness of breath or wheezing bisoprolol fumarate 10 mg tablet 20 mg PO DAILY 02/21/23 02/22/23 02/22/23 04:00 History aspirin 81 mg tablet,delayed 81 mg PO QAM 02/22/23 02/22/23 02/21/23 History release cetirizine 10 mg tablet 10 mg PO QAM 02/22/23 02/22/23 02/21/23 History digoxin 125 mcg (0.125 mg) tablet 125 mcg PO QAM 02/22/23 02/22/23 02/21/23 History fluticasone propionate 50 50 spray intranasal QAM 02/22/23 02/22/23 02/21/23 History mcg/actuation nasal spray,suspension furosemide 20 mg tablet 20 mg PO QAM 02/22/23 02/22/23 02/21/23 History levothyroxine 50 mcg tablet 50 mcg PO QAM 02/22/23 02/22/23 02/21/23 History losartan 25 mg tablet 25 mg PO QAM 02/22/23 02/22/23 02/21/23 History meloxicam 15 mg tablet 15 mg PO QAM 02/22/23 02/22/23 02/21/23 History montelukast 10 mg tablet 10 mg PO QAM 02/22/23 02/22/23 02/21/23 History potassium chloride 10 mEq 10 meq PO QAM 02/22/23 02/22/23 02/21/23 History tablet,extended release Allergies Allergy/AdvReac Type Severity Reaction Status Date / Time isosorbide Allergy Severe Burning in Verified 02/22/23 09:58 chest; Dizzy; Nauseous; Pain in jaws levofloxacin [From Levaquin] Allergy Severe throat Verified 02/22/23 09:58 swelling hydroxychloroquine Allergy Unknown ADR-Headach Verified 02/22/23 09:58 e clopidogrel [From Plavix] Allergy ADR-Headach Verified 02/22/23 09:58 e latex Allergy ALGY-Rash Verified 02/22/23 09:58 hydrocodone AdvReac Intermediate hallucinati Verified 02/22/23 09:58 ng oxycodone AdvReac Intermediate hallucinati Verified 02/22/23 09:58 on PFSH Acute PFSH: Medical History Coronary artery disease Gastroesophageal reflux disease High risk medication use History of pulmonary embolism Hyperlipidemia Hypertension Hypothyroidism Osteoarthritis of hands, bilateral Osteoporosis Polyarthralgia Pulmonary hypertension Recurrent deep vein thrombosis (DVT) Tricuspid valve disorders, non-rheumatic Surgical History H/O esophagogastroduodenoscopy (06/09/20) H/O splenectomy H/O: hysterectomy History of bladder suspension procedure History of coronary angiogram (~06/2019) balloon angioplasty to distal RCA stenosis History of pancreatic surgery History of partial gastrectomy History of surgery 10/2021 Stents cleaned out in groin per patient by Dr. Nolan Saleh, vascular surgeon at the [facility] [place], [place] Previous back surgery vertebroplasty S/P breast biopsy S/P cataract surgery S/P thyroidectomy 1 lobe Status post surgical removal of malignant neoplasm of skin Basal cell carcinoma of the nose Family History Other CAD (coronary artery disease) Cancer Diabetes Family history of premature coronary artery disease Denies family history of Anesthesia complication Bleeding disorder Social History Smoking and tobacco status: never smoked Second hand smoke exposure: No Smoking risk assessment/counseling performed?: Yes Alcohol intake: never Substance/Drug Use: never Household members: spouse Marital status: Current occupational status: retired Vitals/I&O/Wt Last Vital Signs Pulse 81 02/22/23 10:15 Resp 18 02/22/23 10:15 BP 147/82 02/22/23 10:15 Pulse Ox 94 02/22/23 10:15 O2 Del Method Nasal Cannula 02/22/23 10:15 O2 Flow Rate 2 02/22/23 10:15 Weight last 48 hrs Weight 63.503 kg Physical Exam Narrative: General exam is white female, reporting some light nausea. She shuts her left eye when I talk to her. Neurologic: Agree with NIHSS score of 3 per the emergency department physician. Her strength is symmetric and intact. She has no facial droop. There is no obvious cerebellar signs currently. Still with some adduction problems of the left eye. HEENT: Pupils equally round. Oropharynx is clear. Neck is supple no lymphadenopathy thyromegaly Cardiovascular regular rate and rhythm with a 2/6 systolic murmur Lungs clear Abdomen is soft with positive bowel sounds. No obvious organomegaly exams deferred Extremities no cyanosis clubbing. Right lower extremity was slightly more edema than the left. Bandage in place with recent surgery. Distal cap refill intact. Data 02/22/23 09:40 02/22/23 09:40 Other Labs: Calcium 8.0, LFTs normal, initial troponin 7, albumin 3.[address] head demonstrates no bleed CTA head and neck demonstrates patent ICAs, multinodular goiter, nonspecific right orbital lesion suspicious for venous varix or nerve sheath tumor. Consider ophthalmology referral as an outpatient. EKG demonstrates sinus rhythm, rate of 60, nonspecific ST-T wave changes per my read A&P Assessment and plan (1) Posterior circulation stroke of uncertain pathology: Patient presented with stroke symptoms following a fasciectomy in the OR. NIHSS stroke score 3-4. tPA was recommended and given. Patient will be monitored in the ICU following tPA Telemetry Repeat CT scan tomorrow Increase atorvastatin dosing Aspirin will be initiated, 24 hours post CVA Check echocardiogram Do not allow blood pressure to be greater than 180/105 following tPA in the first 24 hours (2) S/P foot surgery: Status post fasciectomy. Podiatry will continue to follow. (3) Recurrent deep vein thrombosis (DVT): Patient was holding Eliquis for her surgery Reinstitute Eliquis 24 hours following tPA if no significant complications. Plan Coronary artery disease Question atrial fibrillation. I do not see this in her diagnosis. However she is on digoxin. EKG currently in sinus rhythm. Multiple other medical problems as outlined in past medical history Full code currently No anticoagulation currently as received tPA Attestations Medical Necessity Statement*: Will need greater than 2 midnight stay for evaluation and treatment status post tPA in this patient with acute CVA. Critical Care Time: The high probability of a clinically significant, sudden or life threatening deterioration of the patient's [neurologic] system(s) required my full and d irect attention, intervention and personal management. The critical care time is as shown. This time is in addition to time spent performing any reported procedures but includes the following: [x] Data and vital sign review and interpretation [x] Patient assessment, examination and intervention [x] Documentation [x] Medication orders and management Critical Care Time (min): 59 Coding Level of Care Code Critical Care >/= 30 minutes Critical care time (in minutes): 59 The high probability of a clinically significant, sudden or life threatening deterioration, as referenced in this documentation, required my full and direct attention, intervention and personal management. The critical care time shown is in addition to time spent performing any reported separately billable procedures and includes the following: [x] Data and vital sign review and interpretation [x ] Patient assessment, examination and intervention [x] Medication orders and management [x] Patient/Family updates as able [x] Care Coordination and Documentation. Diagnoses Posterior circulation stroke of uncertain pathology I63.539 S/P foot surgery Z98.890 Recurrent deep vein thrombosis (DVT) I82.409
--- NOTE | 2023-02-22 11:44 | XR_ITS ---
WS: [id number] EXAMINATION: XR chest 1V portable [id number] REASON FOR EXAM: CVA COMPARISON: 07/29/2022 ORDER DATE: 02/22/2023 11:44 AM TECHNIQUE: A single, portable frontal chest x-ray was obtained. X-RAY FINDINGS: Lungs: There are diffuse chronic lung changes. Pleural spaces: Unremarkable. No pleural effusion. No pneumothorax. Cardiac: Heart is mildly enlarged. Mediastinum:. There is large calcified lymph node in the right paratracheal region, stable and chronic. Bones/joints: There is evidence of previous vertebroplasty in the midthoracic spine. No acute bony abnormalities. IMPRESSION: 1. Cardiomegaly with mild interstitial lung changes that may be secondary to idiopathic interstitial lung disease and can also be reassessed on CT exam of the chest electively..
[2023-02-22 12:15] LABS: Troponin 5 2HR 7.51 ng/L (0-10); Troponin 5 2HR Delta 0.51 ABS# (0-10)
[2023-02-22 12:19] LABS: Thyroid Stimulating Hormone 1.39 uIU/mL (0.27-4.20)
[2023-02-22 12:38] LABS: Add Urine Microscopic? NO; Charge for UA Resulting for Rev
[2023-02-22 12:51] LABS: Amphetamines Screen Urine Negative (Negative); Barbiturates Screen Urine Negative (Negative); Benzodiazepines Screen Urine Negative (Negative); Cocaine Screen Urine Negative (Negative); Opiate Screen Urine Negative (Negative); PCP Screen Urine Negative (Negative); THC Screen Urine Negative (Negative)
[2023-02-22 12:52] LABS: Bilirubin Urine Neg (Negative); Blood Urine Neg (Negative); Glucose Urine UA Norm (Normal); Ketones Urine Negative (Negative); Leukocyte Esterase Urine Negative (Negative); Nitrate Urine Negative (Negative); Protein Urine Neg (Negative); Urine Appearance Clear (CLEAR); Urine Color Yellow (Yellow); Urobilinogen Urine Norm (Negative); pH Urine 6 (5-7)
--- NOTE | 2023-02-22 13:26 | PC.OT ---
OT evaluation on hold until 02/23/2023 at 10:28 am due to TPA protocol of not allowed out of bed for 24 hours after administered.
[2023-02-22] MEDS: sodium chloride 0.9% 1,000 ML 100 ML IV ×2 (13:39→19:58)
--- NOTE | 2023-02-22 13:46 | ECG_ITS ---
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 Measurements Intervals [place] Rate: 55 P: 22 KS: 147 QRS: 22 QRSD: 87 T: 20 QT: 422 QTc: 406 Interpretive Statements SINUS BRADYCARDIA NONSPECIFIC ST & T-WAVE ABNORMALITY Compared to ECG 02/22/2023 11:17:31 Sinus rhythm no longer present Sinus arrhythmia no longer present T-wave abnormality still present Electronically Signed On 02-22-2023 14:21:27 CDT by Judith Fuller M.D. [id number]
--- NOTE | 2023-02-22 14:27 | PC.NURSE ---
speech here evaluate pt at this time
--- NOTE | 2023-02-22 15:52 | PC.NURSE ---
scds not placed on pt due to post tpa and recent surgery on right foot elevated on pillows and offered ice pack for comfort right leg refused at this time
[2023-02-22] MEDS: pantoprazole DR 40 mg Tablet PO (17:24)
--- NOTE | 2023-02-22 17:37 | PC.NURSE ---
continues to have double vision 1 on top of other in left eye up to bedside commode with help . no weight bearing right side after foot surgery
--- NOTE | 2023-02-22 17:49 | ECG_ITS ---
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 Measurements Intervals [place] Rate: 59 P: 11 NH: 178 QRS: 26 QRSD: 86 T: 20 QT: 414 QTc: 411 Interpretive Statements SINUS BRADYCARDIA NONSPECIFIC ST & T-WAVE ABNORMALITY Compared to ECG 02/22/2023 13:46:39 No significant changes Electronically Signed On 02-22-2023 20:08:16 CDT by Judith Fuller M.D. [email or web address] community [email or web address]/[id number]
[2023-02-22] MEDS: atorvastatin 40 mg Tablet PO (19:58)
[2023-02-23] VITALS (18 sets, daily range): BP systolic 112–150; BP diastolic 59–73; PULSE 49–81; RESP 17–35; TEMP 36.5; O2SAT 94–100
[2023-02-23 03:57] LABS: Basophils % 0.1 %; Hematocrit 36.1 % (36-47); Lymphocytes # 2.1 10^3/uL (0.8-4.8); Lymphocytes % 25.1 %; Mean Corpuscular HGB Conc 31.6 g/dL (30-55); Mean Corpuscular Hemoglobin 28.9 pg (27-33); Mean Corpuscular Volume 91.6 fl (85-98); Mean Platelet Volume 11.2 fL (7.4-10.4); Monocytes # 0.7 10^3/uL (0.2-0.9); Monocytes % 8.1 %; Neutrophils # 5.42 10^3/uL (1.8-7.7); Neutrophils % 66.3 %; Nucleated Red Blood Cells % 0 %; Platelet Count 301 10^3/cmm (157-399); Red Blood Count 3.94 10^6/uL (3.85-5.65); Red Cell Distribution Width 14.8 % (12.1-15.1); White Blood Count 8.17 10^3/uL (3.29-11.43)
[2023-02-23 04:27] LABS: Estmated Average Glucose 126
[2023-02-23 04:29] LABS: Alanine Aminotransferase 9 U/L (0-33); Albumin Level 3.4 g/dL (3.5-5.2); Alkaline Phosphatase 62 U/L (35-105); Aspartate Amino Transferase 19 U/L (0-32); Blood Urea Nitrogen 11 mg/dL (8-23); Calcium 7.5 mg/dL (8.5-10.5); Carbon Dioxide 23 mmol/L (22-29); Chloride 107 mmol/L (98-107); Globulin 2.5 g/dL (1.3-4.6); Glucose 135 mg/dL (65-115); Osmolality Calculated 289 mOsm/kg (285-295); Sodium 139 mmol/L (136-145); Total Bilirubin 0.6 mg/dL (0.15-1.2); Total Protein 5.9 g/dL (6.6-8.7)
[2023-02-23 04:33] LABS: Anion Gap 13.4 (5-19); Potassium 4.4 mmol/L (3.5-5.1)
[2023-02-23 04:35] LABS: Chol HDL Ratio 4.03 mg/dL (0.0-4.40); Cholesterol 157 mg/dL (0-200); HDL Cholesterol 39 mg/dL (60-100); LDL Cholesterol Calculated 95 mg/dL (50-129); LDL HDL Ratio 2.44 RATIO (0.00-3.22); Triglycerides 114 mg/dL (0-150)
[2023-02-23] MEDS: montelukast sodium 10 mg Tablet PO (05:09)
[2023-02-23] MEDS: levothyroxine 50 mcg Tablet PO (05:09)
--- NOTE | 2023-02-23 06:00 | USCV_ITS ---
[place], [place] Age: 77 Gender: F : 1945 Exam Date: 02/23/2023 07:25 Ordering Phys: Norbert Morse MD Technologist: Shane Patel Exam Location: [facility] [place] Indication: CVA BP: 126 / 57 HR: 58 Rhythm: Sinus Technical Quality: Adequate MEASUREMENTS (Male / Female) Normal Values 2D ECHO LVOT Diameter 2.0 cm LV Ejection Fraction MOD 2C 58.9 % LV Ejection Fraction 2C AL 59.9 % LA Diameter 3.7 cm LA Width 3.5 cm LA Height 5.2 cm RA Width 3.2 cm RA Height 5.7 cm Aorta at Sinotubular Diameter 2.5 cm IVC Diameter 1.9 cm M-MODE Aortic Annulus Diameter 2.2 cm LA Ao Ratio MM 1.8 MV E Point Septal Separation 0.4 cm DOPPLER AV Peak Velocity 176.0 cm/s LVOT Peak Velocity 108.0 cm/s AV Area Cont Eq vti 2.0 cm squared AV Area Cont Eq pk 2.0 cm squared MV Peak Velocity 122.0 cm/s MV Area PHT 4.2 cm squared Mitral E to A Ratio 0.9 MV E' Velocity 40.5 cm/s Mitral E to MV E' Ratio 7.9 Mitral E to LV E' Lateral Ratio 7.0 Mitral E to LV E' Septal Ratio 9.1 TR Peak Velocity 264.2 cm/s TR Peak Gradient 27.9 mmHg TR Mean Velocity 197.3 cm/s TR Mean Gradient 17.2 mmHg TR Velocity Time Integral 86.3 cm Right Atrial Pressure 3.0 mmHg Pulmonary Artery Systolic Pressu 30.9 mmHg PV Peak Velocity 61.0 cm/s RV Acceleration Time 0.2 s RV Ejection Time 0.3 s RV AcT/ET 0.5 FINDINGS Left Ventricle Normal left ventricular size, systolic function and wall thickness, with no regional wall motion abnormalities. Normal left ventricular wall thickness. Normal diastolic filling pattern. Right Ventricle The right ventricle is normal in size and function. Right Atrium The right atrium is normal in size. Left Atrium The left atrium is upper normal in size. Mitral Valve Structurally normal mitral valve without significant stenosis or prolapse. There is mild mitral regurgitation. Aortic Valve Structurally normal aortic valve without significant sclerosis or stenosis. There is mild to moderate aortic regurgitation. Tricuspid Valve Structurally normal tricuspid valve without significant stenosis. There is mild to moderate regurgitation. Pulmonary artery systolic pressure is normal. Pulmonic Valve Structurally normal pulmonic valve without significant stenosis. There is mild pulmonic regurgitation. Pericardium Normal pericardium without effusion. Aorta Normal ascending aorta dimension. IVC The inferior vena cava appears normal. CONCLUSIONS Normal LV function. Mild MR Mild to moderate aortic insufficiency. Mild to moderate tricuspid regurgitation Barron Leblanc MD (Electronically Signed) Final Date: 23 February 2023 10:19 S
--- NOTE | 2023-02-23 08:58 | PC.NURSE ---
ct done at this time transfer per wheel chair
--- NOTE | 2023-02-23 09:00 | CTR_ITS ---
PROCEDURE INFORMATION: Exam: CT Head Without Contrast Exam date and time: 02/23/2023 8:30 AM Age: 77 years old Clinical indication: Altered mental status/memory loss; Confusion or disorientation; Additional info: CVA tpa follow up TECHNIQUE: Imaging protocol: Computed tomography of the head without contrast. Radiation optimization: All CT scans at this facility use at least one of these dose optimization techniques: automated exposure control; mA and/or kV adjustment per patient size (includes targeted exams where dose is matched to clinical indication); or iterative reconstruction. REPORTING DATA: Count of CT and Cardiac NM exams in prior 12 months: This patient has received 4 known CTs and 0 known cardiac nuclear medicine studies in the 12 months prior to the current study. COMPARISON: CT head thrombolytic [id number] 02/22/2023 9:21 AM RADIATION DOSE METRICS: Total DLP (mGy-cm): 948.54 FINDINGS: Brain: There is no evidence for mass effect, midline shift, acute hemorrhage, extra-axial fluid collection or acute lobar infarct. Mild patchy hemispheric white matter hypodensity likely represents chronic microvascular ischemic change. Cerebral ventricles: No ventriculomegaly. Paranasal sinuses: Visualized sinuses are unremarkable. No fluid levels. Mastoid air cells: Visualized mastoid air cells are well aerated. Bones/joints: Unremarkable. No acute fracture. Soft tissues: Unremarkable. CT/CT head wo con* [id number] IMPRESSION: No acute intracranial process.
[2023-02-23] MEDS: pantoprazole DR 40 mg Tablet PO (09:01)
[2023-02-23 11:39] LABS: Iron 50 ug/dL (37-145); Percent Saturation 20.7 % (20-50); Total Iron Binding Capacity 241 mcg/dl; Unsaturated Iron Binding 191 ug/dL (112-347)
--- NOTE | 2023-02-23 12:09 | PM.DCS ---
Discharge Providers Date of Admission: 02/22/23 11:25 Date of Discharge: February 23, 2023 Attending Provider at Admission: Norbert Morse MD Attending Provider at Discharge: Jeffrey Urena MD Primary Care Provider: Wander Bolton MD Diagnoses at Discharge Discharge Diagnosis (1) Posterior circulation stroke of uncertain pathology: Status: Acute (2) S/P foot surgery: Status: Acute (3) Recurrent deep vein thrombosis (DVT): Status: Acute (4) Venous thromboembolism (VTE): Status: Acute Reason for Visit Reason for Visit: stroke Brief History: History as per HPI: Sussy Solorzano is a 77 year old female who underwent a right plantar fasciectomy today.? In recovery she was noted to have stroke symptoms with visual field defect, dizziness and nausea, and double vision.? She was brought over to the emergency department, where a NIHSS stroke scale was done, at 3.? It was determined after CT scan of the head showed no bleed that she was a candidate for tPA which was administered.? I saw the patient following tPA administration.? She reports she has some nausea.? This worsens with getting up.? She is seeing double, but this goes away when she shuts her left eye.? Mild headache.? No recent fever or other illness. Hospital Course Hospital Course Patient was admitted to the hospital further evaluation and management of acute stroke and post tPA care. Patient hospitalization was unremarkable. Post 24-hour CT head was stable. Patient worked well with PT/OT and speech therapy. She has been cleared for discharge. She has been discharged in hemodynamically stable condition with advised to restart her Eliquis 5 mg twice daily from today evening which will be more than 24 hours post tPA. During hospitalization her blood pressures are stable. She has been asked to hold off on her Lasix and her dose of bisoprolol has been Haft to 10 mg daily. She has been advised to check her blood pressure daily at home and maintain a blood pressure diary. On CT head and neck there was a concern for right elbow lateral lesion for which she is advised to follow-up with instructional technology coach within next 10 days. She is to follow-up with neurology within next 2 weeks. Physical Exam Narrative: General exam is white female, no acute distress, sitting up in chair Neurologic: Agree with NIHSS score of 3 per the emergency department physician. Her strength is symmetric and intact. She has no facial droop. There is no obvious cerebellar signs currently. Still with some adduction problems of the left eye. HEENT: Pupils equally round. Oropharynx is clear. Neck is supple no lymphadenopathy thyromegaly Cardiovascular regular rate and rhythm with a 2/6 systolic murmur Lungs clear Abdomen is soft with positive bowel sounds. No obvious organomegaly exams deferred Extremities no cyanosis clubbing. Right lower extremity was slightly more edema than the left. Bandage in place with recent surgery. Distal cap refill intact. Discharge Data Studies Completed and Pending Completed Studies During Hospitalization Category Date Time Status CT angio headneck* [id number] Stat Cat Scan 02/22/23 09:[address] head thrombolytic [id number] Stat Cat Scan 02/22/[address] head wo con* [id number] Routine Cat Scan 02/23/23 09:00 Completed XR chest 1V portable [id number] Routine Exams 02/22/23 11:44 Completed CV. echo complete* [id number] Routine Ultrasound 02/23/23 06:00 Completed Radiology Impressions Head CT 02/23/23 09:00 IMPRESSION: No acute intracranial process. CTA head and neck IMPRESSION: 1.? No significant cervical ICA stenosis. Both ICAs are patent to the skull base. 2.? No flow-limiting intracranial stenosis. 3.? Mild cavernous carotid calcification. 4.? Multinodular RIGHT thyroid. 5.? Interstitial thickening with hazy atelectasis and interstitial edema in the lung apices. 6.? Nonspecific RIGHT orbital lesion measuring 9 x 8 mm along the superolateral RIGHT optic nerve suspicious for vascular lesion such as venous varix or less likely nerve sheath tumor. Recommend ophthalmology consultation. Echocardiogram CONCLUSIONS ?Normal LV function. ?Mild MR ?Mild to moderate aortic insufficiency. ?Mild to moderate tricuspid regurgitation ?Barron Leblanc MD ?(Electronically Signed) ?Final Date:? ? ? 23 February 2023 Laboratory Results WBC 8.17 10^3/uL (3.29-11.43) 02/23/23 03:18 RBC 3.94 10^6/uL (3.85-5.65) 02/23/23 03:18 Hgb 11.40 g/dL (11.27-16.99) 02/23/23 03:18 Hct 36.1 % (36-47) 02/23/23 03:18 MCV 91.6 fl (85-98) 02/23/23 03:18 MCH 28.9 pg (27-33) 02/23/23 03:18 MCHC 31.6 g/dL (30-55) 02/23/23 03:18 RDW 14.8 % (12.1-15.1) 02/23/23 03:18 Plt Count 301 10^3/cmm (157-399) 02/23/23 03:18 MPV 11.2 fL (7.4-10.4) H 02/23/23 03:18 Neut % (Auto) 66.3 % 02/23/23 03:18 Lymph % (Auto) 25.1 % 02/23/23 03:18 Thomas % (Auto) 8.1 % 02/23/23 03:18 Eos % (Auto) 0.0 % 02/23/23 03:18 Baso % (Auto) 0.1 % 02/23/23 03:18 Neut # (Auto) 5.42 10^3/uL (1.8-7.7) 02/23/23 03:18 Lymph # (Auto) 2.1 10^3/uL (0.8-4.8) 02/23/23 03:18 Thomas # (Auto) 0.7 10^3/uL (0.2-0.9) 02/23/23 03:18 Eos # (Auto) 0.0 10^3/uL (0.0-0.8) 02/23/23 03:18 Baso # (Auto) 0.0 10^3/uL (0.0-0.1) 02/23/23 03:18 Nucleated RBC % (auto) 0 % 02/23/23 03:18 Nucleated RBCs # 0.0 /100WBC 02/23/23 03:18 PT 13.10 SECONDS (12.1-14.9) 02/22/23 09:40 INR 0.96 (0.8-1.2) 02/22/23 09:40 APTT 26.4 SECONDS (23.9-36.7) 02/22/23 09:40 Sodium 139 mmol/L (136-145) 02/23/23 03:18 Potassium 4.4 mmol/L (3.5-5.1) 02/23/23 03:18 Chloride 107 mmol/L (98-107) 02/23/23 03:18 Carbon Dioxide 23 mmol/L (22-29) 02/23/23 03:18 Anion Gap 13.4 (5-19) 02/23/23 03:18 BUN 11 mg/dL (8-23) 02/23/23 03:18 Creatinine 0.8 mg/dL (0.5-0.9) 02/23/23 03:18 GFR Calculation Not Reportable 02/23/23 03:18 Glucose 135 mg/dL (65-115) H 02/23/23 03:18 Estimat Average Glucose 126 02/23/23 03:18 Hemoglobin A1c 6.0 % (4.0-6.0) 02/23/23 03:18 Calculated Osmolality 289 mOsm/kg (285-295) 02/23/23 03:18 Calcium 7.5 mg/dL (8.5-10.5) L 02/23/23 03:18 Iron 50 ug/dL (37-145) 02/23/23 03:18 TIBC 241 mcg/dl 02/23/23 03:18 % Saturation 20.7 % (20-50) 02/23/23 03:18 Unsat Iron Binding 191 ug/dL (112-347) 02/23/23 03:18 Total Bilirubin 0.6 mg/dL (0.15-1.2) 02/23/23 03:18 AST 19 U/L (0-32) 02/23/23 03:18 ALT 9 U/L (0-33) 02/23/23 03:18 Alkaline Phosphatase 62 U/L (35-105) 02/23/23 03:18 Troponin T Baseline 7 ng/L (0-10) 02/22/23 09:40 Troponin T 120 Minute 7.51 ng/L (0-10) 02/22/23 11:30 Delta Troponin T 0.51 ABS# (0-10) 02/22/23 11:30 Troponin T Hi Sens 6Hr 9.10 ng/L (0-10) 02/22/23 15:53 Troponin T Hi Sens 6Hr Delta 2.10 ng/L (0-12) 02/22/23 15:53 Total Protein 5.9 g/dL (6.6-8.7) L 02/23/23 03:18 Albumin 3.4 g/dL (3.5-5.2) L 02/23/23 03:18 Globulin 2.5 g/dL (1.3-4.6) 02/23/23 03:18 Triglycerides 114 mg/dL (0-150) 02/23/23 03:18 Cholesterol 157 mg/dL (0-200) 02/23/23 03:18 LDL Cholesterol, Calc 95 mg/dL (50-129) 02/23/23 03:18 HDL Cholesterol 39 mg/dL (60-100) L 02/23/23 03:18 LDL/HDL Ratio 2.44 RATIO (0.00-3.22) 02/23/23 03:18 Cholesterol/HDL Ratio 4.03 mg/dL (0.0-4.40) 02/23/23 03:18 Vitamin B12 Cancelled 02/23/23 03:18 TSH 1.39 uIU/mL (0.27-4.20) 02/22/23 09:40 Urine Color Yellow (Yellow) 02/22/23 10:53 Urine Appearance Clear (CLEAR) 02/22/23 10:53 Urine pH 6 (5-7) 02/22/23 10:53 Ur Specific Blackey 1.010 (1.005-1.030) 02/22/23 10:53 Urine Protein Neg (Negative) 02/22/23 10:53 Urine Glucose (UA) Norm (Normal) 02/22/23 10:53 Urine Ketones Negative (Negative) 02/22/23 10:53 Urine Blood Neg (Negative) 02/22/23 10:53 Urine Nitrate Negative (Negative) 02/22/23 10:53 Urine Bilirubin Neg (Negative) 02/22/23 10:53 Urine Urobilinogen Norm mg/dL (Negative) 02/22/23 10:53 Ur Leukocyte Esterase Negative (Negative) 02/22/23 10:53 Digoxin 1.0 ng/mL (0.6-1.2) 02/22/23 09:40 Urine Opiates Screen Negative ng/mL (Negative) 02/22/23 10:53 Ur Barbiturates Screen Negative ng/mL (Negative) 02/22/23 10:53 Ur Phencyclidine Scrn Negative ng/mL (Negative) 02/22/23 10:53 Ur Amphetamines Screen Negative ng/mL (Negative) 02/22/23 10:53 U Benzodiazepines Scrn Negative ng/mL (Negative) 02/22/23 10:53 Urine Cocaine Screen Negative ng/mL (Negative) 02/22/23 10:53 U Marijuana (THC) Screen Negative ng/mL (Negative) 02/22/23 10:53 Vitals Last Vital Signs Temp 97.7 F 02/23/23 03:22 Pulse 67 02/23/23 10:00 Resp 28 H 02/23/23 08:00 BP 139/61 02/23/23 08:00 Pulse Ox 94 02/23/23 09:45 O2 Del Method Room Air 02/23/23 09:45 O2 Flow Rate 2 02/22/23 14:00 Discharge Plan Discharge Patient Disposition: Home Condition: Stable Prescriptions: New Protonix 40 mg tablet,delayed release (DR/EC) 40 mg PO QAM 28 Days Qty: 28 0RF hydrocodone-acetaminophen 5-325 mg tablet 1 tab PO Q8H PRN (Reason: pain) Qty: 10 0RF hydrocodone-acetaminophen 5-325 mg tablet 1 tab PO Q8H PRN (Reason: pain) Qty: 10 0RF Continued cholecalciferol (vitamin D3) 1,000 unit capsule 1,000 unit PO QAM albuterol sulfate [Ventolin HFA] 90 mcg/actuation HFA aerosol inhaler 2 puff inhalation 6XD PRN (Reason: shortness of breath or wheezing) Dose Instruction: INHALE 2 PUFFS 4 TIMES A DAY omeprazole 40 mg capsule,delayed release(DR/EC) 40 mg PO BID Qty: 180 11RF triamcinolone acetonide 0.1 % cream 1 g topical DAILY PRN (Reason: Rash) (DME) Cam boot to right See Rx Instructions .Route .MEDSUPPLY Qty: 1 0RF Rx Instructions: As directed Eliquis 5 mg tablet 5 mg PO BID Qty: 180 1RF nitroglycerin [Nitrostat] 0.4 mg tablet, sublingual 0.4 mg sublingual Q5M PRN (Reason: chest pain) Qty: 25 3RF Rx Instructions: do not exceed 3 doses per episode cetirizine 10 mg tablet 10 mg PO QAM potassium chloride 10 mEq tablet extended release 10 meq PO QAM levothyroxine 50 mcg tablet 50 mcg PO QAM losartan 25 mg tablet 25 mg PO QAM montelukast 10 mg tablet 10 mg PO QAM fluticasone propionate 50 mcg/actuation spray,suspension 50 spray intranasal QAM aspirin 81 mg tablet,delayed release (DR/EC) 81 mg PO QAM digoxin 125 mcg (0.125 mg) tablet 125 mcg PO QAM Changed atorvastatin 20 mg tablet 40 mg PO QAM Qty: 60 0RF bisoprolol fumarate 10 mg tablet 10 mg PO DAILY Qty: 30 0RF Held meloxicam 15 mg tablet 15 mg PO QAM Hold Instructions: Resume on 03/02/23. furosemide 20 mg tablet 20 mg PO QAM Hold Instructions: Resume on 03/09/23. Discharge Orders: Discharge Order (Routine); Ordered 02/23/23 Ordered By: Jeffrey Urena Referrals: Kelsy Hendricks MD [Physician] - 2 weeks Nemesio Mcdowell MD [Physician] - 7-10 days Wander Bolton MD [Primary Care Provider] - 7-10 days Discharge Diet: Cardiac Discharge Activity: Resume usual activity and Increase activity as tolerated Patient Instructions: Pantoprazole (By mouth), Opioid Safety Activity Restrictions/Additional Instructions: You can restart your Eliquis from today evening. Lasix has been withheld for 2 weeks. Dose of bisoprolol has been decreased to 10 mg daily. Please check your blood pressure daily at home and maintain a blood pressure diary and follow-up with a primary care provider for further adjustment of medications. Please follow-up with neurologist in 2 weeks. Please make an appointment to see Dr. Mcdowell from ophthalmology for further evaluation of right orbital lesion. Discharge Attestations Time Spent in Discharge Care*: greater than 30 min Specific Discharge Activities: educating patient, educating and/or supporting family/caregiver, discussing with pcp/other providers, discussing with insurance case manager/social workers/dc planners, documenting/other paperwork and evaluating patient/reviewing data Status at Discharge: Cognitive status at discharge: cognitively intact, Behavioral status at discharge: cooperative, Functional status at discharge: independent ambulation, Overall status at discharge: patient is back to baseline Quality Metrics Clinical Quality Measures [ Cerebrovascular Accident { Contraindication to Antithrombotic: None; antithrombotic prescribed; Contraindication to Anticoagulation: None; anticoagulation prescribed; Contraindication to Statin: None; Statin prescribed; Contraindication to antithrombotic day 2: None; Antithrombotic given day 2; Contraindication to tPA: None; TPA given;}] Coding Level of Care Code 02936 Total time (in minutes) for Discharge: 50 Diagnoses Posterior circulation stroke of uncertain pathology I63.539 S/P foot surgery Z98.890 Recurrent deep vein thrombosis (DVT) I82.409 Venous thromboembolism (VTE) I82.90
--- NOTE | 2023-02-23 13:18 | PC.NURSE ---
iv sites removed whole intact at this time discharged to family care awaiting rx
[2023-02-24 11:11] LABS: Vitamin B12 (Cobalamin) 281 pg/mL (200-1100)
== END 2023-02-23 14:29 | disposition home or self-care (01) | DRG 63 ==
LOC: ER 11:12 → ICU 11:31
PROVIDERS: Admitting Provider Internal Medicine; Emergency Provider Family Medicine; PCP Family Medicine; Visit Provider Student in an Organized Health Care Education/Training Program
DX: I63.539 Cerebral infarction due to unspecified occlusion or stenosis of unspecified posterior cerebral artery (principal); R27.0 Ataxia, unspecified; H53.2 Diplopia; R29.703 NIHSS score 3; I08.2 Rheumatic disorders of both aortic and tricuspid valves; Z79.51 Long term (current) use of inhaled steroids; Z79.01 Long term (current) use of anticoagulants; Z79.82 Long term (current) use of aspirin; Z98.890 Other specified postprocedural states; H47.091 Other disorders of optic nerve, not elsewhere classified, right eye; I25.10 Atherosclerotic heart disease of native coronary artery without angina pectoris; Z98.61 Coronary angioplasty status; K21.9 Gastro-esophageal reflux disease without esophagitis; Z86.711 Personal history of pulmonary embolism; E78.5 Hyperlipidemia, unspecified; I10 Essential (primary) hypertension; M19.042 Primary osteoarthritis, left hand; M19.041 Primary osteoarthritis, right hand; Z85.828 Personal history of other malignant neoplasm of skin; E89.0 Postprocedural hypothyroidism; Z86.718 Personal history of other venous thrombosis and embolism; I27.20 Pulmonary hypertension, unspecified; M81.0 Age-related osteoporosis without current pathological fracture
CPT/HCPCS: 36415; 36416; 70450; 70496; 70498; 71045; 80053; 80061; 80162; 80306; 81003; 82607; 82962; 83036; 83540; 83550; 84443; 84484; 85025; 85610; 85730; 92523; 92610; 93005; 93306; 96374; 97116; 97161; 97166; 97535; 97760; 99291; C9290; J0690; J1100; J2405; J2704; J2997; J3010; J3490; J7030; Q9967

== ENCOUNTER → 2023-03-05 07:11 | Outpatient (BNVA) | payer MEDICARE, OTHER, SELFPAY | PROVIDERS: PCP Family Medicine; Visit Provider Specialist | DX: I63.539 Cerebral infarction due to unspecified occlusion or stenosis of unspecified posterior cerebral artery (principal); I82.409 Acute embolism and thrombosis of unspecified deep veins of unspecified lower extremity; Z79.01 Long term (current) use of anticoagulants; D31.61 Benign neoplasm of unspecified site of right orbit; E83.51 Hypocalcemia; I26.99 Other pulmonary embolism without acute cor pulmonale | CPT/HCPCS: 36415; 82607; 85651; 86141; 99205 ==

== ENCOUNTER 2023-03-12 12:15 | Outpatient (CLI) | payer MEDICARE, OTHER, SELFPAY ==
--- NOTE | 2023-03-12 13:00 | MR_ITS ---
WS: [id number] MRI HEAD WITHOUT AND WITH GADOLINIUM ENHANCEMENT WITH ATTENTION TO THE ORBITS. TECHNIQUE: Sagittal T1, axial T2, axial FLAIR, and axial diffusion-weighted imaging was obtained. Marsh sceptibility weighted imaging. Pre and post T1 gadolinium multiplanar imaging. High-resolution vang l T2 imaging. Post gadolinium imaging with attention to the orbits with fat saturation technique. 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 Ventricular system and basilar cistern s are patent. Moderate small vessel changes. Small vessel changes in the carmen. Mild parenchymal volum e loss. Normal posterior fossa. Normal vascular flow voids at the skull base. No extra-axial fluid co llections. No evidence of mass or mass effect. Paranasal sinuses are well aerated. No hemosiderin on the susceptibility weighted images. Normal optic chiasm and pituitary infundibulum. No abnormal intracranial enhancement. Normal dural venous sinuses. Heterogeneous T2 hyperintense enhancing lesion in the RIGHT orbit corresponds to the lesion seen on t he prior CT. This is unchanged in appearance and measures approximately 5.7 x 7.2 x 10.2 mm. Associat ed contact of the RIGHT optic nerve with mild RIGHT to LEFT displacement. Lesion is interposed betwee n the superior and lateral rectus. This extends to the orbital apex with contact of the optic nerve. Cavernous sinus appears normal. IMPRESSION: 1. No evidence of restricted diffusion to suggest acute ischemia. 2. Moderate small vessel changes with mild parenchymal volume loss. Small vessel changes in the carmen . 3. Stable enhancing lesion in the RIGHT orbit abutting the RIGHT optic nerve. This is indeterminate but has a vascular appearance with intense enhancement. Differential considerations include venous ma lformation, venous varix, or cavernous hemangioma. Meningioma or nerve sheath tumor are additional co nsiderations. Consider ophthalmology consultation. 4. Mild mass effect on the RIGHT optic nerve. No visualized optic nerve edema.
[2023-03-12] MEDS: gadobenate dimeglumine 20 mL vial IV (13:05)
== END 2023-03-12 12:16 | disposition home or self-care (01) ==
LOC: RAD 12:16
PROVIDERS: PCP Family Medicine; Visit Provider Specialist
DX: D31.61 Benign neoplasm of unspecified site of right orbit (principal); I63.539 Cerebral infarction due to unspecified occlusion or stenosis of unspecified posterior cerebral artery
CPT/HCPCS: 70543; 70553; A9577

== ENCOUNTER → 2023-03-14 13:23 | Outpatient (BNVA) | payer MEDICARE, OTHER, SELFPAY | PROVIDERS: PCP Family Medicine; Visit Provider Podiatrist Foot & Ankle Surgery | DX: Z98.890 Other specified postprocedural states (principal) | CPT/HCPCS: 99024 ==

== ENCOUNTER → 2023-04-05 07:38 | Outpatient (BNVA) | payer MEDICARE, OTHER, SELFPAY | PROVIDERS: PCP Family Medicine; Visit Provider Clinical Nurse Specialist Adult Health | DX: J04.0 Acute laryngitis (principal) | CPT/HCPCS: 87071; 87880 ==

== ENCOUNTER → 2023-04-15 09:07 | Outpatient (BNVA) | payer MEDICARE, OTHER, SELFPAY | PROVIDERS: PCP Family Medicine; Visit Provider Internal Medicine Rheumatology | DX: Z79.899 Other long term (current) drug therapy (principal); M25.50 Pain in unspecified joint; M19.041 Primary osteoarthritis, right hand; M19.042 Primary osteoarthritis, left hand; M81.0 Age-related osteoporosis without current pathological fracture; I82.512 Chronic embolism and thrombosis of left femoral vein; M06.041 Rheumatoid arthritis without rheumatoid factor, right hand; M06.042 Rheumatoid arthritis without rheumatoid factor, left hand | CPT/HCPCS: 99214 ==

== ENCOUNTER → 2023-04-23 09:36 | Outpatient (BNVA) | payer MEDICARE, OTHER, SELFPAY | PROVIDERS: PCP Family Medicine; Visit Provider Specialist | DX: Z09 Encounter for follow-up examination after completed treatment for conditions other than malignant neoplasm (principal); D31.61 Benign neoplasm of unspecified site of right orbit; G37.9 Demyelinating disease of central nervous system, unspecified; G43.711 Chronic migraine without aura, intractable, with status migrainosus | CPT/HCPCS: 99214 ==

== ENCOUNTER → 2023-05-03 09:09 | Outpatient (BNVA) | payer MEDICARE, OTHER, SELFPAY | PROVIDERS: PCP Family Medicine; Referring Provider Family Medicine; Visit Provider Student in an Organized Health Care Education/Training Program | DX: M19.041 Primary osteoarthritis, right hand; M19.042 Primary osteoarthritis, left hand | CPT/HCPCS: 20600; 73130; 99204; J3301; J3490 ==

== ENCOUNTER 2023-05-22 07:43 | Outpatient (CLI) | payer MEDICARE, OTHER, SELFPAY ==
[2023-05-22 07:59] LABS: Basophils % 0.7 %; Eosinophils # 0.1 10^3/uL (0.0-0.8); Eosinophils % 2.1 %; Hematocrit 42.7 % (36-47); Lymphocytes # 2.7 10^3/uL (0.8-4.8); Lymphocytes % 47.3 %; Mean Corpuscular HGB Conc 32.1 g/dL (30-55); Mean Corpuscular Hemoglobin 28.8 pg (27-33); Mean Corpuscular Volume 89.9 fl (85-98); Mean Platelet Volume 10.1 fL (7.4-10.4); Monocytes # 0.6 10^3/uL (0.2-0.9); Monocytes % 11.3 %; Neutrophils # 2.16 10^3/uL (1.8-7.7); Neutrophils % 38.4 %; Nucleated Red Blood Cells % 0 %; Platelet Count 371 10^3/cmm (157-399); Red Blood Count 4.75 10^6/uL (3.85-5.65); Red Cell Distribution Width 15.1 % (12.1-15.1); White Blood Count 5.64 10^3/uL (3.29-11.43)
[2023-05-22 08:16] LABS: Alanine Aminotransferase 11 U/L (0-33); Albumin Level 4.2 g/dL (3.5-5.2); Alkaline Phosphatase 93 U/L (35-105); Aspartate Amino Transferase 19 U/L (0-32); C Reactive Protein 8.7 mg/L (0.0-4.9); Globulin 3.7 g/dL (1.3-4.6); Total Bilirubin 0.7 mg/dL (0.15-1.2); Total Protein 7.9 g/dL (6.6-8.7)
== END 2023-05-22 07:44 | disposition home or self-care (01) ==
LOC: LAB 07:44
PROVIDERS: PCP Family Medicine; Visit Provider Internal Medicine Rheumatology
DX: M25.50 Pain in unspecified joint (principal); Z79.899 Other long term (current) drug therapy
CPT/HCPCS: 36415; 80076; 82565; 85025; 86140

== ENCOUNTER → 2023-07-12 13:10 | Outpatient (BNVA) | payer MEDICARE, OTHER, SELFPAY | PROVIDERS: PCP Family Medicine; Visit Provider Specialist | DX: G37.9 Demyelinating disease of central nervous system, unspecified (principal); Z86.73 Personal history of transient ischemic attack (TIA), and cerebral infarction without residual deficits; G43.711 Chronic migraine without aura, intractable, with status migrainosus; Z79.899 Other long term (current) drug therapy; Z79.82 Long term (current) use of aspirin | CPT/HCPCS: 99213 ==

== ENCOUNTER → 2023-07-15 08:30 | Outpatient (BNVA) | payer MEDICARE, OTHER, SELFPAY | PROVIDERS: PCP Family Medicine; Visit Provider Internal Medicine Rheumatology | DX: M06.041 Rheumatoid arthritis without rheumatoid factor, right hand (principal); M06.042 Rheumatoid arthritis without rheumatoid factor, left hand; Z79.899 Other long term (current) drug therapy; M19.041 Primary osteoarthritis, right hand; M19.042 Primary osteoarthritis, left hand; M81.0 Age-related osteoporosis without current pathological fracture; I82.512 Chronic embolism and thrombosis of left femoral vein | CPT/HCPCS: 99214 ==

== ENCOUNTER 2023-07-22 08:13 | Oncology outpatient (recurring) (ONCR) | payer MEDICARE, OTHER, SELFPAY ==
[2023-07-22 09:01] LABS: Basophils % 0.3 %; Eosinophils # 0.1 10^3/uL (0.0-0.8); Eosinophils % 1.3 %; Hematocrit 38.4 % (36-47); Lymphocytes # 3.3 10^3/uL (0.8-4.8); Lymphocytes % 44.1 %; Mean Corpuscular HGB Conc 31.8 g/dL (30-55); Mean Corpuscular Hemoglobin 29.5 pg (27-33); Mean Corpuscular Volume 92.8 fl (85-98); Mean Platelet Volume 10.2 fL (7.4-10.4); Monocytes # 0.8 10^3/uL (0.2-0.9); Monocytes % 11.2 %; Neutrophils # 3.19 10^3/uL (1.8-7.7); Nucleated Red Blood Cells % 0.4 %; Platelet Count 301 10^3/cmm (157-399); Red Blood Count 4.14 10^6/uL (3.85-5.65); Red Cell Distribution Width 15.6 % (12.1-15.1); White Blood Count 7.43 10^3/uL (3.29-11.43)
[2023-07-22 09:27] LABS: Alanine Aminotransferase 13 U/L (0-33); Albumin Level 4.1 g/dL (3.5-5.2); Alkaline Phosphatase 68 U/L (35-105); Anion Gap 11.1 (5-19); Aspartate Amino Transferase 21 U/L (0-32); Blood Urea Nitrogen 13 mg/dL (8-23); Calcium 8.7 mg/dL (8.5-10.5); Carbon Dioxide 29 mmol/L (22-29); Chloride 102 mmol/L (98-107); Globulin 2.8 g/dL (1.3-4.6); Glucose 101 mg/dL (65-115); Osmolality Calculated 286 mOsm/kg (285-295); Potassium 4.1 mmol/L (3.5-5.1); Sodium 138 mmol/L (136-145); Total Bilirubin 0.8 mg/dL (0.15-1.2); Total Protein 6.9 g/dL (6.6-8.7)
[2023-07-22 09:42] LABS: 25 Hydroxy Vitamin D 31 ng/mL (30-100)
[2023-07-22] MEDS: denosumab 60 mg SDV SUBCUT (09:59)
== END 2023-08-18 23:59 | disposition home or self-care (01) ==
PROVIDERS: Internal Medicine Medical Oncology; PCP Family Medicine; Visit Provider Internal Medicine Medical Oncology
DX: M81.0 Age-related osteoporosis without current pathological fracture
CPT/HCPCS: 80053; 82306; 85025; 96372; J0897

== ENCOUNTER 2023-08-06 14:14 | Outpatient (CLI) | payer MEDICARE, OTHER, SELFPAY | END 2023-08-06 14:15 | disposition home or self-care (01) | LOC: SPT 14:15 | PROVIDERS: PCP Family Medicine; Visit Provider Student in an Organized Health Care Education/Training Program | DX: Z46.89 Encounter for fitting and adjustment of other specified devices (principal); M18.0 Bilateral primary osteoarthritis of first carpometacarpal joints; M19.041 Primary osteoarthritis, right hand; M19.042 Primary osteoarthritis, left hand | CPT/HCPCS: 97760; 99213; L3924 ==

== ENCOUNTER 2023-08-13 07:54 | Outpatient (CLI) | payer MEDICARE, OTHER, SELFPAY ==
[2023-08-13 08:12] LABS: Basophils # 0.1 10^3/uL (0.0-0.1); Basophils % 1.1 %; Eosinophils # 0.2 10^3/uL (0.0-0.8); Eosinophils % 3.5 %; Hematocrit 40.6 % (36-47); Lymphocytes % 45.2 %; Mean Corpuscular HGB Conc 31.5 g/dL (30-55); Mean Corpuscular Hemoglobin 29.7 pg (27-33); Mean Corpuscular Volume 94.2 fl (85-98); Mean Platelet Volume 10.5 fL (7.4-10.4); Monocytes # 0.8 10^3/uL (0.2-0.9); Monocytes % 11.5 %; Neutrophils % 38.4 %; Nucleated Red Blood Cells % 0.3 %; Platelet Count 361 10^3/cmm (157-399); Red Blood Count 4.31 10^6/uL (3.85-5.65); Red Cell Distribution Width 15.9 % (12.1-15.1); White Blood Count 6.52 10^3/uL (3.29-11.43)
[2023-08-13 08:30] LABS: Alanine Aminotransferase 12 U/L (0-33); Albumin Level 4.1 g/dL (3.5-5.2); Alkaline Phosphatase 79 U/L (35-105); Aspartate Amino Transferase 22 U/L (0-32); Globulin 2.9 g/dL (1.3-4.6); Total Bilirubin 0.6 mg/dL (0.15-1.2)
== END 2023-08-13 07:55 | disposition home or self-care (01) ==
LOC: LAB 07:57
PROVIDERS: PCP Family Medicine; Visit Provider Internal Medicine Rheumatology
DX: M06.041 Rheumatoid arthritis without rheumatoid factor, right hand (principal); M06.042 Rheumatoid arthritis without rheumatoid factor, left hand; Z79.899 Other long term (current) drug therapy
CPT/HCPCS: 36415; 80076; 82565; 85025; 86140

== ENCOUNTER → 2023-08-14 12:02 | Outpatient (BNVA) | payer MEDICARE, OTHER, SELFPAY | PROVIDERS: PCP Family Medicine; Visit Provider Internal Medicine | DX: I82.90 Acute embolism and thrombosis of unspecified vein (principal); I25.10 Atherosclerotic heart disease of native coronary artery without angina pectoris; E78.5 Hyperlipidemia, unspecified; E03.9 Hypothyroidism, unspecified; Z79.01 Long term (current) use of anticoagulants | CPT/HCPCS: 99214 ==

== ENCOUNTER → 2023-09-17 07:38 | Outpatient (BNVA) | payer MEDICARE, OTHER, SELFPAY | PROVIDERS: PCP Family Medicine; Visit Provider Physician Assistant | DX: M65.321 Trigger finger, right index finger (principal); M19.041 Primary osteoarthritis, right hand; M19.042 Primary osteoarthritis, left hand | CPT/HCPCS: 20600; 99213; J3301; J3490 ==

== ENCOUNTER 2023-11-13 09:08 | Inpatient (IN) | payer MEDICARE, OTHER, SELFPAY ==
[2023-11-13] VITALS (12 sets, daily range): BP systolic 124–147; BP diastolic 67–82; PULSE 69–106; RESP 16–18; TEMP 36.6–36.9; O2SAT 93–98; BMI 23.5
[2023-11-13 09:42] LABS: Basophils % 0.1 %; Hematocrit 45.3 % (36-47); Lymphocytes # 1.4 10^3/uL (0.8-4.8); Lymphocytes % 11.6 %; Mean Corpuscular HGB Conc 33.3 g/dL (30-55); Mean Corpuscular Hemoglobin 30.4 pg (27-33); Mean Corpuscular Volume 91.3 fl (85-98); Mean Platelet Volume 10.7 fL (7.4-10.4); Monocytes # 1.1 10^3/uL (0.2-0.9); Monocytes % 9.2 %; Neutrophils # 9.27 10^3/uL (1.8-7.7); Neutrophils % 78.8 %; Nucleated Red Blood Cells % 0 %; Platelet Count 351 10^3/cmm (157-399); Red Blood Count 4.96 10^6/uL (3.85-5.65); Red Cell Distribution Width 15.4 % (12.1-15.1); White Blood Count 11.76 10^3/uL (3.29-11.43)
[2023-11-13 09:57] LABS: INR 0.97 (0.8-1.2)
[2023-11-13 09:58] LABS: Partial Thromboplastin Time 25.5 SECONDS (23.9-36.7)
[2023-11-13 10:01] LABS: Albumin Level 4.4 g/dL (3.5-5.2); C Reactive Protein 20.5 mg/L (0.0-4.9); Chloride 106 mmol/L (98-107); Lactic Sepsis W/Reflex 1.5 mmol/L (0.5-2.2); Potassium 5.8 mmol/L (3.5-5.1); Sodium 151 mmol/L (136-145)
[2023-11-13] MEDS: ondansetron 2 mg/ML SDV 2 mL 8 MG IVP (10:09)
[2023-11-13] MEDS: famotidine 20 mg/2 mL INJ 40 MG IVP (10:09)
[2023-11-13] MEDS: sodium chloride 0.9% 1,000 ML 999 ML IV (10:10)
[2023-11-13 10:15] LABS: Alanine Aminotransferase 19 U/L (0-33); Alkaline Phosphatase 85 U/L (35-105); Anion Gap 26.8 (5-19); Aspartate Amino Transferase 27 U/L (0-32); Blood Urea Nitrogen 19 mg/dL (8-23); Carbon Dioxide 24 mmol/L (22-29); Creatinine Clr Calc Pharmacy 52.8266; Globulin 3.8 g/dL (1.3-4.6); Glucose 135 mg/dL (65-115); Lipase 43 U/L (13-60); Osmolality Calculated 316 mOsm/kg (285-295); Total Bilirubin 0.7 mg/dL (0.15-1.2); Total Protein 8.2 g/dL (6.6-8.7)
--- NOTE | 2023-11-13 10:45 | PC.PHAR ---
PT STATES SHE DID TAKE MEDICATIONS YESTERDAY BUT THREW THEM UP. NO ATTEMPT MADE THIS MORNING. 11/13/23
--- NOTE | 2023-11-13 11:38 | W.ED.NAVMDI ---
HPI - Nausea/Vomiting/Diarrhea General: Chief complaint: Nausea/Vomiting/Diarrhea Stated complaint: Vomiting, black stool, and no food for 2 days Time Seen by Provider: 11/13/23 09:54 History of Present Illness: 78-year-old female with a history of asthma pulmonary embolism/DVT, hypothyroidism, hypertension, osteoporosis, pulmonary hypertension and hyperlipidemia who presents to the emergency room with nausea vomiting and diarrhea for a couple of days now. She is become quite weak she says. Difficult standing. No abdominal pain. She has not been able to get her medications down. These include Eliquis which she takes for the pulmonary emboli. No fevers. No chest pain. No altered mental status. No focal motor deficits. Review of Systems Narrative: Constitutional symptoms: Negative except as documented in HPI. Skin symptoms: Negative except as documented in HPI. Eye symptoms: Negative except as documented in HPI. ENMT symptoms: Negative except as documented in HPI. Respiratory symptoms: Negative except as documented in HPI. Cardiovascular symptoms: Negative except as documented in HPI. Gastrointestinal symptoms: Negative except as documented in HPI. Genitourinary symptoms: Negative except as documented in HPI. Musculoskeletal symptoms: Negative except as documented in HPI. Neurologic symptoms: Negative except as documented in HPI. Psychiatric symptoms: Negative except as documented in HPI. Endocrine symptoms: Negative except as documented in HPI. PFSH ED PFSH: Medical History Seronegative rheumatoid arthritis of both hands High risk medication use Polyarthralgia History of pulmonary embolism Recurrent deep vein thrombosis (DVT) Hypothyroidism Gastroesophageal reflux disease Coronary artery disease Tricuspid valve disorders, non-rheumatic Hypertension Osteoporosis Osteoarthritis of hands, bilateral Pulmonary hypertension Hyperlipidemia Surgical History Status post surgical removal of malignant neoplasm of skin Basal cell carcinoma of the nose History of surgery 10/2021 Stents cleaned out in groin per patient by Dr. Nolan Saleh, vascular surgeon at the [facility] [place], [place] History of coronary angiogram (~06/2019) balloon angioplasty to distal RCA stenosis History of partial gastrectomy H/O esophagogastroduodenoscopy (06/09/20) History of pancreatic surgery S/P cataract surgery History of bladder suspension procedure S/P thyroidectomy 1 lobe S/P breast biopsy Previous back surgery vertebroplasty H/O splenectomy H/O: hysterectomy Family History Other CAD (coronary artery disease) Cancer Diabetes Family history of premature coronary artery disease Denies family history of Anesthesia complication Bleeding disorder Social History Smoking and tobacco/nicotine status: never used tobacco/nicotine Second hand smoke exposure: No Alcohol intake: never Substance/Drug Use: never Household members: spouse Marital status: Current occupational status: retired Physical Exam Narrative: EXAM NARRATIVE: General: Alert, no acute distress. Skin: Warm, dry. Head: Normocephalic, atraumatic. Neck: Supple, trachea midline. Eye: Extraocular movements are intact. Ears, nose, mouth and throat: Dry oral mucosa. Cardiovascular: Regular, Normal peripheral perfusion. Respiratory: Lungs are clear to auscultation, respirations are non-labored, breath sounds are equal, Symmetrical chest wall expansion. Gastrointestinal: Soft, Nontender, Non distended Musculoskeletal: Normal ROM, no deformity. Neurological: Alert and oriented, No focal neurological deficit observed. Psychiatric: Cooperative, appropriate mood & affect. Course Vital Signs: Vital signs: Vital Signs Temperature 98.5 F 11/13/23 09:34 Pulse Rate 91 11/13/23 12:20 Respiratory Rate 18 11/13/23 09:34 Blood Pressure 147/82 11/13/23 12:20 Pulse Oximetry 96 11/13/23 12:20 Oxygen Delivery Me thod Room Air 11/13/23 12:20 MDM - Nausea/Vomiting/Diarrhea Medical Decision Making Medical decision making: Differential diagnosis including but not limited to and based on the above HPI, review of systems and physical exam: I suspect this is likely a viral gastroenteritis. No recent antibiotic use. Also concerned she might be dehydrated or in renal failure. Basic lab work was ordered. Orders placed to evaluate differential diagnosis based on the above differential, HPI and physical exam Lab Review: Laboratory results were reviewed and interpreted by myself the emergency room physician. Mild leukocytosis with a white count of 11.7. No anemia. Hemoglobin is 15. BUN and creatinine are 19 and 0.8 which is up for her. Her sodium is elevated significantly at 151. Her potassium is slightly elevated at 5.8 I reviewed the patient's medical record. Reexamination: Patient remained stable. She says she still feels very weak. She is complaining of low back pain. For this I have ordered a Robinson. I given her some Pepcid earlier. Consultation: I spoke with Dr. crenshaw. He agrees to admission/observation for hydration. Assessment and plan: Viral gastroenteritis Dehydration Hyponatremia Hyperkalemia -Admit to observation for careful hydration. ?IV Pepcid, IV Zofran, normal saline bolus ?Patient still having pain she says from laying in bed all the time so I gave her Robinson -I discussed the patient with the hospitalist on-call who is admitting the patient. - Discussed findings and plan with patient. Answered any questions. - All laboratory values were reviewed and interpreted personally by myself, the ER physician - All imaging was reviewed and interpreted personally by myself, the ER physician. - Evaluation and treatment of this problem were appropriate in the emergency setting Lab Data 11/13/23 09:32 11/13/23 09:32 Laboratory Results WBC 11.76 10^3/uL (3.29-11.43) H 11/13/23 09:32 RBC 4.96 10^6/uL (3.85-5.65) 11/13/23 09:32 Hgb 15.10 g/dL (11.27-16.99) 11/13/23 09:32 Hct 45.3 % (36-47) 11/13/23 09:32 MCV 91.3 fl (85-98) 11/13/23 09:32 MCH 30.4 pg (27-33) 11/13/23 09:32 MCHC 33.3 g/dL (30-55) 11/13/23 09:32 RDW 15.4 % (12.1-15.1) H 11/13/23 09:32 Plt Count 351 10^3/cmm (157-399) 11/13/23 09:32 MPV 10.7 fL (7.4-10.4) H 11/13/23 09:32 Neut % (Auto) 78.8 % 11/13/23 09:32 Lymph % (Auto) 11.6 % 11/13/23 09:32 Snyder % (Auto) 9.2 % 11/13/23 09:32 Eos % (Auto) 0.0 % 11/13/23 09:32 Baso % (Auto) 0.1 % 11/13/23 09:32 Neut # (Auto) 9.27 10^3/uL (1.8-7.7) H 11/13/23 09:32 Lymph # (Auto) 1.4 10^3/uL (0.8-4.8) 11/13/23 09:32 Snyder # (Auto) 1.1 10^3/uL (0.2-0.9) H 11/13/23 09:32 Eos # (Auto) 0.0 10^3/uL (0.0-0.8) 11/13/23 09:32 Baso # (Auto) 0.0 10^3/uL (0.0-0.1) 11/13/23 09:32 Nucleated RBC % (auto) 0 % 11/13/23 09:32 Nucleated RBCs # 0.0 /100WBC 11/13/23 09:32 PT 13.20 SECONDS (12.1-14.9) 11/13/23 09:32 INR 0.97 (0.8-1.2) 11/13/23 09:32 APTT 25.5 SECONDS (23.9-36.7) 11/13/23 09:32 Sodium 151 mmol/L (136-145) H 11/13/23 09:32 Potassium 5.8 mmol/L (3.5-5.1) H 11/13/23 09:32 Chloride 106 mmol/L (98-107) 11/13/23 09:32 Carbon Dioxide 24 mmol/L (22-29) 11/13/23 09:32 Anion Gap 26.8 (5-19) H 11/13/23 09:32 BUN 19 mg/dL (8-23) 11/13/23 09:32 Creatinine 0.8 mg/dL (0.5-0.9) 11/13/23 09:32 GFR Calculation Not Reportable 11/13/23 09:32 Glucose 135 mg/dL (65-115) H 11/13/23 09:32 Calculated Osmolality 316 mOsm/kg (285-295) H 11/13/23 09:32 Lactic Acid 1.5 mmol/L (0.5-2.2) 11/13/23 09:32 Calcium 9.0 mg/dL (8.5-10.5) 11/13/23 09:32 Total Bilirubin 0.7 mg/dL (0.15-1.2) 11/13/23 09:32 AST 27 U/L (0-32) 11/13/23 09:32 ALT 19 U/L (0-33) 11/13/23 09:32 Alkaline Phosphatase 85 U/L (35-105) 11/13/23 09:32 C-Reactive Protein 20.5 mg/L (0.0-4.9) H 11/13/23 09:32 Total Protein 8.2 g/dL (6.6-8.7) 11/13/23 09:32 Albumin 4.4 g/dL (3.5-5.2) 11/13/23 09:32 Globulin 3.8 g/dL (1.3-4.6) 11/13/23 09:32 Lipase 43 U/L (13-60) 11/13/23 09:32 No radiology studies performed this visit Discharge Plan Discharge Patient Disposition: Placed in Observation Clinical Impression: Gastroenteritis, Dehydration, Hypernatremia, Hyperkalemia Coding Level of Care Code ED Physician Representative for Paola Sutton
[2023-11-13] MEDS: HYDROcodone-acetaminophen 10-325 mg Tablet 1 TAB PO (11:52)
[2023-11-13] MEDS: lidocaine 2% viscous 15 ML, aluminum-mag hydrox-simethicon 30 ML, sucralfate oral liq 1 GM PO (11:53)
--- NOTE | 2023-11-13 13:40 | P.HP_ITS ---
Providers/Chief Complaint 2 Primary Care Provider: Wander Bolton MD Chief Complaint: Vomiting, black stool, and no food for 2 days History of Present Illness 78-year-old lady presents with generalized weakness, malaise, nausea vomiting, diarrhea, mild headache, has not been able to tolerate any food drink or her medications including her anticoagulant with history of multiple clots in the past, she is worried that she may be at risk of developing additional blood clot. Denies any hematochezia, melena or hematemesis. Denies any other bleeding. Review of Systems 2 Const: Denies: fever(s), chills, body aches or malaise ENMT: Denies: throat pain Card: Denies: chest pain, edema, pre-syncope or dyspnea on exertion Resp: Denies: dyspnea, productive cough, change in phlegm color or hemoptysis GI: Denies: abdominal pain, nausea, vomiting, diarrhea, constipation, hematochezia or melena : Denies: flank pain, urinary frequency or hematuria Musc: Denies: back pain, joint swelling or joint redness Skin/Breast: Denies: rash or new lesions Neuro: Denies: headache(s), numbness in extremities, weakness in extremities, dizziness, confusion or seizure-like activity Medications/Allergies Home Medications Medication Instructions Recorded Confirmed Last Taken Type cholecalciferol (vitamin D3) 25 1,000 unit PO QAM 05/19/19 11/13/23 11/12/23 History mcg (1,000 unit) capsule albuterol sulfate 90 mcg/actuation 2 puff inhalation 6XD PRN 01/16/23 11/13/23 02/17/23 History aerosol inhaler (Ventolin HFA) shortness of breath or wheezing aspirin 81 mg tablet,delayed 81 mg PO QAM 02/22/23 11/13/23 11/12/23 History release furosemide 20 mg tablet 20 mg PO QAM #30 tabs 03/28/23 11/13/23 11/12/23 Rx apixaban 5 mg tablet (Eliquis) 5 mg PO BID #180 tabs 05/08/23 11/13/23 11/12/23 Rx nitroglycerin 0.4 mg sublingual 0.4 mg sublingual Q5M PRN chest 07/01/23 11/13/23 Unknown Rx tablet (Nitrostat) pain #30 tabs digoxin 125 mcg (0.125 mg) tablet 125 mcg PO QAM #90 tabs 07/24/23 11/13/23 11/12/23 Rx Bilateral [facility] joint brace #1 ea 08/06/23 11/13/23 Unknown Rx prednisone 10 mg tablet See Rx Instructions PO .COMPLEX 08/14/23 11/13/23 Unknown Rx PRN joint pain #30 tabs methotrexate sodium 2.5 mg tablet See Rx Instructions .Route 10/04/23 11/13/23 11/08/23 Rx .COMPLEX #60 tabs omeprazole 40 mg capsule,delayed 40 mg PO BID #180 caps 11/10/23 11/13/23 11/12/23 Rx release ondansetron 4 mg disintegrating 8 mg (2 x 4 mg) PO Q8H PRN nausea 11/12/23 11/13/23 Unknown Rx tablet and vomiting #10 tabs atorvastatin 20 mg tablet 20 mg PO DAILY 11/13/23 11/13/23 11/12/23 History bisoprolol fumarate 10 mg tablet 10 mg PO DAILY 11/13/23 11/13/23 11/12/23 History cetirizine 10 mg tablet 10 mg PO DAILY 11/13/23 11/13/23 11/12/23 History denosumab 60 mg/mL subcutaneous 60 mg SUBCUT .[id number] 11/13/23 11/13/23 Unknown History syringe (Prolia) fluticasone propionate 50 50 spray intranasal QAM PRN 11/13/23 11/13/23 Unknown History mcg/actuation nasal ALLERGIES spray,suspension folic acid 1 mg tablet 1 mg PO DAILY 11/13/23 11/13/23 11/12/23 History levothyroxine 50 mcg tablet 50 mcg PO DAILY 11/13/23 11/13/23 11/12/23 History losartan 25 mg tablet 25 mg PO DAILY 11/13/23 11/13/23 11/12/23 History montelukast 10 mg tablet 10 mg PO DAILY 11/13/23 11/13/23 11/12/23 History potassium chloride 10 mEq 10 meq PO DAILY PRN WITH LASIX 11/13/23 11/13/23 Unknown History capsule,extended release Allergies Allergy/AdvReac Type Severity Reaction Status Date / Time isosorbide Allergy Severe Burning in Verified 11/12/23 12:30 chest; Dizzy; Nauseous; Pain in jaws levofloxacin [From Levaquin] Allergy Severe throat Verified 11/12/23 12:30 swelling hydroxychloroquine Allergy Unknown ADR-Headach Verified 11/12/23 12:30 e clopidogrel [From Plavix] Allergy ADR-Headach Verified 11/12/23 12:30 e latex Allergy ALGY-Rash Verified 11/12/23 12:30 hydrocodone AdvReac Intermediate hallucinati Verified 11/12/23 12:30 ng oxycodone AdvReac Intermediate hallucinati Verified 11/12/23 12:30 on PFSH Acute 2 PFSH: Medical History Seronegative rheumatoid arthritis of both hands High risk medication use Polyarthralgia History of pulmonary embolism Recurrent deep vein thrombosis (DVT) Hypothyroidism Gastroesophageal reflux disease Coronary artery disease Tricuspid valve disorders, non-rheumatic Hypertension Osteoporosis Osteoarthritis of hands, bilateral Pulmonary hypertension Hyperlipidemia Surgical History Status post surgical removal of malignant neoplasm of skin Basal cell carcinoma of the nose History of surgery 10/2021 Stents cleaned out in groin per patient by Dr. Nolan Saleh, vascular surgeon at the [facility] at [place], [place] History of coronary angiogram (~06/2019) balloon angioplasty to distal RCA stenosis History of partial gastrectomy H/O esophagogastroduodenoscopy (06/09/20) History of pancreatic surgery S/P cataract surgery History of bladder suspension procedure S/P thyroidectomy 1 lobe S/P breast biopsy Previous back surgery vertebroplasty H/O splenectomy H/O: hysterectomy Family History Other CAD (coronary artery disease) Cancer Diabetes Family history of premature coronary artery disease Denies family history of Anesthesia complication Bleeding disorder Social History Smoking and tobacco/nicotine status: never used tobacco/nicotine Second hand smoke exposure: No Alcohol intake: never Substance/Drug Use: never Household members: spouse Marital status: Current occupational status: retired Vitals/I&O/Wt Last Vital Signs Temp 98.5 F 11/13/23 09:34 Pulse 79 06/26/24 13:05 Resp 18 11/13/23 09:34 BP 124/67 11/13/23 13:05 Pulse Ox 93 11/13/23 13:05 O2 Del Method Room Air 11/13/23 13:05 Weight last 48 hrs Weight 61.235 kg Physical Exam 2 Narrative: Accompanied by her . Emesis basin on the bed beside her. Const: COMMON NORMALS: patient oriented x3 and alert GENERAL APPEARANCE: c ooperative ORIENTATION/CONSCIOUSNESS: Yes awake HENMT: COMMON NORMALS: oropharynx normal Neck/C-Spine: COMMON NORMALS: no JVD Resp: COMMON NORMALS: normal respiratory effort and clear to auscultation bilaterally AUSCULTATION: clear to auscultation bilaterally Cardio: COMMON NORMALS: no JVD, regular rhythm, S1 normal heart sound present, S2 normal heart sound present and No murmurs present (Cardio) RHYTHM: regular rhythm HEART SOUNDS: S1 normal heart sound present and S2 normal heart sound present GI: COMMON NORMALS: Normal to inspection, nondistended, normoactive bowel sounds present, Soft to palpation and non-tender PALPATION: Yes Soft to palpation Extremity: COMMON NORMALS: no joint enlargement and no pedal edema Neuro: COMMON NORMALS: patient oriented x3 and moves all extremities S ENSORIUM/ORIENTATION: Yes alert Skin: COMMON NORMALS: no rashes or lesions noted GENERAL SKIN EXAM: no rashes or lesions noted Data 11/13/23 09:32 11/13/23 09:32 Micro: Microbiology 11/13/23 09:30 Blood Culture - Preliminary Blood SPECIMEN COLLECTED 11/13/23 09:32 Blood Culture - Preliminary Blood SPECIMEN COLLECTED A&P Assessment and plan (1) Dehydration: Received fluid challenge, continue IV fluid with normal saline due to hyperkalemia. Monitor for risk of fluid overload with IV hydration also with history of mild to moderate aortic insufficiency, MR, tricuspid regurg. Antiemetics. Oral intake as tolerating with CLD. With hyponatremia. Follow sodium level. (2) Nausea and vomiting: Check digoxin level. Possible medication toxicity. Possible gastroenteritis. Viral panel. Zofran IV as needed. Pantoprazole IV. Unable to tolerate her usual medications which anticoagulation to parenteral with Lovenox. Discussed with her. Follow-up chemistry, follow-up CBC. Follow-up magnesium, check phosphorus (3) Hyperkalemia: Hold potassium supplement, hold losartan. NS hydration. Follow-up chemistry. Plan History of DVT on Eliquis Attestations 2 Medical Necessity Statement*: Place in observation for additional assessment management of dehydration, persistent nausea vomiting, possible medication accessory, possible gastroenteritis, unable to tolerate food drink or her medications include anticoagulation with prior DVT, at risk of thrombosis. Dehydration, hypernatremia, hyperkalemia. Diagnoses Dehydration E86.0 Nausea and vomiting R11.2 Hyperkalemia E87.5
[2023-11-13 13:59] LABS: Protein Urine Trace (Negative); Specific Gravity, Urine 1.025 (1.005-1.030); Urine Appearance Clear (CLEAR); Urine Color Dark Yellow (Yellow); pH Urine 5 (5-7)
[2023-11-13 14:00] LABS: Bilirubin Urine 1+ (Negative); Blood Urine Neg (Negative); Glucose Urine UA Norm (Normal); Ketones Urine 2+ (Negative); Leukocyte Esterase Urine 1+ (Negative); Nitrate Urine Negative (Negative); Urobilinogen Urine Norm (Negative)
[2023-11-13 14:16] LABS: Bacteria Urine 1+ /hpf; RBC Urine 0-4 /hpf (0-2)
[2023-11-13 14:18] LABS: Add Urine Culture? No
[2023-11-13] MEDS: enoxaparin 60 mg/0.6 mL Syringe SUBCUT (14:25)
[2023-11-13] MEDS: sodium chloride 0.9% 1,000 ML 100 ML IV (18:07)
[2023-11-13] MEDS: pantoprazole 40 mg SDV IVP (18:07)
[2023-11-13] MEDS: ondansetron 2 mg/ML SDV 2 mL 4 MG IVP (18:59)
[2023-11-13] MEDS: morphine 4 mg/mL SDV 1 mL 2 MG IVP (19:03)
[2023-11-13 20:10] LABS: Digoxin 0.6 ng/mL (0.6-1.2)
[2023-11-13 22:41] LABS: Adenovirus Not Detected (NOT DETECT); Chlamydia Pneumoniae Not Detected (NOT DETECT); Coronavirus 229E,HKU1,NL63,OC4 Not Detected (NOT DETECT); Human Metapneumovirus Not Detected (NOT DETECT); Human Rhinovirus/Enterovirus Not Detected (NOT DETECT); Influenza A Not Detected (NOT DETECT); Influenza A H1 Not Detected (NOT DETECT); Influenza A H1-2009 Not Detected (NOT DETECT); Influenza A H3 Not Detected (NOT DETECT); Influenza B Not Detected (NOT DETECT); Mycoplasma Pneumoniae Not Detected (NOT DETECT); Parainfluenza Virus Type 1 Not Detected (NOT DETECT); Parainfluenza Virus Type 2 Not Detected (NOT DETECT); Parainfluenza Virus Type 3 Not Detected (NOT DETECT); Parainfluenza Virus Type 4 Not Detected (NOT DETECT); Respiratory Syncytial Virus A Not Detected (NOT DETECT); Respiratory Syncytial Virus B Not Detected (NOT DETECT); SARS-COV-2 Not Detected (NOT DETECT)
[2023-11-14] VITALS (7 sets, daily range): BP systolic 123–144; BP diastolic 60–69; PULSE 64–74; RESP 16–18; TEMP 36.3–36.9; O2SAT 94–97
[2023-11-14] MEDS: enoxaparin 60 mg/0.6 mL Syringe SUBCUT ×2 (02:09→13:26)
[2023-11-14] MEDS: acetaminophen 325 mg Tablet 650 MG PO ×2 (02:18→13:30)
[2023-11-14] MEDS: sodium chloride 0.9% 1,000 ML 100 ML IV ×2 (03:53→17:35)
[2023-11-14 05:58] LABS: Basophils % 0.2 %; Eosinophils % 0.2 %; Hematocrit 37.6 % (36-47); Lymphocytes # 1.8 10^3/uL (0.8-4.8); Lymphocytes % 22.3 %; Mean Corpuscular HGB Conc 31.6 g/dL (30-55); Mean Corpuscular Hemoglobin 30.2 pg (27-33); Mean Corpuscular Volume 95.4 fl (85-98); Mean Platelet Volume 11.1 fL (7.4-10.4); Monocytes # 1.1 10^3/uL (0.2-0.9); Neutrophils # 5.12 10^3/uL (1.8-7.7); Neutrophils % 62.8 %; Nucleated Red Blood Cells % 0.2 %; Platelet Count 258 10^3/cmm (157-399); Red Blood Count 3.94 10^6/uL (3.85-5.65); Red Cell Distribution Width 15.4 % (12.1-15.1); White Blood Count 8.16 10^3/uL (3.29-11.43)
[2023-11-14] MEDS: ondansetron 2 mg/ML SDV 2 mL 4 MG IVP (06:08)
[2023-11-14] MEDS: aspirin 81 mg EC Tablet PO (06:08)
[2023-11-14 06:24] LABS: Alanine Aminotransferase 11 U/L (0-33); Albumin Level 3.3 g/dL (3.5-5.2); Alkaline Phosphatase 70 U/L (35-105); Aspartate Amino Transferase 20 U/L (0-32); Blood Urea Nitrogen 14 mg/dL (8-23); Calcium 7.4 mg/dL (8.5-10.5); Carbon Dioxide 23 mmol/L (22-29); Chloride 105 mmol/L (98-107); Creatinine Clr Calc Pharmacy 51.3838; Globulin 2.8 g/dL (1.3-4.6); Glucose 94 mg/dL (65-115); Magnesium 2.1 mg/dL (1.7-2.3); Osmolality Calculated 286 mOsm/kg (285-295); Phosphorus 1.6 mg/dL (2.5-4.5); Sodium 138 mmol/L (136-145); Total Bilirubin 0.6 mg/dL (0.15-1.2); Total Protein 6.1 g/dL (6.6-8.7)
[2023-11-14 06:43] LABS: Anion Gap 13.5 (5-19); Potassium 3.5 mmol/L (3.5-5.1)
[2023-11-14] MEDS: pantoprazole DR 40 mg Tablet PO (08:50)
[2023-11-14] MEDS: montelukast sodium 10 mg Tablet PO (08:51)
[2023-11-14] MEDS: atorvastatin 40 mg Tablet 20 MG PO (08:51)
[2023-11-14] MEDS: levothyroxine 50 mcg Tablet PO (08:51)
[2023-11-14] MEDS: folic acid 1 mg Tablet PO (08:52)
[2023-11-14] MEDS: metoclopramide 5 mg/mL SDV 2 mL IVP (10:36)
[2023-11-14] MEDS: potassium phosphate (mMol PO4) 15 MMOL in sodium chloride 0.9% (100 ml) 100 ML 42 MMOL IV (10:39)
--- NOTE | 2023-11-14 13:25 | CT_ITS ---
WS: [id number] CT ABDOMEN PELVIS TECHNIQUE: Noncontrast CT of the abdomen and pelvis with coronal and sagittal reformatted images. CLINICAL INFORMATION: Nausea, vomiting, abdominal soreness, history of diverticuli COMPARISON: CT 05/31/2020 DLP: 369.[address] scans at [facility] use at least one of these dose optimization techniques: automated e xposure control; mA and/or kV adjustment per patient size (includes targeted exams where dose is matc hed to clinical indication); or iterative reconstruction. FINDINGS: Prior postoperative changes partial pancreatectomy and splenectomy. IVC stent extending into the LEFT common iliac vein and external iliac vein similar to the prior studies. Postoperative changes LEFT groin similar to previous. Incidental hepatic cysts largest measures 1.3 c m. These are similar to previous. Bibasilar atelectasis. Calcified granuloma RIGHT upper lower lobe. Noncalcified nodule RIGHT middle lobe measuring 3 mm. Subpleural nodularity LEFT lower lobe. Mild dis c bulging lower lumbar spine. Postoperative changes at the GE junction. Cholelithiasis. No gallbladder wall thickening or perichole cystic fluid. Adrenal glands are normal. No hydronephrosis in either kidney. RIGHT renal cyst measuri ng 1.9 cm. Normal caliber abdominal aorta. Mild aortic calcification. Sigmoid diverticulosis. No evid ence of small or large bowel obstruction. No evidence of drainable fluid collection or abscess in the pelvis. Tiny amount of free fluid in the cul-de-sac. CT/CT abdomen pelvis wo con [id number] IMPRESSION: 1. No acute findings in the abdomen or pelvis. 2. Prior postoperative changes partial pancreatectomy and splenectomy. 3. Sigmoid diverticulosis. No evidence of acute diverticulitis. 4. Cholelithiasis. 5. Stable stent in the IVC extending into the LEFT common iliac and external i liac veins. 6. A few small locules of subcutaneous air in the RIGHT anterior abdominal wal l subcutaneous fat likely due to subcutaneous injections. No fluid collection o r abscess. 7. No other acute findings.
[2023-11-14] MEDS: pantoprazole 40 mg SDV IVP (17:35)
--- NOTE | 2023-11-14 20:46 | P.PN_ITS ---
Subjective 2 Subjective: She is feeling slightly better but still having vomiting, still unable to keep down food or reliably keep down medications. Still having diarrhea. He is responding better to Reglan. She is having some heartburn. Vitals/I&O/Wt Last Vital Signs Temp 97.4 F L 11/14/23 19:50 Pulse 71 11/14/23 19:50 Resp 16 11/14/23 19:50 BP 125/63 11/14/23 19:50 Pulse Ox 96 11/14/23 19:50 O2 Del Method Room Air 11/14/23 19:50 11/14/23 11/14/23 11/14/23 06:59 14:59 22:59 Intake Total 976.667 / 2336.667 1465 / 1465 360 / 1825 Output Total 200 / 200 150 / 150 Balance 776.667 / 2136.667 1465 / 1465 210 / 1675 Weight last 48 hrs Weight 60.866 kg Weight 58.315 kg Weight 61.235 kg Physical Exam 2 Narrative: Accompanied by her . Emesis basin on the bed beside her. Const: COMMON NORMALS: patient oriented x3 and alert GENERAL APPEARANCE: c ooperative ORIENTATION/CONSCIOUSNESS: Yes awake HENMT: COMMON NORMALS: oropharynx normal Neck/C-Spine: COMMON NORMALS: no JVD Resp: COMMON NORMALS: normal respiratory effort and clear to auscultation bilaterally AUSCULTATION: clear to auscultation bilaterally Cardio: COMMON NORMALS: no JVD, regular rhythm, S1 normal heart sound present, S2 normal heart sound present and No murmurs present (Cardio) RHYTHM: regular rhythm HEART SOUNDS: S1 normal heart sound present and S2 normal heart sound present GI: COMMON NORMALS: Normal to inspection, nondistended, normoactive bowel sounds present, Soft to palpation and non-tender PALPATION: Yes Soft to palpation Extremity: COMMON NORMALS: no joint enlargement and no pedal edema Neuro: COMMON NORMALS: patient oriented x3 and moves all extremities S ENSORIUM/ORIENTATION: Yes alert Skin: COMMON NORMALS: no rashes or lesions noted GENERAL SKIN EXAM: no rashes or lesions noted Data 11/14/23 05:26 11/14/23 05:26 Micro: Microbiology 11/13/23 09:30 Blood Culture - Preliminary Blood NEGATIVE TO DATE 11/13/23 09:32 Blood Culture - Preliminary Blood NEGATIVE TO DATE A&P Assessment and plan (1) Nausea and vomiting: Reviewed vitals, CBC, CMP, phosphorus, magnesium, UA, respiratory viral panel, digoxin level. Ejection was not elevated. Respiratory panel negative. UA with possible UTI, requested urine culture. CBC without leukocytosis. Afebrile. Still symptomatic. Added Reglan. Is responding better to it. Continue IV fluids until able to establish more reliable oral intake and tolerating medications. Monitor for risk of fluid overload, pulmonary edema. She has history of GERD, continue PPI. C. difficile added. Add study for Salmonella, Shigella, Campylobacter. Replace hypophosphatemia, mild hypokalemia. Recheck chemistry, phosphorus magnesium. Discussed with nursing, onsite case manager. (2) Dehydration: As above. Received fluid challenge, continue IV fluid with normal saline due to hyperkalemia. Monitor for risk of fluid overload with IV hydration also with history of mild to moderate aortic insufficiency, MR, tricuspid regurg. Antiemetics. Oral intake as tolerating with CLD. With hyponatremia. Follow sodium level. (3) Hyperkalemia: Resolved, today mild hypokalemia, potassium 3.5. Received some potassium p.o. phosphorus. Recheck chemistry. Recheck magnesium. Plan GERD: Has been having heartburn despite taking PPI twice daily at home. Possibly secondary to gastroenteritis or other condition currently causing her nausea vomiting, however, in case symptoms persist beyond acute illness discussed with her would benefit to speak with her primary doctor regarding referral for EGD. History of DVT on Eliquis Attestations 2 Medical Necessity Statement*: Requiring hospitalization for assessment management of persistent nausea and vomiting, unable to tolerate oral intake or medications, at risk of dehydration, IV hydration, at risk of additional electrolyte abnormality. UTI. Diagnoses Nausea and vomiting R11.2 Dehydration E86.0 Hyperkalemia E87.5
[2023-11-14] MEDS: cefTRIAXone 1,000 MG in sodium chloride 0.9% (plus) 50 ML 100 MG IV (21:31)
[2023-11-15] VITALS: BP 124/63; PULSE 64; RESP 17; TEMP 36.6; O2SAT 96
[2023-11-15] MEDS: enoxaparin 60 mg/0.6 mL Syringe SUBCUT (02:41)
[2023-11-15 04:00] VITALS: BP 123/61; PULSE 61; RESP 15; TEMP 36.8; O2SAT 92
[2023-11-15] MEDS: sodium chloride 0.9% 1,000 ML 100 ML IV (04:04)
[2023-11-15 05:24] LABS: Basophils % 0.5 %; Eosinophils % 0.6 %; Lymphocytes # 2.2 10^3/uL (0.8-4.8); Lymphocytes % 32.7 %; Mean Corpuscular HGB Conc 32.3 g/dL (30-55); Mean Corpuscular Hemoglobin 30.7 pg (27-33); Mean Corpuscular Volume 95.1 fl (85-98); Mean Platelet Volume 11.3 fL (7.4-10.4); Monocytes % 15.8 %; Neutrophils # 3.31 10^3/uL (1.8-7.7); Neutrophils % 50.2 %; Nucleated Red Blood Cells % 0 %; Platelet Count 271 10^3/cmm (157-399); Red Blood Count 3.68 10^6/uL (3.85-5.65); Red Cell Distribution Width 15.3 % (12.1-15.1); White Blood Count 6.58 10^3/uL (3.29-11.43)
[2023-11-15 05:47] LABS: Magnesium 1.9 mg/dL (1.7-2.3); Phosphorus 1.8 mg/dL (2.5-4.5)
[2023-11-15 05:53] LABS: Alanine Aminotransferase 13 U/L (0-33); Albumin Level 3.2 g/dL (3.5-5.2); Alkaline Phosphatase 71 U/L (35-105); Anion Gap 15.2 (5-19); Aspartate Amino Transferase 21 U/L (0-32); Blood Urea Nitrogen 9 mg/dL (8-23); Calcium 6.9 mg/dL (8.5-10.5); Carbon Dioxide 24 mmol/L (22-29); Chloride 108 mmol/L (98-107); Creatinine Clr Calc Pharmacy 52.4314; Globulin 2.4 g/dL (1.3-4.6); Glucose 129 mg/dL (65-115); Osmolality Calculated 296 mOsm/kg (285-295); Potassium 4.2 mmol/L (3.5-5.1); Sodium 143 mmol/L (136-145); Total Bilirubin 0.4 mg/dL (0.15-1.2); Total Protein 5.6 g/dL (6.6-8.7)
[2023-11-15] MEDS: aspirin 81 mg EC Tablet PO (06:10)
[2023-11-15] MEDS: acetaminophen 325 mg Tablet 650 MG PO (06:13)
[2023-11-15 07:47] VITALS: BP 115/61; PULSE 63; RESP 16; TEMP 36.8; O2SAT 96
[2023-11-15] MEDS: folic acid 1 mg Tablet PO (08:40)
[2023-11-15] MEDS: atorvastatin 40 mg Tablet 20 MG PO (08:40)
[2023-11-15] MEDS: montelukast sodium 10 mg Tablet PO (08:40)
[2023-11-15] MEDS: pantoprazole DR 40 mg Tablet PO (08:40)
[2023-11-15] MEDS: levothyroxine 50 mcg Tablet PO (08:40)
--- NOTE | 2023-11-15 09:55 | PM.DCS ---
Discharge Providers Date of Admission: 11/14/23 10:21 Date of Discharge: November 15, 2023 Attending Provider at Admission: Jaden Mock Attending Provider at Discharge: Jaden Mock Primary Care Provider: Wander Bolton MD Diagnoses at Discharge Discharge Diagnosis (1) Nausea and vomiting: Status: Acute (2) Dehydration: Status: Acute (3) Hyperkalemia: Status: Acute Reason for Visit Reason for Visit: Vomiting, black stool, and no food for 2 days Brief History: 78-year-old lady presents with generalized weakness, malaise, nausea vomiting, diarrhea, mild headache, has not been able to tolerate any food drink or her medications including her anticoagulant with history of multiple clots in the past, she is worried that she may be at risk of developing additional blood clot. Denies any hematochezia, melena or hematemesis. Denies any other bleeding. Hospital Course Hospital Course She was placed in observation, treated with IV hydration, IV antiemetics, PPI, trial of clear liquids, digoxin level was checked and was normal, respiratory viral panel was checked and was negative. UA revealed signs of possible UTI with pyuria, and she received ceftriaxone while in the hospital. She was unimproved yesterday and so required continued hospitalization. Her symptoms gradually subsided and resolved, nausea vomiting and diarrhea resolved. And today she has been tolerating clear liquids, and asked to advance her diet. Stool studies could not be collected. She will complete antibiotic course with cefdinir for UTI. Urine cultures pending. She has had some heartburn, and has been on PPI while at home. This may be related to episode of acute illness and vomiting, however, if does not subside consider referral for further evaluation with upper endoscopy. Due to history of diverticulitis, improved condition yesterday CT abdomen pelvis was obtained, diverticulosis was visualized without signs of inflammation, incidentally found to have cholelithiasis. Additionally incidentally noted previously placed IVC and common iliac stents. Findings discussed with her, discussed diet. Please follow-up cholelithiasis. Physical Exam Const: COMMON NORMALS: patient oriented x3 and alert GENERAL APPEARANCE: cooperative ORIENTATION/CONSCIOUSNESS: Yes awake HENMT: COMMON NORMALS: oropharynx normal Neck/C-Spine: COMMON NORMALS: no JVD Resp: COMMON NORMALS: normal respiratory effort and clear to auscultation bilaterally AUSCULTATION: clear to auscultation bilaterally Cardio: COMMON NORMALS: no JVD, regular rhythm, S1 normal heart sound present, S2 normal heart sound present and No murmurs present (Cardio) RHYTHM: regular rhythm HEART SOUNDS: S1 normal heart sound present and S2 normal heart sound present GI: COMMON NORMALS: Normal to inspection, nondistended, normoactive bowel sounds present, Soft to palpation and non-tender PALPATION: Yes Soft to palpation Extremity: COMMON NORMALS: no joint enlargement and no pedal edema Neuro: COMMON NORMALS: patient oriented x3 and moves all extremities SENSORIUM/ORIENTATION: Yes alert Skin: COMMON NORMALS: no rashes or lesions noted GENERAL SKIN EXAM: no rashes or lesions noted Discharge Data Studies Completed and Pending Completed Studies During Hospitalization Category Date Time Status CT abdomen pelvis wo con [id number] Routine Cat Scan 11/14/23 13:25 Completed Pending at discharge Category Date Time Status Blood Culture Stat Lab 11/13/23 09:30 Results CDIFF [C.Diff PCR (Lab)] Routine Lab 11/14/23 08:48 Uncollected Complete Blood Count w/Auto AM LABS Lab 11/16/23 04:00 Ordered Comprehensive Metabolic Panel AM LABS Lab 11/16/23 04:00 Ordered Phosphorus AM LABS Lab 11/16/23 04:00 Ordered Phosphorus AM LABS Lab 11/17/23 04:00 Ordered Stool Culture - Enteric [Salmonella / Shigella / Campy] Lab 11/14/23 20:54 Ordered Routine Urine Culture Routine Lab 11/14/23 Received Radiology Impressions Abdomen/Pelvis CT 11/14/23 13:25 IMPRESSION: 1. No acute findings in the abdomen or pelvis. 2. Prior postoperative changes partial pancreatectomy and splenectomy. 3. Sigmoid diverticulosis. No evidence of acute diverticulitis. 4. Cholelithiasis. 5. Stable stent in the IVC extending into the LEFT common iliac and external iliac veins. 6. A few small locules of subcutaneous air in the RIGHT anterior abdominal wall subcutaneous fat likely due to subcutaneous injections. No fluid collection or abscess. 7. No other acute findings. Laboratory Results WBC 6.58 10^3/uL (3.29-11.43) 11/15/23 04:46 RBC 3.68 10^6/uL (3.85-5.65) L 11/15/23 04:46 Hgb 11.30 g/dL (11.27-16.99) 11/15/23 04:46 Hct 35.0 % (36-47) L 11/15/23 04:46 MCV 95.1 fl (85-98) 11/15/23 04:46 MCH 30.7 pg (27-33) 11/15/23 04:46 MCHC 32.3 g/dL (30-55) 11/15/23 04:46 RDW 15.3 % (12.1-15.1) H 11/15/23 04:46 Plt Count 271 10^3/cmm (157-399) 11/15/23 04:46 MPV 11.3 fL (7.4-10.4) H 11/15/23 04:46 Neut % (Auto) 50.2 % 11/15/23 04:46 Lymph % (Auto) 32.7 % 11/15/23 04:46 Brewster % (Auto) 15.8 % 11/15/23 04:46 Eos % (Auto) 0.6 % 11/15/23 04:46 Baso % (Auto) 0.5 % 11/15/23 04:46 Neut # (Auto) 3.31 10^3/uL (1.8-7.7) 11/15/23 04:46 Lymph # (Auto) 2.2 10^3/uL (0.8-4.8) 11/15/23 04:46 Brewster # (Auto) 1.0 10^3/uL (0.2-0.9) H 11/15/23 04:46 Eos # (Auto) 0.0 10^3/uL (0.0-0.8) 11/15/23 04:46 Baso # (Auto) 0.0 10^3/uL (0.0-0.1) 11/15/23 04:46 Nucleated RBC % (auto) 0 % 11/15/23 04:46 Nucleated RBCs # 0.0 /100WBC 11/15/23 04:46 PT 13.20 SECONDS (12.1-14.9) 11/13/23 09:32 INR 0.97 (0.8-1.2) 11/13/23 09:32 APTT 25.5 SECONDS (23.9-36.7) 11/13/23 09:32 Sodium 143 mmol/L (136-145) 11/15/23 04:46 Potassium 4.2 mmol/L (3.5-5.1) 11/15/23 04:46 Chloride 108 mmol/L (98-107) H 11/15/23 04:46 Carbon Dioxide 24 mmol/L (22-29) 11/15/23 04:46 Anion Gap 15.2 (5-19) 11/15/23 04:46 BUN 9 mg/dL (8-23) 11/15/23 04:46 Creatinine 0.7 mg/dL (0.5-0.9) 11/15/23 04:46 GFR Calculation Not Reportable 11/15/23 04:46 Glucose 129 mg/dL (65-115) H 11/15/23 04:46 Calculated Osmolality 296 mOsm/kg (285-295) H 11/15/23 04:46 Lactic Acid 1.5 mmol/L (0.5-2.2) 11/13/23 09:32 Calcium 6.9 mg/dL (8.5-10.5) L 11/15/23 04:46 Phosphorus 1.8 mg/dL (2.5-4.5) L 11/15/23 04:46 Magnesium 1.9 mg/dL (1.7-2.3) 11/15/23 04:46 Total Bilirubin 0.4 mg/dL (0.15-1.2) 11/15/23 04:46 AST 21 U/L (0-32) 11/15/23 04:46 ALT 13 U/L (0-33) 11/15/23 04:46 Alkaline Phosphatase 71 U/L (35-105) 11/15/23 04:46 C-Reactive Protein 20.5 mg/L (0.0-4.9) H 11/13/23 09:32 Total Protein 5.6 g/dL (6.6-8.7) L 11/15/23 04:46 Albumin 3.2 g/dL (3.5-5.2) L 11/15/23 04:46 Globulin 2.4 g/dL (1.3-4.6) 11/15/23 04:46 Lipase 43 U/L (13-60) 11/13/23 09:32 Urine Color Dark yellow (Yellow) 11/13/23 Unknown Urine Appearance Clear (CLEAR) 11/13/23 Unknown Urine pH 5 (5-7) 11/13/23 Unknown Ur Specific Mina 1.025 (1.005-1.030) 11/13/23 Unknown Urine Protein Trace (Negative) 11/13/23 Unknown Urine Glucose (UA) Norm (Normal) 11/13/23 Unknown Urine Ketones 2+ (Negative) H 11/13/23 Unknown Urine Blood Neg (Negative) 11/13/23 Unknown Urine Nitrate Negative (Negative) 11/13/23 Unknown Urine Bilirubin 1+ (Negative) H 11/13/23 Unknown Urine Urobilinogen Norm mg/dL (Negative) 11/13/23 Unknown Ur Leukocyte Esterase 1+ (Negative) H 11/13/23 Unknown Urine RBC 0-4 /hpf (0-2) H 11/13/23 Unknown Urine WBC 10-15 /hpf (0-5) H 11/13/23 Unknown Ur Squamous Epith Cells 5-10 /hpf (0-5) H 11/13/23 Unknown Amorphous Sediment Not Reportable 11/13/23 Unknown Urine Bacteria 1+ /hpf (NONE) H 11/13/23 Unknown Digoxin 0.6 ng/mL (0.6-1.2) 11/13/23 09:32 Adenovirus (PCR) Not detected (NOT DETECT) 11/13/23 20:42 C. pneumoniae DNA (PCR) Not detected (NOT DETECT) 11/13/23 20:42 Coronavirus 229E (PCR) Not detected (NOT DETECT) 11/13/23 20:42 Human Metapneumovir PCR Not detected (NOT DETECT) 11/13/23 20:42 Influenza A (H1) PCR Not detected (NOT DETECT) 11/13/23 20:42 Influ A (H1/09) PCR Not detected (NOT DETECT) 11/13/23 20:42 Influenza A (H3) PCR Not detected (NOT DETECT) 11/13/23 20:42 Influenza Type A (PCR) Not detected (NOT DETECT) 11/13/23 20:42 Influenza Type B (PCR) Not detected (NOT DETECT) 11/13/23 20:42 M. pneumoniae (PCR) Not detected (NOT DETECT) 11/13/23 20:42 Parainfluenza 1 (PCR) Not detected (NOT DETECT) 11/13/23 20:42 Parainfluenza 2 (PCR) Not detected (NOT DETECT) 11/13/23 20:42 Parainfluenza 3 (PCR) Not detected (NOT DETECT) 11/13/23 20:42 Parainfluenza 4 (PCR) Not detected (NOT DETECT) 11/13/23 20:42 RSV Type A (PCR) Not detected (NOT DETECT) 11/13/23 20:42 RSV Type B (PCR) Not detected (NOT DETECT) 11/13/23 20:42 Entero/Rhino (PCR) Not detected (NOT DETECT) 11/13/23 20:42 SARS-CoV-2 (PCR) Not detected (NOT DETECT) 11/13/23 20:42 Vitals Last Vital Signs Temp 98.3 F 11/15/23 07:47 Pulse 63 11/15/23 07:47 Resp 16 11/15/23 07:47 BP 115/61 11/15/23 07:47 Pulse Ox 96 11/15/23 07:47 O2 Del Method Room Air 11/15/23 09:28 Discharge Plan Discharge Patient Disposition: Home Condition: Stable Prescriptions: New cefdinir 300 mg capsule 300 mg PO BID 5 Days Qty: 10 0RF Continued cholecalciferol (vitamin D3) 1,000 unit capsule 1,000 unit PO QAM albuterol sulfate [Ventolin HFA] 90 mcg/actuation HFA aerosol inhaler 2 puff inhalation 6XD PRN (Reason: shortness of breath or wheezing) Dose Instruction: INHALE 2 PUFFS 4 TIMES A DAY (DME) Bilateral CMC joint brace See Rx Instructions .Route .MEDSUPPLY Qty: 1 0RF Rx Instructions: As directed ondansetron 4 mg tablet,disintegrating 8 mg PO Q8H PRN (Reason: nausea and vomiting) Qty: 10 0RF Eliquis 5 mg tablet 5 mg PO BID Qty: 180 3RF nitroglycerin [Nitrostat] 0.4 mg tablet, sublingual 0.4 mg sublingual Q5M PRN (Reason: chest pain) Qty: 30 3RF Rx Instructions: do not exceed 3 doses per episode digoxin 125 mcg (0.125 mg) tablet 125 mcg PO QAM Qty: 90 3RF prednisone 10 mg tablet See Rx Instructions PO .COMPLEX PRN (Reason: joint pain) Qty: 30 1RF Rx Instructions: Take 1 or 2 tablets daily for 3-7 days as needed for joint pain flares. methotrexate sodium 2.5 mg tablet See Rx Instructions .ROUTE .COMPLEX Qty: 60 0RF Dose Instruction: TAKE 4 TABLETS BY MOUTH EVERY 7 DAYS(ON THE SAME DAY ONCE A WEEK) Rx Instructions: TAKE 6 TABLETS BY MOUTH EVERY 7 DAYS (ON THE SAME DAY ONCE A WEEK). ON SATURDAY omeprazole 40 mg capsule,delayed release(DR/EC) 40 mg PO BID Qty: 180 11RF aspirin 81 mg tablet,delayed release (DR/EC) 81 mg PO QAM Prolia 60 mg/mL syringe 60 mg SUBCUT .[id number] Rx Instructions: every 6 months, Apr and October potassium chloride 10 mEq capsule, extended release 10 meq PO DAILY PRN (Reason: WITH LASIX) atorvastatin 20 mg tablet 20 mg PO DAILY cetirizine 10 mg tablet 10 mg PO DAILY bisoprolol fumarate 10 mg tablet 10 mg PO DAILY levothyroxine 50 mcg tablet 50 mcg PO DAILY folic acid 1 mg tablet 1 mg PO DAILY montelukast 10 mg tablet 10 mg PO DAILY fluticasone propionate 50 mcg/actuation spray,suspension 50 spray intranasal QAM PRN (Reason: ALLERGIES) Changed furosemide 20 mg tablet 20 mg PO QAM PRN (Reason: Edema) Qty: 30 11RF Held losartan 25 mg tablet 25 mg PO DAILY Hold Instructions: Resume on 11/18/23. Discharge Orders: Discharge Order (Routine); Ordered 11/15/23 Ordered By: Jaden Mock Referrals: Wander Bolton MD [Primary Care Provider] - 4-7 days (We have notified your physician's clinic of the need for a follow-up appointment to be scheduled. If you have not heard from them within the next 2 business days, please call them directly. ) Discharge Diet: Advance as tolerated Discharge Activity: Increase activity as tolerated Patient Instructions: Cefdinir (By mouth), Gallstones (GEN), Urinary Tract Infection in Women (GEN), Potassium Content of Foods List (GEN), Gastroenteritis (GEN), Urinary Tract Infection in Older Adults (GEN) Activity Restrictions/Additional Instructions: Please follow-up with your primary provider for reassessment after gastroenteritis, urinary tract infection, discuss also incidental finding of gallstones. Please also discuss your heartburn symptoms with your primary provider in case of persistent symptoms discussed referral for evaluation by endoscopy to rule out any concerning causes. Seek medical attention in case of any worsening or new concerning symptoms. Your potassium was mildly elevated on presentation, please only take potassium if you take Lasix. Be cautious with/reduce potassium rich foods. Discharge Attestations Time Spent in Discharge Care*: greater than 30 min Status at Discharge: Cognitive status at discharge: cognitively intact, Behavioral status at discharge: cooperative, Quality Metrics Clinical Quality Measures [ No reported AMI, CVA or VTE this stay] Coding Level of Care Code 23236 Total time (in minutes) for Discharge: 45 Diagnoses Nausea and vomiting R11.2 Dehydration E86.0 Hyperkalemia E87.5
--- NOTE | 2023-11-15 09:56 | PC.SOCIAL ---
IMM Updated Updated pt on IMM. No questions voiced. Provided pt a copy. Initialed, dated, & timed a copy & placed in chart.
--- NOTE | 2023-11-15 09:56 | PC.CHAP ---
Pastoral Care Encounter/Spiritual Assessment Type of Contact [] Declined seed sorter visit [] Patient/Family/Request visit [] Outpatient visit [] Follow-up visit [] Physician referral [] Code/Alert [x] Routine visit [] Staff referral [] Actively dying [] Patient sleeping [] Family support [] [] Out of room [] Palliative care [] [] Receiving care in room [] Pre-surgical visit [] Trauma [] Long length of stay [] ICU visit [] Other: Relational/Emotional Strength [x] Patient feels connected with others/family/visitors/staff [] Distress [] Loneliness/isolation [] Abandonment Spirituality of Patient [x] Person of Sandra [x] Attends Catholic of their Sandra [x] Believes in Prayer [] Reads Bible or Mosque materials [] There are Spiritual issues to be addressed Process 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 Interventions [x] Prayer [x] Active listening [x] Non-anxious presence [] Spiritual/emotional support [] Crisis/trauma care [] Spiritual counseling [] Bereavement support [] Provided bereavement packet [] Provided Bible/devotional materials [] Provided toy/stuffed animal, coloring book to patient or family member [] Provided Communion [] Anointing/[place] [] Salvation [x] Completed spiritual assessment [] Other: Impact on Illness or Injury [] Angry [] Fearful [] Anxious [] Often cries [] Exhaustion [] Unable to work [] Unable to attend samaritan [] Unable to walk/stand [] Unable to read [] Unable to drive [] Unable to eat/drink [] Unable to sleep [] Unable to be with family [] Patient intubated [] Other: Summary Patent complain about being hungry Time spent with patient 10 min
[2023-11-15 09:57] VITALS: BP 115/61; PULSE 63; RESP 16; TEMP 36.8; O2SAT 96
[2023-11-15 10:36] VITALS: PULSE 63
[2023-11-15] MEDS: digoxin 125 mcg Tablet PO (10:36)
[2023-11-15] MEDS: magnesium sulfate premix 1 GM/100 ML PIGGYBACK IV (10:36)
[2023-11-15 11:40] VITALS: BP 105/60; PULSE 55; RESP 16; TEMP 36.8; O2SAT 96
== END 2023-11-15 13:00 | disposition home or self-care (01) | DRG 641 ==
LOC: ER 12:31 → MEDSURG 14:29
PROVIDERS: Admitting Provider Internal Medicine; Emergency Provider Emergency Medicine; PCP Family Medicine; Visit Provider Internal Medicine
DX: E87.5 Hyperkalemia (principal); N39.0 Urinary tract infection, site not specified; R11.2 Nausea with vomiting, unspecified; E86.0 Dehydration; E87.1 Hypo-osmolality and hyponatremia; Z79.01 Long term (current) use of anticoagulants; K21.9 Gastro-esophageal reflux disease without esophagitis; K80.20 Calculus of gallbladder without cholecystitis without obstruction; K57.90 Diverticulosis of intestine, part unspecified, without perforation or abscess without bleeding; Z79.82 Long term (current) use of aspirin; Z95.828 Presence of other vascular implants and grafts; E83.39 Other disorders of phosphorus metabolism; Z86.711 Personal history of pulmonary embolism; Z86.718 Personal history of other venous thrombosis and embolism; E03.9 Hypothyroidism, unspecified; J45.909 Unspecified asthma, uncomplicated; E78.5 Hyperlipidemia, unspecified; I10 Essential (primary) hypertension; M05.9 Rheumatoid arthritis with rheumatoid factor, unspecified; E87.6 Hypokalemia
CPT/HCPCS: 36415; 74176; 80053; 80162; 81001; 83605; 83690; 83735; 84100; 85025; 85610; 85730; 86140; 87040; 87077; 87086; 87186; 87486; 87581; 87633; 96372; 96374; 96375; 99285; C9113; G0378; J0696; J1650; J2270; J2405; J2765; J3475; J3490; J7030

== ENCOUNTER → 2023-11-25 15:07 | Outpatient (BNVA) | payer MEDICARE, OTHER, SELFPAY | PROVIDERS: PCP Family Medicine; Visit Provider Family Medicine | DX: R30.0 Dysuria (principal); E83.51 Hypocalcemia; M81.0 Age-related osteoporosis without current pathological fracture | CPT/HCPCS: 80053; 81000; 82306; 82310; 83735; 83970; 85025; 86140; 87086 ==

== ENCOUNTER → 2023-12-16 08:54 | Outpatient (BNVA) | payer MEDICARE, OTHER, SELFPAY | PROVIDERS: PCP Family Medicine; Visit Provider Internal Medicine Rheumatology | DX: M06.041 Rheumatoid arthritis without rheumatoid factor, right hand (principal); M06.042 Rheumatoid arthritis without rheumatoid factor, left hand; M19.041 Primary osteoarthritis, right hand; M19.042 Primary osteoarthritis, left hand; M81.0 Age-related osteoporosis without current pathological fracture; I82.512 Chronic embolism and thrombosis of left femoral vein; Z79.899 Other long term (current) drug therapy | CPT/HCPCS: 99214 ==

== ENCOUNTER 2024-01-14 11:50 | Oncology outpatient (recurring) (ONCR) | payer MEDICARE, OTHER, SELFPAY ==
[2024-01-14 10:49] LABS: Basophils % 0.5 %; Eosinophils # 0.1 10^3/uL (0.0-0.8); Eosinophils % 1.6 %; Hematocrit 37.3 % (36-47); Lymphocytes # 2.4 10^3/uL (0.8-4.8); Lymphocytes % 30.3 %; Mean Corpuscular HGB Conc 32.4 g/dL (30-55); Mean Corpuscular Hemoglobin 30.6 pg (27-33); Mean Corpuscular Volume 94.2 fl (85-98); Mean Platelet Volume 10.4 fL (7.4-10.4); Monocytes % 12.5 %; Neutrophils # 4.31 10^3/uL (1.8-7.7); Neutrophils % 54.6 %; Nucleated Red Blood Cells % 0 %; Platelet Count 353 10^3/cmm (157-399); Red Blood Count 3.96 10^6/uL (3.85-5.65); Red Cell Distribution Width 15.9 % (12.1-15.1); White Blood Count 7.91 10^3/uL (3.29-11.43)
[2024-01-14 11:07] LABS: Alanine Aminotransferase 10 U/L (0-33); Albumin Level 3.9 g/dL (3.5-5.2); Alkaline Phosphatase 64 U/L (35-105); Anion Gap 13.7 (5-19); Aspartate Amino Transferase 20 U/L (0-32); Blood Urea Nitrogen 11 mg/dL (8-23); Calcium 8.9 mg/dL (8.5-10.5); Carbon Dioxide 26 mmol/L (22-29); Chloride 104 mmol/L (98-107); Globulin 2.7 g/dL (1.3-4.6); Glucose 115 mg/dL (65-115); Osmolality Calculated 290 mOsm/kg (285-295); Potassium 3.7 mmol/L (3.5-5.1); Sodium 140 mmol/L (136-145); Total Bilirubin 0.6 mg/dL (0.15-1.2); Total Protein 6.6 g/dL (6.6-8.7)
[2024-01-14 13:16] LABS: Bilirubin Urine Negative (Negative); Blood Urine Negative (Negative); Glucose Urine UA Negative (Normal); Ketones Urine Negative (Negative); Leukocyte Esterase Urine Trace (Negative); Nitrate Urine Negative (Negative); Protein Urine Negative (Negative); Specific Gravity, Urine 1.014 (1.005-1.030); Urine Appearance Clear (CLEAR); Urine Color Yellow (Yellow); pH Urine 5.5 (5-7)
[2024-01-14 13:21] LABS: Bacteria Urine None Seen /hpf; RBC Urine 0-2 /hpf (0-2); Squamous Epithelial Cell Urine 0-5 /hpf (0-5); WBC Urine 0-5 /hpf (0-5)
== END 2024-01-18 23:59 | disposition home or self-care (01) ==
PROVIDERS: Nurse Practitioner Family; PCP Family Medicine; Visit Provider Internal Medicine Medical Oncology
DX: M81.0 Age-related osteoporosis without current pathological fracture (principal)
CPT/HCPCS: 36415; 80053; 81001; 85025; 99214

== ENCOUNTER 2024-01-23 07:40 | Oncology outpatient (recurring) (ONCR) | payer MEDICARE, OTHER, SELFPAY ==
[2024-01-23 07:53] VITALS: BP 143/74; PULSE 94; RESP 18; TEMP 36.6; O2SAT 98
[2024-01-23 07:54] VITALS: BP 141/93; PULSE 91; RESP 18; TEMP 36.6; O2SAT 98
[2024-01-23] MEDS: denosumab 60 mg SDV SUBCUT (08:25)
== END 2024-02-17 23:59 | disposition home or self-care (01) ==
LOC: ONCMED 07:41
PROVIDERS: PCP Family Medicine; Visit Provider Internal Medicine Medical Oncology
DX: M81.0 Age-related osteoporosis without current pathological fracture (principal); Z79.899 Other long term (current) drug therapy
CPT/HCPCS: 96401; J0897

== ENCOUNTER 2024-02-21 11:29 | Outpatient (CLI) | payer MEDICARE, OTHER, SELFPAY ==
--- NOTE | 2024-02-21 12:00 | USCV_ITS ---
[place], [place] Age: 78 Gender: F : 1945 Exam Date: 02/21/2024 11:35 Ordering Phys: Samantha Harris APRN Technologist: MAYANK Exam Location: [facility] [place] Indication: HISTORY: PROCEDURES: FINDINGS: The veins were found to be easily compressible with spontaneous blood flow. Non pulsatile flow pattern. On the right side, significant venous reflux was noted at the level of the saphenofemoral junction. The reflux time was 2.12 seconds. On the left side venous reflux were noted at the mid, distal and below- knee segments of the greater saphenous vein. The reflux times were 0.89, 2.22 and 1.34 seconds respectively. These venous segments were at a depth of measuring anywhere from 0.29 to 0.57 cm in diameter. The distal greater saphenous vein at the below-knee segment and the below- knee segment of the greater saphenous vein were found to be less than 1 cm deep from the surface. The mid 70 segment was at a depth of 1.55 cm. CONCLUSIONS 1. On the right lower extremity, Significant venous reflux of greater than 500 ms was noted at the saphenofemoral junction. 2. On the left lower extremity, Significant venous reflux of greater than 500 ms were noted at the mid, distal and below-knee segments of the greater saphenous vein. These segments were measuring 0.57, 0.44 and 0.24 cm in diameter. The mid great saphenous vein segment was at a depth of 1.55 cm. The other segments were less than 1 cm deep from the surface. No similar previous studies are available for comparison 3. No evidence of DVT or any significant venous reflux in the deep veins Dr Nicole Lin MD [facility] (Electronically Signed) Final Date: 21 February 2024 20:32 S
== END 2024-02-21 11:30 | disposition home or self-care (01) ==
LOC: RAD 11:30
PROVIDERS: PCP Family Medicine; Visit Provider Nurse Practitioner Family
DX: I87.2 Venous insufficiency (chronic) (peripheral) (principal)
CPT/HCPCS: 93970

== ENCOUNTER 2024-03-16 09:00 | Outpatient (CLI) | payer MEDICARE, OTHER, SELFPAY ==
[2024-03-16 09:41] LABS: Basophils % 0.8 %; Eosinophils # 0.2 10^3/uL (0.0-0.8); Eosinophils % 3.2 %; Hematocrit 38.8 % (36-47); Lymphocytes # 2.2 10^3/uL (0.8-4.8); Mean Corpuscular HGB Conc 31.4 g/dL (30-55); Mean Corpuscular Hemoglobin 29.5 pg (27-33); Mean Corpuscular Volume 93.7 fl (85-98); Mean Platelet Volume 10.7 fL (7.4-10.4); Monocytes # 0.7 10^3/uL (0.2-0.9); Monocytes % 12.4 %; Neutrophils # 2.22 10^3/uL (1.8-7.7); Neutrophils % 42.4 %; Nucleated Red Blood Cells % 0 %; Platelet Count 376 10^3/cmm (157-399); Red Blood Count 4.14 10^6/uL (3.85-5.65); Red Cell Distribution Width 15.9 % (12.1-15.1); White Blood Count 5.24 10^3/uL (3.29-11.43)
[2024-03-16 10:02] LABS: Erythrocyte Sedimentation Rate 3 mm/hr (0-15)
[2024-03-16 10:18] LABS: Alanine Aminotransferase 16 U/L (0-33); Albumin Level 4.1 g/dL (3.5-5.2); Alkaline Phosphatase 68 U/L (35-105); Aspartate Amino Transferase 20 U/L (0-32); Chol HDL Ratio 3.49 mg/dL (0.0-4.40); Cholesterol 150 mg/dL (0-200); Globulin 2.8 g/dL (1.3-4.6); HDL Cholesterol 43 mg/dL (60-100); LDL Cholesterol Calculated 80 mg/dL (50-129); LDL HDL Ratio 1.86 RATIO (0.00-3.22); Total Bilirubin 0.5 mg/dL (0.15-1.2); Total Protein 6.9 g/dL (6.6-8.7); Triglycerides 137 mg/dL (0-150)
[2024-03-16 11:04] LABS: T3 Free 3.2 PG/ML (2.0-4.4)
== END 2024-03-16 09:01 | disposition home or self-care (01) ==
LOC: LAB 09:03
PROVIDERS: PCP Family Medicine; Visit Provider Internal Medicine Rheumatology
DX: M06.041 Rheumatoid arthritis without rheumatoid factor, right hand (principal); M06.042 Rheumatoid arthritis without rheumatoid factor, left hand; Z79.899 Other long term (current) drug therapy; E03.9 Hypothyroidism, unspecified; M81.0 Age-related osteoporosis without current pathological fracture; I50.32 Chronic diastolic (congestive) heart failure; R00.2 Palpitations; E78.5 Hyperlipidemia, unspecified; E11.9 Type 2 diabetes mellitus without complications
CPT/HCPCS: 36415; 80061; 80076; 82565; 84443; 84481; 85025; 85651; 86140

== ENCOUNTER → 2024-03-25 11:57 | Outpatient (BNVA) | payer MEDICARE, OTHER, SELFPAY | PROVIDERS: PCP Family Medicine; Visit Provider Internal Medicine Cardiovascular Disease | DX: I25.10 Atherosclerotic heart disease of native coronary artery without angina pectoris (principal); I87.2 Venous insufficiency (chronic) (peripheral); I82.512 Chronic embolism and thrombosis of left femoral vein; I10 Essential (primary) hypertension | CPT/HCPCS: 99213 ==

== ENCOUNTER → 2024-03-31 08:17 | Outpatient (BNVA) | payer MEDICARE, OTHER, SELFPAY | PROVIDERS: PCP Family Medicine; Visit Provider Student in an Organized Health Care Education/Training Program | DX: M79.641 Pain in right hand; M79.642 Pain in left hand | CPT/HCPCS: 99213 ==

== ENCOUNTER → 2024-04-13 09:39 | Outpatient (BNVA) | payer MEDICARE, OTHER, SELFPAY | PROVIDERS: PCP Family Medicine; Visit Provider Internal Medicine Rheumatology | DX: Z79.899 Other long term (current) drug therapy (principal); M19.041 Primary osteoarthritis, right hand; M19.042 Primary osteoarthritis, left hand; M81.0 Age-related osteoporosis without current pathological fracture; I82.512 Chronic embolism and thrombosis of left femoral vein; M06.041 Rheumatoid arthritis without rheumatoid factor, right hand; M06.042 Rheumatoid arthritis without rheumatoid factor, left hand | CPT/HCPCS: 99214 ==

== ENCOUNTER 2024-07-23 09:49 | Oncology outpatient (recurring) (ONCR) | payer MEDICARE, OTHER, SELFPAY ==
[2024-07-23 10:14] LABS: Basophils % 0.6 %; Eosinophils # 0.2 10^3/uL (0.0-0.8); Eosinophils % 4.6 %; Lymphocytes # 2.4 10^3/uL (0.8-4.8); Lymphocytes % 47.3 %; Mean Corpuscular Hemoglobin 28.1 pg (27-33); Mean Corpuscular Volume 90.9 fl (85-98); Mean Platelet Volume 10.3 fL (7.4-10.4); Monocytes # 0.6 10^3/uL (0.2-0.9); Monocytes % 11.6 %; Neutrophils # 1.79 10^3/uL (1.8-7.7); Neutrophils % 35.7 %; Nucleated Red Blood Cells % 0 %; Platelet Count 331 10^3/cmm (157-399); Red Blood Count 4.62 10^6/uL (3.85-5.65); Red Cell Distribution Width 14.5 % (12.1-15.1); White Blood Count 5.01 10^3/uL (3.29-11.43)
[2024-07-23 10:36] LABS: Alanine Aminotransferase 11 U/L (0-33); Albumin Level 4.3 g/dL (3.5-5.2); Alkaline Phosphatase 84 U/L (35-105); Anion Gap 17.1 (5-19); Aspartate Amino Transferase 22 U/L (0-32); Blood Urea Nitrogen 16 mg/dL (8-23); Calcium 9.7 mg/dL (8.5-10.5); Carbon Dioxide 26 mmol/L (22-29); Chloride 104 mmol/L (98-107); Globulin 3.1 g/dL (1.3-4.6); Glucose 105 mg/dL (65-115); Osmolality Calculated 298 mOsm/kg (285-295); Potassium 4.1 mmol/L (3.5-5.1); Sodium 143 mmol/L (136-145); Total Bilirubin 0.6 mg/dL (0.15-1.2); Total Protein 7.4 g/dL (6.6-8.7)
[2024-07-23] MEDS: denosumab 60 mg SDV SUBCUT (13:45)
== END 2024-08-17 23:59 | disposition home or self-care (01) ==
PROVIDERS: Nurse Practitioner Family; PCP Family Medicine; Visit Provider Internal Medicine Medical Oncology
DX: M81.0 Age-related osteoporosis without current pathological fracture (principal); R35.0 Frequency of micturition; M54.50 Low back pain, unspecified; I82.401 Acute embolism and thrombosis of unspecified deep veins of right lower extremity; Z86.711 Personal history of pulmonary embolism; Z79.899 Other long term (current) drug therapy; Z79.01 Long term (current) use of anticoagulants; D49.2 Neoplasm of unspecified behavior of bone, soft tissue, and skin
CPT/HCPCS: 36415; 80053; 85025; 96372; 99215; J0897

== ENCOUNTER → 2024-08-10 10:13 | Outpatient (BNVA) | payer MEDICARE, OTHER, SELFPAY | PROVIDERS: PCP Family Medicine; Visit Provider Internal Medicine Rheumatology | DX: M19.041 Primary osteoarthritis, right hand (principal); M19.042 Primary osteoarthritis, left hand; M81.0 Age-related osteoporosis without current pathological fracture; I82.512 Chronic embolism and thrombosis of left femoral vein; Z79.899 Other long term (current) drug therapy; M06.041 Rheumatoid arthritis without rheumatoid factor, right hand; M06.042 Rheumatoid arthritis without rheumatoid factor, left hand | CPT/HCPCS: 99214 ==

== ENCOUNTER → 2024-08-12 09:14 | Outpatient (BNVA) | payer MEDICARE, OTHER, SELFPAY | PROVIDERS: PCP Family Medicine; Referring Provider Family Medicine; Visit Provider Nurse Practitioner Family | DX: L72.0 Epidermal cyst (principal); D22.5 Melanocytic nevi of trunk; L82.1 Other seborrheic keratosis; L81.4 Other melanin hyperpigmentation; X32.XXXA Exposure to sunlight, initial encounter; D48.5 Neoplasm of uncertain behavior of skin; L57.0 Actinic keratosis | CPT/HCPCS: 11102; 17000; 99203 ==

== ENCOUNTER → 2024-08-21 11:28 | Outpatient (BNVA) | payer MEDICARE, OTHER, SELFPAY | PROVIDERS: PCP Family Medicine; Visit Provider Internal Medicine Cardiovascular Disease | DX: I25.10 Atherosclerotic heart disease of native coronary artery without angina pectoris (principal); I10 Essential (primary) hypertension; I87.2 Venous insufficiency (chronic) (peripheral); E03.9 Hypothyroidism, unspecified | CPT/HCPCS: 99214 ==

== ENCOUNTER 2024-09-25 07:28 | Outpatient (CLI) | payer MEDICARE, OTHER, SELFPAY ==
--- NOTE | 2024-09-25 07:42 | NMCV_ITS ---
NM morelia perf SPECT r/s* [id number] Sussy Solorzano Age: 79 Gender: F : 1945 Exam Date: 09/25/2024 08:38 Ordering Phys: Bony Mendiola MD ([email or web address]) Technologist: AMBER Alvarado Exam Location: [facility] Indications: cp STRESS TEST Please see separate stress test report in [facility] for full findings IMAGE PROTOCOL Rest/Stress 1 Day Radiopharmaceutical Dose (mCi) Administration Site Administered by Rest: Tc-99m 10.4 IV AMBER Alvarado Sestamibi Stress:Tc-99m 32.7 IV AMBER Alvarado Sestamibi Rest: 25-Sep-2024 60 Discovery 630 Stress: 25-Sep-2024 30 Discovery 630 0.4mg Lexiscan. Supine position only as patient was unable to lay prone. Patient had to be re imaged multiple times due to uptake because of issues with constipation. It was explained to the patient she needed to eat and drink something to clear out some of the activity for better images and she became aggitated stating she would not eat or drink anything. SPECT RESULTS Technical Quality: Good Raw Data Analysis: Normal Image Corrections: No attenuation or motion correction applied Summed Stress Score: 0 Summed Rest Score: 0 Summed Difference Score: 0 PERFUSION FINDINGS Fairly uniform myocardial tracer uptake with no significant Perfusion abnormalities FUNCTIONAL RESULTS (calculated via Gated SPECT) Stress Image LV EF (%): 74 Stress EDV (mL):70 TID: 0.97 Stress ESV (mL):18 FUNCTIONAL FINDINGS: Segmental wall motion analysis revealing no gross wall motion abnormalities IMPRESSIONS 1. Myocardial perfusion imaging revealing uniform myocardial tracer uptake with no significant Perfusion abnormalities 2. Normal LV ejection fraction of 74% 3. LV wall motion analysis revealing no gross wall motion abnormalities. 4. Normal LV volume Low probability for coronary ischemia, based on the above findings Dr Nicole Lin MD FAC (Electronically Signed) Final Date: 25 Sep 2024 23:44 S
--- NOTE | 2024-09-25 07:42 | ECG_ITS ---
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 The perfusion scan will be documented separately. DATA: Baseline heart rate was 82 beats per minute. Baseline blood pressure was 141/79 millimeters of mercury. Target heart rate was 143. Maximum heart rate achieved was 123. which was 86% of the predicted target heart rate. Maximum blood pressure was 179/97 millimeters of mercury. The reason for ending the test was completion of the protocol. The patient did not experience any symptoms. ELECTROCARDIOGRAM: BASELINE: Sinus rhythm. Normal axis. Otherwise, anteroseptal T wave inversion. No arrhythmia noted. After Lexiscan injection: significant inferolateral ST-T changes suggestive of ischemic noted. No arrhythmia noted. CONCLUSION: Please note due to baseline abnormality of the EKG specificity and sensitivity of the EKG portion of LexiScan MIBI stress test will be low 1. EKG is suggestive of ischemia 2. Lexiscan injection unremarkable. 3. Perfusion scan will be documented separately. Electronically Signed On 10-20-2024 21:50:22 CDT by BONY NORIEGA [email or web address]
[2024-09-25 07:45] VITALS: BMI 25.6
[2024-09-25] MEDS: regadenoson 0.4 Mg/5 ml Syringe IVP (10:41)
[2024-09-25] MEDS: ondansetron 2 mg/ML SDV 2 mL 4 MG IVP (10:47)
[2024-09-25] MEDS: aminophylline 25 mg/mL SDV 20 mL IVP ×2 (10:49→10:51)
[2024-09-25 10:59] VITALS: BP 149/80; PULSE 93
--- NOTE | 2024-09-25 12:00 | USCV_ITS ---
[place], [place] Age: 79 Gender: F : 1945 Exam Date: 09/25/2024 10:06 Ordering Phys: Bony Mendiola MD ([email or web address]) Technologist: Exam Location: [place] Indication: cp mumurs BP: 125 / 74 HR: 85 Rhythm: Sinus Technical Quality: Adequate MEASUREMENTS (Male / Female) Normal Values 2D ECHO LV Diastolic Diameter PLAX 3.9 cm 4.2 - 5.9 / 3.9 - 5.3 cm IVS Diastolic Thickness 1.3 cm 0.6 - 1.0 / 0.6 - 0.9 cm IVS Systolic Thickness 1.3 cm LVPW Diastolic Thickness 1.1 cm 0.6 - 1.0 / 0.6 - 0.9 cm LVPW Systolic Thickness 1.8 cm LVOT Diameter 2.0 cm LV Ejection Fraction 2D Teich 54.2 % LV Ejection Fraction MOD 4C 75.5 % LV Ejection Fraction MOD 2C 68.5 % LV Ejection Fraction 2C AL 70.7 % LA Diameter 4.0 cm RA Systolic Volume 4C AL 38.1 ml RA Systolic Volume 4C MOD 35.9 ml LA Sys Volume AL 59.1 cm cubed LA Sys Volume Index AL 35.6 cm cubed/m squared Aorta at Sinotubular Diameter 2.7 cm IVC Diameter 1.5 cm M-MODE LA Ao Ratio MM 1.3 AV Cusp Separation MM 1.9 cm DOPPLER AV Peak Velocity 152.0 cm/s LVOT Peak Velocity 87.0 cm/s AV Area Cont Eq vti 2.6 cm squared AV Area Cont Eq pk 1.8 cm squared MV Peak Velocity 576.0 cm/s MV Area PHT 4.0 cm squared Mitral E to A Ratio 0.9 TV Peak Velocity 266.0 cm/s TR Peak Velocity 273.0 cm/s TR Peak Gradient 29.8 mmHg TV Peak E Velocity 82.0 cm/s PV Peak Velocity 72.0 cm/s FINDINGS Left Ventricle Normal left ventricular size, systolic function and wall thickness, with no regional wall motion abnormalities. Left ventricular ejection fraction is estimated at 60 %. Grade I/IV diastolic dysfunction (abnormal relaxation filling pattern), normal to mildly elevated filling pressures. Right Ventricle The right ventricle is normal in size and function. Right Atrium The right atrium is normal in size. Left Atrium Moderately increased left atrial size. Mitral Valve Mildly thickened mitral valve. No mitral valve stenosis. Mild- moderate mitral valve regurgitation. Aortic Valve Mild aortic valve calcification. No aortic valve stenosis. Mild aortic valve regurgitation. Tricuspid Valve Moderate tricuspid valve regurgitation. Pulmonic Valve Structurally normal pulmonic valve without significant stenosis. There is no pulmonic regurgitation. Pericardium Normal pericardium without effusion. Aorta Normal ascending aorta dimension. IVC The inferior vena cava appears normal. CONCLUSIONS Normal left ventricular size, systolic function and wall thickness, with no regional wall motion abnormalities. Left ventricular ejection fraction is estimated at 60 %. Grade I/IV diastolic dysfunction (abnormal relaxation filling pattern), normal to mildly elevated filling pressures. Moderately increased left atrial size. Mildly thickened mitral valve. No mitral valve stenosis. Mild- moderate mitral valve regurgitation. Mild aortic valve calcification. No aortic valve stenosis. Mild aortic valve regurgitation. Moderate tricuspid valve regurgitation. Right atrial pressure is around 10mm of mercury. There is no pericardial effusion. Bony Mendiola MD (Electronically Signed) Final Date: 08 Oct 2024 20:59 S
== END 2024-09-25 07:29 | disposition home or self-care (01) ==
LOC: CDL 07:29
PROVIDERS: PCP Family Medicine; Visit Provider Internal Medicine Cardiovascular Disease
DX: R07.9 Chest pain, unspecified (principal); R06.02 Shortness of breath; R93.1 Abnormal findings on diagnostic imaging of heart and coronary circulation; I34.0 Nonrheumatic mitral (valve) insufficiency; I35.1 Nonrheumatic aortic (valve) insufficiency; I35.8 Other nonrheumatic aortic valve disorders; I07.1 Rheumatic tricuspid insufficiency
CPT/HCPCS: 36415; 78452; 93017; 93306; 96374; A9500; J0280; J2405; J2785

== ENCOUNTER → 2024-09-28 12:55 | Outpatient (BNVA) | payer MEDICARE, OTHER, SELFPAY | PROVIDERS: PCP Family Medicine; Visit Provider Internal Medicine Cardiovascular Disease | DX: I10 Essential (primary) hypertension (principal); I87.2 Venous insufficiency (chronic) (peripheral); E03.9 Hypothyroidism, unspecified; I25.10 Atherosclerotic heart disease of native coronary artery without angina pectoris; E78.5 Hyperlipidemia, unspecified; I34.0 Nonrheumatic mitral (valve) insufficiency; I48.91 Unspecified atrial fibrillation; Z79.01 Long term (current) use of anticoagulants; Z79.82 Long term (current) use of aspirin | CPT/HCPCS: 99214 ==

== ENCOUNTER → 2024-11-04 08:35 | Outpatient (BNVA) | payer MEDICARE, OTHER, SELFPAY | PROVIDERS: PCP Family Medicine; Visit Provider Family Medicine | DX: I10 Essential (primary) hypertension (principal); I50.32 Chronic diastolic (congestive) heart failure; I48.91 Unspecified atrial fibrillation; Z79.01 Long term (current) use of anticoagulants; E03.9 Hypothyroidism, unspecified; M25.50 Pain in unspecified joint; Z79.899 Other long term (current) drug therapy | CPT/HCPCS: 80053; 80061; 83036; 84439; 84443; 84481; 85025; 86140 ==

== ENCOUNTER 2025-01-20 08:31 | Oncology outpatient (recurring) (ONCR) | payer MEDICARE, OTHER, SELFPAY ==
[2025-01-20 08:58] LABS: Hematocrit 40.1 % (36-47); Hemoglobin 12.70 g/dL (11.27-16.99); Mean Corpuscular HGB Conc 31.7 g/dL (30-55); Mean Corpuscular Hemoglobin 29.6 pg (27-33); Mean Corpuscular Volume 93.5 fl (85-98); Nucleated Red Blood Cells % 0 %; Platelet Count 241 10^3/cmm (157-399); Red Blood Count 4.29 10^6/uL (3.85-5.65); White Blood Count 4.58 10^3/uL (3.29-11.43)
[2025-01-20 09:17] LABS: Alanine Aminotransferase 15 U/L (0-33); Albumin Level 4.3 g/dL (3.5-5.2); Alkaline Phosphatase 68 U/L (35-105); Aspartate Amino Transferase 27 U/L (0-32); Blood Urea Nitrogen 12 mg/dL (8-23); Calcium 9.4 mg/dL (8.5-10.5); Carbon Dioxide 27 mmol/L (22-29); Chloride 102 mmol/L (98-107); Creatinine Clr Calc Pharmacy 46.1323; Globulin 2.6 g/dL (1.3-4.6); Glucose 98 mg/dL (65-115); Osmolality Calculated 290 mOsm/kg (285-295); Sodium 140 mmol/L (136-145); Total Protein 6.9 g/dL (6.6-8.7)
[2025-01-20 10:25] LABS: Anion Gap 15.5 (5-19); Potassium 4.5 mmol/L (3.5-5.1)
[2025-01-20] MEDS: denosumab 60 mg SDV SUBCUT (11:09)
== END 2025-02-16 23:59 | disposition home or self-care (01) ==
PROVIDERS: Internal Medicine; PCP Family Medicine; Visit Provider Internal Medicine Medical Oncology
DX: M81.0 Age-related osteoporosis without current pathological fracture (principal); I82.409 Acute embolism and thrombosis of unspecified deep veins of unspecified lower extremity; I83.92 Asymptomatic varicose veins of left lower extremity; Z79.899 Other long term (current) drug therapy
CPT/HCPCS: 36415; 80053; 85025; 96372; 99213; J0897

== ENCOUNTER 2025-02-08 06:23 | Outpatient (CLI) | payer MEDICARE, OTHER, SELFPAY ==
[2025-02-08] MEDS: iohexol 350 mg/mL 500 mL Btl (per mL) IV (06:53)
--- NOTE | 2025-02-08 07:00 | CT_ITS ---
WS: [id number] CT chest w con* [id number] HISTORY: worsening sob TECHNIQUE: Axial imaging performed through the thorax. Coronal and sagittal reformats are submitted. All CT scans at [facility] use at least one of these dose optimization techniques: automated exposure control; mA and/or kV adjustment per patient size (includes targeted exams where dose is matched to clinical indication); or iterative reconstruction. CONTRAST: Omnipaque 350; 100 mL IV. DLP: 213.12 mGy.cm COMPARISON: 08/07/2021, 04/30/2019 and 04/24/2021 Lungs and central airway: Mild pulmonary hyperexpanded lungs. There are a few very tiny micronodules in the periphery of the lungs. No mass. No pneumonia. Pleura: Normal. No pleural effusion. Heart and pericardium: Mildly enlarged heart. No pericardial effusion. Mediastinum and axel: Prominent but stable mediastinal and hilar lymph nodes. AP window lymph node measures 1.3 cm. Inferior RIGHT paratracheal lymph node 1.6 cm. Subcentimeter bilateral hilar lymph nodes. These lymph nodes have been present on several prior exams. Vessels: Atherosclerotic changes within the aorta. Ectatic thoracic aorta. Normal size pulmonary artery. Chest wall and lower neck: Reidentified is a large nodule RIGHT thyroid which extends substernal. Nodule measures 3.7 x 2.5 x 3.0 cm. This nodule has been present on multiple prior exams without significant increase in size. Upper abdomen: Scattered low-attenuation masses within the liver. Normal portal vein. RIGHT renal cyst 2.3 cm. No adrenal mass. Surgical sutures are noted near the stomach. Osseous structures: Mild increase in thoracic kyphosis. Prior vertebroplasties at T8 and T9. Very mild anterior wedging of T4. CT/CT chest w con* [id number] IMPRESSION: 1. No pulmonary mass or metastatic disease. 2. Long-term stability of the indeterminate mediastinal lymph nodes. Stable si nce 2019. 3. Large RIGHT thyroid nodule with long-term stability extends substernal. Thy roid nodule measures 3.7 x 2.5 x 3.0 cm. 4. Hepatic cysts. 5. Prior vertebroplasties at T8 and T9. 6. Mild cardiomegaly.
== END 2025-02-08 06:24 | disposition home or self-care (01) ==
LOC: RAD 06:25
PROVIDERS: PCP Family Medicine; Visit Provider Family Medicine
DX: R06.00 Dyspnea, unspecified (principal); R06.02 Shortness of breath; N28.1 Cyst of kidney, acquired; E04.1 Nontoxic single thyroid nodule; I51.7 Cardiomegaly; Z87.311 Personal history of (healed) other pathological fracture
CPT/HCPCS: 71260

== ENCOUNTER 2025-02-08 14:14 | Outpatient (CLI) | payer MEDICARE, OTHER, SELFPAY ==
--- NOTE | 2025-02-08 14:22 | MR_ITS ---
WS: [id number] MRI ORBITS WITH AND WITHOUT CONTRAST. COMPARISON: 03/12/2023, 01/14/2015, CT head 02/23/2023 Multiplanar, multisequence imaging is performed with and without contrast. History: Previously described mass associated with the RIGHT orbit. Normal diffusion imaging. Mild cerebral atrophy and small vessel disease. No hemorrhage. No inferior displacement of the cerebellar tonsils. There is a very subtle area of enhancement measuring 4 x 3 mm associated with the lateral RIGHT optic nerve near the superior orbital fissure. Mass has decreased in size and overall conspicuity since the prior study from 03/12/2023. This mass is very difficult to visualize on the noncontrast exam. No intracranial enhancing mass. No vascular malformations. No paranasal sinus disease. Mastoid air cells are clear. Calvarium and scalp are negative. MR/MR head orbits wo/w* [id number] IMPRESSION: 1. Seen only on the postcontrast imaging is a very small 4 x 3 mm enhancing ma ss adjacent to the lateral RIGHT optic nerve. This mass is decreased in size si nce 03/12/2023 and is not definitely seen on the precontrast imaging. This may be a small venous varix which may be thrombosed. Meningioma and nerve sheath tu mor within the differential. 2. No acute infarcts. No enhancing intracranial mass.
[2025-02-08] MEDS: gadobenate dimeglumine 20 mL vial IV (15:05)
== END 2025-02-08 14:15 | disposition home or self-care (01) ==
PROVIDERS: PCP Family Medicine; Visit Provider Family Medicine
DX: D31.61 Benign neoplasm of unspecified site of right orbit (principal); I63.9 Cerebral infarction, unspecified
CPT/HCPCS: 70543; 70553

== ENCOUNTER → 2025-02-09 13:03 | Outpatient (BNVA) | payer MEDICARE, OTHER, SELFPAY | PROVIDERS: PCP Family Medicine; Visit Provider Internal Medicine Rheumatology | DX: M19.041 Primary osteoarthritis, right hand (principal); M19.042 Primary osteoarthritis, left hand; M81.0 Age-related osteoporosis without current pathological fracture; Z79.899 Other long term (current) drug therapy; I82.512 Chronic embolism and thrombosis of left femoral vein; M06.041 Rheumatoid arthritis without rheumatoid factor, right hand; M06.042 Rheumatoid arthritis without rheumatoid factor, left hand | CPT/HCPCS: 99214 ==

== ENCOUNTER → 2025-02-11 15:27 | Outpatient (BNVA) | payer MEDICARE, OTHER, SELFPAY | PROVIDERS: PCP Family Medicine; Visit Provider Internal Medicine Cardiovascular Disease | DX: I87.2 Venous insufficiency (chronic) (peripheral) (principal); I11.0 Hypertensive heart disease with heart failure; I50.32 Chronic diastolic (congestive) heart failure; I48.91 Unspecified atrial fibrillation; E78.5 Hyperlipidemia, unspecified; I25.10 Atherosclerotic heart disease of native coronary artery without angina pectoris; I08.1 Rheumatic disorders of both mitral and tricuspid valves; Z79.01 Long term (current) use of anticoagulants; Z79.82 Long term (current) use of aspirin | CPT/HCPCS: 99214 ==

== ENCOUNTER 2025-02-25 07:30 | Outpatient (CLI) | payer MEDICARE, OTHER, SELFPAY ==
[2025-02-25 08:07] LABS: Hematocrit 40.9 % (36-47); Hemoglobin 13.10 g/dL (11.27-16.99); Mean Corpuscular HGB Conc 32.0 g/dL (30-55); Mean Corpuscular Hemoglobin 29.6 pg (27-33); Mean Corpuscular Volume 92.5 fl (85-98); Nucleated Red Blood Cells % 0 %; Platelet Count 259 10^3/cmm (157-399); Red Blood Count 4.42 10^6/uL (3.85-5.65); White Blood Count 3.90 10^3/uL (3.29-11.43)
[2025-02-25 08:30] LABS: INR 1.06 (0.8-1.2); Prothrombin Time 14.60 SECONDS (12.1-14.9)
[2025-02-25 08:37] LABS: Alanine Aminotransferase 12 U/L (0-33); Albumin Level 4.3 g/dL (3.5-5.2); Alkaline Phosphatase 58 U/L (35-105); Anion Gap 14.1 (5-19); Aspartate Amino Transferase 21 U/L (0-32); Blood Urea Nitrogen 17 mg/dL (8-23); Calcium 9.0 mg/dL (8.5-10.5); Carbon Dioxide 26 mmol/L (22-29); Chloride 106 mmol/L (98-107); Globulin 2.6 g/dL (1.3-4.6); Glucose 103 mg/dL (65-115); Osmolality Calculated 296 mOsm/kg (285-295); Potassium 4.1 mmol/L (3.5-5.1); Sodium 142 mmol/L (136-145); Total Protein 6.9 g/dL (6.6-8.7)
== END 2025-02-25 07:31 | disposition home or self-care (01) ==
LOC: LAB 07:33
PROVIDERS: PCP Family Medicine; Visit Provider Internal Medicine Cardiovascular Disease
DX: R07.9 Chest pain, unspecified (principal); I48.91 Unspecified atrial fibrillation; R06.00 Dyspnea, unspecified; I10 Essential (primary) hypertension
CPT/HCPCS: 36415; 80053; 85025; 85610

== ENCOUNTER 2025-03-02 05:46 | Outpatient (CLI) | payer MEDICARE, OTHER, SELFPAY ==
[2025-03-02] VITALS (14 sets, daily range): BP systolic 98–153; BP diastolic 55–73; PULSE 58–65; RESP 14–19; TEMP 36.8; O2SAT 95–98; BMI 25.4
--- NOTE | 2025-03-02 06:00 | XACV_ITS ---
Ht: 157 cm Wt: 63 kg BSA: 1.67 m2 Gender: Female : 1945 Any Known Allergies: Other Exam Priority: Routine Indication(s): - Atypical chest pain - Abnormal nuclear perfusion study Procedure(s): Procedure Description: Diagnostic procedure Procedure Description: Left Heart Catheterization Procedure Description: Left ventriculography Procedure Description: Coronary Angiography Maury WORKMAN; Diagnostic Findings * Left Main has no disease. * Circumflex has no disease. * Proximal Left Anterior Descending to Distal Left Anterior Descending: minimal 30% stenosis, MARCEL: 3 flow. * Proximal Right Coronary Artery to Distal Right Coronary Artery: minimal 30% stenosis, MARCEL: 3 flow. * Coronary angiography shows right dominance. PCI Indication: New Onset Angina <= 2 months Conclusions 1. There is minimal coronary artery disease with two vessel disease. 2. All chao are normal. 3. Normal left ventricular systolic function. Ejection fraction of 65%. Recommendations * Continue current medical management and risk factor modification. Diagnostic RX Recommendation: medical therapy and/or counseling Ventriculography Ejection Fraction: 65.0 % Pressures Phase:Rest AO : 137 / 63 ( 97 ) @ 9:00:00 AM 142 / 66 ( 100 ) @ 9:00:00 AM LV : 137 / 17 @ 8:58:00 AM 121 / 12 / 23 @ 8:59:00 AM 133 / 14 / 21 @ 9:00:00 AM Valves Phase:DefaultPhase AV : 0.0 @ 8:08:36 AM AV Mean Gradient: 0.0 @ 8:08:36 AM Clinical Evaluation EBL: 5mL-10mL Procedural Details Procedure Consent Obtained. Pre-Procedure Time Out. Identified patient by full name and date of as verbalized by the patient/guarantor. Does the consent match the physician's order: Yes. Accurate & Complete Informed Consent: Yes. Inpatient/Outpatient History & Physical on Chart: Yes. If H&P is completed, is and addenduem needed: No; If yes, is the addendum complete: N/A. Visualize and Verify Site with Patient/Guarantor: N/A. The risks, benefits, and alternatives of sedation and/or procedure were discussed by physician. The patient agrees to continue. Procedure started. [facility] Clinical Fraility Score: 3: Managing Well. Capability Lead Indications: Other. Chest Pain Symptom Assessment: Atypical Angina. Cardiovascular Instability: No. Correct patient, site and procedure confirmed by cath team. Current diagnosis: Atypical angina; Abnormal stress test. PERRLA. Strong, equal hand stone trimmer bilaterally. Lungs clear x 5 lobes. IV Site on Arrival: 20 gauge in the left anticubital. IV Fluids: 0.9% NaCl at KVO. 0 mL infused prior to center medical and lab director. Pre Procedural Pulses: bilateral posterior tibial was 1+. Pre Procedural Pulses: bilateral dorsalis pedis was 2+. Pre Procedural Pulses: bilateral radial was 3+. Oxygen started at 3liters/min via nasal canula. right groin was prepped with chloroprep then draped in the usual sterile fashion. right radial was prepped with chloroprep then draped in the usual sterile fashion. Physician notified. Baseline sample Acquired. HR: 62 BPM. Physician arrived. Patient's family unavailable. Physician scrubbed in. Immediate Pre-Procedure Time Out. Correct Patient: Yes; Correct Procedure: Yes; Correct Site: Yes; Correct Patient Position: Yes; Correct Supplies: Yes; Dried Flammable Prep: Yes; Blood Products Available: N/A;. Lidocaine 1% infiltrated to the right radial. Arterial access obtained. A 5 pakistani Manfred catheter in over wire. Multiple views taken of left coronary artery. Catheter redirected to the RCA. Multiple views taken of right coronary artery. Catheter removed over the exchange wire. A 5 pakistani Angled Pig catheter in over wire. EDP Sample taken: LV 137/10,17; HR: 70 BPM; SpO2: 97%. LV gram performed in CONCEPCION @ 10 mL/second for a total of 30 mL. Patient EF: Normal. EDP Sample taken: LV 121/12,23; HR: 65 BPM; SpO2: 97%. Pullback taken: LV 133/14,21; AO 137/63(97); Mean: 0mmHg, Peak to Peak: 0mmHg, SEP: 6sec/min; HR: 70 BPM; SpO2: 97%. Catheter removed over the exchange wire. Physician review of films. Physician scrubbed out. [id number]. A TR Band was successful obtaining hemostatsis at the Right Radial artery insertion site. TR band placed. Hemostasis obtained. Post Procedure: Pulses reassessed and unchanged. PERRLA. Strong, equal hand stone trimmer bilaterally. No VTE prophylaxis required. Medication's Wasted: Lidocaine 1% = 18 ml , Versed = 1 mg , Nitro = 49.8 mg , Heparin = 1000 units , Fentanyl = 75 mcg. Total IV fluids: 20 mL. Fluoro: 2:03. Contrast type used: Omnipaque 300 mg/mL, 150 mL bottle. Post-op diagnosis: Non Obstructive CAD. Complications: None. Estimated blood loss: 5mL-10mL. Responsiveness - Normal response to verbal stimuli; alert and oriented, PERRLA. Airway - Unaffected, no intervention required; spontaneous ventilation. Circulation: W/N/L, pulses unchanged. Nausea/Vomiting: No. Procedure completed. Patient transferred by wheelchair to CPRU. Current Diagnosis : Chest Pain. Vital chart was stopped. Access Site Site: Right Radial artery Sheath Size: 6 Fr Hemostasis Method: TR Band Hemostasis Success: Successful Procedure Medications Start: 7:33 AM Stop: 7:33 AM Medication: Versed 1 mg and Fentanyl 25 mcg Amount: 1 Route: I.V. Start: 7:46 AM Stop: 7:46 AM Medication: Nitrogylcerin Amount: 200 mcg Route: I.A. Start: 7:47 AM Stop: 7:47 AM Medication: Heparin Amount: 5000 units Route: I.V. I, the attending physician, have reviewed and verified all procedure medications. Yes, all medications given per verbal order History/Risk Factors Hypertension: Yes Dyslipidemia: Yes Peripheral Arterial Disease (PAD): No Myocardial Infarction (AK): No Obesity: No Renal Disease: No Tobacco Use: Never Prior Interventions PCI: No CABG: No Valve Surgery: No Report Signatures Finalized by Bony Mendiola MD on 03/21/2025 08:56 PM
--- NOTE | 2025-03-02 07:33 | W.PM.OPSUD ---
Surgery/Procedure H&P Update DATE OF PROCEDURE: March 02, 2025 DATE H&P PERFORMED: 02/11/25 H&P UPDATE INFORMATION: I have reviewed H&P completed within last 30 days, I have examined patient prior to procedure and No changes to prior documentation PRIMARY INDICATION FOR PROCEDURE: Abnormal stress test EKG portion with inferolateral changes. Worsening of shortness of breath angina equivalent History of prior balloon angioplasty to distal RCA for inability to take Plavix in 2019. Currently patient cannot take Plavix denies any GI bleed History of prior stroke atrial fibrillation on Eliquis Mitral valve regurgitation 79-year-old female past medical history significant for above defined problem underwent stress test in September of this year nuclear portion was fine however EKG portion showed inferolateral ST depression suggestive of ischemia, patient had balloon angioplasty of RCA in 2019, medical management was opted, despite of optimization of medical management patient continues to worsen and cannot walk very far away. No pulmonary causes were detected. She is on Eliquis for atrial fibrillation. Since patient continues to worsen it was thought that shortness of breath could be anginal equivalent and because of the fact patient has EKG changes suggestive of ischemia on the stress test and has not improved with medication left heart cath was planned. It is the reason patient is here. PLANNED PROCEDURE: Operation Date: 03/02/25 07:00 Proposed Procedures p Cardiac Catheterization(Left) - Bony Mendiola MD PATIENT REASSESSED PRIOR TO SEDATION, WITH NO CHANGE NOTED: Yes PHYSICAL EXAM: alert, oriented x 3, clear to auscultation bilaterally and regular rate & rhythm AIRWAY EVAL/ANESTHESIA PLAN: ASA II, Risks, benefits & alternatives of sedation and/or procedure discussed and Patient agrees to continue as planned ADDITIONAL INFORMATION: Patient has been explained all risk-benefit and alternative for the procedure. Patient understand 2% risk of stroke major bleed. Patient understand 5% risk of minor bleeding oozing infection hematoma contrast-induced nephropathy urgent or emergent vascular or bypass surgery. Patient agrees to it and would like to proceed with it
--- NOTE | 2025-03-02 08:15 | PC.NURSE ---
Received the patient back from the metallurgical laboratory assistant via cot s/p Diagnostic C. Drowsy but, A & [address] monitor [address] and vital signs obtained. TR band intact to the right wrist. No bleeding or hematoma noted. Palpable radial pulse. No other assessment changes noted from pre cath assessment. Family at bedside. No concerns voiced at this time.
--- NOTE | 2025-03-02 09:17 | PC.NURSE ---
Letting the air out of the TR band per protocol. No other assessment changes noted at this time.
--- NOTE | 2025-03-02 10:34 | PC.NURSE ---
TR band off per protocol. Right wrist area cleansed with warm water and patted dry. A large band aid was applied to the site and loosely secured with coban. No bleeding or hematoma noted. Palpable radial pulse. Patient tolerated well.
== END 2025-03-02 05:47 | disposition home or self-care (01) ==
PROVIDERS: PCP Family Medicine; Visit Provider Internal Medicine Cardiovascular Disease
DX: I25.118 Atherosclerotic heart disease of native coronary artery with other forms of angina pectoris (principal); I10 Essential (primary) hypertension; E78.5 Hyperlipidemia, unspecified; I48.91 Unspecified atrial fibrillation; I87.2 Venous insufficiency (chronic) (peripheral); Z79.82 Long term (current) use of aspirin; K21.9 Gastro-esophageal reflux disease without esophagitis; Z86.711 Personal history of pulmonary embolism; I07.9 Rheumatic tricuspid valve disease, unspecified
CPT/HCPCS: 36415; 93458; 99152; 99153; C1769; C1887; C1894; J1644; J2250; J3010; J3490; J7030; J9999; Q0163; Q9967

== ENCOUNTER → 2025-04-06 07:43 | Outpatient (BNVA) | payer MEDICARE, OTHER, SELFPAY | PROVIDERS: PCP Family Medicine; Visit Provider Student in an Organized Health Care Education/Training Program | DX: M65.4 Radial styloid tenosynovitis [de Quervain] (principal); M19.041 Primary osteoarthritis, right hand; M19.042 Primary osteoarthritis, left hand | CPT/HCPCS: 73130; 99214 ==

== ENCOUNTER → 2025-04-19 12:51 | Outpatient (BNVA) | payer MEDICARE, OTHER, SELFPAY | PROVIDERS: PCP Family Medicine; Visit Provider Internal Medicine Cardiovascular Disease | DX: I48.91 Unspecified atrial fibrillation (principal); I10 Essential (primary) hypertension; Z79.01 Long term (current) use of anticoagulants | CPT/HCPCS: 99214 ==

== ENCOUNTER 2025-05-07 05:52 | Day surgery (SDC) | payer MEDICARE, OTHER, SELFPAY ==
[2025-05-07] VITALS (8 sets, daily range): BP systolic 115–154; BP diastolic 67–77; PULSE 63–75; RESP 16–18; TEMP 36.1–36.3; O2SAT 91–98; BMI 25.4
--- NOTE | 2025-05-07 06:02 | ANES.PREANE2 ---
Pre-Anesthetic Assessment Height/Weight: Height 5 ft 2 in Preop Diagnosis: De Quervain's Operation Date: 05/07/25 07:00 Proposed Procedures p De Quervain's Release(Left) - Govind Johnston, DO s Removal Loose Bodies Loose Body Removal(Left) - Govind Bishop, DO Was Beta Ana taken within 24 hours: N/A Was Clonidine taken within 24 hours: N/A Social No alcohol and No tobacco Exam alert, oriented x 3 and clear to auscultation bilaterally Airway Submandibular: within normal limits Cervical ROM: within normal limits Mallampati: Class I Comments: Comments: Edentulous Anesthetic Plan ASA status: 3 Anesthesia: MAC Other: Patient had a stroke after a foot surgery about 4 years ago, no residual symptoms N.p.o. since yesterday evening History of GERD on omeprazole Patient was recently seen by cardiology, reporting significant fatigue and lack of energy as well as SOB. Patient had a balloon angioplasty in 2019 and is on chronic Eliquis for A-fib Left heart cath revealing minimal disease Echo performed 09/25/2024 showing EF of 60% with diastolic dysfunction Labs reviewed 02/25/2025 and acceptable for procedure Plan for light MAC [facility] Medications/Allergies Home Medications ?Medication ?Instructions ?Recorded ?Confirmed ?Last Taken ?Type cholecalciferol (vitamin D3) 25 1,000 unit PO QAM 05/19/19 05/05/25 05/05/25 History mcg (1,000 unit) capsule denosumab 60 mg/mL subcutaneous 60 mg SUBCUT .[id number] 11/13/23 05/05/25 03/22/25 History syringe (Prolia) digoxin 125 mcg (0.125 mg) tablet 125 mcg PO QAM #90 tabs 07/27/24 05/05/25 05/05/25 Rx nitrofurantoin 100 mg PO DAILY #30 caps 08/03/24 05/05/25 05/05/25 Rx monohydrate/macrocrystals 100 mg capsule (Macrobid) levothyroxine 50 mcg tablet 50 mcg PO DAILY #90 tabs 11/04/24 05/05/25 05/05/25 Rx bisoprolol fumarate 10 mg tablet 10 mg PO DAILY #90 tabs 11/06/24 05/05/25 05/05/25 Rx potassium chloride 10 mEq 10 meq PO DAILY PRN WITH LASIX #90 12/17/24 05/05/25 Unknown Rx capsule,extended release caps tocilizumab 162 mg/0.9 mL 162 mg (0.9 mL) SUBCUT .every 7 02/09/25 05/05/25 04/29/25 Rx subcutaneous syringe (Actemra) days 28 days #3.6 mL clopidogrel 75 mg tablet 75 mg PO DAILY #90 tabs 02/11/25 05/05/25 05/02/25 Rx atorvastatin 20 mg tablet 20 mg PO DAILY 03/01/25 05/05/25 05/05/25 History cetirizine 10 mg tablet 10 mg PO DAILY 03/01/25 05/05/25 05/05/25 History fluticasone propionate 50 2 spray intranasal DAILY PRN 03/01/25 05/05/25 03/01/25 History mcg/actuation nasal allergies spray,suspension furosemide 20 mg tablet 20 mg PO DAILY PRN Edema 03/01/25 05/05/25 03/01/25 History omeprazole 40 mg capsule,delayed 40 mg PO BEDTIME 03/01/25 05/05/25 05/05/25 History release nitroglycerin 0.4 mg sublingual 0.4 mg sublingual Q5M PRN chest 03/08/25 05/05/25 Unknown Rx tablet (Nitrostat) pain #20 tabs prednisone 10 mg tablet See Rx Instructions PO .COMPLEX 03/22/25 05/05/25 Unknown Rx PRN joint pain #30 tabs apixaban 5 mg tablet (Eliquis) 5 mg PO BID #180 tabs 04/12/25 05/05/25 05/02/25 Rx losartan 50 mg tablet 50 mg PO DAILY #90 tabs 04/19/25 05/05/25 05/05/25 Rx diltiazem HCl 180 mg 180 mg PO Q24H #90 caps 04/22/25 05/05/25 05/07/25 04:00 Rx capsule,extended release 24 hr (Cardizem CD) montelukast 10 mg tablet 10 mg PO DAILY 05/05/25 05/05/25 05/05/25 History Allergies Allergy/AdvReac Type Severity Reaction Status Date / Time isosorbide Allergy Severe Burning in Verified 05/07/25 06:16 chest; Dizzy; Nauseous; Pain in jaws hydroxychloroquine Allergy Unknown ADR-Headach Verified 05/07/25 06:16 e latex Allergy ALGY-Rash Verified 05/07/25 06:16 hydrocodone AdvReac Intermediate hallucinati Verified 05/07/25 06:16 ng methotrexate AdvReac Intermediate adv-hair Verified 05/07/25 06:16 loss and skin problems oxycodone AdvReac Intermediate hallucinati Verified 05/07/25 06:16 on [facility] Medical History Seronegative rheumatoid arthritis of both hands High risk medication use Polyarthralgia History of pulmonary embolism Recurrent deep vein thrombosis (DVT) Hypothyroidism Gastroesophageal reflux disease Coronary artery disease Tricuspid valve disorders, non-rheumatic Hypertension Osteoporosis Osteoarthritis of hands, bilateral Pulmonary hypertension Hyperlipidemia Surgical History Status post surgical removal of malignant neoplasm of skin Basal cell carcinoma of the nose History of surgery 10/2021 Stents cleaned out in groin per patient by Dr. Nolan Saleh, vascular surgeon at the [facility] at [place], [place] History of coronary angiogram (~06/2019) balloon angioplasty to distal RCA stenosis History of partial gastrectomy H/O esophagogastroduodenoscopy (06/09/20) History of pancreatic surgery S/P cataract surgery History of bladder suspension procedure S/P thyroidectomy 1 lobe S/P breast biopsy Previous back surgery vertebroplasty H/O splenectomy H/O: hysterectomy Family History Other CAD (coronary artery disease) Cancer Diabetes Family history of premature coronary artery disease Denies family history of Anesthesia complication Bleeding disorder Social History Smoking and tobacco/nicotine status: never used tobacco/nicotine Second hand smoke exposure: No Alcohol intake: never Substance/Drug Use: never Household members: spouse Marital status: Current occupational status: retired Data Anesthesia Cardiac Studies: Echocardiogram 09/25/24 Echocardiogram Ultrasound 01/09/21 Sestamibi Stress Test (Cardiology) 09/25/24 Cardiac Event Monitor 03/25/23
[2025-05-07] MEDS: acetaminophen 1,000 MG/100 ML PIGGYBACK 400 MG IV (06:50)
[2025-05-07] MEDS: ceFAZolin 2,000 MG in sodium chloride 0.9% (plus) 50 ML 100 MG IV (07:00)
--- NOTE | 2025-05-07 07:02 | W.PM.OPSFHP ---
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 PLANNED PROCEDURE: Operation Date: 05/07/25 07:00 Proposed Procedures p De Quervain's Release(Left) - Govind Waldo, DO s Removal Loose Bodies Loose Body Removal(Left) - Govind Waldo, DO Medications/Allergies* Home Medications ?Medication ?Instructions ?Recorded ?Confirmed ?Type cholecalciferol (vitamin D3) 25 1,000 unit PO QAM 05/19/19 05/05/25 History mcg (1,000 unit) capsule denosumab 60 mg/mL subcutaneous 60 mg SUBCUT .[id number] 11/13/23 05/05/25 History syringe (Prolia) atorvastatin 20 mg tablet 20 mg PO DAILY 03/01/25 05/05/25 History cetirizine 10 mg tablet 10 mg PO DAILY 03/01/25 05/05/25 History fluticasone propionate 50 2 spray intranasal DAILY PRN 03/01/25 05/05/25 History mcg/actuation nasal allergies spray,suspension furosemide 20 mg tablet 20 mg PO DAILY PRN Edema 03/01/25 05/05/25 History omeprazole 40 mg capsule,delayed 40 mg PO BEDTIME 03/01/25 05/05/25 History release montelukast 10 mg tablet 10 mg PO DAILY 05/05/25 05/05/25 History Allergies/Adverse Reactions Allergy/AdvReac Type Severity Reaction Status Date / Time isosorbide Allergy Severe Burning in Verified 05/07/25 06:16 chest; Dizzy; Nauseous; Pain in jaws hydroxychloroquine Allergy Unknown ADR-Headach Verified 05/07/25 06:16 e latex Allergy ALGY-Rash Verified 05/07/25 06:16 hydrocodone AdvReac Intermediate hallucinati Verified 05/07/25 06:16 ng methotrexate AdvReac Intermediate adv-hair Verified 05/07/25 06:16 loss and skin problems oxycodone AdvReac Intermediate hallucinati Verified 05/07/25 06:16 on Current Medications: Generic Name Dose Route Start Last Admin Trade Name Freq PRN Reason Stop Dose Admin Sodium Chloride 1,000 mls @ 30 mls/hr 05/07/25 06:00 05/07/25 06:53 Sodium Chloride 0.9% IV 05/08/25 05:59 30 mls/hr .Q24H LEONOR Administration Pertinent History/Comorbid Conditions* Medical History (Updated 04/06/25 @ 09:09 by Govind Alas DO) Seronegative rheumatoid arthritis of both hands High risk medication use Polyarthralgia History of pulmonary embolism Recurrent deep vein thrombosis (DVT) Hypothyroidism Gastroesophageal reflux disease Coronary artery disease Tricuspid valve disorders, non-rheumatic Hypertension Osteoporosis Osteoarthritis of hands, bilateral Pulmonary hypertension Hyperlipidemia Surgical History (Updated 11/16/23 @ 00:00 by CRISTÓBAL Wheeler) Status post surgical removal of malignant neoplasm of skin Basal cell carcinoma of the nose History of surgery 10/2021 Stents cleaned out in groin per patient by Dr. Nolan Saleh, vascular surgeon at the [facility] at [place], [place] History of coronary angiogram (~06/2019) balloon angioplasty to distal RCA stenosis History of partial gastrectomy H/O esophagogastroduodenoscopy (06/09/20) History of pancreatic surgery S/P cataract surgery History of bladder suspension procedure S/P thyroidectomy 1 lobe S/P breast biopsy Previous back surgery vertebroplasty H/O splenectomy H/O: hysterectomy Family History (Updated 05/24/20 @ 14:30 by Ludy Starks LPN) Diabetes CAD (coronary artery disease) Family history of premature coronary artery disease Cancer Denies family history of Anesthesia complication Bleeding disorder Social History Smoking and tobacco/nicotine status: never used tobacco/nicotine Second hand smoke exposure: No Alcohol intake: never Substance/Drug Use: never Household members: spouse Marital status: Current occupational status: retired Pertinent Exam Findings alert, oriented x 3, operative site marked and procedure specific exam findings Please refer to anesthesia's preoperative valuation for heart and lung findings Please refer to detailed orthopedic examination on 04/06/2025 listed below: Left Wrist Exam: TTP over 1st dorsal compartment over radial styloid Positive Tinel's over 1st dorsal compartment Positive Louis's test Positive CMC joint tenderness Positive CMC grind test Palpable loose body Patient has significant decreased range of motion of thumb secondary Recommendations Risks and benefits of procedure reviewed and Patient/family agree to proceed Surgery/Procedure today Other Plans: Plan to proceed to the OR today for left wrist de Quervain's release and loose body removal patient understands ins and outs procedure the risk benefits complication alternative surgical nonsurgical treatment options. Understanding risk of surgery patient elects proceed with surgical intervention. All questions answered at this time. Coding Level of Care Code Acute Code for Chg Fwd
[2025-05-07] MEDS: ROPivacaine 0.5% SDV 30 mL 25 MG INJECTION (07:13)
--- NOTE | 2025-05-07 07:40 | W.PM.BPON ---
Date of Procedure: 05/07/2025 Surgeon: Govind Alas DO Vice President Of Customer Service(s): None Procedure(s) performed: Left wrist de Quervain's release Left wrist calcified ligament/loose body removal excision Findings of the procedure(s): Patient was found to have left wrist de Quervain's disease severe with significant calcification and overgrowth of the first dorsal compartment ligamentous complex this was satisfactorily released and then the overgrowth calcification/loose bodies were then excised and sent for specimen tolerated procedure well without issues or complications. Estimated blood loss: 3 mL Specimen(s) removed: Left wrist calcified ligament/loose body removal sent for specimen Post-operative diagnosis: Left wrist de Quervain's disease and calcified ligament/loose body left wrist
--- NOTE | 2025-05-07 07:42 | P.OP_ITS ---
Operative Report Date of procedure: May 07, 2025 Pre-op diagnosis: Left wrist de Quervain's disease, loose bodies Post-op diagnosis: Left wrist de Quervain's disease and calcified ligament/loose body left wrist Procedure done: Left wrist de Quervain's release Left wrist calcified ligament/loose body removal excision Specimens removed/disposition: Left wrist calcified ligament/loose body removal sent for specimen Pathology: Left wrist calcified ligament/loose body removal sent for specimen Surgeon: Govind Alas DO Anesthesia: MAC and Local Estimated blood loss: 3 mL 12 minutes IV fluids: 500 mL Complications: None Findings: See operative report narrative Condition: stable Disposition: same day Brief History: Patient is a pleasant 80-year-old female who has left wrist de Quervain's disease as well as palpable loose bodies over the first dorsal compartment at the site of pain we talked about her treatment options in detail she is failed Respond to Conservative Treatment This Time through Shared Decision Making She Will Pursue Surgical Invention for Left Wrist De Quervain's Release and Loose Body Removal. Patient Understands the Ins and Outs Procedure Risk Benefits Complication Alternatives Surgical Nonsurgical Treatment Options. Understanding Risk of Surgery She Elects Proceed with Surgical Intervention. All Questions Answered at This Time. Consent Reviewed and Signed with Patient in the Preoperative Holding Area Procedure: Patient seen evaluated in the preoperative holding area. Consent obtained. Patient. Correct extremities and subsequently marked. Patient was cleared for surgery and then subsequently taken back to the operative suite patient was kept on hospital gurney and transported the OR room. Patient was then plan armboard applied to left upper extremity and all bony promises well-padded patient appropriate secured to bed. Patient then subsequently went anesthesia per the HD department was prepped anesthetized and nonsterile tourniquet was applied to the left upper arm. Left upper extremity was then prepped and draped in orthopedic fashion. Final timeout performed. Patient received appropriate preoperative antibiotics. Esmarch tourniquet was used to exsanguinate the left upper extremity tourniquet was insufflated 250 mmHg. I then proceeded with the left wrist de Quervain's release.? I marked out the first dorsal compartment a small longitudinal incision was made directly over this.? Sharp scalpel incision was made through skin only switch to Littler dissection scissors and protected the superficial branch of the radial nerve as well as neurovascular structures.? I then had direct visualization of the first dorsal compartment sharp scalpel incision I used to then simply incise the first dorsal compartment I switched dissection scissors to release this both p roximally and distally to its entirety the EPB tendon did have a subsheath which was subsequently released as well.? I then subsequently used a rag nail and mobilized each tendon that verify no areas of entrapment and this completed the left wrist de Quervain's release. ?No masses were noted. ?Tendons appeared healthy but were noted of being inflamed. The superior portion of the first dorsal compartment and leaflets were found to be calcified and appreciable loose bodies which is what patient was feeling at this point time I excised this out which was then subsequently moved and placed in specimen cup and sent for specimen for final pathology. This point in time once again thoroughly irrigated the wound bed and then subsequently utilized a rag nail and took the tendons as well as finger through range of motion and patient has satisfactory smooth gliding of the first dorsal compartment. Patient?wound was then thoroughly irrigated. ?Tourniquet removed. ?Hemostasis satisfactory with bipolar electrocautery. ?I then closed the incision with interrupted 3-0 Vicryl suture and interrupted nylon stitches. ?Xeroform 4 x 4's and a bulky soft dressing was applied to the left upper extremity. Patient was then awakened from anesthesia and taken to PACU in stable condition. ?Patient tolerated procedure without complications. Disposition: Patient taken to PACU in stable condition recovering well. ?Dressing clean dry and intact. ?Patient will receive appropriate discharge instructions as well as pain medication postoperatively. ?Patient to follow-up with Ortho in the office in 2 weeks. ?They understand they may be weightbearing as tolerated to the left hand. ?Patient should keep incision clean dry and intact. ?Patient understands if any questions or concerns may contact the off ice.
[2025-05-07] MEDS: ondansetron 2 mg/ML SDV 2 mL 4 MG IVP ×2 (08:04→08:22)
--- NOTE | 2025-05-07 08:29 | PC.NURSE ---
Experiencing nausea after returning to pre op room. Gypsy Cano gave Zofran 4 mg IVP at 0804. Had another episode of retching, administer Zofran 4 mg IVP at 0822. Informed Dr Langford, he assessed pt and stated not to give anymore Zofran. If nausea continues he will administer another medication.
--- NOTE | 2025-05-07 09:01 | ANE.PACU2 ---
Inpatient post-anesthesia follow up: Airway intact: Yes Vital signs: Temperature 97.0 F Pulse Rate 63 Respiratory Rate 18 Blood Pressure 115/68 Pulse Oximetry 95 Oxygen Delivery Me thod Room Air Oxygen Flow Rate Fraction of Inspir ed Oxygen Hydration adequate: Yes Nausea and vomiting: No Pain level: 1 Mental status: Baseline
== END 2025-05-07 09:01 | disposition home or self-care (01) ==
PROVIDERS: PCP Family Medicine; Visit Provider Student in an Organized Health Care Education/Training Program
PROC: (CPT 25101; principal; 2025-05-07 07:00)
PROC: (CPT 25101; 2025-05-07 07:00)
DX: M65.4 Radial styloid tenosynovitis [de Quervain] (principal); M24.032 Loose body in left wrist; K21.9 Gastro-esophageal reflux disease without esophagitis; Z86.711 Personal history of pulmonary embolism; I82.409 Acute embolism and thrombosis of unspecified deep veins of unspecified lower extremity; E03.9 Hypothyroidism, unspecified; I25.10 Atherosclerotic heart disease of native coronary artery without angina pectoris; I10 Essential (primary) hypertension; I27.20 Pulmonary hypertension, unspecified; E78.5 Hyperlipidemia, unspecified; Z79.01 Long term (current) use of anticoagulants; I48.91 Unspecified atrial fibrillation; Z79.02 Long term (current) use of antithrombotics/antiplatelets
CPT/HCPCS: 25101; 25000; 88300; J0131; J0690; J1885; J2405; J2704; J2795; J3010; J7030; J9999

== ENCOUNTER → 2025-05-19 10:47 | Outpatient (BNVA) | payer MEDICARE, OTHER, SELFPAY | PROVIDERS: PCP Family Medicine; Visit Provider Physician Assistant | DX: Z98.890 Other specified postprocedural states (principal) | CPT/HCPCS: 99024 ==